=== PATIENT | male | born 1950 | race African-American/Black ===

== ENCOUNTER 2018-05-14 09:38 | Day surgery (SDC) | payer OTHER ==
--- OUTSIDE RECORDS SUMMARY | 2018-05-14 09:42 | XMS REPORT | Clinical Summary ---
:1950 Author Organization [facility] Address [address] [place] [address] Care Team Providers Name Role Phone Mahin Patino DO Primary Care Provider Allergies No Known Allergies Medications Medication Sig Dispensed Refills Start Date End Date Status aspirin (ECOTRIN) 81 MG Take 81 mg by 0 Active enteric coated tablet mouth daily. lisinopril-hydrochlorot Take 1 tablet by 0 Active hiazide mouth daily. (PRINZIDE,ZESTORETIC) 20-25 mg per tablet tamsulosin (FLOMAX) 0.4 Take 0.4 mg by 0 Active mg capsule,extended mouth daily. release 24hr atorvastatin (LIPITOR) Take 10 mg by 0 Active 10 MG tablet mouth daily. metFORMIN (GLUCOPHAGE) Take 500 mg by 0 Active 500 MG tablet mouth 2 (two) times a day with meals. amLODIPine (NORVASC) 10 Take 10 mg by 0 Active MG tablet mouth daily as needed. Active Problems Problem Noted Date Mediastinal adenopathy 02/29/2016 Urinary retention due to benign prostatic hyperplasia 02/10/2016 Family History Medical History Relation Name Comments Cancer Father Cancer Mother Relation Name Status Comments Father Mother Social History Tobacco Use Types Packs/Day Years Used Date Never Smoker Alcohol Use Drinks/Week oz/Week Comments Yes socially Sex Assigned at Date Recorded Not on file Job Start Date Occupation Industry Not on file Not on file Not on file Travel History Travel Start Travel End No recent travel history available. Last Filed Vital Signs Not on file Plan of Treatment Health Maintenance Due Date Last Done Comments COLON CANCER SCREENING 2000 SHINGLES VACCINES (1 of 2) 2000 PNEUMOCOCCAL POLYSACCHARIDE VACCINE AGE 65 AND OVER 2015 PNEUMOCOCCAL-13 2015 INFLUENZA VACCINE 11/01/2017 Results Not on fileafter 05/13/2017 Insurance Payer Benefit Plan / Group Subscriber ID Type Phone Address UHC MEDICARE [employer] MEDICARE xxxxxxxxx HMO Advance Directives Patient has advance care planning documents, and code status on file. For more information, please contact:Jovani Melo[address] [place] [address] Code Status Date Activated Date Inactivated Comments Full Code 02/10/2016 12:03 AM 02/10/2016 7:56 PM Code Status decision reached by: Patient
--- OUTSIDE RECORDS SUMMARY | 2018-05-14 09:43 | XMS REPORT ---
:1950 Author Organization [facility] Address [address] [place] [address] [address] [place] [address] Care Team Providers Name Role Phone BARBARA VENEGAS Unavailable Unavailable Problems This patient has no known problems. Allergies, Adverse Reactions, Alerts This patient has no known allergies or adverse reactions. Medications This patient has no known medications. Results Test Description Test Time Test Comments Text Results Atomic Results Result Comments CBC W/PLT COUNT & AUTO DIFFERENTIAL 2016-10-07 07:56:00 Test Item Value Reference Range Comments WHITE BLOOD CELL COUNT (BEAKER) (test xksc=371) 6.4 K/ L 4.0-10.0 RED BLOOD CELL COUNT (BEAKER) (test wldi=021) 3.43 M/ L 4.20-5.80 HEMOGLOBIN (BEAKER) (test pgia=139) 8.3 GM/DL 13.0-16.8 HEMATOCRIT (BEAKER) (test pzef=865) 27.7 % 40.0-50.0 MEAN CORPUSCULAR VOLUME (BEAKER) (test sbhn=786) 81.0 fL 82.0-98.0 MEAN CORPUSCULAR HEMOGLOBIN (BEAKER) (test gmzx=962) 24.1 pg 27.0-33.0 MEAN CORPUSCULAR HEMOGLOBIN CONC (BEAKER) (test cdoo=556) 29.7 GM/DL 32.0- 36.0 RED CELL DISTRIBUTION WIDTH (BEAKER) (test moyx=609) 20.7 % 10.3-14.2 PLATELET COUNT (BEAKER) (test kcvt=610) 269 K/CU MM 150-430 MEAN PLATELET VOLUME (BEAKER) (test lgir=066) 9.4 fL 6.5-10.5 NUCLEATED RED BLOOD CELLS (BEAKER) (test cpyc=798) 0 /100 WBC 0-0 NEUTROPHILS RELATIVE PERCENT (BEAKER) (test erzr=760) 43 % LYMPHOCYTES RELATIVE PERCENT (BEAKER) (test kbvw=223) 36 % MONOCYTES RELATIVE PERCENT (BEAKER) (test ldnj=408) 8 % EOSINOPHILS RELATIVE PERCENT (BEAKER) (test enur=930) 13 % BASOPHILS RELATIVE PERCENT (BEAKER) (test hckm=643) 0 % NEUTROPHILS ABSOLUTE COUNT (BEAKER) (test evpl=590) 2.72 K/ L 1.80-8.00 LYMPHOCYTES ABSOLUTE COUNT (BEAKER) (test xuqo=181) 2.26 K/ L 1.48-4.50 MONOCYTES ABSOLUTE COUNT (BEAKER) (test wfwk=130) 0.51 K/ L 0.00-1.30 EOSINOPHILS ABSOLUTE COUNT (BEAKER) (test nilz=232) 0.85 K/ L 0.00-0.50 BASOPHILS ABSOLUTE COUNT (BEAKER) (test tcpi=242) 0.02 K/ L 0.00-0.20 0.00POCT-GLUCOSE [id number] 07:47:00 Test Item Value Reference Range Comments POC-GLUCOSE METER (BEAKER) 96 mg/dL 70-110 TESTED AT [address] (test tkuy=1175) [facility] [address] BASIC METABOLIC [id number] 06:30:00 Test Item Value Reference Range Comments SODIUM (BEAKER) (test 147 meq/L 136-145 ugij=977) POTASSIUM (BEAKER) (test 3.6 meq/L 3.5-5.1 xzqc=002) CHLORIDE (BEAKER) (test 111 meq/L 98-107 qufx=540) CO2 (BEAKER) (test 28 meq/L 22-29 huzm=317) BLOOD UREA NITROGEN 4 mg/dL 7-21 (BEAKER) (test opld=160) CREATININE (BEAKER) (test 0.85 mg/dL 0.57-1.25 zqsg=815) GLUCOSE RANDOM (BEAKER) 87 mg/dL 70-105 (test zuwl=492) CALCIUM (BEAKER) (test 8.8 mg/dL 8.4-10.2 uvqa=587) EGFR (BEAKER) (test 109 mL/min/1.73 sq m ESTIMATED GFR IS NOT dvef=9002) ACCURATE CREATININE CLEARANCE IN PREDICTING GLOMERULAR FILTRATION RATE. ESTIMATED GFR IS NOT APPLICABLE FOR DIALYSIS PATIENTS. [id number] 06:19:00 Test Item Value Reference Range Comments PROTIME (BEAKER) (test ehvc=863) 14.8 seconds 11.7-14.7 INR (BEAKER) (test xixd=610) 1.2 <=5.9 PARTIAL THROMBOPLASTIN TIME (BEAKER) (test 43.7 seconds 22.5-36.0 zweh=607) RECOMMENDED COUMADIN/WARFARIN INR THERAPY RANGESSTANDARD DOSE: 2.0 - 3.0 Includes: PROPHYLAXIS forvenous thrombosis, systemic embolization; TREATMENT for venous thrombosis and/or pulmonary embolus.HIGH RISK: Target INR is 2.5-3.5 for patients with mechanical heart valves.PROTHROMBIN [id number] 06:18: 00 Test Item Value Reference Range Comments PROTIME (BEAKER) (test oaiw=068) 14.8 seconds 11.7-14.7 INR (BEAKER) (test liyh=570) 1.2 <=5.9 RECOMMENDED COUMADIN/WARFARIN INR THERAPY RANGESSTANDARD DOSE: 2.0 - 3.0 Includes: PROPHYLAXIS forvenous thrombosis, systemic embolization; TREATMENT for venous thrombosis and/or pulmonary embolus.HIGH RISK: Target INR is 2.5-3.5 for patients with mechanical heart valves.POCT-GLUCOSE [id number] 21:11:00 Test Item Value Reference Range Comments POC-GLUCOSE METER (BEAKER) 123 mg/dL 70-110 TESTED AT [address] (test qjyd=2363) [place] [address] POCT-GLUCOSE [id number] 17:40:00 Test Item Value Reference Range Comments POC-GLUCOSE METER (BEAKER) 123 mg/dL 70-110 TESTED AT [address] (test vuzw=6712) [place] [address] OCCULT BLOOD, [id number] 14:01:00 Test Item Value Reference Range Comments FECAL OCCULT BLOOD (BEAKER) (test hzli=908) Negative Negative POCT-GLUCOSE [id number] 12:37:00 Test Item Value Reference Range Comments POC-GLUCOSE METER (BEAKER) 120 mg/dL 70-110 TESTED AT [address] (test qjza=3407) [place] [address] POCT-GLUCOSE [id number] 07:47:00 Test Item Value Reference Range Comments POC-GLUCOSE METER (BEAKER) 100 mg/dL 70-110 TESTED AT [facility] [address] (test zevp=4821) [facility] [address] [id number] 04:10:00 Test Item Value Reference Range Comments PHOSPHORUS (BEAKER) (test aotj=412) 4.2 mg/dL 2.3-4.7 [id number] 04:10:00 Test Item Value Reference Range Comments MAGNESIUM (BEAKER) (test epzl=932) 1.7 mg/dL 1.6-2.6 BASIC METABOLIC [id number] 04:10:00 Test Item Value Reference Range Comments SODIUM (BEAKER) (test 146 meq/L 136-145 gegg=280) POTASSIUM (BEAKER) (test 3.5 meq/L 3.5-5.1 qdbf=991) CHLORIDE (BEAKER) (test 110 meq/L 98-107 isrm=038) CO2 (BEAKER) (test 29 meq/L 22-29 sbwc=288) BLOOD UREA NITROGEN 3 mg/dL 7-21 (BEAKER) (test mlaa=489) CREATININE (BEAKER) (test 0.84 mg/dL 0.57-1.25 mela=932) GLUCOSE RANDOM (BEAKER) 99 mg/dL 70-105 (test ryiq=182) CALCIUM (BEAKER) (test 8.6 mg/dL 8.4-10.2 qpyh=546) EGFR (BEAKER) (test 111 mL/min/1.73 sq m ESTIMATED GFR IS NOT omih=5778) ACCURATE CREATININE CLEARANCE IN PREDICTING GLOMERULAR FILTRATION RATE. ESTIMATED GFR IS NOT APPLICABLE FOR DIALYSIS PATIENTS. HEPATIC FUNCTION [id number] 04:10:00 Test Item Value Reference Range Comments TOTAL PROTEIN (BEAKER) (test awod=316) 5.5 gm/dL 6.0-8.3 ALBUMIN (BEAKER) (test pijt=5004) 2.5 g/dL 3.5-5.0 BILIRUBIN TOTAL (BEAKER) (test wdjk=736) 0.1 mg/dL 0.2-1.2 BILIRUBIN DIRECT (BEAKER) (test pqbh=770) 0.1 mg/dL 0.1-0.5 ALKALINE PHOSPHATASE (BEAKER) (test ozse=105) 54 U/L 40-150 AST (SGOT) (BEAKER) (test dwrj=019) 25 U/L 5-34 ALT (SGPT) (BEAKER) (test fjoe=837) 15 U/L 6-55 [id number] 04:03:00 Test Item Value Reference Range Comments PROTIME (BEAKER) (test jtpi=146) 14.0 seconds 11.7-14.7 INR (BEAKER) (test oazi=061) 1.1 <=5.9 PARTIAL THROMBOPLASTIN TIME (BEAKER) (test 70.7 seconds 22.5-36.0 hgab=027) RECOMMENDED COUMADIN/WARFARIN INR THERAPY RANGESSTANDARD DOSE: 2.0 - 3.0 Includes: PROPHYLAXIS forvenous thrombosis, systemic embolization; TREATMENT for venous thrombosis and/or pulmonary embolus.HIGH RISK: Target INR is 2.5-3.5 for patients with mechanical heart valves.[id number] 04:03:00 Test Item Value Reference Range Comments PARTIAL THROMBOPLASTIN TIME (BEAKER) (test 70.7 seconds 22.5-36.0 jfke=088) PROTHROMBIN [id number] 04:02:00 Test Item Value Reference Range Comments PROTIME (BEAKER) (test lqpz=460) 14.0 seconds 11.7-14.7 INR (BEAKER) (test twir=637) 1.1 <=5.9 RECOMMENDED COUMADIN/WARFARIN INR THERAPY RANGESSTANDARD DOSE: 2.0 - 3.0 Includes: PROPHYLAXIS forvenous thrombosis, systemic embolization; TREATMENT for venous thrombosis and/or pulmonary embolus.HIGH RISK: Target INR is 2.5-3.5 for patients with mechanical heart valves.CBC W/PLT COUNT & AUTO [id number] 03:57:00 Test Item Value Reference Range Comments WHITE BLOOD CELL COUNT (BEAKER) (test gvsw=053) 6.8 K/ L 4.0-10.0 RED BLOOD CELL COUNT (BEAKER) (test cvif=953) 3.32 M/ L 4.20-5.80 HEMOGLOBIN (BEAKER) (test uydy=346) 8.2 GM/DL 13.0-16.8 HEMATOCRIT (BEAKER) (test kwvy=062) 27.0 % 40.0-50.0 MEAN CORPUSCULAR VOLUME (BEAKER) (test rxzs=532) 81.3 fL 82.0-98.0 MEAN CORPUSCULAR HEMOGLOBIN (BEAKER) (test 24.5 pg 27.0-33.0 ihqq=683) MEAN CORPUSCULAR HEMOGLOBIN CONC (BEAKER) (test 30.2 GM/DL 32.0-36.0 rfdq=764) RED CELL DISTRIBUTION WIDTH (BEAKER) (test 20.4 % 10.3-14.2 teou=237) PLATELET COUNT (BEAKER) (test ozjb=247) 272 K/CU MM 150-430 MEAN PLATELET VOLUME (BEAKER) (test yipx=463) 9.0 fL 6.5-10.5 NUCLEATED RED BLOOD CELLS (BEAKER) (test 0 /100 WBC 0-0 uxka=214) NEUTROPHILS RELATIVE PERCENT (BEAKER) (test 37 % rwqd=528) LYMPHOCYTES RELATIVE PERCENT (BEAKER) (test 41 % tduy=393) MONOCYTES RELATIVE PERCENT (BEAKER) (test 10 % pkhg=713) EOSINOPHILS RELATIVE PERCENT (BEAKER) (test 12 % lddq=785) BASOPHILS RELATIVE PERCENT (BEAKER) (test 1 % aziw=103) NEUTROPHILS ABSOLUTE COUNT (BEAKER) (test 2.50 K/ L 1.80-8.00 prdj=063) LYMPHOCYTES ABSOLUTE COUNT (BEAKER) (test 2.80 K/ L 1.48-4.50 uleh=931) MONOCYTES ABSOLUTE COUNT (BEAKER) (test 0.69 K/ L 0.00-1.30 rwjy=044) EOSINOPHILS ABSOLUTE COUNT (BEAKER) (test 0.79 K/ L 0.00-0.50 ytuc=361) BASOPHILS ABSOLUTE COUNT (BEAKER) (test 0.05 K/ L 0.00-0.20 myat=183) 0.00POCT-GLUCOSE [id number] 22:16:00 Test Item Value Reference Range Comments POC-GLUCOSE METER (BEAKER) 115 mg/dL 70-110 TESTED AT [facility] [address] (test uuqw=3676) [facility] [address] [id number] 21:09:00 Test Item Value Reference Range Comments PARTIAL THROMBOPLASTIN TIME (BEAKER) (test 65.3 seconds 22.5-36.0 bwnx=551) POCT-GLUCOSE [id number] 17:35:00 Test Item Value Reference Range Comments POC-GLUCOSE METER (BEAKER) 103 mg/dL 70-110 TESTED AT [facility] [address] (test yuat=0779) [facility] [address] PERIPHERAL BLOOD SMEAR - PATHOLOGIST [id number] 15:13:00 Test Item Value Reference Range Comments RBC MORPHOLOGY Marked (BEAKER) (test anisopoikilocytosis, xugn=9243) including elliptocytes and few target cells. Red cells are hypochromic with microcytic indices. WBC MORPHOLOGY Hypersegmented (BEAKER) (test neutrophils. uvdh=6886) PLT MORPHOLOGY Unremarkable (BEAKER) (test umwv=8707) PERIPHERAL SMR REVIEW Iron studies are (BEAKER) (test recommended for complete xvih=9371) evaluation of this patient's anemia. [id number] Sabrina (BEAKER) (test Andrea-Voorbeijtel, vxhp=7923) Amanda (electronic signature) OCCULT BLOOD, [id number] 12:57:00 Test Item Value Reference Range Comments FECAL OCCULT BLOOD (BEAKER) (test ftkc=716) Negative Negative POCT-GLUCOSE [id number] 11:54:00 Test Item Value Reference Range Comments POC-GLUCOSE METER (BEAKER) 82 mg/dL 70-110 TESTED AT [place] [id number] [facility] (test qzyv=8916) [place] [address] [id number] 11:50:00 Test Item Value Reference Range Comments PARTIAL THROMBOPLASTIN TIME (BEAKER) (test 41.0 seconds 22.5-36.0 bfdo=521) Prior to initiating heparinCBC (HEMOGRAM ONLY)2016-10-05 11:43:00 Test Item Value Reference Range Comments WHITE BLOOD CELL COUNT (BEAKER) (test vtoo=723) 6.1 K/ L 4.0-10.0 RED BLOOD CELL COUNT (BEAKER) (test nvil=560) 3.39 M/ L 4.20-5.80 HEMOGLOBIN (BEAKER) (test ddgi=674) 8.4 GM/DL 13.0-16.8 HEMATOCRIT (BEAKER) (test anql=237) 27.5 % 40.0-50.0 MEAN CORPUSCULAR VOLUME (BEAKER) (test jkdy=590) 81.0 fL 82.0-98.0 MEAN CORPUSCULAR HEMOGLOBIN (BEAKER) (test 24.8 pg 27.0-33.0 kzbd=000) MEAN CORPUSCULAR HEMOGLOBIN CONC (BEAKER) (test 30.7 GM/DL 32.0-36.0 niwz=892) RED CELL DISTRIBUTION WIDTH (BEAKER) (test 21.8 % 10.3-14.2 wnxt=991) PLATELET COUNT (BEAKER) (test isjr=658) 275 K/CU MM 150-430 MEAN PLATELET VOLUME (BEAKER) (test kkru=852) 8.9 fL 6.5-10.5 NUCLEATED RED BLOOD CELLS (BEAKER) (test 0 /100 WBC 0-0 wanv=252) 0.00POCT-GLUCOSE [id number] 08:03:00 Test Item Value Reference Range Comments POC-GLUCOSE METER (BEAKER) 96 mg/dL 70-110 TESTED AT [facility] [address] (test iann=2466) [facility] [address] HEMOGLOBIN [id number] 08:02:00 Test Item Value Reference Range Comments HEMOGLOBIN A1C (BEAKER) (test oczi=175) 6.5 % 4.3-6.1 [id number] 04:21:00 Test Item Value Reference Range Comments PROTIME (BEAKER) (test mzhf=180) 15.2 seconds 11.7-14.7 INR (BEAKER) (test bngf=729) 1.2 <=5.9 PARTIAL THROMBOPLASTIN TIME (BEAKER) (test 41.8 seconds 22.5-36.0 fqyb=461) RECOMMENDED COUMADIN/WARFARIN INR THERAPY RANGESSTANDARD DOSE: 2.0 - 3.0 Includes: PROPHYLAXIS forvenous thrombosis, systemic embolization; TREATMENT for venous thrombosis and/or pulmonary embolus.HIGH RISK: Target INR is 2.5-3.5 for patients with mechanical heart valves.[id number] 04:21:00 Test Item Value Reference Range Comments PHOSPHORUS (BEAKER) (test lhbd=269) 3.8 mg/dL 2.3-4.7 [id number] 04:21:00 Test Item Value Reference Range Comments MAGNESIUM (BEAKER) (test gdxi=362) 1.6 mg/dL 1.6-2.6 BASIC METABOLIC [id number] 04:21:00 Test Item Value Reference Range Comments SODIUM (BEAKER) (test 144 meq/L 136-145 pjrq=166) POTASSIUM (BEAKER) (test 3.7 meq/L 3.5-5.1 nwoi=326) CHLORIDE (BEAKER) (test 109 meq/L 98-107 lmoj=747) CO2 (BEAKER) (test 27 meq/L 22-29 ucps=841) BLOOD UREA NITROGEN 3 mg/dL 7-21 (BEAKER) (test zymk=568) CREATININE (BEAKER) (test 0.88 mg/dL 0.57-1.25 cfjx=382) GLUCOSE RANDOM (BEAKER) 109 mg/dL 70-105 (test rnmo=727) CALCIUM (BEAKER) (test 9.1 mg/dL 8.4-10.2 lcxb=987) EGFR (BEAKER) (test 105 mL/min/1.73 sq m ESTIMATED GFR IS NOT xqqn=6568) ACCURATE CREATININE CLEARANCE IN PREDICTING GLOMERULAR FILTRATION RATE. ESTIMATED GFR IS NOT APPLICABLE FOR DIALYSIS PATIENTS. HEPATIC FUNCTION [id number] 04:21:00 Test Item Value Reference Range Comments TOTAL PROTEIN (BEAKER) (test ttqt=441) 6.2 gm/dL 6.0-8.3 ALBUMIN (BEAKER) (test nvwe=7288) 2.8 g/dL 3.5-5.0 BILIRUBIN TOTAL (BEAKER) (test uien=151) 0.2 mg/dL 0.2-1.2 BILIRUBIN DIRECT (BEAKER) (test ctbp=536) 0.1 mg/dL 0.1-0.5 ALKALINE PHOSPHATASE (BEAKER) (test crji=671) 65 U/L 40-150 AST (SGOT) (BEAKER) (test gboq=613) 18 U/L 5-34 ALT (SGPT) (BEAKER) (test sfrz=036) 13 U/L 6-55 PROTHROMBIN [id number] 04:20:00 Test Item Value Reference Range Comments PROTIME (BEAKER) (test wfcu=487) 15.2 seconds 11.7-14.7 INR (BEAKER) (test pade=874) 1.2 <=5.9 RECOMMENDED COUMADIN/WARFARIN INR THERAPY RANGESSTANDARD DOSE: 2.0 - 3.0 Includes: PROPHYLAXIS forvenous thrombosis, systemic embolization; TREATMENT for venous thrombosis and/or pulmonary embolus.HIGH RISK: Target INR is 2.5-3.5 for patients with mechanical heart valves.CBC W/PLT COUNT & AUTO [id number] 04:09:00 Test Item Value Reference Range Comments WHITE BLOOD CELL COUNT (BEAKER) (test oumu=757) 6.9 K/ L 4.0-10.0 RED BLOOD CELL COUNT (BEAKER) (test diik=357) 3.65 M/ L 4.20-5.80 HEMOGLOBIN (BEAKER) (test eufo=274) 8.9 GM/DL 13.0-16.8 HEMATOCRIT (BEAKER) (test zwzp=890) 29.5 % 40.0-50.0 MEAN CORPUSCULAR VOLUME (BEAKER) (test juuk=708) 80.9 fL 82.0-98.0 MEAN CORPUSCULAR HEMOGLOBIN (BEAKER) (test 24.4 pg 27.0-33.0 jlbb=372) MEAN CORPUSCULAR HEMOGLOBIN CONC (BEAKER) (test 30.1 GM/DL 32.0-36.0 nryu=560) RED CELL DISTRIBUTION WIDTH (BEAKER) (test 21.9 % 10.3-14.2 qotd=986) PLATELET COUNT (BEAKER) (test zxam=459) 295 K/CU MM 150-430 MEAN PLATELET VOLUME (BEAKER) (test qyhn=957) 8.8 fL 6.5-10.5 NUCLEATED RED BLOOD CELLS (BEAKER) (test 0 /100 WBC 0-0 omyx=962) NEUTROPHILS RELATIVE PERCENT (BEAKER) (test 44 % mbjk=687) LYMPHOCYTES RELATIVE PERCENT (BEAKER) (test 35 % kinz=888) MONOCYTES RELATIVE PERCENT (BEAKER) (test 10 % pggr=230) EOSINOPHILS RELATIVE PERCENT (BEAKER) (test 10 % dsnu=870) BASOPHILS RELATIVE PERCENT (BEAKER) (test 1 % otij=746) NEUTROPHILS ABSOLUTE COUNT (BEAKER) (test 3.00 K/ L 1.80-8.00 eltm=994) LYMPHOCYTES ABSOLUTE COUNT (BEAKER) (test 2.40 K/ L 1.48-4.50 pydd=209) MONOCYTES ABSOLUTE COUNT (BEAKER) (test 0.71 K/ L 0.00-1.30 wlzi=403) EOSINOPHILS ABSOLUTE COUNT (BEAKER) (test 0.72 K/ L 0.00-0.50 clqo=023) BASOPHILS ABSOLUTE COUNT (BEAKER) (test 0.05 K/ L 0.00-0.20 fnwt=405) [id number] 02:36:00 Test Item Value Reference Range Comments FERRITIN (BEAKER) (test eddq=593) 2576 ng/mL 5-275 Effective 02/18/2014: Reference Range ChangeNew: Male 5-275 Previous: Male 22-322 Female 5-275 Female [id number] 02:30 :00 Test Item Value Reference Range Comments HAPTOGLOBIN (BEAKER) (test hczn=264) 242 mg/dL 14-258 Effective 02/18/2014: Reference Range ChangeNew: 14-258 Previous: 36- 195VITAMIN [id number] 01:42:00 Test Item Value Reference Range Comments VITAMIN B12 (BEAKER) (test avsd=439) 1077 pg/mL 213-816 FOLATE, [id number] 01:42:00 Test Item Value Reference Range Comments FOLATE (BEAKER) (test pewk=311) 5.5 ng/mL >=7.0 Effective 02/18/2014: Folate Reference Range ChangeNew: >=7.0 Previous: & gt;=5.4IRON, TIBC, % SAT. (WITHOUT FERRITIN)2016-10-05 01:07:00 Test Item Value Reference Range Comments IRON (BEAKER) (test cfyg=741) 19 ug/dL 40-160 TOTAL IRON BINDING CAPACITY (BEAKER) (test 113 ug/dL 250-450 wkop=211) IRON % SATURATION (2) (BEAKER) (test lrlh=8779) 17 % 20-55 (MANUAL DIFFERENTIAL)2016-10-04 23:25:00 Test Item Value Reference Range Comments NEUTROPHILS - REL (DIFF) (BEAKER) (test 49 % pqmu=5645) LYMPHOCYTES - REL (DIFF) (BEAKER) (test 30 % erym=8296) MONOCYTES - REL (DIFF) (BEAKER) (test ngdz=5808) 8 % EOSINOPHILS - REL (DIFF) (BEAKER) (test 12 % pokp=8093) BASOPHILS - REL (DIFF) (BEAKER) (test fhqe=4032) 1 % NEUTROPHILS - ABS (DIFF) (BEAKER) (test 3.53 K/ L 1.80-8.00 ibwt=1181) LYMPHOCYTES - ABS (DIFF) (BEAKER) (test 2.16 K/ L 1.48-4.50 lqoa=2463) MONOCYTES - ABS (DIFF) (BEAKER) (test vkap=6764) 0.58 K/ L 0.00-1.30 EOSINOPHILS - ABS (DIFF) (BEAKER) (test 0.86 K/ L 0.00-0.50 ayaa=1215) BASOPHILS - ABS (DIFF) (BEAKER) (test eefn=1018) 0.07 K/ L 0.00-0.20 TOTAL COUNTED (BEAKER) (test lfdc=1810) 100 VACUOLATED NEUTROPHILS (BEAKER) (test zcpg=438) Present GIANT PLATELETS (BEAKER) (test fpmk=164) Present SCHISTOCYTES (BEAKER) (test tbld=843) 1+ few ANISOCYTOSIS (BEAKER) (test qziw=952) 1+ few ELLIPTOCYTES (BEAKER) (test agwi=498) 1+ few HYPOCHROMIA (BEAKER) (test thhe=481) 2+ moderate POIKILOCYTES (BEAKER) (test bmjs=745) 2+ moderate POLYCHROMATOPHILLIC RBCS(BEAKER) (test coqv=872) 1+ few SPHEROCYTES (BEAKER) (test lbit=783) 1+ few TARGET CELLS (BEAKER) (test tguo=612) 1+ few [id number] 23:12:00 Test Item Value Reference Range Comments PHOSPHORUS (BEAKER) (test bpcd=162) 3.5 mg/dL 2.3-4.7 [id number] 23:12:00 Test Item Value Reference Range Comments MAGNESIUM (BEAKER) (test bewj=853) 1.5 mg/dL 1.6-2.6 COMPREHENSIVE METABOLIC [id number] 23:12:00 Test Item Value Reference Range Comments TOTAL PROTEIN (BEAKER) 6.4 gm/dL 6.0-8.3 (test cqea=081) ALBUMIN (BEAKER) (test 2.9 g/dL 3.5-5.0 ugze=3654) ALKALINE PHOSPHATASE 67 U/L 40-150 (BEAKER) (test phtp=175) BILIRUBIN TOTAL (BEAKER) 0.2 mg/dL 0.2-1.2 (test drbe=079) SODIUM (BEAKER) (test 143 meq/L 136-145 xhuc=311) POTASSIUM (BEAKER) (test 3.8 meq/L 3.5-5.1 enxa=354) CHLORIDE (BEAKER) (test 108 meq/L 98-107 tvph=225) CO2 (BEAKER) (test 27 meq/L 22-29 uibi=684) BLOOD UREA NITROGEN 3 mg/dL 7-21 (BEAKER) (test ksdn=017) CREATININE (BEAKER) (test 1.00 mg/dL 0.57-1.25 ijfa=695) GLUCOSE RANDOM (BEAKER) 123 mg/dL 70-105 (test qdrp=711) CALCIUM (BEAKER) (test 8.8 mg/dL 8.4-10.2 jqxl=554) AST (SGOT) (BEAKER) (test 16 U/L 5-34 fyfu=034) ALT (SGPT) (BEAKER) (test 16 U/L 6-55 bnyr=268) EGFR (BEAKER) (test 91 mL/min/1.73 sq m ESTIMATED GFR IS NOT ixud=4099) ACCURATE CREATININE CLEARANCE IN PREDICTING GLOMERULAR FILTRATION RATE. ESTIMATED GFR IS NOT APPLICABLE FOR DIALYSIS PATIENTS. LACTATE DEHYDROGENASE (LDH)2016-10-04 23:12:00 Test Item Value Reference Range Comments LACTATE DEHYDROGENASE (BEAKER) (test pjxz=230) 205 U/L 125-220 RETICULOCYTE [id number] 23:09:00 Test Item Value Reference Range Comments RETICULOCYTE COUNT PCT (BEAKER) (test ypai=706) 2.5 % 0.4-2.9 CBC W/PLT COUNT & AUTO [id number] 23:09:00 Test Item Value Reference Range Comments WHITE BLOOD CELL COUNT (BEAKER) (test hbnq=031) 7.2 K/ L 4.0-10.0 RED BLOOD CELL COUNT (BEAKER) (test njdh=815) 3.79 M/ L 4.20-5.80 HEMOGLOBIN (BEAKER) (test jwup=876) 9.1 GM/DL 13.0-16.8 HEMATOCRIT (BEAKER) (test xbkq=552) 30.6 % 40.0-50.0 MEAN CORPUSCULAR VOLUME (BEAKER) (test faoz=235) 80.7 fL 82.0-98.0 MEAN CORPUSCULAR HEMOGLOBIN (BEAKER) (test 24.1 pg 27.0-33.0 qooe=055) MEAN CORPUSCULAR HEMOGLOBIN CONC (BEAKER) (test 29.9 GM/DL 32.0-36.0 gkgg=848) RED CELL DISTRIBUTION WIDTH (BEAKER) (test 21.6 % 10.3-14.2 dacy=246) PLATELET COUNT (BEAKER) (test cusk=696) 313 K/CU MM 150-430 MEAN PLATELET VOLUME (BEAKER) (test nbnx=627) 9.0 fL 6.5-10.5 NUCLEATED RED BLOOD CELLS (BEAKER) (test 0 /100 WBC 0-0 pabs=120) NEUTROPHILS RELATIVE PERCENT (BEAKER) (test 47 % wnjo=468) LYMPHOCYTES RELATIVE PERCENT (BEAKER) (test 33 % ovci=083) MONOCYTES RELATIVE PERCENT (BEAKER) (test 10 % zhwv=484) EOSINOPHILS RELATIVE PERCENT (BEAKER) (test 9 % zmux=752) BASOPHILS RELATIVE PERCENT (BEAKER) (test 1 % ahea=616) NEUTROPHILS ABSOLUTE COUNT (BEAKER) (test 3.38 K/ L 1.80-8.00 pvfr=536) LYMPHOCYTES ABSOLUTE COUNT (BEAKER) (test 2.38 K/ L 1.48-4.50 hjnc=978) MONOCYTES ABSOLUTE COUNT (BEAKER) (test 0.70 K/ L 0.00-1.30 oneh=178) EOSINOPHILS ABSOLUTE COUNT (BEAKER) (test 0.63 K/ L 0.00-0.50 zfcb=065) BASOPHILS ABSOLUTE COUNT (BEAKER) (test 0.06 K/ L 0.00-0.20 vugj=196) POCT-GLUCOSE [id number] 22:56:00 Test Item Value Reference Range Comments POC-GLUCOSE METER (BEAKER) 155 mg/dL 70-110 TESTED AT [address] (test gqqd=8868) [place] [id number] POCT-GLUCOSE [id number] 17:39:00 Test Item Value Reference Range Comments POC-GLUCOSE METER (BEAKER) 106 mg/dL 70-110 TESTED AT [address] (test pfzj=9142) [place] [id number]
--- OUTSIDE RECORDS SUMMARY | 2018-05-14 09:43 | XMS REPORT | Clinical Summary ---
:1950 Author Organization [facility] Address [address] [place] [address] Care Team Providers Name Role Phone Mahin Patino Primary Care Provider Allergies No Known Allergies Medications Medication Sig Dispensed Refills Start Date End Date Status amLODIPine (NORVASC) 5 Take 10 mg by 0 Active MG tablet mouth daily as needed. lisinopril-hydroCHLOROt Take 1 tablet by 0 Active hiazide mouth daily. (PRINZIDE,ZESTORETIC) 20-12.5 mg per tablet metFORMIN Take 1,000 mg by 0 Active (GLUCOPHAGE-XR) 500 MG mouth 2 (two) 24 hr tablet times daily. tamsulosin (FLOMAX) 0.4 Take 0.4 mg by 0 Active mg Cp24 24 hr capsule mouth 2 (two) times daily. traMADol (ULTRAM) 50 mg Take 50 mg by 0 Active tablet mouth every 6 (six) hours as needed for Pain. atorvastatin (LIPITOR) Take 10 mg by 0 Active 10 MG tablet mouth. Active Problems Problem Noted Date Hypernatremia 10/06/2016 Acute deep vein thrombosis (DVT) of proximal vein of right lower extremity 08/2016 Anemia, unspecified 10/05/2016 Benign hypertension 10/05/2016 Hyperlipidemia, unspecified 10/05/2016 Hodgkin lymphoma 10/05/2016 Type 2 diabetes mellitus with complication, without long-term current use 08/2016 of insulin BPH (benign prostatic hyperplasia) 10/05/2016 Obesity (BMI 30-39.9) 10/05/2016 Hypoalbuminemia 10/05/2016 Hypomagnesemia 10/05/2016 Folic acid deficiency 10/05/2016 Moderate protein-calorie malnutrition 10/05/2016 S/P cholecystectomy 10/05/2016 History of pulmonary embolism 10/04/2016 Family History Medical History Relation Name Comments Cancer Father Relation Name Status Comments Father Social History Tobacco Use Types Packs/Day Years Used Date Never Smoker Alcohol Use Drinks/Week oz/Week Comments No Sex Assigned at Date Recorded Not on file Job Start Date Occupation Industry Not on file Not on file Not on file Travel History Travel Start Travel End No recent travel history available. Last Filed Vital Signs Not on file Plan of Treatment Not on file Results Not on fileafter 05/13/2017 Insurance Payer Benefit Plan / Group Subscriber ID Type Phone Address CARE IMPROVEMENT MEDICARE MGD CARE IMPROVEMENT PLUS xxxxxxxxx CARE Advance Directives For more information, please contact:[address] [phone] Code Status Date Activated Date Inactivated Comments Full Code 10/04/2016 8:26 PM 10/07/2016 4:40 PM This code status was determined by: Patient
[2018-05-14] MEDS ORDERED: NA CHLORIDE 0.9% 500 ML ONE (10:06)
[2018-05-14] MEDS ORDERED: CYCLOPENTOLATE 1% OPTH 2 ML ONE (10:06)
[2018-05-14] MEDS ORDERED: PHENYLEPHRINE 10% OPTH 5ML ONE (10:06)
[2018-05-14] MEDS ORDERED: CYCLOPENTOLATE 1% OPTH 2 ML OPTH ONE ×2 (10:16→10:26)
[2018-05-14] MEDS ORDERED: PHENYLEPHRINE 10% OPTH 5ML OPTH ONE ×2 (10:16→10:26)
[2018-05-14] MEDS: TETRACAINE HCL 0.5% 2ML OPTH ONE ×2 (10:30→11:31)
[2018-05-14] MEDS: BUPIVACAINE 0.25% PF 10 ML VIAL ONE ×2 (10:30→11:31)
[2018-05-14] MEDS: LIDOCAINE 2% MPF 5 ML VIAL ONE ×2 (10:31→11:31)
[2018-05-14] MEDS ORDERED: NS 0.9% VIAL 10 ML ONE (10:50)
[2018-05-14] MEDS ORDERED: BALANCED SALT IRRIG PLAIN 500 ML BTL IRR ONE (10:50)
[2018-05-14] MEDS ORDERED: EPINEPHRINE/PF 1 MG/ML AMP ONE ×2 (10:50→10:51)
[2018-05-14] MEDS ORDERED: DUOVISC 1 KIT OPTH ONE (10:50)
[2018-05-14] MEDS ORDERED: PROPOFOL 200 MG/20 ML VIAL IV ONE (11:14)
[2018-05-14] MEDS: MOXIFLOXACIN HCL 10 DROPS/ML **OR USE OPTH ONE ×2 (11:50→12:08)
--- NOTE | 2018-05-14 12:25 | P.BOP ---
Preoperative diagnosis: Nuclear sclerotic, cortical, anterior and posterior subcapsular cataract OS Postoperative diagnosis: Same Primary procedure: Phacoemulsification with IOL OS Estimated blood loss: None Anesthesia: Local (Subtenon's infusion with anesthesia for cataract surgery) Complications: None Implants: SN60WF +19.5 Transferred to: Other (Day surgery) Condition: Good
[2018-05-14] MEDS ORDERED: HEPARIN 500 UNIT/5 ML SYR IV ONE (12:51)
[2018-05-14 12:53] VITALS: BP 114/75; TEMP 96.9; O2SAT 100
--- NOTE | 2018-05-14 22:44 | OP ---
Date of Procedure: 05/14/2018 Surgeon: Karlee Butler MD Anesthesiologist: 1. Adwoa Roland CRNA. 2. Juan Morris CRNA. 3. Ang Webb M.D. Preoperative Diagnosis: Nuclear sclerotic, cortical, anterior and posterior subcapsular cataract OS (left eye). Operation Performed: Phacoemulsification with intraocular lens implant, left eye. Anesthesia: Per cataract surgery. Complications: None. Description Of Procedure: In day surgery, the patient was prepped with Betadine and draped. A conjunctival incision was made in the inferior nasal quadrant with Sole scissors. A sub-Tenon block consisting of a 1:1 mixture of 2% Xylocaine and 0.25% bupivacaine was placed through the conjunctival incision with a blunt cannula. A Honan balloon was placed over the eye and the patient was transferred to the operating room. In the operating room the patient was prepped and draped in the usual sterile fashion for ophthalmic surgery. A lid speculum was placed in the left eye. Two paracentesis sites were made superiorly and inferiorly in the limbal cornea. Viscoat was placed in the anterior chamber and a crescent blade was used to make a corneal groove and tunnel, and a keratome was used to enter the anterior chamber. Provisc was placed in the anterior chamber and a 360 degree capsulotomy was performed with a cystitome. The lens was hydrodissected with BSS and rotated freely. The lens was removed with a stop and chop technique. A 7.77 phaco CDE was used to remove the lens. Residual cortex was removed with the irrigation and aspiration. Provisc was placed in the capsular bag. A SN60WF +19.5 lens was placed in the capsular bag without complications. Irrigation and aspiration was used to remove residual viscoelastic. The paracentesis sites were hydrated with BSS. The wound and paracentesis sites were inspected and found to be watertight. Vigamox 0.07 cc was placed intracamerally at the end of the procedure. The eye was irrigated with balanced salt solution. The eye was patched with a soft cotton patch and Chicas metal shield. The patient was returned to day surgery in good condition. Comments: The lens was slightly loose. Atrial fibrillation was noted at the beginning of surgery, and this was not known prior to today. However, the patient stated that Dr. Olguin is aware of this diagnosis. Discharge Instructions: Mr. Krause was discharged to home in good condition and is to follow up with Dr. Butler in the morning. CATALINA/LAURA Voice ID: [id number] Report ID: [id number] MTDD
== END 2018-05-14 12:59 | disposition home or self-care (01) ==
LOC: OR 09:38
PROVIDERS: ATTEND Ophthalmology Retina Specialist
PROC: 08RK3JZ Replacement of Left Lens with Synthetic Substitute, Percutaneous Approach (ICD-10-PCS; principal; 2018-05-14 10:30)
DX: H25.12 Age-related nuclear cataract, left eye (principal); H25.042 Posterior subcapsular polar age-related cataract, left eye; H25.032 Anterior subcapsular polar age-related cataract, left eye; E11.9 Type 2 diabetes mellitus without complications; E78.00 Pure hypercholesterolemia, unspecified; I10 Essential (primary) hypertension; I48.91 Unspecified atrial fibrillation; Z79.01 Long term (current) use of anticoagulants; Z79.84 Long term (current) use of oral hypoglycemic drugs; Z79.899 Other long term (current) drug therapy
CPT/HCPCS: 66984; 82962; J0171 ×2; J1642; J2704; V2630

== ENCOUNTER 2018-08-01 10:50 | Emergency (ER) | payer OTHER ==
--- OUTSIDE RECORDS SUMMARY | 2018-08-01 11:06 | XMS REPORT | Clinical Summary ---
:1950 Author Organization [facility] Address [address] [place] [address] Care Team Providers Name Role Phone Mahin [...] Comments COLON CANCER SCREENING 2000 SHINGLES VACCINES (#1) 2000 65+ PNEUMOCOCCAL VACCINE (1 of 2 - PCV13) 2015 PNEUMOCOCCAL POLYSACCHARIDE VACCINE AGE 65 AND OVER 2015 INFLUENZA VACCINE 11/01/2018 Results Not on fileafter 07/31/2017 Insurance Payer Benefit Plan / Group Subscriber ID Type Phone Address UHC MEDICARE [employer] MEDICARE xxxxxxxxx HMO Advance Directives Patient has advance care planning documents, and code status on file. For more information, please contact:Jovani Melo[address] [place] [phone] Code Status Date Activated Date Inactivated Comments Full Code 02/10/2016 12:03 AM 02/10/2016 7:56 PM Code Status decision reached by: Patient
--- OUTSIDE RECORDS SUMMARY | 2018-08-01 11:06 | XMS REPORT | Clinical Summary ---
:1950 Author Organization [facility] Address [address] [place] [address] Care Team Providers Name Role Phone Mahin [...] Not on file Results Not on fileafter 07/31/2017 Insurance Payer Benefit Plan / Group Subscriber ID Type Phone Address CARE IMPROVEMENT MEDICARE MGD CARE IMPROVEMENT PLUS xxxxxxxxx CARE Advance Directives For more information, please contact:[address] [phone] Code Status Date Activated Date Inactivated Comments Full Code 10/04/2016 8:26 PM 10/07/2016 4:40 PM This code status was determined by: Patient
--- OUTSIDE RECORDS SUMMARY | 2018-08-01 11:07 | XMS REPORT ---
:1950 [facility] Address [address] [place] [address] [place] [id number] Care Team Providers Name Role Phone BARBARA [...] Comments WHITE BLOOD CELL COUNT (BEAKER) (test sajh=884) 6.4 K/ L 4.0-10.0 RED BLOOD CELL COUNT (BEAKER) (test tlwh=129) 3.43 M/ L 4.20-5.80 HEMOGLOBIN (BEAKER) (test hxwm=982) 8.3 GM/DL 13.0-16.8 HEMATOCRIT (BEAKER) (test mvhf=725) 27.7 % 40.0-50.0 MEAN CORPUSCULAR VOLUME (BEAKER) (test dhgf=802) 81.0 fL 82.0-98.0 MEAN CORPUSCULAR HEMOGLOBIN (BEAKER) (test jszy=525) 24.1 pg 27.0-33.0 MEAN CORPUSCULAR HEMOGLOBIN CONC (BEAKER) (test bceq=402) 29.7 GM/DL 32.0- 36.0 RED CELL DISTRIBUTION WIDTH (BEAKER) (test qwcs=554) 20.7 % 10.3-14.2 PLATELET COUNT (BEAKER) (test jtqt=505) 269 K/CU MM 150-430 MEAN PLATELET VOLUME (BEAKER) (test cntk=555) 9.4 fL 6.5-10.5 NUCLEATED RED BLOOD CELLS (BEAKER) (test ohtm=826) 0 /100 WBC 0-0 NEUTROPHILS RELATIVE PERCENT (BEAKER) (test qaxy=906) 43 % LYMPHOCYTES RELATIVE PERCENT (BEAKER) (test xbcm=479) 36 % MONOCYTES RELATIVE PERCENT (BEAKER) (test fkga=429) 8 % EOSINOPHILS RELATIVE PERCENT (BEAKER) (test rldj=310) 13 % BASOPHILS RELATIVE PERCENT (BEAKER) (test rito=013) 0 % NEUTROPHILS ABSOLUTE COUNT (BEAKER) (test fbrr=917) 2.72 K/ L 1.80-8.00 LYMPHOCYTES ABSOLUTE COUNT (BEAKER) (test cqrv=714) 2.26 K/ L 1.48-4.50 MONOCYTES ABSOLUTE COUNT (BEAKER) (test yoxb=102) 0.51 K/ L 0.00-1.30 EOSINOPHILS ABSOLUTE COUNT (BEAKER) (test pirw=998) 0.85 K/ L 0.00-0.50 BASOPHILS ABSOLUTE COUNT (BEAKER) (test dcok=519) 0.02 K/ L 0.00-0.20 0.00POCT-GLUCOSE [id number] 07:47:00 Test Item Value Reference Range Comments POC-GLUCOSE METER (BEAKER) 96 mg/dL 70-[address] [facility] [address] [facility] (test tkwv=0847) [facility] [address] BASIC METABOLIC [id number] 06:30:00 Test Item Value Reference Range Comments SODIUM (BEAKER) (test 147 meq/L 136-145 coqb=558) POTASSIUM (BEAKER) (test 3.6 meq/L 3.5-5.1 zbxz=640) CHLORIDE (BEAKER) (test 111 meq/L 98-107 fldo=429) CO2 (BEAKER) (test 28 meq/L 22-29 ecfr=650) BLOOD UREA NITROGEN 4 mg/dL 7-21 (BEAKER) (test tzad=854) CREATININE (BEAKER) (test 0.85 mg/dL 0.57-1.25 ilnh=252) GLUCOSE RANDOM (BEAKER) 87 mg/dL 70-105 (test sjhs=812) CALCIUM (BEAKER) (test 8.8 mg/dL 8.4-10.2 nejw=387) EGFR (BEAKER) (test 109 mL/min/1.73 sq m ESTIMATED GFR IS NOT xnvh=2248) ACCURATE CREATININE CLEARANCE IN PREDICTING GLOMERULAR FILTRATION RATE. ESTIMATED GFR IS NOT APPLICABLE FOR DIALYSIS PATIENTS. PT/[id number] 06:19:00 Test Item Value Reference Range Comments PROTIME (BEAKER) (test ztah=470) 14.8 seconds 11.7-14.7 INR (BEAKER) (test cowj=526) 1.2 <=5.9 PARTIAL THROMBOPLASTIN TIME (BEAKER) (test 43.7 seconds 22.5-36.0 vgxc=268) RECOMMENDED COUMADIN/WARFARIN INR THERAPY RANGESSTANDARD DOSE: 2.0 - 3.0 Includes: PROPHYLAXIS forvenous thrombosis, systemic embolization; TREATMENT for venous thrombosis and/or pulmonary embolus.HIGH RISK: Target INR is 2.5-3.5 for patients with mechanical heart valves.PROTHROMBIN [id number] 06:18: 00 Test Item Value Reference Range Comments PROTIME (BEAKER) (test hwrq=877) 14.8 seconds 11.7-14.7 INR (BEAKER) (test fopl=837) 1.2 <=5.9 RECOMMENDED COUMADIN/WARFARIN INR THERAPY RANGESSTANDARD DOSE: 2.0 - 3.0 Includes: PROPHYLAXIS forvenous thrombosis, systemic embolization; TREATMENT for venous thrombosis and/or pulmonary embolus.HIGH RISK: Target INR is 2.5-3.5 for patients with mechanical heart valves.POCT-GLUCOSE [id number] 21:11:00 Test Item Value Reference Range Comments POC-GLUCOSE METER (BEAKER) 123 mg/dL 70-110 TESTED AT [address] (test zcke=3546) [place] [id number] POCT-GLUCOSE [id number] 17:40:00 Test Item Value Reference Range Comments POC-GLUCOSE METER (BEAKER) 123 mg/dL 70-110 TESTED AT [address] (test hrgo=9816) [facility] [address] OCCULT BLOOD, [id number] 14:01:00 Test Item Value Reference Range Comments FECAL OCCULT BLOOD (BEAKER) (test hswh=624) Negative Negative POCT-GLUCOSE [id number] 12:37:00 Test Item Value Reference Range Comments POC-GLUCOSE METER (BEAKER) 120 mg/dL 70-110 TESTED AT [address] (test xqws=0546) [facility] [address] POCT-GLUCOSE [id number] 07:47:00 Test Item Value Reference Range Comments POC-GLUCOSE METER (BEAKER) 100 mg/dL 70-[address] [facility] [address] (test xcvt=0395) [facility] [address] [id number] 04:10:00 Test Item Value Reference Range Comments PHOSPHORUS (BEAKER) (test fmno=521) 4.2 mg/dL 2.3-4.7 [id number] 04:10:00 Test Item Value Reference Range Comments MAGNESIUM (BEAKER) (test cmrm=646) 1.7 mg/dL 1.6-2.6 BASIC METABOLIC [id number] 04:10:00 Test Item Value Reference Range Comments SODIUM (BEAKER) (test 146 meq/L 136-145 vofb=043) POTASSIUM (BEAKER) (test 3.5 meq/L 3.5-5.1 kuli=436) CHLORIDE (BEAKER) (test 110 meq/L 98-107 dlpg=668) CO2 (BEAKER) (test 29 meq/L 22-29 xtve=267) BLOOD UREA NITROGEN 3 mg/dL 7-21 (BEAKER) (test svwb=779) CREATININE (BEAKER) (test 0.84 mg/dL 0.57-1.25 tryh=794) GLUCOSE RANDOM (BEAKER) 99 mg/dL 70-105 (test fycd=677) CALCIUM (BEAKER) (test 8.6 mg/dL 8.4-10.2 dvhx=094) EGFR (BEAKER) (test 111 mL/min/1.73 sq m ESTIMATED GFR IS NOT wnsn=1498) ACCURATE CREATININE CLEARANCE IN PREDICTING GLOMERULAR FILTRATION RATE. ESTIMATED GFR IS NOT APPLICABLE FOR DIALYSIS PATIENTS. HEPATIC FUNCTION [id number] 04:10:00 Test Item Value Reference Range Comments TOTAL PROTEIN (BEAKER) (test unwi=884) 5.5 gm/dL 6.0-8.3 ALBUMIN (BEAKER) (test jvcz=0813) 2.5 g/dL 3.5-5.0 BILIRUBIN TOTAL (BEAKER) (test jwtg=261) 0.1 mg/dL 0.2-1.2 BILIRUBIN DIRECT (BEAKER) (test arna=110) 0.1 mg/dL 0.1-0.5 ALKALINE PHOSPHATASE (BEAKER) (test krvx=767) 54 U/L 40-150 AST (SGOT) (BEAKER) (test npcj=552) 25 U/L 5-34 ALT (SGPT) (BEAKER) (test dhgv=063) 15 U/L 6-55 [id number] 04:03:00 Test Item Value Reference Range Comments PROTIME (BEAKER) (test zsef=108) 14.0 seconds 11.7-14.7 INR (BEAKER) (test xajw=381) 1.1 <=5.9 PARTIAL THROMBOPLASTIN TIME (BEAKER) (test 70.7 seconds 22.5-36.0 tywo=476) RECOMMENDED COUMADIN/WARFARIN INR THERAPY RANGESSTANDARD DOSE: 2.0 - 3.0 Includes: PROPHYLAXIS forvenous thrombosis, systemic embolization; TREATMENT for venous thrombosis and/or pulmonary embolus.HIGH RISK: Target INR is 2.5-3.5 for patients with mechanical heart valves.[id number] 04:03:00 Test Item Value Reference Range Comments PARTIAL THROMBOPLASTIN TIME (BEAKER) (test 70.7 seconds 22.5-36.0 cato=771) PROTHROMBIN [id number] 04:02:00 Test Item Value Reference Range Comments PROTIME (BEAKER) (test konb=032) 14.0 seconds 11.7-14.7 INR (BEAKER) (test kinu=428) 1.1 <=5.9 RECOMMENDED COUMADIN/WARFARIN INR THERAPY RANGESSTANDARD DOSE: 2.0 - 3.0 Includes: PROPHYLAXIS forvenous thrombosis, systemic embolization; TREATMENT for venous thrombosis and/or pulmonary embolus.HIGH RISK: Target INR is 2.5-3.5 for patients with mechanical heart valves.CBC W/PLT COUNT & AUTO [id number] 03:57:00 Test Item Value Reference Range Comments WHITE BLOOD CELL COUNT (BEAKER) (test sfhr=149) 6.8 K/ L 4.0-10.0 RED BLOOD CELL COUNT (BEAKER) (test rjxv=537) 3.32 M/ L 4.20-5.80 HEMOGLOBIN (BEAKER) (test jkui=729) 8.2 GM/DL 13.0-16.8 HEMATOCRIT (BEAKER) (test gkbt=467) 27.0 % 40.0-50.0 MEAN CORPUSCULAR VOLUME (BEAKER) (test hzoa=596) 81.3 fL 82.0-98.0 MEAN CORPUSCULAR HEMOGLOBIN (BEAKER) (test 24.5 pg 27.0-33.0 vqqw=943) MEAN CORPUSCULAR HEMOGLOBIN CONC (BEAKER) (test 30.2 GM/DL 32.0-36.0 otfu=226) RED CELL DISTRIBUTION WIDTH (BEAKER) (test 20.4 % 10.3-14.2 bkwk=922) PLATELET COUNT (BEAKER) (test cotb=823) 272 K/CU MM 150-430 MEAN PLATELET VOLUME (BEAKER) (test jpib=784) 9.0 fL 6.5-10.5 NUCLEATED RED BLOOD CELLS (BEAKER) (test 0 /100 WBC 0-0 tsni=322) NEUTROPHILS RELATIVE PERCENT (BEAKER) (test 37 % cbuh=889) LYMPHOCYTES RELATIVE PERCENT (BEAKER) (test 41 % qyot=098) MONOCYTES RELATIVE PERCENT (BEAKER) (test 10 % nqom=457) EOSINOPHILS RELATIVE PERCENT (BEAKER) (test 12 % smnk=649) BASOPHILS RELATIVE PERCENT (BEAKER) (test 1 % pwlz=689) NEUTROPHILS ABSOLUTE COUNT (BEAKER) (test 2.50 K/ L 1.80-8.00 nsqo=100) LYMPHOCYTES ABSOLUTE COUNT (BEAKER) (test 2.80 K/ L 1.48-4.50 xwzs=776) MONOCYTES ABSOLUTE COUNT (BEAKER) (test 0.69 K/ L 0.00-1.30 twgs=174) EOSINOPHILS ABSOLUTE COUNT (BEAKER) (test 0.79 K/ L 0.00-0.50 bjsp=411) BASOPHILS ABSOLUTE COUNT (BEAKER) (test 0.05 K/ L 0.00-0.20 plxi=218) 0.00POCT-GLUCOSE [id number] 22:16:00 Test Item Value Reference Range Comments POC-GLUCOSE METER (BEAKER) 115 mg/dL 70-[address] [facility] [address] [facility] (test mkzb=9371) [facility] [address] [id number] 21:09:00 Test Item Value Reference Range Comments PARTIAL THROMBOPLASTIN TIME (BEAKER) (test 65.3 seconds 22.5-36.0 rooj=246) POCT-GLUCOSE [id number] 17:35:00 Test Item Value Reference Range Comments POC-GLUCOSE METER (BEAKER) 103 mg/dL 70-110 TESTED AT [place] [id number] [facility] (test lebk=8908) [place] [id number] PERIPHERAL BLOOD SMEAR - PATHOLOGIST [id number] 15:13:00 Test Item Value Reference Range Comments RBC MORPHOLOGY Marked (BEAKER) (test anisopoikilocytosis, dzoz=1856) including elliptocytes and few target cells. Red cells are hypochromic with microcytic indices. WBC MORPHOLOGY Hypersegmented (BEAKER) (test neutrophils. joju=9833) PLT MORPHOLOGY Unremarkable (BEAKER) (test bvdq=2897) PERIPHERAL SMR REVIEW Iron studies are (BEAKER) (test recommended for complete pifz=4686) evaluation of this patient's anemia. [id number] Sabrina (BEAKER) (test Andrea-Voorbeijtel, ytww=8169) Amanda (electronic signature) OCCULT BLOOD, [id number] 12:57:00 Test Item Value Reference Range Comments FECAL OCCULT BLOOD (BEAKER) (test saux=783) Negative Negative POCT-GLUCOSE [id number] 11:54:00 Test Item Value Reference Range Comments POC-GLUCOSE METER (BEAKER) 82 mg/dL 70-110 TESTED AT [address] (test iqnq=8760) [place] [address] [id number] 11:50:00 Test Item Value Reference Range Comments PARTIAL THROMBOPLASTIN TIME (BEAKER) (test 41.0 seconds 22.5-36.0 kfsu=758) Prior to initiating heparinCBC (HEMOGRAM ONLY)2016-10-05 11:43:00 Test Item Value Reference Range Comments WHITE BLOOD CELL COUNT (BEAKER) (test xsoh=891) 6.1 K/ L 4.0-10.0 RED BLOOD CELL COUNT (BEAKER) (test utnf=415) 3.39 M/ L 4.20-5.80 HEMOGLOBIN (BEAKER) (test lqyz=563) 8.4 GM/DL 13.0-16.8 HEMATOCRIT (BEAKER) (test zsoy=466) 27.5 % 40.0-50.0 MEAN CORPUSCULAR VOLUME (BEAKER) (test sdfd=512) 81.0 fL 82.0-98.0 MEAN CORPUSCULAR HEMOGLOBIN (BEAKER) (test 24.8 pg 27.0-33.0 lipk=571) MEAN CORPUSCULAR HEMOGLOBIN CONC (BEAKER) (test 30.7 GM/DL 32.0-36.0 iile=633) RED CELL DISTRIBUTION WIDTH (BEAKER) (test 21.8 % 10.3-14.2 odva=967) PLATELET COUNT (BEAKER) (test zuni=896) 275 K/CU MM 150-430 MEAN PLATELET VOLUME (BEAKER) (test ufon=931) 8.9 fL 6.5-10.5 NUCLEATED RED BLOOD CELLS (BEAKER) (test 0 /100 WBC 0-0 hhye=941) 0.00POCT-GLUCOSE [id number] 08:03:00 Test Item Value Reference Range Comments POC-GLUCOSE METER (BEAKER) 96 mg/dL 70-[address] [facility] [address] [facility] (test rytw=7284) [facility] [address] HEMOGLOBIN [id number] 08:02:00 Test Item Value Reference Range Comments HEMOGLOBIN A1C (BEAKER) (test nlld=819) 6.5 % 4.3-6.1 [id number] 04:21:00 Test Item Value Reference Range Comments PROTIME (BEAKER) (test zstt=297) 15.2 seconds 11.7-14.7 INR (BEAKER) (test qols=436) 1.2 <=5.9 PARTIAL THROMBOPLASTIN TIME (BEAKER) (test 41.8 seconds 22.5-36.0 kbdn=531) RECOMMENDED COUMADIN/WARFARIN INR THERAPY RANGESSTANDARD DOSE: 2.0 - 3.0 Includes: PROPHYLAXIS forvenous thrombosis, systemic embolization; TREATMENT for venous thrombosis and/or pulmonary embolus.HIGH RISK: Target INR is 2.5-3.5 for patients with mechanical heart valves.[id number] 04:21:00 Test Item Value Reference Range Comments PHOSPHORUS (BEAKER) (test fkgv=944) 3.8 mg/dL 2.3-4.7 [id number] 04:21:00 Test Item Value Reference Range Comments MAGNESIUM (BEAKER) (test aomn=816) 1.6 mg/dL 1.6-2.6 BASIC METABOLIC [id number] 04:21:00 Test Item Value Reference Range Comments SODIUM (BEAKER) (test 144 meq/L 136-145 tujp=874) POTASSIUM (BEAKER) (test 3.7 meq/L 3.5-5.1 owak=863) CHLORIDE (BEAKER) (test 109 meq/L 98-107 uctq=770) CO2 (BEAKER) (test 27 meq/L 22-29 agzw=360) BLOOD UREA NITROGEN 3 mg/dL 7-21 (BEAKER) (test kzsi=337) CREATININE (BEAKER) (test 0.88 mg/dL 0.57-1.25 jvql=437) GLUCOSE RANDOM (BEAKER) 109 mg/dL 70-105 (test psql=393) CALCIUM (BEAKER) (test 9.1 mg/dL 8.4-10.2 zdjf=098) EGFR (BEAKER) (test 105 mL/min/1.73 sq m ESTIMATED GFR IS NOT fkhe=0113) ACCURATE CREATININE CLEARANCE IN PREDICTING GLOMERULAR FILTRATION RATE. ESTIMATED GFR IS NOT APPLICABLE FOR DIALYSIS PATIENTS. HEPATIC FUNCTION [id number] 04:21:00 Test Item Value Reference Range Comments TOTAL PROTEIN (BEAKER) (test ljhf=877) 6.2 gm/dL 6.0-8.3 ALBUMIN (BEAKER) (test okrt=2722) 2.8 g/dL 3.5-5.0 BILIRUBIN TOTAL (BEAKER) (test nsak=120) 0.2 mg/dL 0.2-1.2 BILIRUBIN DIRECT (BEAKER) (test dfdj=297) 0.1 mg/dL 0.1-0.5 ALKALINE PHOSPHATASE (BEAKER) (test temi=023) 65 U/L 40-150 AST (SGOT) (BEAKER) (test rnnk=779) 18 U/L 5-34 ALT (SGPT) (BEAKER) (test cdoq=462) 13 U/L 6-55 PROTHROMBIN [id number] 04:20:00 Test Item Value Reference Range Comments PROTIME (BEAKER) (test xwmd=119) 15.2 seconds 11.7-14.7 INR (BEAKER) (test yfec=308) 1.2 <=5.9 RECOMMENDED COUMADIN/WARFARIN INR THERAPY RANGESSTANDARD DOSE: 2.0 - 3.0 Includes: PROPHYLAXIS forvenous thrombosis, systemic embolization; TREATMENT for venous thrombosis and/or pulmonary embolus.HIGH RISK: Target INR is 2.5-3.5 for patients with mechanical heart valves.CBC W/PLT COUNT & AUTO [id number] 04:09:00 Test Item Value Reference Range Comments WHITE BLOOD CELL COUNT (BEAKER) (test tpie=185) 6.9 K/ L 4.0-10.0 RED BLOOD CELL COUNT (BEAKER) (test aivf=515) 3.65 M/ L 4.20-5.80 HEMOGLOBIN (BEAKER) (test vbvt=081) 8.9 GM/DL 13.0-16.8 HEMATOCRIT (BEAKER) (test udxy=133) 29.5 % 40.0-50.0 MEAN CORPUSCULAR VOLUME (BEAKER) (test mbxn=870) 80.9 fL 82.0-98.0 MEAN CORPUSCULAR HEMOGLOBIN (BEAKER) (test 24.4 pg 27.0-33.0 yrav=386) MEAN CORPUSCULAR HEMOGLOBIN CONC (BEAKER) (test 30.1 GM/DL 32.0-36.0 nqfj=116) RED CELL DISTRIBUTION WIDTH (BEAKER) (test 21.9 % 10.3-14.2 zfpn=478) PLATELET COUNT (BEAKER) (test tkap=898) 295 K/CU MM 150-430 MEAN PLATELET VOLUME (BEAKER) (test ahxf=463) 8.8 fL 6.5-10.5 NUCLEATED RED BLOOD CELLS (BEAKER) (test 0 /100 WBC 0-0 odop=320) NEUTROPHILS RELATIVE PERCENT (BEAKER) (test 44 % bomt=507) LYMPHOCYTES RELATIVE PERCENT (BEAKER) (test 35 % lkin=656) MONOCYTES RELATIVE PERCENT (BEAKER) (test 10 % ohig=553) EOSINOPHILS RELATIVE PERCENT (BEAKER) (test 10 % qrqy=605) BASOPHILS RELATIVE PERCENT (BEAKER) (test 1 % yuci=643) NEUTROPHILS ABSOLUTE COUNT (BEAKER) (test 3.00 K/ L 1.80-8.00 zpqx=916) LYMPHOCYTES ABSOLUTE COUNT (BEAKER) (test 2.40 K/ L 1.48-4.50 jmge=022) MONOCYTES ABSOLUTE COUNT (BEAKER) (test 0.71 K/ L 0.00-1.30 zqhl=220) EOSINOPHILS ABSOLUTE COUNT (BEAKER) (test 0.72 K/ L 0.00-0.50 hmtg=555) BASOPHILS ABSOLUTE COUNT (BEAKER) (test 0.05 K/ L 0.00-0.20 gsfo=612) [id number] 02:36:00 Test Item Value Reference Range Comments FERRITIN (BEAKER) (test glfx=639) 2576 ng/mL 5-275 Effective 02/18/2014: Reference Range ChangeNew: Male 5-275 Previous: Male 22-322 Female 5-275 Female [id number] 02:30 :00 Test Item Value Reference Range Comments HAPTOGLOBIN (BEAKER) (test chiz=807) 242 mg/dL 14-258 Effective 02/18/2014: Reference Range ChangeNew: 14-258 Previous: 36- 195VITAMIN [id number] 01:42:00 Test Item Value Reference Range Comments VITAMIN B12 (BEAKER) (test zyrw=143) 1077 pg/mL 213-816 FOLATE, [id number] 01:42:00 Test Item Value Reference Range Comments FOLATE (BEAKER) (test wuem=025) 5.5 ng/mL >=7.0 Effective 02/18/2014: Folate Reference Range ChangeNew: >=7.0 Previous: & gt;=5.4IRON, TIBC, % SAT. (WITHOUT FERRITIN)2016-10-05 01:07:00 Test Item Value Reference Range Comments IRON (BEAKER) (test ykal=317) 19 ug/dL 40-160 TOTAL IRON BINDING CAPACITY (BEAKER) (test 113 ug/dL 250-450 komg=538) IRON % SATURATION (2) (BEAKER) (test pvpu=2382) 17 % 20-55 (MANUAL DIFFERENTIAL)2016-10-04 23:25:00 Test Item Value Reference Range Comments NEUTROPHILS - REL (DIFF) (BEAKER) (test 49 % ovby=4960) LYMPHOCYTES - REL (DIFF) (BEAKER) (test 30 % slja=1604) MONOCYTES - REL (DIFF) (BEAKER) (test zqof=1110) 8 % EOSINOPHILS - REL (DIFF) (BEAKER) (test 12 % bxfx=6887) BASOPHILS - REL (DIFF) (BEAKER) (test fksr=9946) 1 % NEUTROPHILS - ABS (DIFF) (BEAKER) (test 3.53 K/ L 1.80-8.00 gtrt=9579) LYMPHOCYTES - ABS (DIFF) (BEAKER) (test 2.16 K/ L 1.48-4.50 rjmn=6486) MONOCYTES - ABS (DIFF) (BEAKER) (test mqvt=7324) 0.58 K/ L 0.00-1.30 EOSINOPHILS - ABS (DIFF) (BEAKER) (test 0.86 K/ L 0.00-0.50 nsgj=7103) BASOPHILS - ABS (DIFF) (BEAKER) (test elor=6258) 0.07 K/ L 0.00-0.20 TOTAL COUNTED (BEAKER) (test jufw=4204) 100 VACUOLATED NEUTROPHILS (BEAKER) (test btei=235) Present GIANT PLATELETS (BEAKER) (test dfpd=682) Present SCHISTOCYTES (BEAKER) (test ymrs=380) 1+ few ANISOCYTOSIS (BEAKER) (test akwj=409) 1+ few ELLIPTOCYTES (BEAKER) (test xoaq=175) 1+ few HYPOCHROMIA (BEAKER) (test tvjj=761) 2+ moderate POIKILOCYTES (BEAKER) (test sfrm=251) 2+ moderate POLYCHROMATOPHILLIC RBCS(BEAKER) (test txsj=575) 1+ few SPHEROCYTES (BEAKER) (test hewl=223) 1+ few TARGET CELLS (BEAKER) (test dgua=317) 1+ few [id number] 23:12:00 Test Item Value Reference Range Comments PHOSPHORUS (BEAKER) (test jbsl=162) 3.5 mg/dL 2.3-4.7 [id number] 23:12:00 Test Item Value Reference Range Comments MAGNESIUM (BEAKER) (test vgpc=421) 1.5 mg/dL 1.6-2.6 COMPREHENSIVE METABOLIC [id number] 23:12:00 Test Item Value Reference Range Comments TOTAL PROTEIN (BEAKER) 6.4 gm/dL 6.0-8.3 (test cdsr=417) ALBUMIN (BEAKER) (test 2.9 g/dL 3.5-5.0 ehbu=3417) ALKALINE PHOSPHATASE 67 U/L 40-150 (BEAKER) (test fdtz=782) BILIRUBIN TOTAL (BEAKER) 0.2 mg/dL 0.2-1.2 (test xlob=539) SODIUM (BEAKER) (test 143 meq/L 136-145 fgce=285) POTASSIUM (BEAKER) (test 3.8 meq/L 3.5-5.1 cnnp=037) CHLORIDE (BEAKER) (test 108 meq/L 98-107 etre=670) CO2 (BEAKER) (test 27 meq/L 22-29 lhbc=562) BLOOD UREA NITROGEN 3 mg/dL 7-21 (BEAKER) (test dshv=821) CREATININE (BEAKER) (test 1.00 mg/dL 0.57-1.25 ohtc=199) GLUCOSE RANDOM (BEAKER) 123 mg/dL 70-105 (test pjkm=675) CALCIUM (BEAKER) (test 8.8 mg/dL 8.4-10.2 crdo=929) AST (SGOT) (BEAKER) (test 16 U/L 5-34 hgaw=208) ALT (SGPT) (BEAKER) (test 16 U/L 6-55 sfei=409) EGFR (BEAKER) (test 91 mL/min/1.73 sq m ESTIMATED GFR IS NOT sggc=2191) ACCURATE CREATININE CLEARANCE IN PREDICTING GLOMERULAR FILTRATION RATE. ESTIMATED GFR IS NOT APPLICABLE FOR DIALYSIS PATIENTS. LACTATE DEHYDROGENASE (LDH)2016-10-04 23:12:00 Test Item Value Reference Range Comments LACTATE DEHYDROGENASE (BEAKER) (test npxp=846) 205 U/L 125-220 RETICULOCYTE [id number] 23:09:00 Test Item Value Reference Range Comments RETICULOCYTE COUNT PCT (BEAKER) (test tbur=441) 2.5 % 0.4-2.9 CBC W/PLT COUNT & AUTO [id number] 23:09:00 Test Item Value Reference Range Comments WHITE BLOOD CELL COUNT (BEAKER) (test himv=689) 7.2 K/ L 4.0-10.0 RED BLOOD CELL COUNT (BEAKER) (test iubk=497) 3.79 M/ L 4.20-5.80 HEMOGLOBIN (BEAKER) (test veto=622) 9.1 GM/DL 13.0-16.8 HEMATOCRIT (BEAKER) (test ggqy=134) 30.6 % 40.0-50.0 MEAN CORPUSCULAR VOLUME (BEAKER) (test zryy=051) 80.7 fL 82.0-98.0 MEAN CORPUSCULAR HEMOGLOBIN (BEAKER) (test 24.1 pg 27.0-33.0 yvgn=115) MEAN CORPUSCULAR HEMOGLOBIN CONC (BEAKER) (test 29.9 GM/DL 32.0-36.0 fgza=622) RED CELL DISTRIBUTION WIDTH (BEAKER) (test 21.6 % 10.3-14.2 kghq=777) PLATELET COUNT (BEAKER) (test tome=449) 313 K/CU MM 150-430 MEAN PLATELET VOLUME (BEAKER) (test utzk=660) 9.0 fL 6.5-10.5 NUCLEATED RED BLOOD CELLS (BEAKER) (test 0 /100 WBC 0-0 agje=942) NEUTROPHILS RELATIVE PERCENT (BEAKER) (test 47 % osav=582) LYMPHOCYTES RELATIVE PERCENT (BEAKER) (test 33 % ikxt=513) MONOCYTES RELATIVE PERCENT (BEAKER) (test 10 % vvzu=037) EOSINOPHILS RELATIVE PERCENT (BEAKER) (test 9 % gtvm=573) BASOPHILS RELATIVE PERCENT (BEAKER) (test 1 % lncf=779) NEUTROPHILS ABSOLUTE COUNT (BEAKER) (test 3.38 K/ L 1.80-8.00 lwbe=159) LYMPHOCYTES ABSOLUTE COUNT (BEAKER) (test 2.38 K/ L 1.48-4.50 evej=240) MONOCYTES ABSOLUTE COUNT (BEAKER) (test 0.70 K/ L 0.00-1.30 axkp=911) EOSINOPHILS ABSOLUTE COUNT (BEAKER) (test 0.63 K/ L 0.00-0.50 wgmf=116) BASOPHILS ABSOLUTE COUNT (BEAKER) (test 0.06 K/ L 0.00-0.20 iccg=735) POCT-GLUCOSE [id number] 22:56:00 Test Item Value Reference Range Comments POC-GLUCOSE METER (BEAKER) 155 mg/dL 70-110 TESTED AT [address] (test giqc=1949) [place] [id number] POCT-GLUCOSE [id number] 17:39:00 Test Item Value Reference Range Comments POC-GLUCOSE METER (BEAKER) 106 mg/dL 70-110 TESTED AT [address] (test uubl=4323) [place] [address]
--- NOTE | 2018-08-01 11:28 | ER ---
Nurse's Notes [facility] Name: Salbador Krause Age: 68 yrs Sex: Male : 1950 Arrival Date: 08/01/2018 Time: 10:55 Bed 4 Private MD: Mahin Patino Diagnosis: Pain in ankle and joints of foot Presentation: 08/01 11:04 Presenting complaint: Patient states: left ankle pain and swelling X 3 weeks, denies iw injury, had xray done last week per Dr. Patino. Transition of care: patient was not received from another setting of care. Onset of symptoms was July 07, 2018. Risk Assessment: Do you want to hurt yourself or someone else? Patient reports no desire to harm self or others. Initial Sepsis Screen: Does the patient meet any 2 criteria? No. Patient's initial sepsis screen is negative. Does the patient have a suspected source of infection? No. Patient's initial sepsis screen is negative. Care prior to arrival: None. 11:04 Method Of Arrival: Wheelchair iw 11:04 Acuity: RAFAEL 4 iw Triage Assessment: 11:13 General: Appears in no apparent distress. uncomfortable, Behavior is calm, cooperative, hj appropriate for age. Pain: Complains of pain in L ankle. Historical: - Allergies: 11:06 No Known Allergies; iw - Home Meds: 11:06 Lisinopril Oral once daily [Active]; iw - PMHx: 11:06 Diabetes - NIDDM; Hypertension; LYMPHOMA; iw - Immunization history:: Adult Immunizations up to date. - Social history:: Smoking status: Patient/guardian denies using tobacco, Patient/guardian denies using alcohol, street drugs, The patient lives with family. - Ebola Screening: : Patient negative for fever greater than or equal to 101.5 degrees Fahrenheit, and additional compatible Ebola Virus Disease symptoms Patient denies exposure to infectious person Patient denies travel to an Ebola-affected area in the 21 days before illness onset No symptoms or risks identified at this time. - Family history:: not pertinent. Screenin:12 Abuse screen: Denies threats or abuse. Denies injuries from another. Nutritional hj screening: No deficits noted. Tuberculosis screening: No symptoms or risk factors identified. Fall Risk None identified. Assessment: 11:13 General: Appears in no apparent distress. uncomfortable, Behavior is calm, cooperative, hj appropriate for age. Pain: Complains of pain in L ankle Pain currently is 9 out of 10 on a pain scale. Neuro: Level of Consciousness is awake, alert, obeys commands, Oriented to person, place, time, situation, Appropriate for age. Cardiovascular: Capillary refill < 3 seconds Patient's skin is warm and dry. Respiratory: Airway is patent Respiratory effort is even, unlabored, Respiratory pattern is regular, symmetrical. GI: No signs and/or symptoms were reported involving the gastrointestinal system. : No signs and/or symptoms were reported regarding the genitourinary system. EENT: No signs and/or symptoms were reported regarding the EENT system. Derm: No signs and/or symptoms reported regarding the dermatologic system. Musculoskeletal: Reports pain in L ankle. Vital Signs: 11:06 BP 134 / 86; Pulse 99; Resp 16 S; Pulse Ox 97% on R/A; Weight 113.4 kg; Height 5 ft. 9 iw in. (175.26 cm); Pain 9/10; 11:46 BP 120 / 88; Pulse 90; Resp 18; Pulse Ox 100% on R/A; hj 11:06 Body Mass Index 36.92 (113.40 kg, 175.26 cm) iw ED Course: 10:55 Patient arrived in ED. mr 10:55 Mahin Patino DO is Private Physician. mr 11:05 Triage completed. iw 11:06 Carmenza Stevens F[facility]-C [facility]. snw 11:06 Gareth Macario MD is Attending Physician. snw 11:06 Arm band placed on. iw 11:12 Rell Son, JIM is Primary Nurse. hj 11:13 Patient has correct armband on for positive identification. Bed in low position. Call hj light in reach. Side rails up X 1. 11:26 Tiago Montanez MD is Referral Physician. ma2 11:45 No provider procedures requiring assistance completed. Patient did not have IV access hj during this emergency room visit. Administered Medications: 11:13 Drug: TORadol 60 mg Route: IM; Site: left deltoid; hj 11:22 Follow up: Response: No adverse reaction; Pain is decreased hj 11:13 Drug: MethylPREDNISolone Sodium Succinate 125 mg Route: IM; Site: right deltoid; 11:22 Follow up: Response: No adverse reaction Outcome: 11:27 Discharge ordered by . marianela 11:45 Discharged to home via wheelchair, with crutches. 11:45 Condition: stable 11:45 Discharge instructions given to patient, Instructed on discharge instructions, follow up and referral plans. medication usage, Demonstrated understanding of instructions, follow-up care, medications, Prescriptions given X 2. 11:46 Patient left the ED. Signatures: Carmenza Stevens, TONYAC KILN FEEDER-Malgorzata Monae mr Bee Mendez, RN RN Rell Son RN RN hj Alzahri, Mohammad, MD MD ma2
--- NOTE | 2018-08-01 11:28 | EDPHYS ---
Physician Documentation [facility] Name: Salbador Krause Age: 68 yrs Sex: Male : 1950 Arrival Date: 08/01/2018 Time: 10:55 Bed 4 Private MD: Mahin Patino ED Physician Gareth Macario HPI: 08/01 11:20 This 68 yrs old Black Male presents to ER via Wheelchair with complaints of Ankle ma2 Swelling. 11:20 The patient presents with pain. The complaints affect the left ankle. Onset: The ma2 symptoms/episode began/occurred gradually, 3 day(s) ago, 3 week(s) ago. Severity of symptoms: At their worst the symptoms were mild. The patient has experienced similar episodes in the past. has left knee arthritis here with left ankle and left great toe arthritis . Historical: - Allergies: 11:06 No Known Allergies; iw - Home Meds: 11:06 Lisinopril Oral once daily [Active]; iw - PMHx: 11:06 Diabetes - NIDDM; Hypertension; LYMPHOMA; iw - Immunization history:: Adult Immunizations up to date. - Social history:: Smoking status: Patient/guardian denies using tobacco, Patient/guardian denies using alcohol, street drugs, The patient lives with family. - Ebola Screening: : Patient negative for fever greater than or equal to 101.5 degrees Fahrenheit, and additional compatible Ebola Virus Disease symptoms Patient denies exposure to infectious person Patient denies travel to an Ebola-affected area in the 21 days before illness onset No symptoms or risks identified at this time. - Family history:: not pertinent. ROS: 11:20 Constitutional: Negative for fever, chills, and weight loss. ma2 11:20 MS/extremity: Positive for decreased range of motion, pain, Negative for paresthesias, puncture, rash, warmth. 11:20 All other systems are negative. Exam: 11:20 Constitutional: This is a well developed, well nourished patient who is awake, alert, ma2 and in no acute distress. Head/Face: Normocephalic, atraumatic. Chest/axilla: Normal chest wall appearance and motion. Nontender with no deformity. No lesions are appreciated. Cardiovascular: Regular rate and rhythm with a normal S1 and S2. No gallops, murmurs, or rubs. Normal PMI, no JVD. No pulse deficits. Respiratory: Lungs have equal breath sounds bilaterally, clear to auscultation and percussion. No rales, rhonchi or wheezes noted. No increased work of breathing, no retractions or nasal flaring. Abdomen/GI: Soft, non-tender, with normal bowel sounds. No distension or tympany. No guarding or rebound. No evidence of tenderness throughout. Back: No spinal tenderness. No costovertebral tenderness. Full range of motion. Skin: Warm, dry with normal turgor. Normal color with no rashes, no lesions, and no evidence of cellulitis. Neuro: Awake and alert, GCS 15, oriented to person, place, time, and situation. Cranial nerves II-XII grossly intact. Motor strength 5/5 in all extremities. Sensory grossly intact. Cerebellar exam normal. Normal gait. 11:20 Musculoskeletal/extremity: Extremities: grossly normal except: noted in the left foot: ROM: Circulation is intact in all extremities. Sensation intact. Compartment Syndrome exam of affected extremity: is normal. Joints: both left ankle and left great metatarsophalangeal and great toe swollen, no erythema or skin changes no warmth, DVT Exam: No signs of deep vein thrombosis. Vital Signs: 11:06 BP 134 / 86; Pulse 99; Resp 16 S; Pulse Ox 97% on R/A; Weight 113.4 kg; Height 5 ft. 9 iw in. (175.26 cm); Pain 9/10; 11:46 BP 120 / 88; Pulse 90; Resp 18; Pulse Ox 100% on R/A; hj 11:06 Body Mass Index 36.92 (113.40 kg, 175.26 cm) iw MDM: 11:12 Patient medically screened. snw 11:20 Differential diagnosis: arthritis, gout, xray done last week unremarkable for fracute, ma2 shows degenerative changes, septic arthritis unlikely given exam as above with no redness warmth, given it is polyarthritis no indication for emergent joint aspiration, will need outpatient workup for further management. 11:20 Data reviewed: vital signs, nurses notes, lab test result(s), radiologic studies. ma2 Counseling: I had a detailed discussion with the patient and/or guardian regarding: the historical points, exam findings, and any diagnostic results supporting the discharge/admit diagnosis, the presence of at least one elevated blood pressure reading (>120/80) during this emergency department visit, the need for outpatient follow up. Response to treatment: the patient's symptoms have markedly improved after treatment. 11:27 Patient medically screened. ma2 Administered Medications: 11:13 Drug: TORadol 60 mg Route: IM; Site: left deltoid; 11:22 Follow up: Response: No adverse reaction; Pain is decreased 11:13 Drug: MethylPREDNISolone Sodium Succinate 125 mg Route: IM; Site: right deltoid; 11:22 Follow up: Response: No adverse reaction Disposition: 08/01/18 11:27 Discharged to Home. Impression: Pain in ankle and joints of foot. - Condition is Stable. - Prescriptions for Tylenol- Codeine #3 300-30 mg Oral Tablet - take 2 tablet by ORAL route every 6 hours As needed; 30 tablet. Medrol (Siva) 4 mg Oral Tablets, Dose Pack - take 1 tablet by ORAL route as directed - follow package instructions; 1 packet. - Medication Reconciliation Form, Thank You Letter, Antibiotic Education, Prescription Opioid Use form. - Follow up: Dr. Tiago Montanez; When: Tomorrow; Reason: Continuance of care. Signatures: Carmenza Stevens, TENANT RELATIONS COORDINATOR-C TENANT RELATIONS COORDINATOR-Csnw Bee Mendez RN RN Rell Son RN RN hj Alzahri, Mohammad, MD MD ma2 Corrections: (The following items were deleted from the chart) 11:46 11:27 08/01/2018 11:27 Discharged to Home. Impression: Pain in ankle and joints of hj foot. Condition is Stable. Prescriptions for Tylenol-Codeine #3 300-30 mg Oral Tablet - take 2 tablet by ORAL route every 6 hours As needed; 30 tablet, Medrol (Siva) 4 mg Oral Tablets, Dose Pack - take 1 tablet by ORAL route as directed - follow package instructions; 1 packet. and Forms are Medication Reconciliation Form, Thank You Letter, Antibiotic Education, Prescription Opioid Use. Follow up: Dr. Tiago Montanez; When: Tomorrow; Reason: Continuance of care. ma2
[2018-08-01] MEDS ORDERED: KETOROLAC 30 MG/ML INJ ONE (11:30)
[2018-08-01] MEDS ORDERED: METHYLPREDNISOLONE 125 MG INJ ONE (11:30)
[2018-08-01 11:51] VITALS: BP 120/88; O2SAT 100
== END 2018-08-01 11:46 | disposition home or self-care (01) ==
LOC: ER 10:50
DX: M25.572 Pain in left ankle and joints of left foot (principal); I10 Essential (primary) hypertension; E11.9 Type 2 diabetes mellitus without complications
CPT/HCPCS: 96372; 99283; J2930

== ENCOUNTER 2018-09-03 21:35 | Inpatient (IN) | payer OTHER ==
--- OUTSIDE RECORDS SUMMARY | 2018-09-03 21:37 | XMS REPORT | Clinical Summary ---
:1950 Author Organization [facility] Address [address] [place] [address] Care Team Providers Name Role Phone Mahin [...] INFLUENZA VACCINE 11/01/2018 Results Not on fileafter 09/02/2017 Advance Directives Patient has advance care planning documents, and code status on file. For more information, please contact:Jovani Melo[address] [place] [address] Code Status Date Activated Date Inactivated Comments Full Code 02/10/2016 12:03 AM 02/10/2016 7:56 PM Code Status decision reached by: Patient
--- OUTSIDE RECORDS SUMMARY | 2018-09-03 21:37 | XMS REPORT | Clinical Summary ---
:1950 Author Organization [facility] Address [address] [place] [address] Care Team Providers Name Role Phone Mahin [...] Not on file Results Not on fileafter 09/02/2017 Insurance Payer Benefit Plan / Group Subscriber ID Type Phone Address CARE IMPROVEMENT MEDICARE MGD CARE IMPROVEMENT PLUS xxxxxxxxx CARE Advance Directives For more information, please contact:[address] [phone] Code Status Date Activated Date Inactivated Comments Full Code 10/04/2016 8:26 PM 10/07/2016 4:40 PM This code status was determined by: Patient
--- OUTSIDE RECORDS SUMMARY | 2018-09-03 21:38 | XMS REPORT ---
:1950 [facility] Organization [facility] Address [address] [place] [address] [place] [id number] Care Team Providers Name Role Phone BARBARA [...] Comments WHITE BLOOD CELL COUNT (BEAKER) (test cajs=813) 6.4 K/ L 4.0-10.0 RED BLOOD CELL COUNT (BEAKER) (test ehyt=874) 3.43 M/ L 4.20-5.80 HEMOGLOBIN (BEAKER) (test ffhz=708) 8.3 GM/DL 13.0-16.8 HEMATOCRIT (BEAKER) (test iivg=351) 27.7 % 40.0-50.0 MEAN CORPUSCULAR VOLUME (BEAKER) (test ndqf=787) 81.0 fL 82.0-98.0 MEAN CORPUSCULAR HEMOGLOBIN (BEAKER) (test sxjl=578) 24.1 pg 27.0-33.0 MEAN CORPUSCULAR HEMOGLOBIN CONC (BEAKER) (test mmgz=039) 29.7 GM/DL 32.0- 36.0 RED CELL DISTRIBUTION WIDTH (BEAKER) (test afqc=265) 20.7 % 10.3-14.2 PLATELET COUNT (BEAKER) (test nnue=674) 269 K/CU MM 150-430 MEAN PLATELET VOLUME (BEAKER) (test kwwo=644) 9.4 fL 6.5-10.5 NUCLEATED RED BLOOD CELLS (BEAKER) (test wgib=885) 0 /100 WBC 0-0 NEUTROPHILS RELATIVE PERCENT (BEAKER) (test nara=845) 43 % LYMPHOCYTES RELATIVE PERCENT (BEAKER) (test zdaa=620) 36 % MONOCYTES RELATIVE PERCENT (BEAKER) (test jogo=901) 8 % EOSINOPHILS RELATIVE PERCENT (BEAKER) (test ypzr=834) 13 % BASOPHILS RELATIVE PERCENT (BEAKER) (test tjgo=984) 0 % NEUTROPHILS ABSOLUTE COUNT (BEAKER) (test upza=667) 2.72 K/ L 1.80-8.00 LYMPHOCYTES ABSOLUTE COUNT (BEAKER) (test tvak=686) 2.26 K/ L 1.48-4.50 MONOCYTES ABSOLUTE COUNT (BEAKER) (test oibf=276) 0.51 K/ L 0.00-1.30 EOSINOPHILS ABSOLUTE COUNT (BEAKER) (test dhmq=263) 0.85 K/ L 0.00-0.50 BASOPHILS ABSOLUTE COUNT (BEAKER) (test gzvx=259) 0.02 K/ L 0.00-0.20 0.00POCT-GLUCOSE [id number] 07:47:00 Test Item Value Reference Range Comments POC-GLUCOSE METER (BEAKER) 96 mg/dL 70-110 TESTED AT [facility] [address] [facility] (test zuvu=0205) [facility] [address] BASIC METABOLIC [id number] 06:30:00 Test Item Value Reference Range Comments SODIUM (BEAKER) (test 147 meq/L 136-145 olih=541) POTASSIUM (BEAKER) (test 3.6 meq/L 3.5-5.1 qlmv=290) CHLORIDE (BEAKER) (test 111 meq/L 98-107 dnfn=139) CO2 (BEAKER) (test 28 meq/L 22-29 lnyk=324) BLOOD UREA NITROGEN 4 mg/dL 7-21 (BEAKER) (test hjav=202) CREATININE (BEAKER) (test 0.85 mg/dL 0.57-1.25 aaft=750) GLUCOSE RANDOM (BEAKER) 87 mg/dL 70-105 (test scxx=719) CALCIUM (BEAKER) (test 8.8 mg/dL 8.4-10.2 waqe=986) EGFR (BEAKER) (test 109 mL/min/1.73 sq m ESTIMATED GFR IS NOT vjhs=6508) ACCURATE CREATININE CLEARANCE IN PREDICTING GLOMERULAR FILTRATION RATE. ESTIMATED GFR IS NOT APPLICABLE FOR DIALYSIS PATIENTS. [id number] 06:19:00 Test Item Value Reference Range Comments PROTIME (BEAKER) (test qogd=184) 14.8 seconds 11.7-14.7 INR (BEAKER) (test eptv=811) 1.2 <=5.9 PARTIAL THROMBOPLASTIN TIME (BEAKER) (test 43.7 seconds 22.5-36.0 sbpr=495) RECOMMENDED COUMADIN/WARFARIN INR THERAPY RANGESSTANDARD DOSE: 2.0 - 3.0 Includes: PROPHYLAXIS forvenous thrombosis, systemic embolization; TREATMENT for venous thrombosis and/or pulmonary embolus.HIGH RISK: Target INR is 2.5-3.5 for patients with mechanical heart valves.PROTHROMBIN [id number] 06:18: 00 Test Item Value Reference Range Comments PROTIME (BEAKER) (test ahma=538) 14.8 seconds 11.7-14.7 INR (BEAKER) (test gngg=024) 1.2 <=5.9 RECOMMENDED COUMADIN/WARFARIN INR THERAPY RANGESSTANDARD DOSE: 2.0 - 3.0 Includes: PROPHYLAXIS forvenous thrombosis, systemic embolization; TREATMENT for venous thrombosis and/or pulmonary embolus.HIGH RISK: Target INR is 2.5-3.5 for patients with mechanical heart valves.POCT-GLUCOSE [id number] 21:11:00 Test Item Value Reference Range Comments POC-GLUCOSE METER (BEAKER) 123 mg/dL 70-110 TESTED AT [address] (test tfcb=4863) [place] [id number] POCT-GLUCOSE [id number] 17:40:00 Test Item Value Reference Range Comments POC-GLUCOSE METER (BEAKER) 123 mg/dL 70-110 TESTED AT [address] (test utbi=8081) [facility] [address] OCCULT BLOOD, [id number] 14:01:00 Test Item Value Reference Range Comments FECAL OCCULT BLOOD (BEAKER) (test kwpa=364) Negative Negative POCT-GLUCOSE [id number] 12:37:00 Test Item Value Reference Range Comments POC-GLUCOSE METER (BEAKER) 120 mg/dL 70-110 TESTED AT [address] (test gtey=5183) [facility] [address] POCT-GLUCOSE [id number] 07:47:00 Test Item Value Reference Range Comments POC-GLUCOSE METER (BEAKER) 100 mg/dL 70-110 TESTED AT [facility] [address] (test bgyp=3960) [facility] [address] [id number] 04:10:00 Test Item Value Reference Range Comments PHOSPHORUS (BEAKER) (test sulf=938) 4.2 mg/dL 2.3-4.7 [id number] 04:10:00 Test Item Value Reference Range Comments MAGNESIUM (BEAKER) (test gale=530) 1.7 mg/dL 1.6-2.6 BASIC METABOLIC [id number] 04:10:00 Test Item Value Reference Range Comments SODIUM (BEAKER) (test 146 meq/L 136-145 vskg=066) POTASSIUM (BEAKER) (test 3.5 meq/L 3.5-5.1 gqjj=798) CHLORIDE (BEAKER) (test 110 meq/L 98-107 tdhp=751) CO2 (BEAKER) (test 29 meq/L 22-29 ksfm=215) BLOOD UREA NITROGEN 3 mg/dL 7-21 (BEAKER) (test heyi=093) CREATININE (BEAKER) (test 0.84 mg/dL 0.57-1.25 ekpu=648) GLUCOSE RANDOM (BEAKER) 99 mg/dL 70-105 (test uufv=675) CALCIUM (BEAKER) (test 8.6 mg/dL 8.4-10.2 loqm=152) EGFR (BEAKER) (test 111 mL/min/1.73 sq m ESTIMATED GFR IS NOT ykch=8917) ACCURATE CREATININE CLEARANCE IN PREDICTING GLOMERULAR FILTRATION RATE. ESTIMATED GFR IS NOT APPLICABLE FOR DIALYSIS PATIENTS. HEPATIC FUNCTION [id number] 04:10:00 Test Item Value Reference Range Comments TOTAL PROTEIN (BEAKER) (test ppwy=608) 5.5 gm/dL 6.0-8.3 ALBUMIN (BEAKER) (test uqhu=4585) 2.5 g/dL 3.5-5.0 BILIRUBIN TOTAL (BEAKER) (test yftp=064) 0.1 mg/dL 0.2-1.2 BILIRUBIN DIRECT (BEAKER) (test mbsw=182) 0.1 mg/dL 0.1-0.5 ALKALINE PHOSPHATASE (BEAKER) (test vpaw=432) 54 U/L 40-150 AST (SGOT) (BEAKER) (test rfny=535) 25 U/L 5-34 ALT (SGPT) (BEAKER) (test jyea=676) 15 U/L 6-55 [id number] 04:03:00 Test Item Value Reference Range Comments PROTIME (BEAKER) (test izfl=983) 14.0 seconds 11.7-14.7 INR (BEAKER) (test puxo=738) 1.1 <=5.9 PARTIAL THROMBOPLASTIN TIME (BEAKER) (test 70.7 seconds 22.5-36.0 uvwd=356) RECOMMENDED COUMADIN/WARFARIN INR THERAPY RANGESSTANDARD DOSE: 2.0 - 3.0 Includes: PROPHYLAXIS forvenous thrombosis, systemic embolization; TREATMENT for venous thrombosis and/or pulmonary embolus.HIGH RISK: Target INR is 2.5-3.5 for patients with mechanical heart valves.[id number] 04:03:00 Test Item Value Reference Range Comments PARTIAL THROMBOPLASTIN TIME (BEAKER) (test 70.7 seconds 22.5-36.0 acvn=240) PROTHROMBIN [id number] 04:02:00 Test Item Value Reference Range Comments PROTIME (BEAKER) (test omil=573) 14.0 seconds 11.7-14.7 INR (BEAKER) (test rcen=324) 1.1 <=5.9 RECOMMENDED COUMADIN/WARFARIN INR THERAPY RANGESSTANDARD DOSE: 2.0 - 3.0 Includes: PROPHYLAXIS forvenous thrombosis, systemic embolization; TREATMENT for venous thrombosis and/or pulmonary embolus.HIGH RISK: Target INR is 2.5-3.5 for patients with mechanical heart valves.CBC W/PLT COUNT & AUTO [id number] 03:57:00 Test Item Value Reference Range Comments WHITE BLOOD CELL COUNT (BEAKER) (test iqmj=986) 6.8 K/ L 4.0-10.0 RED BLOOD CELL COUNT (BEAKER) (test yexf=566) 3.32 M/ L 4.20-5.80 HEMOGLOBIN (BEAKER) (test yimz=069) 8.2 GM/DL 13.0-16.8 HEMATOCRIT (BEAKER) (test fdim=852) 27.0 % 40.0-50.0 MEAN CORPUSCULAR VOLUME (BEAKER) (test htci=569) 81.3 fL 82.0-98.0 MEAN CORPUSCULAR HEMOGLOBIN (BEAKER) (test 24.5 pg 27.0-33.0 cnvz=301) MEAN CORPUSCULAR HEMOGLOBIN CONC (BEAKER) (test 30.2 GM/DL 32.0-36.0 uzst=332) RED CELL DISTRIBUTION WIDTH (BEAKER) (test 20.4 % 10.3-14.2 qcih=818) PLATELET COUNT (BEAKER) (test iogf=377) 272 K/CU MM 150-430 MEAN PLATELET VOLUME (BEAKER) (test epqx=739) 9.0 fL 6.5-10.5 NUCLEATED RED BLOOD CELLS (BEAKER) (test 0 /100 WBC 0-0 jfya=624) NEUTROPHILS RELATIVE PERCENT (BEAKER) (test 37 % clbt=669) LYMPHOCYTES RELATIVE PERCENT (BEAKER) (test 41 % qysi=791) MONOCYTES RELATIVE PERCENT (BEAKER) (test 10 % gtbd=683) EOSINOPHILS RELATIVE PERCENT (BEAKER) (test 12 % eyep=279) BASOPHILS RELATIVE PERCENT (BEAKER) (test 1 % hjhd=138) NEUTROPHILS ABSOLUTE COUNT (BEAKER) (test 2.50 K/ L 1.80-8.00 kqvj=950) LYMPHOCYTES ABSOLUTE COUNT (BEAKER) (test 2.80 K/ L 1.48-4.50 znpd=495) MONOCYTES ABSOLUTE COUNT (BEAKER) (test 0.69 K/ L 0.00-1.30 bhpx=853) EOSINOPHILS ABSOLUTE COUNT (BEAKER) (test 0.79 K/ L 0.00-0.50 ybur=787) BASOPHILS ABSOLUTE COUNT (BEAKER) (test 0.05 K/ L 0.00-0.20 truv=044) 0.00POCT-GLUCOSE [id number] 22:16:00 Test Item Value Reference Range Comments POC-GLUCOSE METER (BEAKER) 115 mg/dL 70-110 TESTED AT [facility] [address] [facility] (test meia=7454) [facility] [address] [id number] 21:09:00 Test Item Value Reference Range Comments PARTIAL THROMBOPLASTIN TIME (BEAKER) (test 65.3 seconds 22.5-36.0 kwkc=041) POCT-GLUCOSE [id number] 17:35:00 Test Item Value Reference Range Comments POC-GLUCOSE METER (BEAKER) 103 mg/dL 70-110 TESTED AT [place] [id number] [facility] (test olgr=5008) [place] [id number] PERIPHERAL BLOOD SMEAR - PATHOLOGIST [id number] 15:13:00 Test Item Value Reference Range Comments RBC MORPHOLOGY Marked (BEAKER) (test anisopoikilocytosis, bagz=3186) including elliptocytes and few target cells. Red cells are hypochromic with microcytic indices. WBC MORPHOLOGY Hypersegmented (BEAKER) (test neutrophils. jyhh=3594) PLT MORPHOLOGY Unremarkable (BEAKER) (test pyak=5892) PERIPHERAL SMR REVIEW Iron studies are (BEAKER) (test recommended for complete uvch=3827) evaluation of this patient's anemia. [id number] Sabrina (BEAKER) (test Andrea-Voorbeijtel, lzob=4803) Amanda (electronic signature) OCCULT BLOOD, [id number] 12:57:00 Test Item Value Reference Range Comments FECAL OCCULT BLOOD (BEAKER) (test pbdp=839) Negative Negative POCT-GLUCOSE [id number] 11:54:00 Test Item Value Reference Range Comments POC-GLUCOSE METER (BEAKER) 82 mg/dL 70-110 TESTED AT [address] (test aotf=8151) [place] [address] [id number] 11:50:00 Test Item Value Reference Range Comments PARTIAL THROMBOPLASTIN TIME (BEAKER) (test 41.0 seconds 22.5-36.0 ituf=529) Prior to initiating heparinCBC (HEMOGRAM ONLY)2016-10-05 11:43:00 Test Item Value Reference Range Comments WHITE BLOOD CELL COUNT (BEAKER) (test txbp=380) 6.1 K/ L 4.0-10.0 RED BLOOD CELL COUNT (BEAKER) (test ynbd=423) 3.39 M/ L 4.20-5.80 HEMOGLOBIN (BEAKER) (test pwzj=491) 8.4 GM/DL 13.0-16.8 HEMATOCRIT (BEAKER) (test ejsl=780) 27.5 % 40.0-50.0 MEAN CORPUSCULAR VOLUME (BEAKER) (test ocyf=063) 81.0 fL 82.0-98.0 MEAN CORPUSCULAR HEMOGLOBIN (BEAKER) (test 24.8 pg 27.0-33.0 acow=993) MEAN CORPUSCULAR HEMOGLOBIN CONC (BEAKER) (test 30.7 GM/DL 32.0-36.0 mnuf=776) RED CELL DISTRIBUTION WIDTH (BEAKER) (test 21.8 % 10.3-14.2 ychc=528) PLATELET COUNT (BEAKER) (test zhyw=394) 275 K/CU MM 150-430 MEAN PLATELET VOLUME (BEAKER) (test ejng=329) 8.9 fL 6.5-10.5 NUCLEATED RED BLOOD CELLS (BEAKER) (test 0 /100 WBC 0-0 zaxu=195) 0.00POCT-GLUCOSE [id number] 08:03:00 Test Item Value Reference Range Comments POC-GLUCOSE METER (BEAKER) 96 mg/dL 70-110 TESTED AT [facility] [address] [facility] (test pfii=6225) [facility] [address] HEMOGLOBIN [id number] 08:02:00 Test Item Value Reference Range Comments HEMOGLOBIN A1C (BEAKER) (test rtgs=127) 6.5 % 4.3-6.1 [id number] 04:21:00 Test Item Value Reference Range Comments PROTIME (BEAKER) (test qedi=068) 15.2 seconds 11.7-14.7 INR (BEAKER) (test gare=532) 1.2 <=5.9 PARTIAL THROMBOPLASTIN TIME (BEAKER) (test 41.8 seconds 22.5-36.0 umry=732) RECOMMENDED COUMADIN/WARFARIN INR THERAPY RANGESSTANDARD DOSE: 2.0 - 3.0 Includes: PROPHYLAXIS forvenous thrombosis, systemic embolization; TREATMENT for venous thrombosis and/or pulmonary embolus.HIGH RISK: Target INR is 2.5-3.5 for patients with mechanical heart valves.[id number] 04:21:00 Test Item Value Reference Range Comments PHOSPHORUS (BEAKER) (test wpbe=494) 3.8 mg/dL 2.3-4.7 [id number] 04:21:00 Test Item Value Reference Range Comments MAGNESIUM (BEAKER) (test xfhs=796) 1.6 mg/dL 1.6-2.6 BASIC METABOLIC [id number] 04:21:00 Test Item Value Reference Range Comments SODIUM (BEAKER) (test 144 meq/L 136-145 hzac=507) POTASSIUM (BEAKER) (test 3.7 meq/L 3.5-5.1 bnrh=392) CHLORIDE (BEAKER) (test 109 meq/L 98-107 tphh=570) CO2 (BEAKER) (test 27 meq/L 22-29 sywr=194) BLOOD UREA NITROGEN 3 mg/dL 7-21 (BEAKER) (test kroh=941) CREATININE (BEAKER) (test 0.88 mg/dL 0.57-1.25 rlqp=438) GLUCOSE RANDOM (BEAKER) 109 mg/dL 70-105 (test ewqk=399) CALCIUM (BEAKER) (test 9.1 mg/dL 8.4-10.2 unmx=015) EGFR (BEAKER) (test 105 mL/min/1.73 sq m ESTIMATED GFR IS NOT ytct=9425) ACCURATE CREATININE CLEARANCE IN PREDICTING GLOMERULAR FILTRATION RATE. ESTIMATED GFR IS NOT APPLICABLE FOR DIALYSIS PATIENTS. HEPATIC FUNCTION [id number] 04:21:00 Test Item Value Reference Range Comments TOTAL PROTEIN (BEAKER) (test vlpg=656) 6.2 gm/dL 6.0-8.3 ALBUMIN (BEAKER) (test cymj=9043) 2.8 g/dL 3.5-5.0 BILIRUBIN TOTAL (BEAKER) (test ddkc=110) 0.2 mg/dL 0.2-1.2 BILIRUBIN DIRECT (BEAKER) (test vibc=893) 0.1 mg/dL 0.1-0.5 ALKALINE PHOSPHATASE (BEAKER) (test vxjj=757) 65 U/L 40-150 AST (SGOT) (BEAKER) (test cknq=242) 18 U/L 5-34 ALT (SGPT) (BEAKER) (test pqwt=149) 13 U/L 6-55 PROTHROMBIN [id number] 04:20:00 Test Item Value Reference Range Comments PROTIME (BEAKER) (test pyxq=932) 15.2 seconds 11.7-14.7 INR (BEAKER) (test gqfe=399) 1.2 <=5.9 RECOMMENDED COUMADIN/WARFARIN INR THERAPY RANGESSTANDARD DOSE: 2.0 - 3.0 Includes: PROPHYLAXIS forvenous thrombosis, systemic embolization; TREATMENT for venous thrombosis and/or pulmonary embolus.HIGH RISK: Target INR is 2.5-3.5 for patients with mechanical heart valves.CBC W/PLT COUNT & AUTO [id number] 04:09:00 Test Item Value Reference Range Comments WHITE BLOOD CELL COUNT (BEAKER) (test oyzx=931) 6.9 K/ L 4.0-10.0 RED BLOOD CELL COUNT (BEAKER) (test gvzm=882) 3.65 M/ L 4.20-5.80 HEMOGLOBIN (BEAKER) (test miww=994) 8.9 GM/DL 13.0-16.8 HEMATOCRIT (BEAKER) (test msae=490) 29.5 % 40.0-50.0 MEAN CORPUSCULAR VOLUME (BEAKER) (test utvj=022) 80.9 fL 82.0-98.0 MEAN CORPUSCULAR HEMOGLOBIN (BEAKER) (test 24.4 pg 27.0-33.0 epzl=779) MEAN CORPUSCULAR HEMOGLOBIN CONC (BEAKER) (test 30.1 GM/DL 32.0-36.0 dnvn=467) RED CELL DISTRIBUTION WIDTH (BEAKER) (test 21.9 % 10.3-14.2 pazy=935) PLATELET COUNT (BEAKER) (test ebbo=094) 295 K/CU MM 150-430 MEAN PLATELET VOLUME (BEAKER) (test spwd=079) 8.8 fL 6.5-10.5 NUCLEATED RED BLOOD CELLS (BEAKER) (test 0 /100 WBC 0-0 ywaj=218) NEUTROPHILS RELATIVE PERCENT (BEAKER) (test 44 % vwvq=952) LYMPHOCYTES RELATIVE PERCENT (BEAKER) (test 35 % fyqy=385) MONOCYTES RELATIVE PERCENT (BEAKER) (test 10 % leds=393) EOSINOPHILS RELATIVE PERCENT (BEAKER) (test 10 % evcl=311) BASOPHILS RELATIVE PERCENT (BEAKER) (test 1 % zuzg=696) NEUTROPHILS ABSOLUTE COUNT (BEAKER) (test 3.00 K/ L 1.80-8.00 dxfw=945) LYMPHOCYTES ABSOLUTE COUNT (BEAKER) (test 2.40 K/ L 1.48-4.50 bfdj=480) MONOCYTES ABSOLUTE COUNT (BEAKER) (test 0.71 K/ L 0.00-1.30 xfvc=587) EOSINOPHILS ABSOLUTE COUNT (BEAKER) (test 0.72 K/ L 0.00-0.50 vmns=611) BASOPHILS ABSOLUTE COUNT (BEAKER) (test 0.05 K/ L 0.00-0.20 ujbw=120) [id number] 02:36:00 Test Item Value Reference Range Comments FERRITIN (BEAKER) (test veey=078) 2576 ng/mL 5-275 Effective 02/18/2014: Reference Range ChangeNew: Male 5-275 Previous: Male 22-322 Female 5-275 Female [id number] 02:30 :00 Test Item Value Reference Range Comments HAPTOGLOBIN (BEAKER) (test cmvd=147) 242 mg/dL 14-258 Effective 02/18/2014: Reference Range ChangeNew: 14-258 Previous: 36- 195VITAMIN [id number] 01:42:00 Test Item Value Reference Range Comments VITAMIN B12 (BEAKER) (test ttif=065) 1077 pg/mL 213-816 FOLATE, [id number] 01:42:00 Test Item Value Reference Range Comments FOLATE (BEAKER) (test dfin=211) 5.5 ng/mL >=7.0 Effective 02/18/2014: Folate Reference Range ChangeNew: >=7.0 Previous: & gt;=5.4IRON, TIBC, % SAT. (WITHOUT FERRITIN)2016-10-05 01:07:00 Test Item Value Reference Range Comments IRON (BEAKER) (test ymey=791) 19 ug/dL 40-160 TOTAL IRON BINDING CAPACITY (BEAKER) (test 113 ug/dL 250-450 oqne=790) IRON % SATURATION (2) (BEAKER) (test flmo=7230) 17 % 20-55 (MANUAL DIFFERENTIAL)2016-10-04 23:25:00 Test Item Value Reference Range Comments NEUTROPHILS - REL (DIFF) (BEAKER) (test 49 % ohqa=5724) LYMPHOCYTES - REL (DIFF) (BEAKER) (test 30 % bvxj=8932) MONOCYTES - REL (DIFF) (BEAKER) (test sdzj=7671) 8 % EOSINOPHILS - REL (DIFF) (BEAKER) (test 12 % cepf=1800) BASOPHILS - REL (DIFF) (BEAKER) (test gnzq=0340) 1 % NEUTROPHILS - ABS (DIFF) (BEAKER) (test 3.53 K/ L 1.80-8.00 cqnl=7285) LYMPHOCYTES - ABS (DIFF) (BEAKER) (test 2.16 K/ L 1.48-4.50 sfwl=3668) MONOCYTES - ABS (DIFF) (BEAKER) (test fror=2651) 0.58 K/ L 0.00-1.30 EOSINOPHILS - ABS (DIFF) (BEAKER) (test 0.86 K/ L 0.00-0.50 pxet=4136) BASOPHILS - ABS (DIFF) (BEAKER) (test qvau=5951) 0.07 K/ L 0.00-0.20 TOTAL COUNTED (BEAKER) (test orzs=6041) 100 VACUOLATED NEUTROPHILS (BEAKER) (test omoa=613) Present GIANT PLATELETS (BEAKER) (test pwda=389) Present SCHISTOCYTES (BEAKER) (test kwdh=887) 1+ few ANISOCYTOSIS (BEAKER) (test tkhl=074) 1+ few ELLIPTOCYTES (BEAKER) (test disx=852) 1+ few HYPOCHROMIA (BEAKER) (test rjzt=189) 2+ moderate POIKILOCYTES (BEAKER) (test bgjv=139) 2+ moderate POLYCHROMATOPHILLIC RBCS(BEAKER) (test yfdu=291) 1+ few SPHEROCYTES (BEAKER) (test ewto=431) 1+ few TARGET CELLS (BEAKER) (test nhlb=582) 1+ few [id number] 23:12:00 Test Item Value Reference Range Comments PHOSPHORUS (BEAKER) (test idoy=941) 3.5 mg/dL 2.3-4.7 [id number] 23:12:00 Test Item Value Reference Range Comments MAGNESIUM (BEAKER) (test vvos=418) 1.5 mg/dL 1.6-2.6 COMPREHENSIVE METABOLIC [id number] 23:12:00 Test Item Value Reference Range Comments TOTAL PROTEIN (BEAKER) 6.4 gm/dL 6.0-8.3 (test ldka=659) ALBUMIN (BEAKER) (test 2.9 g/dL 3.5-5.0 dwdq=9484) ALKALINE PHOSPHATASE 67 U/L 40-150 (BEAKER) (test isna=188) BILIRUBIN TOTAL (BEAKER) 0.2 mg/dL 0.2-1.2 (test cojf=178) SODIUM (BEAKER) (test 143 meq/L 136-145 jvbp=665) POTASSIUM (BEAKER) (test 3.8 meq/L 3.5-5.1 fbtv=311) CHLORIDE (BEAKER) (test 108 meq/L 98-107 rxoe=749) CO2 (BEAKER) (test 27 meq/L 22-29 nxjl=537) BLOOD UREA NITROGEN 3 mg/dL 7-21 (BEAKER) (test tgcl=470) CREATININE (BEAKER) (test 1.00 mg/dL 0.57-1.25 pnjn=567) GLUCOSE RANDOM (BEAKER) 123 mg/dL 70-105 (test cvqv=306) CALCIUM (BEAKER) (test 8.8 mg/dL 8.4-10.2 jegl=122) AST (SGOT) (BEAKER) (test 16 U/L 5-34 lrru=813) ALT (SGPT) (BEAKER) (test 16 U/L 6-55 wsek=619) EGFR (BEAKER) (test 91 mL/min/1.73 sq m ESTIMATED GFR IS NOT ivfg=2422) ACCURATE CREATININE CLEARANCE IN PREDICTING GLOMERULAR FILTRATION RATE. ESTIMATED GFR IS NOT APPLICABLE FOR DIALYSIS PATIENTS. LACTATE DEHYDROGENASE (LDH)2016-10-04 23:12:00 Test Item Value Reference Range Comments LACTATE DEHYDROGENASE (BEAKER) (test xsqf=312) 205 U/L 125-220 RETICULOCYTE [id number] 23:09:00 Test Item Value Reference Range Comments RETICULOCYTE COUNT PCT (BEAKER) (test kjfc=182) 2.5 % 0.4-2.9 CBC W/PLT COUNT & AUTO [id number] 23:09:00 Test Item Value Reference Range Comments WHITE BLOOD CELL COUNT (BEAKER) (test axqr=232) 7.2 K/ L 4.0-10.0 RED BLOOD CELL COUNT (BEAKER) (test qsuu=031) 3.79 M/ L 4.20-5.80 HEMOGLOBIN (BEAKER) (test waku=397) 9.1 GM/DL 13.0-16.8 HEMATOCRIT (BEAKER) (test jyyx=987) 30.6 % 40.0-50.0 MEAN CORPUSCULAR VOLUME (BEAKER) (test sglx=702) 80.7 fL 82.0-98.0 MEAN CORPUSCULAR HEMOGLOBIN (BEAKER) (test 24.1 pg 27.0-33.0 xrgb=466) MEAN CORPUSCULAR HEMOGLOBIN CONC (BEAKER) (test 29.9 GM/DL 32.0-36.0 vday=270) RED CELL DISTRIBUTION WIDTH (BEAKER) (test 21.6 % 10.3-14.2 tfwf=605) PLATELET COUNT (BEAKER) (test eudn=072) 313 K/CU MM 150-430 MEAN PLATELET VOLUME (BEAKER) (test hijd=086) 9.0 fL 6.5-10.5 NUCLEATED RED BLOOD CELLS (BEAKER) (test 0 /100 WBC 0-0 obur=273) NEUTROPHILS RELATIVE PERCENT (BEAKER) (test 47 % bzfx=724) LYMPHOCYTES RELATIVE PERCENT (BEAKER) (test 33 % fblw=097) MONOCYTES RELATIVE PERCENT (BEAKER) (test 10 % vinu=346) EOSINOPHILS RELATIVE PERCENT (BEAKER) (test 9 % qxzs=158) BASOPHILS RELATIVE PERCENT (BEAKER) (test 1 % yzab=880) NEUTROPHILS ABSOLUTE COUNT (BEAKER) (test 3.38 K/ L 1.80-8.00 nyom=091) LYMPHOCYTES ABSOLUTE COUNT (BEAKER) (test 2.38 K/ L 1.48-4.50 srkz=013) MONOCYTES ABSOLUTE COUNT (BEAKER) (test 0.70 K/ L 0.00-1.30 lpwb=805) EOSINOPHILS ABSOLUTE COUNT (BEAKER) (test 0.63 K/ L 0.00-0.50 ipdd=626) BASOPHILS ABSOLUTE COUNT (BEAKER) (test 0.06 K/ L 0.00-0.20 nlzo=547) POCT-GLUCOSE [id number] 22:56:00 Test Item Value Reference Range Comments POC-GLUCOSE METER (BEAKER) 155 mg/dL 70-110 TESTED AT [address] (test ypwj=2608) [place] [id number] POCT-GLUCOSE [id number] 17:39:00 Test Item Value Reference Range Comments POC-GLUCOSE METER (BEAKER) 106 mg/dL 70-110 TESTED AT [address] (test aori=4552) [place] [address]
[2018-09-03 23:25] LABS: Absolute Lymphocytes (CBC) 1.8 K/uL (0.7-4.9); Absolute Monocytes 0.7 K/uL (0.1-1.3); Absolute Neutrophil 5.3 K/uL (1.8-8.0); Basophils % 0.7 % (0-1.3); Hematocrit 45.5 % (39.6-49.0); Lymphocytes % 22.7 % (15.3-44.8); Monocytes % 8.9 % (3.3-12.3); RBC Red Blood Cell Count 5.59 M/uL (4.33-5.43)
[2018-09-03] MEDS ORDERED: ACETAMINOPHEN 500 MG TAB ONE (23:26)
[2018-09-03 23:32] LABS: Protime INR 1.17
[2018-09-03 23:46] LABS: ALT/SGPT 22 U/L (12-78); AST/SGOT 13 U/L (15-37); Albumin 3.6 g/dL (3.4-5.0); Alkaline Phosphatase 40 U/L (45-117); BUN Blood Urea Nitrogen 27 mg/dL (7-18); Bicarbonate 29 mmol/L (21-32); Bilirubin Direct 0.2 mg/dL (0-0.2); Bilirubin Total 0.9 mg/dL (0.2-1.0); Glucose Level 108 mg/dL (74-106); Magnesium 1.9 mg/dL (1.8-2.4); NT PRO-BNP 1731 pg/mL (<125); Potassium 4.4 mmol/L (3.5-5.1); Protein, Total 7.8 g/dL (6.4-8.2); Sodium Level 141 mmol/L (136-145); Troponin I < 0.02 ng/mL (0.0-0.045)
[2018-09-03] MEDS ORDERED: METOPROLOL TARTRATE 5 MG/5 ML INJ IV ONE (23:56)
[2018-09-04] MEDS ORDERED: CEFTRIAXONE/SWI 1gm 1 GM/10 ML SYR ONE (00:23)
[2018-09-04] MEDS ORDERED: IPRATROPIUM BROM 0.5MG/2.5ML ONE (00:23)
[2018-09-04] MEDS ORDERED: LEVALBUTEROL 1.25 MG/3 ML NEB ONE (00:23)
[2018-09-04] MEDS ORDERED: NA CHLORIDE 0.9% 250 ML ONE (00:24)
[2018-09-04] MEDS ORDERED: AZITHROMYCIN 500 MG INJ IVPB ONE (00:24)
--- NOTE | 2018-09-04 00:42 | EDPHYS ---
Physician Documentation [facility] Name: Salbador Krause Age: 68 yrs Sex: Male : 1950 Arrival Date: 09/03/2018 Time: 21:36 Bed 13 Private MD: Mahin Patino ED Physician Lucius Barrett HPI: 09/04 00:49 This 68 yrs old Black Male presents to ER via Ambulatory with complaints of Cough, kb Chest Pain. 00:49 The patient has shortness of breath with light activity. kb 00:50 Onset: The symptoms/episode began/occurred 3 day(s) ago. Duration: The symptoms are kb intermittent. The patient's shortness of breath is aggravated by light activity. Associated signs and symptoms: Pertinent positives: chest pain, non-productive cough, fever. Severity of symptoms: At their worst the symptoms were moderate in the emergency department the symptoms have improved. The patient has not experienced similar symptoms in the past. The patient has not recently seen a physician. Pt reports he has been getting short of breath with light activity for 3 days and having chest pain. Reports it has been taking 3 times longer to mow because he has to take frequent breaks to catch his breath. States the chest pain is worse on inspiration and with cough. . Historical: - Allergies: 09/03 21:52 No Known Allergies; cc3 - Home Meds: 21:52 lisinopril Oral once daily [Active]; Metformin Oral [Active]; cc3 - PMHx: 21:52 Diabetes - NIDDM; Hypertension; LYMPHOMA; cc3 - PSHx: 21:52 gallstone removal; cc3 - Immunization history:: Adult Immunizations up to date. - Social history:: Smoking status: Patient/guardian denies using tobacco, never smoked. - Ebola Screening: : No symptoms or risks identified at this time. ROS: 09/04 00:47 Constitutional: Negative for fever, chills, and weight loss, ENT: Negative for injury, kb pain, and discharge, Neck: Negative for injury, pain, and swelling, Abdomen/GI: Negative for abdominal pain, nausea, vomiting, diarrhea, and constipation, Back: Negative for injury and pain, : Negative for injury, bleeding, discharge, and swelling, MS/Extremity: Negative for injury and deformity, Skin: Negative for injury, rash, and discoloration, Neuro: Negative for headache, weakness, numbness, tingling, and seizure. Cardiovascular: Positive for chest pain, Negative for edema, orthopnea, palpitations, paroxysmal nocturnal dyspnea. Respiratory: Positive for cough, dyspnea on exertion, shortness of breath. Exam: 00:47 Constitutional: This is a well developed, well nourished patient who is awake, alert, kb and in no acute distress. Head/Face: Normocephalic, atraumatic. ENT: Nares patent. No nasal discharge, no septal abnormalities noted. Tympanic membranes are normal and external auditory canals are clear. Oropharynx with no redness, swelling, or masses, exudates, or evidence of obstruction, uvula midline. Mucous membranes moist. Neck: Trachea midline, no thyromegaly or masses palpated, and no cervical lymphadenopathy. Supple, full range of motion without nuchal rigidity, or vertebral point tenderness. No Meningismus. Chest/axilla: Normal chest wall appearance and motion. Nontender with no deformity. No lesions are appreciated. Cardiovascular: Regular rate and rhythm with a normal S1 and S2. No gallops, murmurs, or rubs. Normal PMI, no JVD. No pulse deficits. Abdomen/GI: Soft, non-tender, with normal bowel sounds. No distension or tympany. No guarding or rebound. No evidence of tenderness throughout. Back: No spinal tenderness. No costovertebral tenderness. Full range of motion. Skin: Warm, dry with normal turgor. Normal color with no rashes, no lesions, and no evidence of cellulitis. MS/ Extremity: Pulses equal, no cyanosis. Neurovascular intact. Full, normal range of motion. Neuro: Awake and alert, GCS 15, oriented to person, place, time, and situation. Cranial nerves II-XII grossly intact. Motor strength 5/5 in all extremities. Sensory grossly intact. Cerebellar exam normal. Normal gait. 00:47 Respiratory: the patient does not display signs of respiratory distress, Respirations: normal, Breath sounds: decreased breath sounds, that are moderate, are located in both bases. Vital Signs: 09/03 21:45 BP 144 / 84; Pulse 116; Resp 23 S; Temp 100.7(O); Pulse Ox 96% on R/A; Weight 68.04 kg cc3 (R); Height 5 ft. 9 in. (175.26 cm) (R); Pain 10/10; 22:15 BP 163 / 92; Pulse 119; Resp 24 S; Pulse Ox 99% on R/A; cc3 22:30 BP 147 / 91; Pulse 111; Resp 25 S; Pulse Ox 98% on R/A; cc3 22:45 BP 155 / 95; Pulse 112; Resp 22 S; Pulse Ox 97% on R/A; cc3 23:15 BP 149 / 89; Pulse 105; Resp 31 S; Pulse Ox 100% on R/A; cc3 23:30 BP 146 / 96; Pulse 115; Resp 31 S; Pulse Ox 97% on R/A; cc3 23:45 BP 106 / 63; Pulse 90; Resp 29 S; Temp 100.8(O); Pulse Ox 97% on R/A; Pain 7/10; cc3 09/04 00:00 BP 115 / 81; Pulse 99; Resp 29 S; Pulse Ox 96% on R/A; cc3 00:30 BP 117 / 77; Pulse 98; Resp 23 S; Temp 100.7(O); Pulse Ox 99% on R/A; cc3 01:50 BP 104 / 69; Pulse 99; Resp 25 S; Temp 99.1(O); Pulse Ox 97% on R/A; cc3 09/03 21:45 Body Mass Index 22.15 (68.04 kg, 175.26 cm) cc3 MDM: 09/03 21:57 Patient medically screened. kb 09/04 00:29 Data reviewed: vital signs, nurses notes. Data interpreted: Pulse oximetry: on room air kb is 97 %. Interpretation: normal. Test interpretation: by ED physician or midlevel provider: plain radiologic studies, RLL pneumonia. Counseling: I had a detailed discussion with the patient and/or guardian regarding: the historical points, exam findings, and any diagnostic results supporting the discharge/admit diagnosis, lab results, radiology results, the need for further work-up and treatment in the hospital. Physician consultation: Gareth Campos MD was contacted at 00:29, regarding consult, patient's condition, and will see patient in ED, shortly, . 09/03 22:03 Order name: Basic Metabolic Panel kb 09/03 22: Order name: CBC with Diff kb 06/03 22:03 Order name: LFT's kb 09/03 22:03 Order name: Magnesium kb 09/03 22:03 Order name: NT PRO-BNP kb 09/03 22:03 Order name: PT-INR kb 09/03 22:03 Order name: Troponin (emerg Dept Use Only) kb 09/03 22:03 Order name: Lactate kb 09/03 22:03 Order name: Procalcitonin kb 09/03 22:03 Order name: Blood Culture Adult (2) kb 09/03 23:32 Order name: CBC with Automated Diff; Complete Time: 23:32 EDMS 09/03 23:39 Order name: Protime (+INR); Complete Time: 23:38 EDMS 09/03 23:43 Order name: Lactate; Complete Time: 23:43 EDMS 09/03 23:48 Order name: Basic Metabolic Panel; Complete Time: 23:47 EDMS 09/03 22:03 Order name: XRAY Chest (1 view) kb 09/03 22:03 Order name: EKG; Complete Time: 05:06 kb 09/03 22:03 Order name: Cardiac monitoring; Complete Time: 22:29 kb 09/03 22:03 Order name: EKG - Nurse/Tech; Complete Time: 22:29 kb 09/03 22:03 Order name: IV Saline Lock; Complete Time: 23:08 kb 09/03 23:48 Order name: Liver (Hepatic) Function; Complete Time: 23:47 EDMS 09/03 23:48 Order name: Troponin I; Complete Time: 23:47 EDMS 09/03 23:48 Order name: NT PRO-BNP; Complete Time: 23:47 EDMS 09/03 23:48 Order name: Magnesium; Complete Time: 23:47 EDMS 04 00:12 Order name: Procalcitonin; Complete Time: 00:17 EDMS 09/03 22:03 Order name: Labs collected and sent; Complete Time: 23:08 kb 09/03 22:03 Order name: O2 Per Protocol; Complete Time: 22:29 kb 09/03 22:03 Order name: O2 Sat Monitoring; Complete Time: 22:29 kb Administered Medications: 09/03 23:10 Drug: Tylenol 1000 mg Route: PO; cc3 23:45 Follow up: Response: No adverse reaction; Pain is decreased; NRS 7/10 cc3 23:40 Drug: Lopressor 5 mg Route: IVP; Site: right antecubital; cc3 23:45 Follow up: Response: No adverse reaction; Blood pressure is lowered cc3 09/04 00:15 Drug: AtroVENT Aerosol 0.5 mg Route: Inhalation; cc3 00:46 Follow up: Response: No adverse reaction; Marked relief of symptoms cc3 00:15 Drug: Xopenex 1.25 mg Route: Inhalation; cc3 00:46 Follow up: Response: No adverse reaction; Marked relief of symptoms cc3 00:15 Drug: Rocephin 1 grams Route: IV; Rate: calculated rate; Site: right antecubital; ea 00:25 Follow up: Response: No adverse reaction; IV Status: Completed infusion; IV Intake: 20shup7 00:21 Drug: Zithromax 500 mg Route: IVPB; Infused Over: 1 hrs; Site: right antecubital; ea 01:25 Follow up: Response: No adverse reaction; IV Status: Completed infusion; IV Intake: cc3 250ml Disposition: 02:22 Co-signature as Attending Physician, Lucius Barrett MD. [email or web address] Disposition: 09/04/18 00:41 Hospitalization ordered by Gareth Campos for Inpatient Admission. Preliminary diagnosis are Atrial fibrillation and flutter, Pneumonia, unspecified organism, Heart failure, unspecified - CHF. - Bed requested for Telemetry/MedSurg (Inpatient). - Status is Inpatient Admission. cc3 - Condition is Stable. - Problem is new. - Symptoms are unchanged. UTI on Admission? No Signatures: Dispatcher [employer] [facility] Maggie Carver, NOVELTY CANDY MAKER-C NOVELTY CANDY MAKER-Ckb Lucius Barrett MD MD pkl Razia Howard, RN RN Alyssa Kim RN RN ea Cordel, Charlene cc3 Corrections: (The following items were deleted from the chart) 01:37 00:41 Hospitalization Ordered by Gareth Campos MD for Inpatient Admission. Preliminary cg diagnosis is Atrial fibrillation and flutter; Pneumonia, unspecified organism; Heart failure, unspecified - CHF. Bed requested for Telemetry/MedSurg (Inpatient). Status is Inpatient Admission. Condition is Stable. Problem is new. Symptoms are unchanged. UTI on Admission? No. kb 02:15 01:37 09/04/2018 00:41 Hospitalization Ordered by Gareth Campos MD for Inpatient cc3 Admission. Preliminary diagnosis is Atrial fibrillation and flutter; Pneumonia, unspecified organism; Heart failure, unspecified - CHF. Bed requested for Telemetry/MedSurg (Inpatient). Status is Inpatient Admission. Condition is Stable. Problem is new. Symptoms are unchanged. UTI on Admission? No. cg
--- NOTE | 2018-09-04 00:42 | ER ---
Nurse's Notes [facility] Name: Salbador Krause Age: 68 yrs Sex: Male : 1950 Arrival Date: 09/03/2018 Time: 21:36 Bed 13 Private MD: Mahin Patino Diagnosis: Atrial fibrillation and flutter;Pneumonia, unspecified organism;Heart failure, unspecified-CHF Presentation: 09/03 21:45 Presenting complaint: Patient states: Diaphragmatic pain since 3 days especially when cc3 coughing and pain on inspiration which radiates to bilateral shoulders. Transition of care: patient was not received from another setting of care. Onset of symptoms was August 31, 2018. Risk Assessment: Do you want to hurt yourself or someone else? Patient reports no desire to harm self or others. Initial Sepsis Screen: Does the patient meet any 2 criteria? HR > 90 bpm. Does the patient have a suspected source of infection? No. Patient's initial sepsis screen is negative. Care prior to arrival: None. 21:45 Method Of Arrival: Ambulatory cc3 21:45 Acuity: RAFAEL 3 cc3 Triage Assessment: 21:45 General: Appears in no apparent distress. uncomfortable, Behavior is calm, cooperative, cc3 appropriate for age. Pain: Complains of pain in diaphragm, chest Pain currently is 10 out of 10 on a pain scale. Quality of pain is described as aching, Pain began 2-3 days ago. EENT: No signs and/or symptoms were reported regarding the EENT system. Neuro: Level of Consciousness is awake, alert, obeys commands, Oriented to person, place, time, situation, Appropriate for age. Cardiovascular: Reports chest pain, since 3 days. Respiratory: Airway is patent Respiratory effort is even, unlabored, Respiratory pattern is regular, symmetrical. GI: No signs and/or symptoms were reported involving the gastrointestinal system. Abdomen is round obese. : No signs and/or symptoms were reported regarding the genitourinary system. Derm: No signs and/or symptoms reported regarding the dermatologic system. Musculoskeletal: Circulation, motion, and sensation intact. Range of motion: intact in all extremities. Historical: - Allergies: 21:52 No Known Allergies; cc3 - Home Meds: 21:52 lisinopril Oral once daily [Active]; Metformin Oral [Active]; cc3 - PMHx: 21:52 Diabetes - NIDDM; Hypertension; LYMPHOMA; cc3 - PSHx: 21:52 gallstone removal; cc3 - Immunization history:: Adult Immunizations up to date. - Social history:: Smoking status: Patient/guardian denies using tobacco, never smoked. - Ebola Screening: : No symptoms or risks identified at this time. Screenin:45 Abuse screen: Denies threats or abuse. Denies injuries from another. Nutritional cc3 screening: No deficits noted. Tuberculosis screening: No symptoms or risk factors identified. Fall Risk Ambulatory Aid- None/Bed Rest/Nurse Assist (0 pts). Gait- Normal/Bed Rest/Wheelchair (0 pts) Mental Status- Oriented to own ability (0 pts). Assessment: 21:45 General: see triage assessment. cc3 21:45 Pain: Pain radiates to bilateral shoulders. cc3 22:18 Reassessment: Patient appears in no apparent distress at this time. Patient and/or cc3 family updated on plan of care and expected duration. Pain level reassessed. Patient is alert, oriented x 3, equal unlabored respirations, skin warm/dry/pink. 23:10 Reassessment: Patient appears in no apparent distress at this time. Patient and/or cc3 family updated on plan of care and expected duration. Pain level reassessed. Patient is alert, oriented x 3, equal unlabored respirations, skin warm/dry/pink. 09/04 00:43 Reassessment: Patient appears in no apparent distress at this time. Patient and/or cc3 family updated on plan of care and expected duration. Pain level reassessed. Patient is alert, oriented x 3, equal unlabored respirations, skin warm/dry/pink. Patient for admission, Dr. Campos at bedside assessing the patient. 01:50 Reassessment: Patient appears in no apparent distress at this time. Patient and/or cc3 family updated on plan of care and expected duration. Pain level reassessed. Patient is alert, oriented x 3, equal unlabored respirations, skin warm/dry/pink. Room available in 429, called for report but was told that the nurse who will receive will just call me back. 02:00 Reassessment: Patient appears in no apparent distress at this time. Patient and/or cc3 family updated on plan of care and expected duration. Pain level reassessed. Patient is alert, oriented x 3, equal unlabored respirations, skin warm/dry/pink. JIM Mello called and report handed over to her for continuity of care and management. 02:10 Reassessment: Patient appears in no apparent distress at this time. Patient and/or cc3 family updated on plan of care and expected duration. Pain level reassessed. Patient is alert, oriented x 3, equal unlabored respirations, skin warm/dry/pink. Patient left ER for admission vitally stable by stretcher escorted by air conditioning technician Daniela and the patient's . Patient denies pain at this time. Patient states feeling better. Patient states symptoms have improved. Vital Signs: 09/03 21:45 BP 144 / 84; Pulse 116; Resp 23 S; Temp 100.7(O); Pulse Ox 96% on R/A; Weight 68.04 kg cc3 (R); Height 5 ft. 9 in. (175.26 cm) (R); Pain 10/10; 22:15 BP 163 / 92; Pulse 119; Resp 24 S; Pulse Ox 99% on R/A; cc3 22:30 BP 147 / 91; Pulse 111; Resp 25 S; Pulse Ox 98% on R/A; cc3 22:45 BP 155 / 95; Pulse 112; Resp 22 S; Pulse Ox 97% on R/A; cc3 23:15 BP 149 / 89; Pulse 105; Resp 31 S; Pulse Ox 100% on R/A; cc3 23:30 BP 146 / 96; Pulse 115; Resp 31 S; Pulse Ox 97% on R/A; cc3 23:45 BP 106 / 63; Pulse 90; Resp 29 S; Temp 100.8(O); Pulse Ox 97% on R/A; Pain 7/10; cc3 09/04 00:00 BP 115 / 81; Pulse 99; Resp 29 S; Pulse Ox 96% on R/A; cc3 00:30 BP 117 / 77; Pulse 98; Resp 23 S; Temp 100.7(O); Pulse Ox 99% on R/A; cc3 01:50 BP 104 / 69; Pulse 99; Resp 25 S; Temp 99.1(O); Pulse Ox 97% on R/A; cc3 09/03 21:45 Body Mass Index 22.15 (68.04 kg, 175.26 cm) cc3 ED Course: 09/03 21:36 Patient arrived in ED. am2 21:36 Mahin Patino DO is Private Physician. am2 21:45 Patient maintains SpO2 saturation greater than 95% on room air. cc3 21:45 Patient has correct armband on for positive identification. site monitor on. Pulse cc3 ox on. NIBP on. 21:45 Arm band placed on right wrist. Patient placed in the treatment room, Patient notified cc3 of wait time. EKG completed in triage. Results shown to MD. 21:51 Triage completed. cc3 21:54 Sheridan Ledesma is Primary Nurse. cc3 21:57 Maggie Carver FNP-C is PHCP. kb 21:57 Lucius Barrett MD is Attending Physician. kb 22:30 Missed attempt(s): 20 gauge in right antecubital area. cc3 22:45 Initial lab(s) drawn, by il, sent to lab. First set of blood cultures drawn. Inserted bb saline lock: 20 gauge in right antecubital area, using aseptic technique. Blood collected. 23:00 Second set of blood cultures drawn. bb 04 00:40 Gareth Campos MD is Hospitalizing Provider. kb 02:10 No provider procedures requiring assistance completed. Patient admitted, IV remains in cc3 place. Administered Medications: 09/03 23:10 Drug: Tylenol 1000 mg Route: PO; cc3 23:45 Follow up: Response: No adverse reaction; Pain is decreased; NRS 7/10 cc3 23:40 Drug: Lopressor 5 mg Route: IVP; Site: right antecubital; cc3 23:45 Follow up: Response: No adverse reaction; Blood pressure is lowered cc3 04 00:15 Drug: AtroVENT Aerosol 0.5 mg Route: Inhalation; cc3 00:46 Follow up: Response: No adverse reaction; Marked relief of symptoms cc3 00:15 Drug: Xopenex 1.25 mg Route: Inhalation; cc3 00:46 Follow up: Response: No adverse reaction; Marked relief of symptoms cc3 00:15 Drug: Rocephin 1 grams Route: IV; Rate: calculated rate; Site: right antecubital; ea 00:25 Follow up: Response: No adverse reaction; IV Status: Completed infusion; IV Intake: [id number] 00:21 Drug: Zithromax 500 mg Route: IVPB; Infused Over: 1 hrs; Site: right antecubital; olya 01:25 Follow up: Response: No adverse reaction; IV Status: Completed infusion; IV Intake: cc3 250ml Intake: 00:25 IV: 10ml; Total: 10ml. cc3 01:25 IV: 250ml; Total: 260ml. cc3 Outcome: 00:41 Decision to Hospitalize by Provider. kb 02:00 Admitted to Tele accompanied by tech, family with patient, via stretcher, with chart, cc3 Report called to JIM Mello 02:00 Condition: stable cc3 02:00 Instructed on the need for admit, Demonstrated understanding of instructions. 02:15 Patient left the ED. cc3 Signatures: Maggie Carver, SHOE PARTS CASER-C SHOE [employer] CASER-CkElaina Merida RN RN bb Moreno, Amanda am2 Antunez, Elena, RN RN ea Cordel, Charlene cc3 Corrections: (The following items were deleted from the chart) 09/03 23:47 21:45 BP 144 / 84; Pulse 116bpm; Resp 20bpm; Spontaneous; Pulse Ox 96% RA; Temp 100.7F cc3 Oral; 68.04 kg Reported; Height 5 ft. 9 in. Reported; BMI: 22.1; Pain 10/10; cc3 09/04 00:50 00:30 BP 117 / 77; Pulse 98bpm; Resp 23bpm; Spontaneous; Pulse Ox 99% RA; cc3 cc3 00:54 09/03 23:45 BP 106 / 63; Pulse 90bpm; Resp 29bpm; Spontaneous; Pulse Ox 97% RA; cc3 cc3 09/04 02:34 01:45 BP 104 / 69; Pulse 99bpm; Resp 25bpm; Spontaneous; Pulse Ox 97% RA; Temp 99.1F cc3 Oral; cc3
[2018-09-04] MEDS ORDERED: ONDANSETRON 4 MG/2 ML VIAL IV PRN (01:05)
[2018-09-04] MEDS ORDERED: IPRATROPIUM BROM 0.5MG/2.5ML NEB PRN ×2 (01:05)
[2018-09-04] MEDS ORDERED: ALBUTEROL 2.5 MG/3 ML NEB SOL NEB PRN ×3 (01:05→17:00)
[2018-09-04] MEDS ORDERED: NACHLORIDE 0.45% 1,000 ML IV SCH (02:00)
[2018-09-04] MEDS: NA CHLORIDE 0.9% 1,000 ML IV SCH ×2 (03:01→22:00)
[2018-09-04] MEDS: Levofloxacin500mg IV 500 MG/100 ML BAG IV SCH (03:02)
[2018-09-04] MEDS: Enoxaparin 120 MG/0.8 ML SYR SQ SCH ×3 (03:12→21:05)
[2018-09-04] MEDS ORDERED: METOPROLOL TAR 50 MG TAB PO SCH (06:00)
[2018-09-04 06:21] LABS: Absolute Lymphocytes (CBC) 1.6 K/uL (0.7-4.9); Absolute Monocytes 0.7 K/uL (0.1-1.3); Absolute Neutrophil 5.2 K/uL (1.8-8.0); Basophils % 0.5 % (0-1.3); Hematocrit 41.8 % (39.6-49.0); Lymphocytes % 21.3 % (15.3-44.8); MPV 8.8 fL (7.6-11.3); Monocytes % 8.6 % (3.3-12.3); RBC Red Blood Cell Count 5.14 M/uL (4.33-5.43)
[2018-09-04 06:42] LABS: ALT/SGPT 19 U/L (12-78); AST/SGOT 15 U/L (15-37); Albumin 3.1 g/dL (3.4-5.0); Alkaline Phosphatase 36 U/L (45-117); BUN Blood Urea Nitrogen 28 mg/dL (7-18); Bicarbonate 28 mmol/L (21-32); Bilirubin Total 0.8 mg/dL (0.2-1.0); Glucose Level 148 mg/dL (74-106); Magnesium 1.9 mg/dL (1.8-2.4); NT PRO-BNP 1542 pg/mL (<125); Phosphorus 3.7 mg/dL (2.5-4.9); Sodium Level 140 mmol/L (136-145); Troponin I < 0.02 ng/mL (0.0-0.045)
--- NOTE | 2018-09-04 07:58 | RAD REPORT ---
EXAM DESCRIPTION: Marcia Single View09/03/2018 10:48 pm CLINICAL HISTORY: Chest pain COMPARISON: 2017 FINDINGS: Right basilar opacity Left lung appears clear of acute infiltrate. The heart is mildly to moderately enlarged IMPRESSION: Right basilar opacity probably representing pneumonia. This should be followed until it is clear to help exclude a post obstructive process/underlying mass
[2018-09-04] MEDS ORDERED: PNEUMOCOCCAL VACCINE 0.5 ML IMVAC ONE (08:00)
--- NOTE | 2018-09-04 08:04 | P.HP ---
Certification for Inpatient Patient admitted to: Inpatient With expected LOS: >2 Midnights Patient will require the following post-hospital care: None Practitioner: I am a practitioner with admitting privileges, knowledge of patient current condition, hospital course, and medical plan of care. Services: Services provided to patient in accordance with Admission requirements found in Title 42 Section 412.3 of the Code of Federal Regulations Patient History Date of Service: 09/04/18 Reason for admission: atrial flutter/ CHF/pneumonia History of Present Illness: Patient is a 68-year-old gentleman who came into the hospital feeling short of breath and weak. His biggest complaint was that he has been getting short of breath quite frequently. What normally would not taking more than 20 30 min to cut his yd is taking him an hour. He has to take frequent breaks because he is so short winded. He started having fevers and came into the emergency room for further evaluation. In the emergency room initially he was in a flutter with rapid ventricular response. His heart rate was in the 140s to 150s and he had a blood pressure of 90s over 50s. He was so weak in the emergency room he had a hard time lifting himself up from the bed. His chest x-ray revealed cardiomegaly with right lower lobe opacity. This appeared to be an infiltrate more so than in infusion. He does also appear to have congestive heart failure as he has quite distended jugular veins. Patient was told he had an irregular heart beat many years ago. He was seeing Dr. Olguin a local staying machine operator but has not seen a staying machine operator since he moved to [place]. He was started on cardiac medication which have been continued by his primary care provider. Patient also has chronic kidney disease. Patient also had a fever of 101 in the emergency room. Will continue him on antibiotics for now and will wait for cardiac workup to be completed. Patient needs inpatient admission for new onset AFib flutter and new onset congestive heart failure as well as a right lower lobe pneumonia. Patient also has a history of lymphoma and required chemotherapy-not sure exactly what chemotherapeutic agent was used. He has been in remission for 2-3 years. However, will monitor him closely and he will need outpatient follow-up with hematology. Allergies No Known Allergies Allergy (Verified 05/09/18 11:12) Home Medications: Atorvastatin Calcium [Lipitor*] 10 mg PO BEDTIME 05/20/16 Tamsulosin [Flomax*] 0.4 mg PO BID 05/20/16 Amlodipine [Norvasc*] 10 mg PO DAILYPRN PRN 09/12/16 Lisinopril/Hydrochlorothiazide [Zestoretic 20-25 mg Tablet] 1 tab PO DAILY 09/12 Metformin ER [Glucophage ER*] 500 mg PO BIDWM 09/12/16 Cholecalciferol (Vitamin D3) [Vitamin D3] 2,000 unit PO DAILY 05/09/18 Travoprost (Benzalkonium) [Travatan 0.004% Eye Drop] 1 gtt EACH EYE DAILY - Past Medical/Surgical History Has patient received pneumonia vaccine in the past: No Diabetic: Yes -: HTN -: HYPERLIPIDEMIA -: diabetes -: lymphoma -: PE - Family History Sister Medical History: Cancer Notes: breast cancer Father Medical History: Cancer - Social History Smoking Status: Never smoker Alcohol use: No CD- Drugs: No Caffeine use: Yes Place of Residence: Home Review of Systems 10-point ROS is otherwise unremarkable Physical Examination - Vital Signs Temperature: 98.2 F Blood Pressure: 100/58 Pulse: 98 Respirations: 18 Pulse Ox (%): 97 - Physical Exam General: Alert, In no apparent distress, Oriented x3 HEENT: Atraumatic, PERRLA, Mucous membr. moist/pink, EOMI, Sclerae nonicteric Neck: Supple, 2+ carotid pulse no bruit, No LAD, JVD distended Respiratory: Clear to auscultation bilaterally, Normal air movement Cardiovascular: Irregular heart rate/rhythm, Systolic murmur Gastrointestinal: Normal bowel sounds, Soft and benign, Non-distended, No tenderness Musculoskeletal: No tenderness, Swelling Integumentary: No rashes Neurological: Normal gait, Normal speech, Normal tone, Sensation intact, Cranial nerves 3-12 intact, Normal affect, Abnormal strength Lymphatics: No axilla or inguinal lymphadenopathy - Studies Laboratory Data (last 24 hrs) 09/03/18 22:45: PT 13.7 H, INR 1.17 09/03/18 22:45: WBC 8.0, Hgb 14.5, Hct 45.5, Plt Count 153 09/03/18 22:45: Sodium 141, Potassium 4.4, BUN 27 H, Creatinine 1.73 H, Glucose 108 H, Magnesium 1.9, Total Bilirubin 0.9, AST 13 L, ALT 22, Alkaline Phosphatase 40 L, Troponin I < 0.02 09/03/18 22:03: PT Cancelled, INR Cancelled 09/03/18 22:03: WBC Cancelled, Hgb Cancelled, Hct Cancelled, Plt Count Cancelled 09/03/18 22:03: Sodium Cancelled, Potassium Cancelled, BUN Cancelled, Creatinine Cancelled, Glucose Cancelled, Magnesium Cancelled, Total Bilirubin Cancelled, AST Cancelled, ALT Cancelled, Alkaline Phosphatase Cancelled Assessment & Plan - Problems (Diagnosis) (1) Atrial flutter with rapid ventricular response Current Visit: Yes Status: Acute (2) Systolic CHF, acute Current Visit: Yes Status: Acute (3) Cardiomegaly Current Visit: Yes Status: Acute (4) RLL pneumonia Onset Date: 09/12/16 Current Visit: No Status: Acute Qualifiers: Pneumonia type: due to unspecified organism Qualified Code(s): J18.1 - Lobar pneumonia, unspecified organism (5) DM2 (diabetes mellitus, type 2) Onset Date: 09/29/16 Current Visit: No Status: Chronic Qualifiers: Diabetes mellitus retirement insulin use: without retirement use Diabetes mellitus complication status: with hyperglycemia Qualified Code(s): E11.65 - Type 2 diabetes mellitus with hyperglycemia (6) HTN (hypertension) Onset Date: 09/29/16 Current Visit: No Status: Chronic Qualifiers: Hypertension type: essential hypertension Qualified Code(s): I10 - Essential (primary) hypertension (7) Hx pulmonary embolism Current Visit: No Status: Chronic (8) Hyperlipidemia Onset Date: 09/29/16 Current Visit: No Status: Chronic Qualifiers: Hyperlipidemia type: unspecified Qualified Code(s): E78.5 - Hyperlipidemia , unspecified (9) Lymphoma Onset Date: 09/29/16 Current Visit: No Status: Chronic Qualifiers: Lymphoma type: unspecified type Lymphoma site: unspecified region Qualified Code(s): C85.90 - Non-Hodgkin lymphoma, unspecified, unspecified site - Plan 1. Echocardiogram 2. We will start patient on a Beta jovi and anticoag 3. Will order CT scan of the chest 4. Cardiology consultation 5. Gentle diuresis 6. Strict I's and O's 7. Continue with IV antibiotics; Awaiting sputum and blood culture; procalcitonin level;O2 per protocol 8. Daily weights 9. Education regarding diet and treatment of congestive heart failure Discharge Plan: Home Plan to discharge in: Greater than 2 days - Advance Directives Does patient have a Living Will: No Does patient have a Durable POA for Healthcare: No - Code Status/Comfort Care Code Status Assessed: Yes Code Status: Full Code Critical Care: No Time Spent Managing PTS Care (In Minutes): 50
[2018-09-04] MEDS: FUROSEMIDE 40 MG/4 ML VIAL IV SCH ×3 (08:19→16:24)
[2018-09-04] MEDS: METOPROLOL TAR 50 MG TAB PO SCH ×2 (08:19→21:04)
[2018-09-04] MEDS ORDERED: ENOXAPARIN 40 MG/0.4 ML SQ SCH (09:00)
[2018-09-04] MEDS ORDERED: ASPIRIN EC 81 MG TAB PO SCH (09:00)
[2018-09-04] MEDS ORDERED: CLOPIDOGREL 75 MG TABLET PO SCH (09:00)
--- NOTE | 2018-09-04 09:53 | RAD REPORT ---
EXAM DESCRIPTION: US - Renal Ultrasound-Complete - 09/04/2018 9:41 am CLINICAL HISTORY: . Acute renal insufficiency COMPARISON: None. FINDINGS: The right kidney measures 9 cm with a normal echotexture. The left kidney measures 10 cm with a normal echotexture. 1.6 centimeters cyst Hydronephrosis is not seen. Bladder wall thickening perhaps secondary to a chronic outlet obstruction Enlarged prostate gland IMPRESSION: 1.6 centimeter left renal cyst
--- NOTE | 2018-09-04 10:27 | RAD REPORT ---
EXAM DESCRIPTION: CT - Thorax Wo Con - 09/04/2018 9:09 am CLINICAL HISTORY: sob COMPARISON: September 03, 2018 chest x-ray TECHNIQUE: Computed axial tomography of the chest was obtained. Contrast was not requested. All CT scans are performed using dose optimization technique as appropriate and may include automated exposure control or mA/KV adjustment according to patient size. FINDINGS: The evaluation of mediastinum, manasa and vessels is limited secondary to lack of IV contras t administration. Mild right middle lobe and right lower lobe opacities. The left lung is clear. No mediastinal or hilar lymphadenopathy is seen. A small right pleural effusion. Cardiomegaly. Coronary arterial calcifications IMPRESSION: Mild right middle and right lower lobe opacities consistent with pneumonia Small right pleural effusion
--- NOTE | 2018-09-04 11:36 | EKG ---
Test Date: 2018-09-04 Test Time: 07:34:25 Wrapping Machine Tender: FLORIAN MEASUREMENT RESULTS: Intervals: Rate: 97 [place]: QRSD: 92 QT: 358 QTc: 454 [place]: P: [place]: QRS: 45 T: 51 INTERPRETIVE STATEMENTS: Atrial fibrillation Abnormal ECG Compared to ECG 09/28/2016 14:41:18 Sinus rhythm no longer present Electronically Signed On 09-04-18 11:35:39 CDT by Joel Crawley
--- NOTE | 2018-09-04 11:37 | EKG ---
Test Date: 2018-09-03 Test Time: 21:52:56 Shop Mechanic Helper: JUNE MEASUREMENT RESULTS: Intervals: Rate: 116 [place]: QRSD: 92 QT: 338 QTc: 469 [place]: P: [place]: QRS: -11 T: 58 INTERPRETIVE STATEMENTS: Atrial fibrillation with rapid ventricular response Abnormal ECG Compared to ECG 09/28/2016 14:41:18 Sinus rhythm no longer present Electronically Signed On 09-04-18 11:35:58 CDT by Joel Crawley
--- NOTE | 2018-09-04 12:36 | ECHO ---
HEIGHT: 5 ft 9 in WEIGHT: 243 lb 6.4 oz DATE OF STUDY: 09/04/[address]: Gareth Campos MD 2-DIMENSIONAL: YES M.MODE: YES DOPPLER: YES COLOR FLOW: YES TDS: NO PORTABLE: NO DEFINITY: NO BUBBLE STUDY: NO DIAGNOSIS: CONGESTIVE HEART FAILURE CARDIAC HISTORY: CATHERIZATION: NO SURGERY: NO PROSTHETIC VALVE: NO PACEMAKER: NO MEASUREMENTS (cm) DIASTOLIC (NORMALS) SYSTOLIC (NORMALS) IVSd 1.3 (0.6-1.2) LA Diam 3.8 (1.9-4.0) LVEF 25-30% LVIDd 4.4 (3.5-5.7) LVIDs 3.5 (2.0-3.5) %FS % LVPWd 1.0 (0.6-1.2) Ao Diam 3.5 (2.0-3.7) 2 DIMENSIONAL ASSESSMENT: RIGHT ATRIUM: NORMAL LEFT ATRIUM: NORMAL RIGHT VENTRICLE: NORMAL LEFT VENTRICLE: NORMAL SIZE TRICUSPID VALVE: NORMAL MITRAL VALVE: NORMAL PULMONIC VALVE: NORMAL AORTIC VALVE: NORMAL PERICARDIAL EFFUSION: NONE AORTIC ROOT: NORMAL LEFT VENTRICULAR WALL MOTION: SEVERE GLOBAL HYPOKINESIS. DOPPLER/COLOR FLOW: TRACE MITRAL AND TRICUSPID REGURGITATION. COMMENTS: SEVERE GLOBAL HYPOKINESIS. TRACE MITRAL AND TRICUSPID REGURGITATION. LEFT VENTRICULAR EJECTION FRACTION 35-30%. NO EFFUSION. TECHNOLOGIST: Silver RIVAS
[2018-09-04] MEDS: ACETAMINOPHEN 500 MG TAB PO PRN ×2 (16:25→21:06)
--- NOTE | 2018-09-04 22:19 | P.CNS ---
Date of Consult: 09/04/18 Reason for Consult: DAILY/ CKD III Requesting Physician: Trena Jameson Chief Complaint: atrial flutter/ CHF/pneumonia History of Present Illness: Patient is a 68-year-old gentleman who came into the hospital feeling short of breath and weak. His biggest complaint was that he has been getting short of breath quite frequently. What normally would not taking more than 20 30 min to cut his yd is taking him an hour. He has to take frequent breaks because he is so short winded. He started having fevers and came into the emergency room for further evaluation. In the emergency room initially he was in a flutter with rapid ventricular response. His heart rate was in the 140s to 150s and he had a blood pressure of 90s over 50s. He was so weak in the emergency room he had a hard time lifting himself up from the bed. His chest x-ray revealed cardiomegaly with right lower lobe opacity. This appeared to be an infiltrate more so than in infusion. He does also appear to have congestive heart failure as he has quite distended jugular veins. Patient was told he had an irregular heart beat many years ago. He was seeing Dr. Olguin a local branch lead but has not seen a branch lead since he moved to [place]. He was started on cardiac medication which have been continued by his primary care provider. Patient also has chronic kidney disease. Patient also had a fever of 101 in the emergency room. Will continue him on antibiotics for now and will wait for cardiac workup to be completed. Patient needs inpatient admission for new onset AFib flutter and new onset congestive heart failure as well as a right lower lobe pneumonia. 00:49 This 68 yrs old Black Male presents to ER via Ambulatory with complaints of Cough, kb Chest Pain. 00:49 The patient has shortness of breath with light activity. kb 00:50 Onset: The symptoms/episode began/occurred 3 day(s) ago. Duration: The symptoms are kb intermittent. The patient's shortness of breath is aggravated by light activity. Associated signs and symptoms: Pertinent positives: chest pain, non- productive cough, fever. Severity of symptoms: At their worst the symptoms were moderate in the emergency department the symptoms have improved. The patient has not experienced similar symptoms in the past. The patient has not recently seen a physician. Pt reports he has been getting short of breath with light activity for 3 days and having chest pain. Reports it has been taking 3 times longer to mow because he has to take frequent breaks to catch his breath. States the chest pain is worse on inspiration and with cough. Allergies No Known Allergies Allergy (Verified 05/09/18 11:12) Home medications list reviewed: Yes Home Medications: Atorvastatin Calcium [Lipitor*] 10 mg PO BEDTIME 05/20/16 Tamsulosin [Flomax*] 0.4 mg PO BID 05/20/16 Amlodipine [Norvasc*] 10 mg PO DAILYPRN PRN 09/12/16 Lisinopril/Hydrochlorothiazide [Zestoretic 20-25 mg Tablet] 1 tab PO DAILY 09/12 Metformin ER [Glucophage ER*] 500 mg PO BIDWM 09/12/16 Cholecalciferol (Vitamin D3) [Vitamin D3] 2,000 unit PO DAILY 05/09/18 Travoprost (Benzalkonium) [Travatan 0.004% Eye Drop] 1 gtt EACH EYE DAILY - Past Medical/Surgical History Diabetic: Yes -: HTN -: HYPERLIPIDEMIA -: diabetes -: lymphoma -: PE - Family History Sister Medical History: Cancer Notes: breast cancer Father Medical History: Cancer - Social History Smoking Status: Never smoker Alcohol use: No CD- Drugs: No Caffeine use: Yes Place of Residence: Home Review of Systems 10-point ROS is otherwise unremarkable General: Weakness Respiratory: SOB with Excertion Cardiovascular: Chest Pain, Edema Neurological: Weakness Physical Examination Temp Pulse Resp BP Pulse Ox 98.7 F 91 H 18 109/76 96 09/04/18 16:00 09/04/18 21:04 09/04/18 16:00 09/04/18 21:04 09/04/18 16:00 General: Oriented x3, Cooperative HEENT: Atraumatic, Mucous membr. moist/pink Neck: Supple Respiratory: Clear to auscultation bilaterally Cardiovascular: No edema, Regular rate/rhythm, No rubs Gastrointestinal: Soft and benign, Non-distended Musculoskeletal: No clubbing, No contractures Integumentary: No rashes, No cyanosis Neurological: Normal speech Laboratory Data (last 24 hrs) 09/03/18 22:45: PT 13.7 H, INR 1.17 09/03/18 22:45: WBC 8.0, Hgb 14.5, Hct 45.5, Plt Count 153 09/03/18 22:45: Sodium 141, Potassium 4.4, BUN 27 H, Creatinine 1.73 H, Glucose 108 H, Magnesium 1.9, Total Bilirubin 0.9, AST 13 L, ALT 22, Alkaline Phosphatase 40 L, Troponin I < 0.02 09/03/18 22:03: PT Cancelled, INR Cancelled 09/03/18 22:03: WBC Cancelled, Hgb Cancelled, Hct Cancelled, Plt Count Cancelled 09/03/18 22:03: Sodium Cancelled, Potassium Cancelled, BUN Cancelled, Creatinine Cancelled, Glucose Cancelled, Magnesium Cancelled, Total Bilirubin Cancelled, AST Cancelled, ALT Cancelled, Alkaline Phosphatase Cancelled Imagings Data: EXAM DESCRIPTION: US - Renal Ultrasound-Complete - 09/04/2018 9:41 am CLINICAL HISTORY: . Acute renal insufficiency COMPARISON: None. FINDINGS: The right kidney measures 9 cm with a normal echotexture. The left kidney measures 10 cm with a normal echotexture. 1.6 centimeters cyst Hydronephrosis is not seen. Bladder wall thickening perhaps secondary to a chronic outlet obstruction Enlarged prostate gland IMPRESSION: 1.6 centimeter left renal cyst EXAM DESCRIPTION: CT - Thorax Wo Con - 09/04/2018 9:09 am CLINICAL HISTORY: sob COMPARISON: September 03, 2018 chest x-ray TECHNIQUE: Computed axial tomography of the chest was obtained. Contrast was not requested. All CT scans are performed using dose optimization technique as appropriate and may include automated exposure control or mA/KV adjustment according to patient size. FINDINGS: The evaluation of mediastinum, manasa and vessels is limited secondary to lack of IV contrast administration. Mild right middle lobe and right lower lobe opacities. The left lung is clear. No mediastinal or hilar lymphadenopathy is seen. A small right pleural effusion. Cardiomegaly. Coronary arterial calcifications IMPRESSION: Mild right middle and right lower lobe opacities consistent with pneumonia Small right pleural effusion Conclusions/Impression: A/ DAILY likely CRS, improving. Systolic CHF, A/C. CKD III with proteinuria. DM II with CKD. HTN with CKD/ CHF. BPH with LUTS. Right Lobar PNA P/ Continue current POC and Medications. Agree with abx. Continue diuresis. DC IVF. Follow up with cardiology. No NSAIDs. AM labs. Daily weight. Thank you kindly for the consultation.
[2018-09-05] MEDS: FUROSEMIDE 40 MG/4 ML VIAL IV SCH ×3 (00:26→16:31)
[2018-09-05] MEDS: Levofloxacin500mg IV 500 MG/100 ML BAG IV SCH (00:29)
[2018-09-05 06:19] VITALS: BMI 35.6
[2018-09-05 07:58] LABS: Urine Appearance CLEAR; Urine Bilirubin NEGATIVE (NEG); Urine Blood NEGATIVE (NEG); Urine Color YELLOW; Urine Glucose NEGATIVE (NEG); Urine Protein NEGATIVE (NEG); Urine Urobilinogen 0.2 mg/dL (0.2-1.0)
[2018-09-05 08:45] LABS: Urine Amorphous Sediment 2+ /HPF (NONE SEEN); Urine Bacteria 20-50 /HPF (NONE SEEN); Urine Culture Reflex Order REFLEXED; Urine RBC NONE SEEN /HPF (NONE SEEN)
[2018-09-05] MEDS: METOPROLOL TAR 50 MG TAB PO SCH ×2 (08:50→21:00)
[2018-09-05] MEDS: Enoxaparin 120 MG/0.8 ML SYR SQ SCH ×2 (08:51→22:29)
--- NOTE | 2018-09-05 11:59 | CON ---
Date of Consultation: 09/04/2018 Reason For Consultation: Congestive heart failure and atrial flutter. History Of Present Illness: Mr. Krause is a 68-year-old black male and had a history of hypertensi on, diabetes, dyslipidemia, lymphoma that has been cured in 2017, has a history of benign prostatic h ypertrophy and status post cholecystectomy. He came in with pneumonia in right basilar. CT scan how ever showed also congestive heart failure. He has a creatinine of 1.6. Otherwise unremarkable diagn ostic data. He was also noted to be in atrial flutter with controlled rate. The patient's main symp toms were basically shortness of breath. No chest pain was reported. Allergies: NONE. Review of Systems: Negative. Social History: Negative. Family History: Negative. Medications: At home include Flomax, Lipitor, Norvasc, metformin, and lisinopril with hydrochlorothi azide. Physical Examination: General: He appeared to be in mild respiratory distress. Vital Signs: Stable. He was in atrial flutter, rate of 80. HEENT: Negative. Neck: Supple without any bruit, lymphadenopathy, JVD, or thyromegaly. Chest: Reveals bibasilar rales. Cardiac: Revealed atrial flutter. No murmurs, gallops, or rubs. Abdomen: Benign. Extremities: Revealed trace edema. Diagnostic Data: As stated earlier. Impression And Plan: 1.Acute onset congestive heart failure, probably systolic. Echocardiogram is pending. 2.Atrial flutter, new onset. We will need to continue Lovenox and consider anticoagulation as an ou tpatient. 3.Pneumonia. 4.Hypertension, well controlled. 5.Diabetes. 6.Dyslipidemia. 7.History of lymphoma, cured in 2017. 8.Benign prostatic hypertrophy. 9.Status post cholecystectomy. 10.Renal insufficiency stage 2. We will continue IV antibiotics. Continue diuresis. Continue Love nox. Mr. Krause will need a heart catheterization eventually. We can certainly do that as an outpatient . We will see what the echocardiogram shows prior to making further decisions. KIRK/LAURA Voice ID: [id number] Report ID: [id number]
--- NOTE | 2018-09-05 13:15 | P.PN ---
Subjective Date of Service: 09/05/18 Chief Complaint: atrial flutter/ CHF/pneumonia Patient seen and examined at bedside with RN. Chart reviewed. Case discussed with cardiology at this time. Patient continues to grow. Denies any shortness of breath chest pain nausea vomiting or any other associated symptoms Review of Systems 10-point ROS is otherwise unremarkable Physical Examination - Vital Signs Temperature: 97.5 F Blood Pressure: 99/62 Pulse: 86 Respirations: 18 Pulse Ox (%): 94 - Physical Exam General: Alert, In no apparent distress HEENT: Atraumatic, PERRLA, EOMI Neck: Supple, JVD not distended Respiratory: Normal air movement, Crackles/rales Cardiovascular: Regular rate/rhythm, Normal S1 S2 Gastrointestinal: Normal bowel sounds, No tenderness Musculoskeletal: No tenderness Integumentary: No rashes Neurological: Normal speech, Normal tone, Normal affect Lymphatics: No axilla or inguinal lymphadenopathy - Studies Medications List Reviewed: Yes Assessment And Plan - Current Problems (Diagnosis) (1) Atrial flutter with rapid ventricular response Current Visit: Yes Status: Acute Plan: Atrial fibrillation with RVR. Controlled at this time -initial heart rate elevated 140 to 150s. Now rates to 90s -cardiology consulted. Appreciated recommendations at this time -patient started on beta-jovi and will need eliquis on discharge (2) Systolic CHF, acute Current Visit: Yes Status: Acute Plan: Acute systolic heart failure -echocardiogram consistent with ejection fraction of 25% which was normal -on IV Lasix q.8 hr. -while here in the hospital. Will add spironolactone if needed -cardiology consulted here in the hospital restated recommendations -fluid and sodium restriction (3) RLL pneumonia Onset Date: 09/12/16 Current Visit: No Status: Acute Plan: Right lower lobe pneumonia on chest CT -IV Levaquin at this time -patient lactic acid, pro calcitonin, white count within normal limit -sputum culture and blood culture pending at this time Qualifiers: Pneumonia type: due to unspecified organism Qualified Code(s): J18.1 - Lobar pneumonia, unspecified organism (4) DM2 (diabetes mellitus, type 2) Onset Date: 09/29/16 Current Visit: No Status: Chronic Plan: Insulin sliding scale and Accu-Cheks Qualifiers: Diabetes mellitus mcc insulin use: without middle or intermediate school principal use Diabetes mellitus complication status: with hyperglycemia Qualified Code(s): E11.65 - Type 2 diabetes mellitus with hyperglycemia (5) HTN (hypertension) Onset Date: 09/29/16 Current Visit: No Status: Chronic Qualifiers: Hypertension type: essential hypertension Qualified Code(s): I10 - Essential (primary) hypertension (6) Hyperlipidemia Onset Date: 09/29/16 Current Visit: No Status: Chronic Qualifiers: Hyperlipidemia type: unspecified Qualified Code(s): E78.5 - Hyperlipidemia , unspecified (7) Lymphoma Onset Date: 09/29/16 Current Visit: No Status: Chronic Qualifiers: Lymphoma type: unspecified type Lymphoma site: unspecified region Qualified Code(s): C85.90 - Non-Hodgkin lymphoma, unspecified, unspecified site - Plan Pending clinical improvement at this time. Discharge Plan: Home Plan to discharge in: Greater than 2 days - Code Status/Comfort Care Code Status Assessed: Yes Critical Care: No
--- NOTE | 2018-09-05 15:35 | CON ---
Additional Attending Physician: Gareth Campos M.D. Reason For Consult: Atrial fib and congestive heart failure. History Of Present Illness: Mr. Krause is a gentleman, who apparently had normal coronary arteries , a physician did a cardiac cath on him sometime before 2009. He has atrial fib now. He has had sym ptoms of dyspnea on exertion for about a month, perhaps a little longer. Roughly 5-8 years ago, he d eveloped a lymphoma and was treated with chemotherapy, was done at [facility]. Dr. Pérez was his doctor then. I do not have any records from that in particular. We know he has had serial echocardiograms, the last one was in 2016 and it demonstrated normal ejection fraction. Echoc ardiogram from yesterday demonstrates ejection fraction of 20%-25%. He is in atrial fibrillation. B oth of these are new problems, never had vascular surgery. Social History: Does not use tobacco. Alcohol use, moderate. No illegal drugs. Physical Examination: Vital Signs: 5 feet 9 inches, 249 pounds. Most recent blood pressure 111/80, heart rate 89. He is in atrial fibrillation. General: Obese, alert, oriented, pleasant, not in distress. Lungs: Clear. Heart: Irregular. No significant murmur or rub. Abdomen: Soft. Extremities: Trace edema. Impression: The patient should be given anticoagulation for at least 3 weeks, we could see if we wan t to attempt cardioversion. Regarding his heart failure, he should be on diuretics, beta jovi, an d angiotensin-receptor jovi. I will initiate therapy for those. Today he is already on the beta jovi. When he is feeling well enough, he could be discharged with chronic anticoagulation, beta jovi, angiotensin-receptor jovi, inhibitor, diuretic, and be managed as an outpatien t. VIVIEN/LAURA Voice ID: [id number] Report ID: [id number]
[2018-09-05] MEDS: ACETAMINOPHEN 500 MG TAB PO PRN (16:44)
[2018-09-05 20:51] VITALS: O2SAT 95
[2018-09-05] MEDS ORDERED: ATORVASTATIN 10 MG TAB PO SCH (21:00)
[2018-09-05] MEDS: SACUBITRIL/VALSARTAN 24/26 MG TAB PO SCH (22:29)
--- NOTE | 2018-09-05 22:36 | P.PN ---
Date of Service: 09/05/18 Vital Signs Temp Pulse Resp BP Pulse Ox 97.6 F 82 18 107/70 98 09/05/18 20:00 09/05/18 20:00 09/05/18 20:00 09/05/18 20:00 09/05/18 20:00 Medications Acetaminophen (Tylenol -Extra Strength) 500 mg PO Q4HP PRN PRN Reason: pain/fever Stop: 10/04/18 01:06 Last Admin: 09/05/18 16:44 Dose: 500 mg Albuterol Sulfate (Proventil 0.083% Neb Soln) 2.5 mg NEB [id number] PRN PRN Reason: SHORTNESS OF BREATH Stop: 10/04/18 01:06 Atorvastatin Calcium (Lipitor) 10 mg PO BEDTIME MILDRED Stop: 10/05/18 21:01 Last Admin: 09/05/18 22:29 Dose: 10 mg Cholecalciferol (Vitamin D 1000 Iu Tab) 2,000 unit PO DAILY MILDRED Stop: 10/06/18 09:01 Enoxaparin Sodium (Lovenox 120 Mg Inj) 110 mg SQ Q12HR MILDRED Stop: 10/04/18 03:01 Last Admin: 09/05/18 22:29 Dose: 110 mg Furosemide (Lasix) 20 mg IV Q8HR MILDRED Stop: 10/04/18 08:01 Last Admin: 09/05/18 16:31 Dose: 20 mg Levofloxacin/Dextrose (Levaquin 500 Mg/100 Ml Ivpb) 500 mg in 100 mls @ 100 mls /hr IV Q24H MILDRED; Protocol Stop: 10/04/18 02:01 Last Admin: 09/05/18 00:29 Dose: 100 mls Ipratropium [place] (Atrovent Neb) 0.5 mg NEB [id number] PRN PRN Reason: SHORTNESS OF BREATH Stop: 10/04/18 02:01 Ipratropium [place] (Atrovent Neb) 0.5 mg NEB [id number] PRN PRN Reason: SHORTNESS OF BREATH Stop: 10/04/18 02:01 Metoprolol Tartrate (Lopressor) 25 mg PO BID MILDRED Stop: 10/04/18 09:01 Last Admin: 09/05/18 08:50 Dose: 25 mg Ondansetron HCl (Zofran) 4 mg IV Q6HP PRN PRN Reason: NAUSEA / VOMITING Stop: 10/04/18 01:06 Sodium Chloride (Normal Saline Flush) 10 ml IV BID MILDRED Stop: 10/04/18 09:01 Last Admin: 09/05/18 21:00 Dose: 10 ml Microbiology Results 09/03/18 23:00 Blood - Blood Aerobic Blood Culture - Preliminary No growth in 24 hours. 09/03/18 23:00 Blood - Blood Anaerobic Blood Culture - Preliminary No growth in 24 hours. 09/03/18 22:45 Blood - Blood Aerobic Blood Culture - Preliminary No growth in 24 hours. 09/03/18 22:45 Blood - Blood Anaerobic Blood Culture - Preliminary No growth in 24 hours. Assessment/ Plan: Nephrology. Feeling better today. CPS improved without CP or SOB. No acute events overnight. Vitals, medications, blood work and imaging reviewed in the chart. General: Oriented x3, Cooperative HEENT: Atraumatic, Mucous membr. moist/pink Neck: Supple Respiratory: Clear to auscultation bilaterally Cardiovascular: No edema, Regular rate/rhythm, No rubs Gastrointestinal: Soft and benign, Non-distended Musculoskeletal: No clubbing, No contractures Integumentary: No rashes, No cyanosis Neurological: Normal speech Laboratory Data (last 24 hrs) 09/03/18 22:45: PT 13.7 H, INR 1.17 09/03/18 22:45: WBC 8.0, Hgb 14.5, Hct 45.5, Plt Count 153 09/03/18 22:45: Sodium 141, Potassium 4.4, BUN 27 H, Creatinine 1.73 H, Glucose 108 H, Magnesium 1.9, Total Bilirubin 0.9, AST 13 L, ALT 22, Alkaline Phosphatase 40 L, Troponin I < 0.02 09/03/18 22:03: PT Cancelled, INR Cancelled 09/03/18 22:03: WBC Cancelled, Hgb Cancelled, Hct Cancelled, Plt Count Cancelled 09/03/18 22:03: Sodium Cancelled, Potassium Cancelled, BUN Cancelled, Creatinine Cancelled, Glucose Cancelled, Magnesium Cancelled, Total Bilirubin Cancelled, AST Cancelled, ALT Cancelled, Alkaline Phosphatase Cancelled Imagings Data: EXAM DESCRIPTION: US - Renal Ultrasound-Complete - 09/04/2018 9:41 am CLINICAL HISTORY: . Acute renal insufficiency COMPARISON: None. FINDINGS: The right kidney measures 9 cm with a normal echotexture. The left kidney measures 10 cm with a normal echotexture. 1.6 centimeters cyst Hydronephrosis is not seen. Bladder wall thickening perhaps secondary to a chronic outlet obstruction Enlarged prostate gland IMPRESSION: 1.6 centimeter left renal cyst EXAM DESCRIPTION: CT - Thorax Wo Jung - 09/04/2018 9:09 am CLINICAL HISTORY: sob COMPARISON: September 03, 2018 chest x-ray TECHNIQUE: Computed axial tomography of the chest was obtained. Contrast was not requested. All CT scans are performed using dose optimization technique as appropriate and may include automated exposure control or mA/KV adjustment according to patient size. FINDINGS: The evaluation of mediastinum, manasa and vessels is limited secondary to lack of IV contrast administration. Mild right middle lobe and right lower lobe opacities. The left lung is clear. No mediastinal or hilar lymphadenopathy is seen. A small right pleural effusion. Cardiomegaly. Coronary arterial calcifications IMPRESSION: Mild right middle and right lower lobe opacities consistent with pneumonia Small right pleural effusion Conclusions/Impression: A/ DAILY likely CRS, improving. Systolic CHF, A/C. CKD III with proteinuria. DM II with CKD. HTN with CKD/ CHF. BPH with LUTS. Right Lobar PNA P/ Continue current POC and Medications. Agree with abx. Continue diuresis. DC IVF. Follow up with cardiology. No NSAIDs. AM labs. Daily weight. Encourage nutrition. PT as tolerated.
[2018-09-06] MEDS: FUROSEMIDE 40 MG/4 ML VIAL IV SCH ×2 (02:24→08:56)
[2018-09-06] MEDS: Levofloxacin500mg IV 500 MG/100 ML BAG IV SCH (02:25)
[2018-09-06] MEDS: Enoxaparin 120 MG/0.8 ML SYR SQ SCH (08:54)
[2018-09-06] MEDS: METOPROLOL TAR 50 MG TAB PO SCH (08:54)
[2018-09-06] MEDS: SACUBITRIL/VALSARTAN 24/26 MG TAB PO SCH (08:57)
[2018-09-06] MEDS ORDERED: VITAMIN D 1000 UNIT TAB PO SCH (09:00)
[2018-09-06 12:46] VITALS: BP 114/67; TEMP 98.4
--- NOTE | 2018-09-06 13:24 | P.DS ---
Admission Date: 09/04/18 Discharge Date: 09/06/18 Disposition: ROUTINE DISCHARGE Discharge Condition: GOOD Reason for Admission: atrial flutter/ CHF/pneumonia Consultations: Cardiology - Problems (1) Atrial flutter with rapid ventricular response Status: Acute (2) Systolic CHF, acute Status: Acute (3) RLL pneumonia Onset Date: 09/12/16 Status: Acute Qualifiers: Pneumonia type: due to unspecified organism Qualified Code(s): J18.1 - Lobar pneumonia, unspecified organism (4) DM2 (diabetes mellitus, type 2) Onset Date: 09/29/16 Status: Chronic Qualifiers: Diabetes mellitus rodent exterminator insulin use: without detention use Diabetes mellitus complication status: with hyperglycemia Qualified Code(s): E11.65 - Type 2 diabetes mellitus with hyperglycemia (5) HTN (hypertension) Onset Date: 09/29/16 Status: Chronic Qualifiers: Hypertension type: essential hypertension Qualified Code(s): I10 - Essential (primary) hypertension (6) Hyperlipidemia Onset Date: 09/29/16 Status: Chronic Qualifiers: Hyperlipidemia type: unspecified Qualified Code(s): E78.5 - Hyperlipidemia , unspecified (7) Lymphoma Onset Date: 09/29/16 Status: Chronic Qualifiers: Lymphoma type: unspecified type Lymphoma site: unspecified region Qualified Code(s): C85.90 - Non-Hodgkin lymphoma, unspecified, unspecified site Brief History of Present Illness: Patient is a 68-year-old gentleman who came into the hospital feeling short of breath and weak. His biggest complaint was that he has been getting short of breath quite frequently. What normally would not taking more than 20 30 min to cut his yd is taking him an hour. He has to take frequent breaks because he is so short winded. He started having fevers and came into the emergency room for further evaluation. In the emergency room initially he was in a flutter with rapid ventricular response. His heart rate was in the 140s to 150s and he had a blood pressure of 90s over 50s. He was so weak in the emergency room he had a hard time lifting himself up from the bed. His chest x-ray revealed cardiomegaly with right lower lobe opacity. This appeared to be an infiltrate more so than in infusion. He does also appear to have congestive heart failure as he has quite distended jugular veins. Patient was told he had an irregular heart beat many years ago. He was seeing Dr. Olguin a local drum sander offbearer but has not seen a drum sander offbearer since he moved to [place]. He was started on cardiac medication which have been continued by his primary care provider. Patient also has chronic kidney disease. Patient also had a fever of 101 in the emergency room. Will continue him on antibiotics for now and will wait for cardiac workup to be completed. Patient needs inpatient admission for new onset AFib flutter and new onset congestive heart failure as well as a right lower lobe pneumonia. Patient also has a history of lymphoma and required chemotherapy-not sure exactly what chemotherapeutic agent was used. He has been in remission for 2-3 years. However, will monitor him closely and he will need outpatient follow-up with hematology. Hospital Course: Overall during the hospital stay patient remained stable Patient was initially admitted to the hospital for shortness of breath most likely secondary to atrial fibrillation with RVR along with CHF exacerbation and pneumonia. For patient's atrial fibrillation with RVR cardiology was consulted who started patient on beta-jovi and on anti coagulation. Patient's heart rate was controlled and patient was thus transitioned to metoprolol 12.5 mg daily along with Eliquis 5 mg b.i.d. For patient's CHF exacerbation patient was initially started on IV Lasix. Cardiology was consulted. Patient had an echocardiogram done which was consistent with decreased ejection fraction of 25-30% is rested change from his last echocardiogram. At that time patient was started on Entresto, Lasix and was continued on beta-jovi. Patient had marked improvement in his symptoms and was ready for discharge For patient's pneumonia patient was initially started on IV antibiotics was switched over to IV Levaquin. After reviewing lab work and x-ray thoroughly patient's symptoms were most likely secondary to volume overload versus bacterial infection. Patient was thus not prescribed any IV antibiotics on discharge however was asked to follow up with primary care provider for any worsening in case he does have fever chills at that time primary care doctor can prescribe him oral antibiotics for his presumed pneumonia. Patient also had acute kidney injury while here in the hospital. Which did improve once patient was started on IV Lasix. Patient did markedly well. And was asked to follow up with nephrology outpatient. All other chronic conditions remained stable while patient was here in the hospital Vital Signs/Physical Exam: Temp Pulse Resp BP Pulse Ox 98.4 F 92 H 18 114/67 97 09/06/18 12:00 09/06/18 12:00 09/06/18 12:00 09/06/18 12:00 09/06/18 12:00 General: Alert, In no apparent distress HEENT: Atraumatic, PERRLA, EOMI Neck: Supple, JVD not distended Respiratory: Clear to auscultation bilaterally, Normal air movement Cardiovascular: Regular rate/rhythm, Normal S1 S2 Gastrointestinal: Normal bowel sounds, No tenderness Musculoskeletal: No tenderness Integumentary: No rashes Neurological: Normal speech, Normal tone, Normal affect Lymphatics: No axilla or inguinal lymphadenopathy Laboratory Data at Discharge: WBC 7.6 K/uL (4.3-10.9) 09/04/18 05:58 Hgb 13.8 g/dL (13.6-17.9) 09/04/18 05:58 Hct 41.8 % (39.6-49.0) 09/04/18 05:58 Plt Count 141 K/uL (152-406) L 09/04/18 05:58 PT 13.7 SECONDS (9.5-12.5) H 09/03/18 22:45 INR 1.17 09/03/18 22:45 Sodium 140 mmol/L (136-145) 09/04/18 05:58 Potassium 4.0 mmol/L (3.5-5.1) 09/04/18 05:58 BUN 28 mg/dL (7-18) H 09/04/18 05:58 Creatinine 1.60 mg/dL (0.55-1.3) H 09/04/18 05:58 Glucose 148 mg/dL (74-106) H 09/04/18 05:58 Phosphorus 3.7 mg/dL (2.5-4.9) 09/04/18 05:58 Magnesium 1.9 mg/dL (1.8-2.4) 09/04/18 05:58 Total Bilirubin 0.8 mg/dL (0.2-1.0) 09/04/18 05:58 AST 15 U/L (15-37) 09/04/18 05:58 ALT 19 U/L (12-78) 09/04/18 05:58 Alkaline Phosphatase 36 U/L (45-117) L 09/04/18 05:58 Troponin I < 0.02 ng/mL (0.0-0.045) 09/05/18 06:22 Triglycerides 118 mg/dL (<150) 09/05/18 06:22 Cholesterol 212 mg/dL (<200) H 09/05/18 06:22 HDL Cholesterol 49 mg/dL (40-60) 09/05/18 06:22 Cholesterol/HDL Ratio 4.33 09/05/18 06:22 Home Medications: Atorvastatin Calcium [Lipitor*] 10 mg PO BEDTIME 05/20/16 Tamsulosin [Flomax*] 0.4 mg PO BID 05/20/16 Metformin ER [Glucophage ER*] 500 mg PO BIDWM 09/12/16 Cholecalciferol (Vitamin D3) [Vitamin D3] 2,000 unit PO DAILY 05/09/18 Travoprost (Benzalkonium) [Travatan 0.004% Eye Drop] 1 gtt EACH EYE DAILY Apixaban [Eliquis] 5 mg PO BID #60 tablet 09/06/18 Furosemide [Lasix] 20 mg PO DAILY #30 tab 09/06/18 Metoprolol Tartrate [Lopressor*] 12.5 mg PO DAILY #30 tab 09/06/18 Sacubitril/Valsartan [Entresto 24 mg-26 mg Tablet] 1 tab PO BID #60 tab New Medications: Apixaban [Eliquis] 5 mg PO BID #60 tablet Furosemide [Lasix] 20 mg PO DAILY #30 tab Metoprolol Tartrate [Lopressor*] 12.5 mg PO DAILY #30 tab Sacubitril/Valsartan [Entresto 24 mg-26 mg Tablet] 1 tab PO BID #60 tab Diet: Regular Activity: Ad gaetano Followup: Mahin Patino DO [Primary Care Provider] - Luisito Can MD [ACTIVE - CAN ADMIT] - 1 Week (Community Support Specialist. Follow up in 1 week, call for appointment. )
== END 2018-09-06 12:45 | disposition home or self-care (01) | DRG 193 ==
LOC: ER 21:35 → ERHOLD 09-04 01:39 → 4TH 09-04 02:04
PROVIDERS: ADMIT Hospitalist; ATTEND Hospitalist
DX: J18.9 Pneumonia, unspecified organism (principal); I50.21 Acute systolic (congestive) heart failure; I13.0 Hypertensive heart and chronic kidney disease with heart failure and stage 1 through stage 4 chronic kidney disease, or unspecified chronic kidney disease; N17.9 Acute kidney failure, unspecified; Z85.72 Personal history of non-Hodgkin lymphomas; I48.2 Chronic atrial fibrillation; E78.5 Hyperlipidemia, unspecified; N40.0 Benign prostatic hyperplasia without lower urinary tract symptoms; E11.22 Type 2 diabetes mellitus with diabetic chronic kidney disease; N18.3 Chronic kidney disease, stage 3 (moderate)
CPT/HCPCS: 36415; 71045; 71250; 76770; 80048; 80053; 80061; 80076; 81001; 82962; 83605; 83735; 83880; 84100; 84145; 84484; 85025; 85610; 87040; 87086; 87088; 93005; 93306; 94760; 96365; 96375; 99285; J0456; J0696; J1650; J1940; J7030

== ENCOUNTER 2018-09-28 06:09 | Day surgery (SDC) | payer OTHER ==
--- OUTSIDE RECORDS SUMMARY | 2018-09-28 06:11 | XMS REPORT | Clinical Summary ---
:1950 Author Organization [facility] Address [address] [place] [address] Care Team Providers Name Role Phone Mahin [...] Not on file Results Not on fileafter 09/27/2017 Insurance Payer Benefit Plan / Group Subscriber ID Type Phone Address CARE IMPROVEMENT MEDICARE MGD CARE IMPROVEMENT PLUS xxxxxxxxx CARE Advance Directives For more information, please contact:[address] [phone] Code Status Date Activated Date Inactivated Comments Full Code 10/04/2016 8:26 PM 10/07/2016 4:40 PM This code status was determined by: Patient
--- OUTSIDE RECORDS SUMMARY | 2018-09-28 06:11 | XMS REPORT | Clinical Summary ---
:1950 Author Organization [facility] Address [address] [place] [address] Care Team Providers Name Role Phone Mahin [...] Health Maintenance Due Date Last Done Comments COLONOSCOPY SCREENING 2000 SHINGLES VACCINES (#1) 2000 65+ PNEUMOCOCCAL VACCINE (1 of 2 - PCV13) 2015 INFLUENZA VACCINE 11/01/2018 Results Not on fileafter 09/27/2017 Advance Directives Patient has advance care planning documents, and code status on file. For more information, please contact:Jovani Melo[address] [place] [phone] Code Status Date Activated Date Inactivated Comments Full Code 02/10/2016 12:03 AM 02/10/2016 7:56 PM Code Status decision reached by: Patient
--- OUTSIDE RECORDS SUMMARY | 2018-09-28 06:13 | XMS REPORT ---
:1950 [facility] Address [address] [place] [address] [address]. [address] [place] [address] Care Team Providers Name Role Phone BARBARA [...] Comments WHITE BLOOD CELL COUNT (BEAKER) (test wwpi=872) 6.4 K/ L 4.0-10.0 RED BLOOD CELL COUNT (BEAKER) (test bkxm=521) 3.43 M/ L 4.20-5.80 HEMOGLOBIN (BEAKER) (test hfqd=995) 8.3 GM/DL 13.0-16.8 HEMATOCRIT (BEAKER) (test oweo=514) 27.7 % 40.0-50.0 MEAN CORPUSCULAR VOLUME (BEAKER) (test prxr=674) 81.0 fL 82.0-98.0 MEAN CORPUSCULAR HEMOGLOBIN (BEAKER) (test ozml=750) 24.1 pg 27.0-33.0 MEAN CORPUSCULAR HEMOGLOBIN CONC (BEAKER) (test ntri=232) 29.7 GM/DL 32.0- 36.0 RED CELL DISTRIBUTION WIDTH (BEAKER) (test pxzy=333) 20.7 % 10.3-14.2 PLATELET COUNT (BEAKER) (test fmcr=320) 269 K/CU MM 150-430 MEAN PLATELET VOLUME (BEAKER) (test fvuo=237) 9.4 fL 6.5-10.5 NUCLEATED RED BLOOD CELLS (BEAKER) (test uiwy=615) 0 /100 WBC 0-0 NEUTROPHILS RELATIVE PERCENT (BEAKER) (test rmix=104) 43 % LYMPHOCYTES RELATIVE PERCENT (BEAKER) (test powh=286) 36 % MONOCYTES RELATIVE PERCENT (BEAKER) (test zyvj=548) 8 % EOSINOPHILS RELATIVE PERCENT (BEAKER) (test tctf=345) 13 % BASOPHILS RELATIVE PERCENT (BEAKER) (test czmo=412) 0 % NEUTROPHILS ABSOLUTE COUNT (BEAKER) (test rgbn=731) 2.72 K/ L 1.80-8.00 LYMPHOCYTES ABSOLUTE COUNT (BEAKER) (test bkap=455) 2.26 K/ L 1.48-4.50 MONOCYTES ABSOLUTE COUNT (BEAKER) (test skys=366) 0.51 K/ L 0.00-1.30 EOSINOPHILS ABSOLUTE COUNT (BEAKER) (test xrym=670) 0.85 K/ L 0.00-0.50 BASOPHILS ABSOLUTE COUNT (BEAKER) (test vnvg=736) 0.02 K/ L 0.00-0.20 0.00POCT-GLUCOSE [id number] 07:47:00 Test Item Value Reference Range Comments POC-GLUCOSE METER (BEAKER) 96 mg/dL 70-110 TESTED AT [address] (test dgkb=5803) [facility] [address] BASIC METABOLIC [id number] 06:30:00 Test Item Value Reference Range Comments SODIUM (BEAKER) (test 147 meq/L 136-145 gvmp=519) POTASSIUM (BEAKER) (test 3.6 meq/L 3.5-5.1 dvlq=579) CHLORIDE (BEAKER) (test 111 meq/L 98-107 wasw=717) CO2 (BEAKER) (test 28 meq/L 22-29 tden=733) BLOOD UREA NITROGEN 4 mg/dL 7-21 (BEAKER) (test nqek=998) CREATININE (BEAKER) (test 0.85 mg/dL 0.57-1.25 mutg=344) GLUCOSE RANDOM (BEAKER) 87 mg/dL 70-105 (test bygm=861) CALCIUM (BEAKER) (test 8.8 mg/dL 8.4-10.2 lpod=020) EGFR (BEAKER) (test 109 mL/min/1.73 sq m ESTIMATED GFR IS NOT jmze=7046) ACCURATE CREATININE CLEARANCE IN PREDICTING GLOMERULAR FILTRATION RATE. ESTIMATED GFR IS NOT APPLICABLE FOR DIALYSIS PATIENTS. [id number] 06:19:00 Test Item Value Reference Range Comments PROTIME (BEAKER) (test bhfw=859) 14.8 seconds 11.7-14.7 INR (BEAKER) (test adfm=231) 1.2 <=5.9 PARTIAL THROMBOPLASTIN TIME (BEAKER) (test 43.7 seconds 22.5-36.0 olys=479) RECOMMENDED COUMADIN/WARFARIN INR THERAPY RANGESSTANDARD DOSE: 2.0 - 3.0 Includes: PROPHYLAXIS forvenous thrombosis, systemic embolization; TREATMENT for venous thrombosis and/or pulmonary embolus.HIGH RISK: Target INR is 2.5-3.5 for patients with mechanical heart valves.PROTHROMBIN [id number] 06:18: 00 Test Item Value Reference Range Comments PROTIME (BEAKER) (test fllq=091) 14.8 seconds 11.7-14.7 INR (BEAKER) (test cgdd=176) 1.2 <=5.9 RECOMMENDED COUMADIN/WARFARIN INR THERAPY RANGESSTANDARD DOSE: 2.0 - 3.0 Includes: PROPHYLAXIS forvenous thrombosis, systemic embolization; TREATMENT for venous thrombosis and/or pulmonary embolus.HIGH RISK: Target INR is 2.5-3.5 for patients with mechanical heart valves.POCT-GLUCOSE [id number] 21:11:00 Test Item Value Reference Range Comments POC-GLUCOSE METER (BEAKER) 123 mg/dL 70-110 TESTED AT [address] (test glbx=1453) [place] [address] POCT-GLUCOSE [id number] 17:40:00 Test Item Value Reference Range Comments POC-GLUCOSE METER (BEAKER) 123 mg/dL 70-110 TESTED AT [address] (test utjx=6299) [place] [address] OCCULT BLOOD, [id number] 14:01:00 Test Item Value Reference Range Comments FECAL OCCULT BLOOD (BEAKER) (test bzai=549) Negative Negative POCT-GLUCOSE [id number] 12:37:00 Test Item Value Reference Range Comments POC-GLUCOSE METER (BEAKER) 120 mg/dL 70-110 TESTED AT [address] (test fpck=2593) [place] [address] POCT-GLUCOSE [id number] 07:47:00 Test Item Value Reference Range Comments POC-GLUCOSE METER (BEAKER) 100 mg/dL 70-110 TESTED AT [facility] [address] (test gfrz=3223) [facility] [address] [id number] 04:10:00 Test Item Value Reference Range Comments PHOSPHORUS (BEAKER) (test ajqh=200) 4.2 mg/dL 2.3-4.7 [id number] 04:10:00 Test Item Value Reference Range Comments MAGNESIUM (BEAKER) (test ouet=988) 1.7 mg/dL 1.6-2.6 BASIC METABOLIC [id number] 04:10:00 Test Item Value Reference Range Comments SODIUM (BEAKER) (test 146 meq/L 136-145 kina=804) POTASSIUM (BEAKER) (test 3.5 meq/L 3.5-5.1 fmnp=671) CHLORIDE (BEAKER) (test 110 meq/L 98-107 dkrm=849) CO2 (BEAKER) (test 29 meq/L 22-29 ofoo=240) BLOOD UREA NITROGEN 3 mg/dL 7-21 (BEAKER) (test atvf=775) CREATININE (BEAKER) (test 0.84 mg/dL 0.57-1.25 femf=290) GLUCOSE RANDOM (BEAKER) 99 mg/dL 70-105 (test fknf=495) CALCIUM (BEAKER) (test 8.6 mg/dL 8.4-10.2 gywj=259) EGFR (BEAKER) (test 111 mL/min/1.73 sq m ESTIMATED GFR IS NOT zzpx=6110) ACCURATE CREATININE CLEARANCE IN PREDICTING GLOMERULAR FILTRATION RATE. ESTIMATED GFR IS NOT APPLICABLE FOR DIALYSIS PATIENTS. HEPATIC FUNCTION [id number] 04:10:00 Test Item Value Reference Range Comments TOTAL PROTEIN (BEAKER) (test ymgj=364) 5.5 gm/dL 6.0-8.3 ALBUMIN (BEAKER) (test dwam=5062) 2.5 g/dL 3.5-5.0 BILIRUBIN TOTAL (BEAKER) (test sjft=764) 0.1 mg/dL 0.2-1.2 BILIRUBIN DIRECT (BEAKER) (test xcaf=567) 0.1 mg/dL 0.1-0.5 ALKALINE PHOSPHATASE (BEAKER) (test vmyj=546) 54 U/L 40-150 AST (SGOT) (BEAKER) (test qrux=379) 25 U/L 5-34 ALT (SGPT) (BEAKER) (test ongb=375) 15 U/L 6-55 [id number] 04:03:00 Test Item Value Reference Range Comments PROTIME (BEAKER) (test wtul=287) 14.0 seconds 11.7-14.7 INR (BEAKER) (test ybqv=187) 1.1 <=5.9 PARTIAL THROMBOPLASTIN TIME (BEAKER) (test 70.7 seconds 22.5-36.0 tdas=291) RECOMMENDED COUMADIN/WARFARIN INR THERAPY RANGESSTANDARD DOSE: 2.0 - 3.0 Includes: PROPHYLAXIS forvenous thrombosis, systemic embolization; TREATMENT for venous thrombosis and/or pulmonary embolus.HIGH RISK: Target INR is 2.5-3.5 for patients with mechanical heart valves.[id number] 04:03:00 Test Item Value Reference Range Comments PARTIAL THROMBOPLASTIN TIME (BEAKER) (test 70.7 seconds 22.5-36.0 pwky=691) PROTHROMBIN [id number] 04:02:00 Test Item Value Reference Range Comments PROTIME (BEAKER) (test pwgk=428) 14.0 seconds 11.7-14.7 INR (BEAKER) (test rpjp=044) 1.1 <=5.9 RECOMMENDED COUMADIN/WARFARIN INR THERAPY RANGESSTANDARD DOSE: 2.0 - 3.0 Includes: PROPHYLAXIS forvenous thrombosis, systemic embolization; TREATMENT for venous thrombosis and/or pulmonary embolus.HIGH RISK: Target INR is 2.5-3.5 for patients with mechanical heart valves.CBC W/PLT COUNT & AUTO [id number] 03:57:00 Test Item Value Reference Range Comments WHITE BLOOD CELL COUNT (BEAKER) (test lfup=595) 6.8 K/ L 4.0-10.0 RED BLOOD CELL COUNT (BEAKER) (test ievv=315) 3.32 M/ L 4.20-5.80 HEMOGLOBIN (BEAKER) (test puat=601) 8.2 GM/DL 13.0-16.8 HEMATOCRIT (BEAKER) (test zsmb=122) 27.0 % 40.0-50.0 MEAN CORPUSCULAR VOLUME (BEAKER) (test hjgq=768) 81.3 fL 82.0-98.0 MEAN CORPUSCULAR HEMOGLOBIN (BEAKER) (test 24.5 pg 27.0-33.0 vloa=463) MEAN CORPUSCULAR HEMOGLOBIN CONC (BEAKER) (test 30.2 GM/DL 32.0-36.0 pczo=749) RED CELL DISTRIBUTION WIDTH (BEAKER) (test 20.4 % 10.3-14.2 pjxl=405) PLATELET COUNT (BEAKER) (test csbw=819) 272 K/CU MM 150-430 MEAN PLATELET VOLUME (BEAKER) (test chof=390) 9.0 fL 6.5-10.5 NUCLEATED RED BLOOD CELLS (BEAKER) (test 0 /100 WBC 0-0 bxuf=312) NEUTROPHILS RELATIVE PERCENT (BEAKER) (test 37 % rrnl=495) LYMPHOCYTES RELATIVE PERCENT (BEAKER) (test 41 % wlqq=198) MONOCYTES RELATIVE PERCENT (BEAKER) (test 10 % yjhc=665) EOSINOPHILS RELATIVE PERCENT (BEAKER) (test 12 % jlgs=497) BASOPHILS RELATIVE PERCENT (BEAKER) (test 1 % rjtg=004) NEUTROPHILS ABSOLUTE COUNT (BEAKER) (test 2.50 K/ L 1.80-8.00 vslk=060) LYMPHOCYTES ABSOLUTE COUNT (BEAKER) (test 2.80 K/ L 1.48-4.50 yxmc=445) MONOCYTES ABSOLUTE COUNT (BEAKER) (test 0.69 K/ L 0.00-1.30 flgy=785) EOSINOPHILS ABSOLUTE COUNT (BEAKER) (test 0.79 K/ L 0.00-0.50 ecvu=912) BASOPHILS ABSOLUTE COUNT (BEAKER) (test 0.05 K/ L 0.00-0.20 ccrg=624) 0.00POCT-GLUCOSE [id number] 22:16:00 Test Item Value Reference Range Comments POC-GLUCOSE METER (BEAKER) 115 mg/dL 70-110 TESTED AT [facility] [address] [facility] (test aotw=3128) [facility] [address] [id number] 21:09:00 Test Item Value Reference Range Comments PARTIAL THROMBOPLASTIN TIME (BEAKER) (test 65.3 seconds 22.5-36.0 dwok=168) POCT-GLUCOSE [id number] 17:35:00 Test Item Value Reference Range Comments POC-GLUCOSE METER (BEAKER) 103 mg/dL 70-110 TESTED AT [facility] [address] [facility] (test acjl=2624) [facility] [address] PERIPHERAL BLOOD SMEAR - PATHOLOGIST [id number] 15:13:00 Test Item Value Reference Range Comments RBC MORPHOLOGY Marked (BEAKER) (test anisopoikilocytosis, qgtr=4354) including elliptocytes and few target cells. Red cells are hypochromic with microcytic indices. WBC MORPHOLOGY Hypersegmented (BEAKER) (test neutrophils. wclc=8344) PLT MORPHOLOGY Unremarkable (BEAKER) (test swcs=2516) PERIPHERAL SMR REVIEW Iron studies are (BEAKER) (test recommended for complete nwhy=9950) evaluation of this patient's anemia. [id number] Sabrina (BEAKER) (test Andrea-Voorbeijtel, visc=8129) Amanda (electronic signature) OCCULT BLOOD, [id number] 12:57:00 Test Item Value Reference Range Comments FECAL OCCULT BLOOD (BEAKER) (test tepd=915) Negative Negative POCT-GLUCOSE [id number] 11:54:00 Test Item Value Reference Range Comments POC-GLUCOSE METER (BEAKER) 82 mg/dL 70-110 TESTED AT [place] [id number] [facility] (test tcvy=1608) [place] [address] [id number] 11:50:00 Test Item Value Reference Range Comments PARTIAL THROMBOPLASTIN TIME (BEAKER) (test 41.0 seconds 22.5-36.0 wjvu=092) Prior to initiating heparinCBC (HEMOGRAM ONLY)2016-10-05 11:43:00 Test Item Value Reference Range Comments WHITE BLOOD CELL COUNT (BEAKER) (test nuly=888) 6.1 K/ L 4.0-10.0 RED BLOOD CELL COUNT (BEAKER) (test qafo=465) 3.39 M/ L 4.20-5.80 HEMOGLOBIN (BEAKER) (test vgda=981) 8.4 GM/DL 13.0-16.8 HEMATOCRIT (BEAKER) (test iwin=082) 27.5 % 40.0-50.0 MEAN CORPUSCULAR VOLUME (BEAKER) (test glct=824) 81.0 fL 82.0-98.0 MEAN CORPUSCULAR HEMOGLOBIN (BEAKER) (test 24.8 pg 27.0-33.0 txpg=151) MEAN CORPUSCULAR HEMOGLOBIN CONC (BEAKER) (test 30.7 GM/DL 32.0-36.0 rokd=771) RED CELL DISTRIBUTION WIDTH (BEAKER) (test 21.8 % 10.3-14.2 lvkv=767) PLATELET COUNT (BEAKER) (test zalp=751) 275 K/CU MM 150-430 MEAN PLATELET VOLUME (BEAKER) (test unve=328) 8.9 fL 6.5-10.5 NUCLEATED RED BLOOD CELLS (BEAKER) (test 0 /100 WBC 0-0 bmax=530) 0.00POCT-GLUCOSE [id number] 08:03:00 Test Item Value Reference Range Comments POC-GLUCOSE METER (BEAKER) 96 mg/dL 70-110 TESTED AT [facility] [address] [facility] (test xvqi=4102) [facility] [address] HEMOGLOBIN [id number] 08:02:00 Test Item Value Reference Range Comments HEMOGLOBIN A1C (BEAKER) (test jyai=448) 6.5 % 4.3-6.1 [id number] 04:21:00 Test Item Value Reference Range Comments PROTIME (BEAKER) (test aqie=857) 15.2 seconds 11.7-14.7 INR (BEAKER) (test fyni=920) 1.2 <=5.9 PARTIAL THROMBOPLASTIN TIME (BEAKER) (test 41.8 seconds 22.5-36.0 gslq=375) RECOMMENDED COUMADIN/WARFARIN INR THERAPY RANGESSTANDARD DOSE: 2.0 - 3.0 Includes: PROPHYLAXIS forvenous thrombosis, systemic embolization; TREATMENT for venous thrombosis and/or pulmonary embolus.HIGH RISK: Target INR is 2.5-3.5 for patients with mechanical heart valves.[id number] 04:21:00 Test Item Value Reference Range Comments PHOSPHORUS (BEAKER) (test bmyu=556) 3.8 mg/dL 2.3-4.7 [id number] 04:21:00 Test Item Value Reference Range Comments MAGNESIUM (BEAKER) (test ayhj=884) 1.6 mg/dL 1.6-2.6 BASIC METABOLIC [id number] 04:21:00 Test Item Value Reference Range Comments SODIUM (BEAKER) (test 144 meq/L 136-145 xriw=970) POTASSIUM (BEAKER) (test 3.7 meq/L 3.5-5.1 rudr=806) CHLORIDE (BEAKER) (test 109 meq/L 98-107 mehe=484) CO2 (BEAKER) (test 27 meq/L 22-29 mllf=309) BLOOD UREA NITROGEN 3 mg/dL 7-21 (BEAKER) (test huqy=596) CREATININE (BEAKER) (test 0.88 mg/dL 0.57-1.25 ydmx=659) GLUCOSE RANDOM (BEAKER) 109 mg/dL 70-105 (test kjjq=568) CALCIUM (BEAKER) (test 9.1 mg/dL 8.4-10.2 sref=756) EGFR (BEAKER) (test 105 mL/min/1.73 sq m ESTIMATED GFR IS NOT mbrx=7054) ACCURATE CREATININE CLEARANCE IN PREDICTING GLOMERULAR FILTRATION RATE. ESTIMATED GFR IS NOT APPLICABLE FOR DIALYSIS PATIENTS. HEPATIC FUNCTION [id number] 04:21:00 Test Item Value Reference Range Comments TOTAL PROTEIN (BEAKER) (test egbw=629) 6.2 gm/dL 6.0-8.3 ALBUMIN (BEAKER) (test lwic=9166) 2.8 g/dL 3.5-5.0 BILIRUBIN TOTAL (BEAKER) (test kviv=601) 0.2 mg/dL 0.2-1.2 BILIRUBIN DIRECT (BEAKER) (test bteq=029) 0.1 mg/dL 0.1-0.5 ALKALINE PHOSPHATASE (BEAKER) (test fdlv=273) 65 U/L 40-150 AST (SGOT) (BEAKER) (test mxpq=523) 18 U/L 5-34 ALT (SGPT) (BEAKER) (test xrsa=876) 13 U/L 6-55 PROTHROMBIN [id number] 04:20:00 Test Item Value Reference Range Comments PROTIME (BEAKER) (test wwbr=652) 15.2 seconds 11.7-14.7 INR (BEAKER) (test awpj=579) 1.2 <=5.9 RECOMMENDED COUMADIN/WARFARIN INR THERAPY RANGESSTANDARD DOSE: 2.0 - 3.0 Includes: PROPHYLAXIS forvenous thrombosis, systemic embolization; TREATMENT for venous thrombosis and/or pulmonary embolus.HIGH RISK: Target INR is 2.5-3.5 for patients with mechanical heart valves.CBC W/PLT COUNT & AUTO [id number] 04:09:00 Test Item Value Reference Range Comments WHITE BLOOD CELL COUNT (BEAKER) (test regg=719) 6.9 K/ L 4.0-10.0 RED BLOOD CELL COUNT (BEAKER) (test wsfn=286) 3.65 M/ L 4.20-5.80 HEMOGLOBIN (BEAKER) (test dgxk=180) 8.9 GM/DL 13.0-16.8 HEMATOCRIT (BEAKER) (test vcyl=189) 29.5 % 40.0-50.0 MEAN CORPUSCULAR VOLUME (BEAKER) (test txxr=168) 80.9 fL 82.0-98.0 MEAN CORPUSCULAR HEMOGLOBIN (BEAKER) (test 24.4 pg 27.0-33.0 svip=570) MEAN CORPUSCULAR HEMOGLOBIN CONC (BEAKER) (test 30.1 GM/DL 32.0-36.0 hece=239) RED CELL DISTRIBUTION WIDTH (BEAKER) (test 21.9 % 10.3-14.2 ajqa=367) PLATELET COUNT (BEAKER) (test cjtz=495) 295 K/CU MM 150-430 MEAN PLATELET VOLUME (BEAKER) (test jvpq=722) 8.8 fL 6.5-10.5 NUCLEATED RED BLOOD CELLS (BEAKER) (test 0 /100 WBC 0-0 xdtf=826) NEUTROPHILS RELATIVE PERCENT (BEAKER) (test 44 % ofqw=187) LYMPHOCYTES RELATIVE PERCENT (BEAKER) (test 35 % wwbu=655) MONOCYTES RELATIVE PERCENT (BEAKER) (test 10 % ahxo=830) EOSINOPHILS RELATIVE PERCENT (BEAKER) (test 10 % kyle=504) BASOPHILS RELATIVE PERCENT (BEAKER) (test 1 % imrb=386) NEUTROPHILS ABSOLUTE COUNT (BEAKER) (test 3.00 K/ L 1.80-8.00 jmjm=725) LYMPHOCYTES ABSOLUTE COUNT (BEAKER) (test 2.40 K/ L 1.48-4.50 splq=816) MONOCYTES ABSOLUTE COUNT (BEAKER) (test 0.71 K/ L 0.00-1.30 hywg=845) EOSINOPHILS ABSOLUTE COUNT (BEAKER) (test 0.72 K/ L 0.00-0.50 lwiw=090) BASOPHILS ABSOLUTE COUNT (BEAKER) (test 0.05 K/ L 0.00-0.20 txkm=392) [id number] 02:36:00 Test Item Value Reference Range Comments FERRITIN (BEAKER) (test qvgv=985) 2576 ng/mL 5-275 Effective 02/18/2014: Reference Range ChangeNew: Male 5-275 Previous: Male 22-322 Female 5-275 Female [id number] 02:30 :00 Test Item Value Reference Range Comments HAPTOGLOBIN (BEAKER) (test nnec=390) 242 mg/dL 14-258 Effective 02/18/2014: Reference Range ChangeNew: 14-258 Previous: 36- 195VITAMIN [id number] 01:42:00 Test Item Value Reference Range Comments VITAMIN B12 (BEAKER) (test tkix=782) 1077 pg/mL 213-816 FOLATE, [id number] 01:42:00 Test Item Value Reference Range Comments FOLATE (BEAKER) (test tywc=099) 5.5 ng/mL >=7.0 Effective 02/18/2014: Folate Reference Range ChangeNew: >=7.0 Previous: & gt;=5.4IRON, TIBC, % SAT. (WITHOUT FERRITIN)2016-10-05 01:07:00 Test Item Value Reference Range Comments IRON (BEAKER) (test ijjz=434) 19 ug/dL 40-160 TOTAL IRON BINDING CAPACITY (BEAKER) (test 113 ug/dL 250-450 tnvf=322) IRON % SATURATION (2) (BEAKER) (test owgs=2566) 17 % 20-55 (MANUAL DIFFERENTIAL)2016-10-04 23:25:00 Test Item Value Reference Range Comments NEUTROPHILS - REL (DIFF) (BEAKER) (test 49 % plct=1720) LYMPHOCYTES - REL (DIFF) (BEAKER) (test 30 % tjzs=8333) MONOCYTES - REL (DIFF) (BEAKER) (test vtdc=3242) 8 % EOSINOPHILS - REL (DIFF) (BEAKER) (test 12 % fxxy=5462) BASOPHILS - REL (DIFF) (BEAKER) (test yivj=4247) 1 % NEUTROPHILS - ABS (DIFF) (BEAKER) (test 3.53 K/ L 1.80-8.00 kukb=6495) LYMPHOCYTES - ABS (DIFF) (BEAKER) (test 2.16 K/ L 1.48-4.50 tusi=2971) MONOCYTES - ABS (DIFF) (BEAKER) (test qqjy=7397) 0.58 K/ L 0.00-1.30 EOSINOPHILS - ABS (DIFF) (BEAKER) (test 0.86 K/ L 0.00-0.50 twwo=4061) BASOPHILS - ABS (DIFF) (BEAKER) (test hwms=9998) 0.07 K/ L 0.00-0.20 TOTAL COUNTED (BEAKER) (test caqd=4194) 100 VACUOLATED NEUTROPHILS (BEAKER) (test nfay=817) Present GIANT PLATELETS (BEAKER) (test diqw=444) Present SCHISTOCYTES (BEAKER) (test bzue=314) 1+ few ANISOCYTOSIS (BEAKER) (test klew=448) 1+ few ELLIPTOCYTES (BEAKER) (test mriw=557) 1+ few HYPOCHROMIA (BEAKER) (test czfs=701) 2+ moderate POIKILOCYTES (BEAKER) (test yoeh=937) 2+ moderate POLYCHROMATOPHILLIC RBCS(BEAKER) (test jhsy=905) 1+ few SPHEROCYTES (BEAKER) (test afyr=961) 1+ few TARGET CELLS (BEAKER) (test zuul=790) 1+ few [id number] 23:12:00 Test Item Value Reference Range Comments PHOSPHORUS (BEAKER) (test mlgf=476) 3.5 mg/dL 2.3-4.7 [id number] 23:12:00 Test Item Value Reference Range Comments MAGNESIUM (BEAKER) (test bcax=440) 1.5 mg/dL 1.6-2.6 COMPREHENSIVE METABOLIC [id number] 23:12:00 Test Item Value Reference Range Comments TOTAL PROTEIN (BEAKER) 6.4 gm/dL 6.0-8.3 (test nkru=749) ALBUMIN (BEAKER) (test 2.9 g/dL 3.5-5.0 kzgi=0872) ALKALINE PHOSPHATASE 67 U/L 40-150 (BEAKER) (test wtgl=322) BILIRUBIN TOTAL (BEAKER) 0.2 mg/dL 0.2-1.2 (test uzlq=501) SODIUM (BEAKER) (test 143 meq/L 136-145 iytp=601) POTASSIUM (BEAKER) (test 3.8 meq/L 3.5-5.1 cdel=645) CHLORIDE (BEAKER) (test 108 meq/L 98-107 mtei=366) CO2 (BEAKER) (test 27 meq/L 22-29 fwri=503) BLOOD UREA NITROGEN 3 mg/dL 7-21 (BEAKER) (test nwuc=192) CREATININE (BEAKER) (test 1.00 mg/dL 0.57-1.25 sugr=681) GLUCOSE RANDOM (BEAKER) 123 mg/dL 70-105 (test fqwl=083) CALCIUM (BEAKER) (test 8.8 mg/dL 8.4-10.2 bpzc=993) AST (SGOT) (BEAKER) (test 16 U/L 5-34 wwhg=932) ALT (SGPT) (BEAKER) (test 16 U/L 6-55 wyxk=848) EGFR (BEAKER) (test 91 mL/min/1.73 sq m ESTIMATED GFR IS NOT cpdx=9314) ACCURATE CREATININE CLEARANCE IN PREDICTING GLOMERULAR FILTRATION RATE. ESTIMATED GFR IS NOT APPLICABLE FOR DIALYSIS PATIENTS. LACTATE DEHYDROGENASE (LDH)2016-10-04 23:12:00 Test Item Value Reference Range Comments LACTATE DEHYDROGENASE (BEAKER) (test hmgg=771) 205 U/L 125-220 RETICULOCYTE [id number] 23:09:00 Test Item Value Reference Range Comments RETICULOCYTE COUNT PCT (BEAKER) (test qrek=455) 2.5 % 0.4-2.9 CBC W/PLT COUNT & AUTO [id number] 23:09:00 Test Item Value Reference Range Comments WHITE BLOOD CELL COUNT (BEAKER) (test gnjt=460) 7.2 K/ L 4.0-10.0 RED BLOOD CELL COUNT (BEAKER) (test hbrz=903) 3.79 M/ L 4.20-5.80 HEMOGLOBIN (BEAKER) (test wkct=898) 9.1 GM/DL 13.0-16.8 HEMATOCRIT (BEAKER) (test iwhb=274) 30.6 % 40.0-50.0 MEAN CORPUSCULAR VOLUME (BEAKER) (test zegw=524) 80.7 fL 82.0-98.0 MEAN CORPUSCULAR HEMOGLOBIN (BEAKER) (test 24.1 pg 27.0-33.0 bvwi=007) MEAN CORPUSCULAR HEMOGLOBIN CONC (BEAKER) (test 29.9 GM/DL 32.0-36.0 rvzp=762) RED CELL DISTRIBUTION WIDTH (BEAKER) (test 21.6 % 10.3-14.2 fhzg=796) PLATELET COUNT (BEAKER) (test fean=388) 313 K/CU MM 150-430 MEAN PLATELET VOLUME (BEAKER) (test ssnq=983) 9.0 fL 6.5-10.5 NUCLEATED RED BLOOD CELLS (BEAKER) (test 0 /100 WBC 0-0 rbwh=795) NEUTROPHILS RELATIVE PERCENT (BEAKER) (test 47 % qobb=050) LYMPHOCYTES RELATIVE PERCENT (BEAKER) (test 33 % nacm=379) MONOCYTES RELATIVE PERCENT (BEAKER) (test 10 % mmxs=583) EOSINOPHILS RELATIVE PERCENT (BEAKER) (test 9 % hmmq=479) BASOPHILS RELATIVE PERCENT (BEAKER) (test 1 % mvjy=966) NEUTROPHILS ABSOLUTE COUNT (BEAKER) (test 3.38 K/ L 1.80-8.00 zlcx=259) LYMPHOCYTES ABSOLUTE COUNT (BEAKER) (test 2.38 K/ L 1.48-4.50 hmlw=907) MONOCYTES ABSOLUTE COUNT (BEAKER) (test 0.70 K/ L 0.00-1.30 nhci=983) EOSINOPHILS ABSOLUTE COUNT (BEAKER) (test 0.63 K/ L 0.00-0.50 xtrl=382) BASOPHILS ABSOLUTE COUNT (BEAKER) (test 0.06 K/ L 0.00-0.20 skuo=116) POCT-GLUCOSE [id number] 22:56:00 Test Item Value Reference Range Comments POC-GLUCOSE METER (BEAKER) 155 mg/dL 70-110 TESTED AT [address] (test cibw=4837) [place] [id number] POCT-GLUCOSE [id number] 17:39:00 Test Item Value Reference Range Comments POC-GLUCOSE METER (BEAKER) 106 mg/dL 70-110 TESTED AT [address] (test elby=2439) [place] [id number]
[2018-09-28] MEDS ORDERED: NA CHLORIDE 0.9% 500 ML ONE (07:08)
[2018-09-28] MEDS ORDERED: ATROPINE SULF 1 MG/10 ML SYR IV ONE (07:44)
[2018-09-28] MEDS ORDERED: MIDAZOLAM HCL 5 MG/5 ML INJ ONE (07:44)
[2018-09-28] MEDS ORDERED: FLUMAZENIL 0.1 MG/ML (5 mL VIAL) IV ONE (07:44)
[2018-09-28 08:37] VITALS: TEMP 97; O2SAT 99
[2018-09-28 09:17] VITALS: BP 130/74
--- NOTE | 2018-09-28 13:19 | OP ---
Surgeon: Joel Crawley MD Finger Cobbler: Raeann Curtis. The patient will go home today after he wakes up and he will see me in the office in 2 weeks. The patient admitted on 09/28/2018 as an outpatient for cardioversion. Indication: Atrial fibrillation. History Of Present Illness: Mr. Krause is 68, he had came into the hospital with new onset atrial fibrillation, new onset congestive heart failure, remained in atrial fibrillation despite carvedilol and Eliquis and was still having symptoms of dyspnea on exertion. The plan was to do a cardioversion today. Description Of Procedure: He received 9 mg of Versed for IV sedation. He received 1 shock of 100 josephine ules and he converted to sinus rhythm. There were no complications or blood loss. Postoperative Diagnosis: Successful cardioversion of atrial fibrillation to sinus rhythm. We will c ontinue Eliquis and beta jovi. Anesthesia: Total conscious sedation 30 minutes. KIRK/LAURA Voice ID: [id number] Report ID: [id number]
--- NOTE | 2018-09-28 13:23 | EKG ---
Test Date: 2018-09-28 Test Time: 07:52:57 Head Insulation Board Saw Operator: MOIRA MEASUREMENT RESULTS: Intervals: Rate: 58 OK: 170 QRSD: 82 QT: 454 QTc: 445 Kimberly: P: 60 OK: 170 QRS: 0 T: 32 INTERPRETIVE STATEMENTS: Sinus bradycardia with occasional premature ventricular complexes Possible Left atrial enlargement Junctional ST depression, probably normal Borderline ECG Compared to ECG 09/04/2018 07:34:25 Ventricular premature complex(es) now present ST (T wave) deviation now present Atrial fibrillation no longer present Electronically Signed On 09-28-18 13:22:27 CDT by Joel Crawley
== END 2018-09-28 09:16 | disposition home or self-care (01) ==
LOC: CCL 06:09
DX: I48.91 Unspecified atrial fibrillation (principal); I49.3 Ventricular premature depolarization; E78.6 Lipoprotein deficiency; E78.5 Hyperlipidemia, unspecified; E11.22 Type 2 diabetes mellitus with diabetic chronic kidney disease; I13.0 Hypertensive heart and chronic kidney disease with heart failure and stage 1 through stage 4 chronic kidney disease, or unspecified chronic kidney disease; I50.9 Heart failure, unspecified; N18.9 Chronic kidney disease, unspecified; N40.0 Benign prostatic hyperplasia without lower urinary tract symptoms; C85.90 Non-Hodgkin lymphoma, unspecified, unspecified site; Z79.84 Long term (current) use of oral hypoglycemic drugs; Z79.899 Other long term (current) drug therapy
CPT/HCPCS: 93005; 82962; 92960; J2250

== ENCOUNTER 2019-01-22 07:13 | Day surgery (SDC) | payer OTHER ==
[2019-01-21 13:41] VITALS: BMI 37.3
--- NOTE | 2019-01-21 14:11 | RAD REPORT ---
EXAM DESCRIPTION: Marcia Strickland And Maximus (2 Views)01/21/2019 2:03 pm CLINICAL HISTORY: Preop for cardiac catheterization COMPARISON: September 2018 FINDINGS: The lungs appear clear of acute infiltrate. The heart is moderately enlarged Focal bulge along the right hemidiaphragm likely an eventration. Left-sided catheter has its tip overlying the aortic arch IMPRESSION: No acute abnormalities displayed
[2019-01-21 14:50] LABS: Absolute Lymphocytes (CBC) 2.3 K/uL (0.7-4.9); Basophils % 1.1 % (0-1.3); Hematocrit 42.5 % (39.6-49.0); Lymphocytes % 41.8 % (15.3-44.8); RBC Red Blood Cell Count 5.18 M/uL (4.33-5.43)
[2019-01-21 14:56] LABS: Protime INR 0.96
[2019-01-21 15:05] LABS: Potassium 4.2 mmol/L (3.5-5.1)
--- NOTE | 2019-01-21 15:13 | EKG ---
Test Date: 2019-01-21 Test Time: 13:56:42 Diabetologist: MOIRA MEASUREMENT RESULTS: Intervals: Rate: 52 WY: 174 QRSD: 94 QT: 454 QTc: 422 Pilger: P: 58 WY: 174 QRS: 18 T: 29 INTERPRETIVE STATEMENTS: Sinus bradycardia Otherwise normal ECG Compared to ECG 09/28/2018 07:52:57 Ventricular premature complex(es) no longer present ST (T wave) deviation no longer present Electronically Signed On 01-21-19 15:12:40 CDT by Luisito Can
[2019-01-22] MEDS ORDERED: NA CHLORIDE 0.9% 500 ML ONE (07:47)
[2019-01-22] MEDS ORDERED: FENTANYL CITR 100 MCG/2 ML ONE (08:02)
[2019-01-22] MEDS ORDERED: NA CHLORIDE 0.9% 0 ML ONE ×2 (08:02→09:21)
[2019-01-22] MEDS ORDERED: HEPA 1000U/500MLS 0 UNIT/0 ML BAG IV ONE (08:02)
[2019-01-22] MEDS ORDERED: ATROPINE SULF 1 MG/10 ML SYR IV ONE ×2 (08:02→09:21)
[2019-01-22] MEDS ORDERED: MIDAZOLAM HCL 2 MG/2 ML INJ ONE ×2 (08:02→08:35)
[2019-01-22] MEDS ORDERED: NA CHLORIDE 0.9% 0 ML IV ONE (08:36)
[2019-01-22] MEDS ORDERED: HEPA 1000U/500MLS 1,000 UNIT/500 ML BAG IV ONE (09:20)
[2019-01-22 12:19] VITALS: O2SAT 100
[2019-01-22 12:36] VITALS: TEMP 97.6
[2019-01-22 13:02] VITALS: BP 112/79
--- NOTE | 2019-01-22 19:36 | OP ---
Date of Procedure: 01/22/2019 Surgeon: Joel Crawley MD Welding Process Engineer: Krysta Campa. Procedures: Left heart catheterization, selective coronary arteriogram. Indication: Positive stress test and chest pain. Description Of Procedure: The patient was brought in as an outpatient today 01/22/2019 to the cath l ab. He was prepped and draped in the routine sterile fashion. A 6-Stateless sheath was introduced in t he right common femoral artery. Angiogram there was normal. Star[employer] was used to close the case. He was given Versed and fentanyl for sedation. He does have sleep apnea. O2 saturations were in the 100% on nasal cannula. He was bradycardic at 44, which was chronic for him. A 6-Stateless catheter we re used to do the catheterization. His left system showed a long 80% proximal codominant circumflex. He had an 80% mid LAD, he had a 99% distal LAD, and 100% very distal LAD. There were some collater als from the RCA, PDA to the distal LAD. The RCA was codominant with the left system. He had a 70% proximal, 70% distal stenosis with 50% in the posterolateral area. A 6-Stateless sheath catheters were used. Complications: None. Estimated Blood Loss: 5 cc. Postoperative Diagnosis: Three vessel coronary artery disease, severe. Plan: For CABG. Patient will probably be transferred to [place] today for his procedure. Total conscious sedation was 30 minutes. KIRK/LAURA Voice ID: [id number] Report ID: [id number]
== END 2019-01-22 13:06 | disposition short-term general hospital (02) ==
LOC: CCL 07:13
DX: I25.10 Atherosclerotic heart disease of native coronary artery without angina pectoris (principal); I25.82 Chronic total occlusion of coronary artery; I50.21 Acute systolic (congestive) heart failure; I13.0 Hypertensive heart and chronic kidney disease with heart failure and stage 1 through stage 4 chronic kidney disease, or unspecified chronic kidney disease; E11.22 Type 2 diabetes mellitus with diabetic chronic kidney disease; N18.9 Chronic kidney disease, unspecified; I48.91 Unspecified atrial fibrillation; E78.5 Hyperlipidemia, unspecified; N40.0 Benign prostatic hyperplasia without lower urinary tract symptoms; C85.90 Non-Hodgkin lymphoma, unspecified, unspecified site; Z79.01 Long term (current) use of anticoagulants; Z79.84 Long term (current) use of oral hypoglycemic drugs
CPT/HCPCS: 93005; 85025; 80048; 36415; 85610; 82947 ×2; 85730; 71046; 93454; C1893; J2250; J3010; J7040; J0583

== ENCOUNTER 2019-08-21 10:35 | Emergency (ER) | payer OTHER ==
--- OUTSIDE RECORDS SUMMARY | 2019-08-21 11:38 | XMS REPORT | Clinical Summary ---
:1950 Author Organization [facility] Address [address] [place] [address] Care Team Providers Name Role Phone Sun Patino DO Primary Care Provider Allergies No [...] Health Maintenance Due Date Last Done Comments DIABETIC RETINAL EYE EXAM 1950 DIABETIC FOOT EXAM 1960 COLONOSCOPY SCREENING 2000 SHINGLES VACCINES (#1) 2000 65+ PNEUMOCOCCAL VACCINE (1 of 2 - PCV13) 2015 INFLUENZA VACCINE 11/02/2019 Results Not on fileafter 08/20/2018 Advance Directives For more information, please contact: [phone] Type Date Recorded Patient Advertising Account Executive Explanati on Advance Directives, Living Will and Medical Power of Aerospace Engineer Officer Armament Code Status Date Activated Date Inactivated Comments Full Code 02/10/2016 12:03 AM 02/10/2016 7:56 PM Code Status decision reached by: Patient
--- OUTSIDE RECORDS SUMMARY | 2019-08-21 11:39 | XMS REPORT | Clinical Summary ---
:1950 Author Organization [facility] Address [address] [place] [address] Care Team Providers Name Role Phone Sun Patino Primary Care Provider Unavailable Venkata Lopez Unavailable Allergies No Known Allergies Medications Medication Sig Dispensed Refills Start Date End Date Status metFORMIN Take 1,000 mg 0 Active (GLUCOPHAGE-XR) 500 by mouth 2 MG 24 hr tablet (two) times daily. tamsulosin (FLOMAX) Take 0.4 mg 0 Active 0.4 mg Cp24 24 hr by mouth capsule nightly . apixaban (ELIQUIS) Take 5 mg by 0 Active 5 mg Tab tablet mouth 2 (two) times daily. metoprolol Take 12.5 mg 0 Active (LOPRESSOR) 25 MG by mouth tablet daily. furosemide (LASIX) Take 20 mg by 0 Active 20 MG tablet mouth daily. atorvastatin Take 10 mg by 0 Act carin (LIPITOR) 10 MG mouth tablet nightly. sacubitril-valsarta Take 1 tablet 0 Active n (ENTRESTO) 24-26 by mouth 2 mg Tab (two) times daily. travoprost Place 1 drop 0 Active (TRAVATAN Z) 0.004 into both % Drop ophthalmic eyes nightly. drops ticagrelor Take 1 tablet 180 tablet 3 01/26/2019 Act carin (BRILINTA) 90 mg (90 mg total) Tab tablet by mouth 2 (two) times daily. aspirin 81 MG Take 1 tablet 90 tablet 3 01/26/2019 01/26/2020 Active chewable tablet (81 mg total) by mouth daily. amLODIPine Take 10 mg by 0 01/22/2019 Disc ontinued (NORVASC) 5 MG mouth daily tablet as needed. lisinopril-hydroCHL Take 1 tablet 0 2018 Discontinued OROthiazide by mouth (PRINZIDE,ZESTORETI daily. C) 20-12.5 mg per tablet traMADol (ULTRAM) Take 50 mg by 0 01/23/20 19 Discontinued 50 mg tablet mouth every 6 (six) hours as needed for Pain. atorvastatin Take 10 mg by 0 01/22/2019 Di scontinued (LIPITOR) 10 MG mouth. tablet Active Problems Problem Noted Date CAD (coronary artery disease) 01/22/2019 Hypernatremia 10/06/2016 Acute deep vein thrombosis (DVT) of proximal vein of r ight lower extremity 10/05/2016 Anemia, unspecified 10/05/2016 Benign hypertension 10/05/2016 Hyperlipidemia, unspecified 10/05/2016 Hodgkin lymphoma 10/05/2016 Type 2 diabetes mellitus with complication, without lo ng-term current use 10/05/2016 of insulin BPH (benign prostatic hyperplasia) 10/05/2016 Obesity (BMI 30-39.9) 10/05/2016 Hypoalbuminemia 10/05/2016 Hypomagnesemia 10/05/2016 Folic acid deficiency 10/05/2016 Moderate protein-calorie malnutrition 10/05/2016 S/P cholecystectomy 10/05/2016 History of pulmonary embolism 10/04/2016 Encounters Date Type Specialty Care Team Description 01/25/2019 Surgery Yee Waters R & L CATH / MD Cori CORONARY RUBEN OS / PCI 01/22/2019 Anesthesia Event Jose Daniel Stock, AA 01/22/2019 - Hospital Encounter Cardiology Sunil Earl Coronary artery 01/26/2019 MD Tk disease involving Sunil Mcelroy huslia coron josué Abdi MD artery of nativ e heart, angina presence unspecified (Primary Dx) 01/22/2019 Travel 01/22/2019 Orders Only Internal Medicine Sunil Mcelroy MD after 08/20/2018 Family History Medical History Relation Name Comments Cancer Father Relation Name Status Comments Father Social History Tobacco Use Types Packs/Day Years Used Date Never Smoker Smokeless Tobacco: Never Used Alcohol Use Drinks/Week oz/Week Comments No Sex Assigned at Date Recorded Not on file Job Start Date Occupation Industry Not on file Not on file Not on file Travel History Travel Start Travel End No recent travel history available. Last Filed Vital Signs Vital Sign Reading Time Taken Blood Pressure 148/79 01/26/2019 7:45 AM CDT Pulse 64 01/26/2019 8:24 AM CDT Temperature 36.9 C (98.4 F) 01/26/2019 7:45 AM CDT Respiratory Rate 18 01/26/2019 7:45 AM CDT Oxygen Saturation 98% 01/26/2019 7:45 AM CDT Inhaled Oxygen Concentration - - Weight 115.7 kg (255 lb 1.2 oz) 01/25/2019 8:2 1 AM CDT Height 175.3 cm (5' 9") 01/22/2019 2:00 PM CDT Body Mass Index 37.67 01/25/2019 8:21 AM CDT Plan of Treatment Health Maintenance Due Date Last Done Comments DIABETIC EYE EXAM 1960 DIABETIC FOOT EXAM 1960 PNEUMOCOCCAL 65+ HIGH/HIGHEST RISK (1 of 2 2015 - PCV13) COLON CANCER SCREENING ANNUAL FOBT 10/06/2017 10/06/2016, 0 10/05/2016 Medicare IPPE (WELCOME TO MEDICARE) 09/01/2018 HEMOGLOBIN A1C 07/25/2019 01/23/2019, 10/05/2016 INFLUENZA VACCINE (Season Ended) 2019 Implants Implanted Type Area Bean Snapper Device Identifier Shelf Model / Expiration Serial / Date Lot Stent Synergy Mr [id number] - [id number] IMPLANTS Coronary [place] [id number] 08/19/2020 [id number] / Implanted: Qty: 1 on 01/25/2019 by Yee Waters MD SCI:INTERV / CARDIOLOGY [id number] Stent Synergy Mr [id number] - [id number] IMPLANTS Coronary [place] [id number] 08/19/2020 [id number] / Implanted: Qty: 1 on 01/25/2019 by Yee Waters MD SCI:INTERV / CARDIOLOGY [id number] Synergy Otw [id number] [place] 10/15/19 [id number] / Implanted: Qty: 1 on 01/25/2019 by Yee Waters MD SCIENTIFIC [id number] / [id number] Procedures Procedure Name Priority Date/Time Associated Diagnosis Comme nts VASCULAR DIAGRAM -SCAN 02/05/2019 2:02 PM GIFT OFFICER RHYTHM STRIP - SCAN 02/05/2019 12:42 PM GIFT OFFICER TRANSFUSION SERVICE 01/29/2019 6:01 REPORT - SCAN PM CDT RHYTHM STRIP - SCAN 01/29/2019 10:41 AM CDT CARDIAC CATH REPORT - 01/29/2019 10:41 SCAN AM CDT TRANSFUSION SERVICE 01/26/2019 6:01 REPORT - SCAN PM CDT PREPARE RBC Routine 01/26/2019 2:10 Results for this PM CDT procedure are i n the results section. BASIC METABOLIC PANEL Routine 01/26/2019 2:25 Re sults for this (7) AM CDT procedure are i n the results section. CBC (HEMOGRAM ONLY) Routine 01/26/2019 2:25 Resu lts for this AM CDT procedure are i n the results section. POCT-ACT Routine 01/26/2019 1:24 Results for this AM CDT procedure are i n the results section. POCT-ACT Routine 01/26/2019 12:16 Results for this AM CDT procedure are i n the results section. POCT-ACT Routine 01/25/2019 10:20 Results for this PM CDT procedure are i n the results section. POCT-ACT Routine 01/25/2019 7:12 Results for this PM CDT procedure are i n the results section. POCT-ACT Routine 01/25/2019 6:57 Results for this PM CDT procedure are i n the results section. POCT-ACT Routine 01/25/2019 6:18 Results for this PM CDT procedure are i n the results section. POCT-ACT Routine 01/25/2019 5:39 Results for this PM CDT procedure are i n the results section. POCT-ACT Routine 01/25/2019 5:18 Results for this PM CDT procedure are i n the results section. POCT-ACT Routine 01/25/2019 5:06 Results for this PM CDT procedure are i n the results section. ANTIBODY Routine 01/25/2019 3:39 Results for this IDENTIFICATION PM CDT procedure are in the results section. R & L CATH / CORONARY 01/25/2019 3:05 Atherosclerosis of ANGIOS / PCI PM CDT huslia coronary artery of huslia heart without angina pectoris Case Notes 1023 BASIC METABOLIC PANEL (7) Routine 01/25/2019 5:37 AM CDT Results for this procedure are i n the results section . ABORH, MANUAL STAT 01/25/2019 5:09 AM CDT Res ults for this procedure are i n the results section . TYPE AND SCREEN, AUTOMATED Routine 01/25/2019 4:56 AM CDT Results for this procedure are i n the results section . CBC (HEMOGRAM ONLY) Routine 01/25/2019 4:56 AM CDT Results for this procedure are i n the results section . ECHOCARDIOGRAM REPORT - SCAN 01/24/2019 9:21 PM CDT PERIPHERAL VASCULAR REPORT - 01/24/2019 9:20 PM CDT SCAN ARTERIAL DOPPLER LEGS DEBBI 01/24/2019 11:03 AM CDT Results for this BILATERAL procedure are i n the results section . CBC (HEMOGRAM ONLY) Routine 01/24/2019 4:48 AM CDT Results for this procedure are i n the results section . BASIC METABOLIC PANEL (7) Routine 01/24/2019 4:48 AM CDT Results for this procedure are i n the results section . 2D ECHO W/ DOPPLER DEBBI 01/23/2019 2:35 PM CDT Results for this (CW/PW/COLOR) procedure are in the results section . POCT-GLUCOSE METER Routine 01/23/2019 8:26 AM CDT Results for this procedure are i n the results section . LIPID PANEL Routine 01/23/2019 4:17 AM CDT Resu lts for this procedure are i n the results section . HEMOGLOBIN A1C Routine 01/23/2019 4:17 AM CDT Re sults for this procedure are i n the results section . CBC (HEMOGRAM ONLY) Routine 01/23/2019 4:17 AM CDT Results for this procedure are i n the results section . BASIC METABOLIC PANEL (7) Routine 01/23/2019 4:17 AM CDT Results for this procedure are i n the results section . POCT-GLUCOSE METER Routine 01/22/2019 8:51 PM CDT Results for this procedure are i n the results section . POCT-GLUCOSE METER Routine 01/22/2019 6:20 PM CDT Results for this procedure are i n the results section . CBC (HEMOGRAM ONLY) Routine 01/22/2019 4:05 PM CDT Results for this procedure are i n the results section . BASIC METABOLIC PANEL (7) Routine 01/22/2019 4:05 PM CDT Results for this procedure are i n the results section . after 08/20/2018 Results VASCULAR DIAGRAM -SCAN (02/05/2019 2:02 PM GIFT OFFICER) Narrative Performed At This result has an attachment that is no t available. RHYTHM STRIP - SCAN (02/05/2019 12:42 PM GIFT OFFICER)Only the most recent of2 results within the time period is included. Narrative Performed At This result has an attachment that is no t available. TRANSFUSION SERVICE REPORT - SCAN (01/29/2019 6:01 PM CDT)Only the most recent of2 resultswithin the time period is included. Narrative Performed At This result has an attachment that is no t available. CARDIAC CATH REPORT - SCAN (01/29/2019 10:41 AM CDT) Narrative Performed At This result has an attachment that is no t available. Prepare RBC (01/26/2019 2:10 PM CDT) Unit ABO A Pos [place]AF[place] UNIT NUMBER [id number] [place]AF[place]ACE [place] Status WORK IN PROGRESS SAFETRACE TX Blood Bank Product RED BLOOD CELLS [place]AF[place]ACE [place] PRODUCT CODE [id number] SAFETRACE TX Unit ABO A Pos SAFETRACE TX UNIT NUMBER [id number] SAFETRACE TX Status WORK IN PROGRESS SAFETRACE TX Blood Bank Product RED BLOOD CELLS [place]AF[place]RACE [place] PRODUCT CODE [id number] SAFETRACE [place] CROSSMATCH COMPATIBLE SAFETRACE TX CROSSMATCH COMPATIBLE SAFETRACE [place] Specimen Performing Organization Address City/State[facility] Phone Number [place] CBC (Hemogram only) (01/26/2019 2:25 AM CDT)Only the most recent of5 results within the time period is included. WBC 6.6 3.5 - 10.5 K/L [facility] RBC 4.43 (L) 4.63 - 6.08 M/L [facility] Hemoglobin 11.5 (L) 13.7 - 17.5 GM/DL [facility] Hematocrit 38.0 (L) 40.1 - 51.0 % [facility] MCV 85.8 79.0 - 92.2 fL [facility] MCH 26.0 25.7 - 32.2 pg [facility] MCHC 30.3 (L) 32.3 - 36.5 GM/DL [facility] RDW 15.9 (H) 11.6 - 14.4 % [facility] Platelets 168 150 - 450 K/CU MM [facility] MPV 10.3 9.4 - 12.4 fL [facility] nRBC 0 0 - 0 /100 WBC [facility] Specimen Blood Performing Organization Address City/[facility]/Zipcode Phone Number [address] [address] CENTER Basic Metabolic Panel (01/26/2019 2:25 AM CDT)Only the most recent of5 results within the time period is included. Sodium 141 136 - 145 meq/L [facility] Potassium 4.0Comment: Specimen slightly 3.5 - 5.1 meq/L CH I [facility] hemolyzed [facility] Chloride 110 (H) 98 - 107 meq/L [facility] CO2 23 22 - 29 meq/L [facility] BUN 22 (H) 7 - 21 mg/dL [facility] Creatinine 1.28 (H)Comment: Specimen 0.57 - 1.25 mg/dL [facility] slightly hemolyzed [facility] R Glucose 110 (H) 70 - 105 mg/dL [facility] Calcium 8.3 (L) 8.4 - 10.2 mg/dL [facility] EGFR 68Comment: ESTIMATED GFR IS mL/min/1.73 sq m [facility] NOT ACCURATE CREATININE [facility] CLEARANCE IN PREDICTING GLOMERULAR FILTRATION RATE. ESTIMATED GFR IS NOT APPLICABLE FOR DIALYSIS PATIENTS. Specimen Blood Performing Organization Address City/State/Zipcode Phone Number [address] [place], [place] [phone] CENTER POC ACTIVATED CLOTTING TIME (01/26/2019 1:24 AM CDT)Only the most recent of9 resultswithin the time period is included. Activated Clotting Time 136Comment: Reference sec CH I [facility] Range: 74-137 seconds, MEDICAL CENTER Baseline/TESTED AT [address] [address] Specimen Blood Performing Organization Address [facility] Phone Number [address] [phone] CENTER Antibody identification (01/25/2019 3:39 PM CDT) ANTIBODY ID (CECILIA) Anti-E SAFETRACE T X Antibody Consult SIGNED OUTComment: Anti E causes RBC [place] injury, transfuse E negative RBCs.Electronic Signature: Eri Eduardo M.D. Specimen Performing Organization Address [facility] Phone Number [place] ABORH, manual (01/25/2019 5:09 AM CDT) ABO Grouping A [facility] Rh Factor POS [facility] Specimen Blood Performing Organization Address [facility] Phone Number [address] [address] Type and screen, automated (01/25/2019 4:56 AM CDT) ABO/RH AUTOMATED (BEAKER) A POSITIVE [facility] Ab Scrn POSITIVEComment: Echo 1 [facility] Specimen Blood Performing Organization Address [facility]/Zipcode Phone Number [address] [address] ECHOCARDIOGRAM REPORT - SCAN (01/24/2019 9:21 PM CDT) Narrative Performed At This result has an attachment that is no t available. PERIPHERAL VASCULAR REPORT - SCAN (01/24/2019 9:20 PM CDT) Narrative Performed At This result has an attachment that is no t available. Arterial doppler legs bilateral (01/24/2019 11:03 AM CDT) Ejection Fraction [facility] Specimen Impressions Performed At Right Impression [facility] 1. The common femoral and profunda femoral are patent with triphasic Doppler waveforms. 2. The distal superficial femoral, popliteal and posterior tibial arteries have no flow visualized. 3. The proximal peroneal artery has no flow with reconstitution in the mid portion with a decreased velocity of 13 cm/sec. 4. The mid and distal anterior tibial artery is occluded. 5. The PT and DP JARON's are not obtained due to no recordable flow. 6. The great toe pressure and TBI could not be obtained due to no recordable flow. 7. The digits have no obtainable flow by PPG waveforms. Left Impression 1. The common femoral, profunda femoral, superficial femoral and popliteal arteries are patent with triphasic Doppler waveforms. 2. The posterior tibial artery is patent with monophasic Doppler waveforms. 3. There is no flow visualized in the peroneal artery. 4. There is >50% stenosis in the proximal anterior tibial artery with a velocity of 359 cm/sec and no flow visualized in the mid to distal portions. 5. The PT pressure is 117 mmHg with an JARON of 0.90, within normal range; however, may be falsely elevated secondary to calcification. 6. The DP JARON is not obtained due to no recordable flow. 7. The great toe pressure is 40 mmHg with an abnormal TBI of 0.31. 8. The digits have decreased flow by PPG waveforms. Conclusions Summary Arterial pressures and Doppler waveforms were performed bilaterally. Adequate Doppler waveforms were obtained. On the right, the common femoral and profunda femoral were patent with triphasic Doppler waveforms. The distal superficial femoral, popliteal and posterior tibial arteries had no flow visualized. The proximal peroneal artery had no flow with reconstitution in the mid portion with a decreased velocity of 13 cm/sec. The mid and distal anterior tibial artery was occluded. The PT and DP JARON's were not obtained due to no recordable flow. The great toe pressure and TBI could not be obtained due to no recordable flow in any of the digits. On the left, the common femoral, profunda femoral, superficial femoral and popliteal arteries were patent with triphasic Doppler waveforms. The posterior tibial artery was patent with monophasic Doppler waveforms. There was no flow visualized in the peroneal artery. There was >50% stenosis in the proximal anterior tibial artery and no flow visualized in the mid to distal portions. The PT pressure was 117 mmHg with an JARON of 0.90, within normal range; however, may be falsely elevated secondary to calcification. The DP JARON was not obtained due to no recordable flow. The TBI was abnormal. The digits had decreased flow by PPG waveforms. Signature Velocities are measured in cm/s ; Diameters are measured in cm LE Duplex Measurements Right Left + + + + + + + + + + !Location ! !PSV !EDV !Waveform! !PSV!EDV !Waveform ! + + + + + + + + + + !Mid Common Femoral ! !115 !! ! !90 !! ! + + + + + + + + + + !Prox PFA ! !117 !! ! !55.4 !! ! + + + + + + + + + + !Prox SFA ! !76.2! ! ! !100! ! ! + + + + + + + + + + !Mid SFA ! !49.8! ! ! !90.4 !! ! + + + + + + + + + + !Dist SFA ! !24.3!11.2 ! ! !55.8 !! ! + + + + + + + + + + !Prox Popliteal ! !19.5! ! ! !33.8 !! ! + + + + + + + + + + !Dist Popliteal ! !13.8! ! ! !33.8 !! ! + + + + + + + + + + !Prox WINDOW TINTER ! !75 !! ! + + +-- + + + !Mid WINDOW TINTER ! !57.5 !! ! + + +-- + + + !Dist WINDOW TINTER ! !69.8 !! ! + + +-- + + + !Prox MARILIA ! !359 ! ! ! + + +-- + + + !Dist MARILIA ! + + !Mid Peroneal ! + + Narrative Performed At LAB - Lower Extremity Arterial Duplex [facility] Dem[facility] Patient NamePRITI KRAUSE Date of Study 01/24/2019 DISHA 68 Visit [id number] Male of 1950 Referring Graciela Doron Jameson Room Number 1023 Physician Billing Associate Saranya Ellsworth Physician Procedure Type of Study: Extremities Arteries: Lower Extremities Arterial Duplex, ARTERIAL DOPPLER LEGS, BILATERAL. Indications for Study:PAD. Patient Status:DEBBI. Study Location:Vascular Lab. Technical Quality:Adequate visualization . Risk Factors History of Disease + +----+ + !Diagnosis !Date!Comments ! + +----+ + !History/Risk Factors: !!PE (), HTN, HLD, DM, Lymphoma, CAD! + +----+ + Procedure Note Interface, External Ris In - 01/24/2019 2:44 PM CDT PV LAB - Lower Extremity Arterial Duplex Demographics Patient Name PRITI KRAUSE Byron e of Study 01/24/2019 DISHA Age 68 Visit Number [id number] Gen nu Male Accession Number [id number] Byron e of 1950 Referring Graciela Man Number [id number] Physician Billing Associate Saranya Padilla [facility] Int [facility] Consuelo Morgan MD Procedure Type of Study: Extremities Arteries: Lower Extremities Arterial Duplex, ARTERIAL DOPPLER LEGS, BILATERAL. Indications for Study:PAD. Patient Status:DEBBI. Study Location:Vascular Lab. Technical Quality:Adequate visualization . Risk Factors History of Disease + +----+ + !Diagnosis !Date!Comments ! + +----+ + !History/Risk Factors: ! !PE () , HTN, HLD, DM, Lymphoma, CAD ! + +----+ + Impressions Right Impression 1. The common femoral and profunda femor al are patent with triphasic Doppler waveforms. 2. The distal superficial femoral, popli teal and posterior tibial arteries have no flow visualized. 3. The proximal peroneal artery has no f low with reconstitution in the mid portion with a decreased velocity of 13 cm/sec. 4. The mid and distal anterior tibial ar crystal is occluded. 5. The PT and DP JARON's are not obtained due to no recordable flow. 6. The great toe pressure and TBI could not be obtained due to no recordable flow. 7. The digits have no obtainable flow by PPG waveforms. Left Impression 1. The common femoral, profunda femoral, superficial femoral and popliteal arteries are patent with triphasic Doppl er waveforms. 2. The posterior tibial artery is patent with monophasic Doppler waveforms. 3. There is no flow visualized in the pe roneal artery. 4. There is >50% stenosis in the proxima l anterior tibial artery with a velocity of 359 cm/sec and no flow visua lized in the mid to distal portions. 5. The PT pressure is 117 mmHg with an A BI of 0.90, within normal range; however, may be falsely elevated seconda ry to calcification. 6. The DP JARON is not obtained due to no recordable flow. 7. The great toe pressure is 40 mmHg wit h an abnormal TBI of 0.31. 8. The digits have decreased flow by PPG waveforms. Conclusions Summary Arterial pressures and Doppler waveform s were performed bilaterally. Adequate Doppler waveforms were obtaine d. On the right, the common femoral and profunda femoral were patent with t riphasic Doppler waveforms. The distal superficial femoral, popliteal a nd posterior tibial arteries had no flow visualized. The proximal peroneal artery had no flow with reconstitution in the mid portion with a decreased velocity of 13 cm/sec. The mid and distal anterior tibial priti ry was occluded. The PT and DP JARON's were not obtained due to no recor dable flow. The great toe pressure and TBI could not be obtained due to no recordable flow in any of the digits. On the left, the common femoral , profunda femoral, superficial femoral and popliteal arteries were pat ent with triphasic Doppler waveforms. The posterior tibial artery was patent with monophasic Doppler waveforms. There was no flow visualized in the peroneal artery. There was >50% stenosis in the proximal anterior tibial artery and no flow visualized in the mid to distal portion s. The PT pressure was 117 mmHg with an JARON of 0.90, within normal rang e; however, may be falsely elevated secondary to calcification. The DP JARON was not obtained due to no recordable flow. The TBI was abnormal. The digits had decreased flow by PPG waveforms. Signature Velocities are measured in cm/s ; Diamet ers are measured in cm LE Duplex Measurements Right Left + + + + + + + + + + !Location ! !PSV !EDV !Waveform ! !PSV !EDV !Waveform ! + + + + + + + + + + !Mid Common Femoral ! !115 ! ! ! !90 ! ! ! + + + + + + + + + + !Prox PFA ! !117 ! ! ! !55.4 ! ! ! + + + + + + + + + + !Prox SFA ! !76.2 ! ! ! !100 ! ! ! + + + + + + + + + + !Mid SFA ! !49.8 ! ! ! !90.4 ! ! ! + + + + + + + + + + !Dist SFA ! !24.3 !11.2 ! ! !55.8 ! ! ! + + + + + + + + + + !Prox Popliteal ! !19.5 ! ! ! !33.8 ! ! ! + + + + + + + + + + !Dist Popliteal ! !13.8 ! ! ! !33.8 ! ! ! + + + + + + + + + + !Prox WINDOW TINTER ! !75 ! ! ! + + + + + + !Mid WINDOW TINTER ! !57.5 ! ! ! + + + + + + !Dist WINDOW TINTER ! !69.8 ! ! ! + + + + + + !Prox MARILIA ! !359 ! ! ! + + + + + + !Dist MARILIA ! + + !Mid Peroneal ! + + Performing Organization Address City/State/Zipcode Phone Number [facility] 2D Echo W/Doppler(CW/PW/Color) (01/23/2019 2:35 PM CDT) Ejection Fraction [facility] Specimen Narrative Performed At Transthoracic Echocardiography Report (T TE) [facility] Demographics Patient Name PRITI KRAUSE Date of Study 01/23/2019 DISHA [id number] Gender Male Visit Number [id number] Unknown [id number] Room Number 1023 Number Date of Birth1Referring Physician Age68 year(s)Billing Associate Physician SANTIAGO Sargent ph Procedure Type of Study TTE procedure:2DECHO W DOPPLER(CW/PW/COLOR) (DEBBI) Indications:Known or suspected heart kevin lure. Clinical History HGB 13.4 HCT 43.5 % CANCER CAD DM HLD HTN Height: 69 inches Weight: 112.04 kg (247 lbs) BSA: 2.26 m^2 BMI: 36.48 kg/m^2 HR: 59 bpm BP: 101/55 mmHg Summary The left ventricle is chamber size (by PSLAX dimension) is normal (male - LVIDd 4.2-5.8cm) . Mild concentric LV hypertrophy. The following segment(s) appear hypokinetic: basal inferior, basal inferolateral . The other segments contract normally. LVEF by Darnell's method of disk assessment is lower limits of normal (5 0-55%) . Grade 1 diastolic dysfunction (impaired relaxation and low-normal LA pressure). Estimated peak systolic PA pressure is 20-25 mmHg . Aortic root size (SInus of Valsalva diameter) is ivqq-ad-psrmthzkri dilated . 4.0cm Signature Findings Left Ventricle The left ventricle is chamber size (by PSLAX di mension) is normal (male - LVIDd 4.2-5.8 cm) . Mi ld concentric LV hypertrophy. Th e following segment(s) appear hypokineti c: basal in ferior, basal inferolateral . Th e other segments contract normally. LV EF by Darnell's method of disk assessmen t is lo wer limits of normal (50-55%) . Gr dionne 1 diastolic dysfunction (impaired re laxation an d low-normal LA pressure). Left AtriumLA size is moderately enlarged (42-48 ml/m2) . Right VentricleThe right ventricular chamber size and systolic fu nction are within normal limits. Right Atrium RA size is normal, probably normal based on av ailable views. Aortic Valve Normal AoV structure. Mitral Valve Mild mitral annular calcification. Tr yloa mitral regurgitation. Tricuspid ValveTV structure is normal. Es timated peak systolic PA pressure is 20- 25 mmHg . Pulmonic Valve Normal PV structure and function by limited views an d Doppler. AortaAortic root size (SInus of Valsalva diameter) i s mi tk-rq-hsbqnoxptq dilated . 4.0cm PericardiumNo significant pericardial effusion is visualized. IVC/SVC/PA/PV/PleuralThe estimated RA pressure by IVC dynamics 0-5mmHg . Chambers/Structures Left Atrium LA Volume: 101.56 mlLA Area: 29.27 cm^2 LA Vol. Index: 45 ml/m^2 Left Ventricle LVIDd: 5.41 cm LVEDV:141.68 ml LV Septum Diastolic: 1.36 cm LV PW Diastolic: 1.43 cm LVEDV Darnell's:90.85 ml LV Length: 8.35 cm LVESV Darnell's:42.36 ml LVEF Darnell's: 53.4 % LVEDVI: 40 ml/m^2 LVES : 19 ml/m^2 LVOT Diameter: 2.17 cm Right Ventricle RVOT VTI: 11.95 cm Aorta Ao Root S of Casie.: 4.01 cm Doppler/Quantitative Measurements Mitral Valve MV Peak E-Wave: 0.53 m/sMV Peak A-Wave: 0.95 m/s E/A Ratio: 0.56 Peak Gradient: 1. 12 mmHg Deceleration Time : 284 msec MV Emanuel. Peak: Aortic Valve Peak Velocity: 1.01 m/sMean Velocity: 0.72 m/s Peak Gradient: 4.09 mmHg Mean Gradient: 2.31 mmHg AV Area (continuity): 3 cm^2 AV VTI: 21.99 cm AV DVI: 0.81 LVOT Peak Velocity: 0.94 m/s Peak Gradient: 3.53 mmHg Mean Velocity: 0.51 m/s Mean Gradient: 1.26 mmHg LVOT Diameter: 2.17 cmLVOT VTI: 17.83 cm LVOT Area: 3.7 cm^2 LVOT SV:65.91 ml LVOT CO: 3.89 l/min LVOT CI: 1.72 l/min/m^2 Tricuspid Valve TR Velocity: 1.86 m/s TR Gradient: 13.83 mmHg Procedure Note Interface, External Ris In - 01/24/2019 8:54 AM CDT Transthoracic Echocardiography Report (TTE) Demographics Patient Name PRITI KRAUSE Date o f Study 01/23/2019 HUGUENOT Gender Male Visit Number [id number] Race Unknown [place] [address] Number Date of 1950 Referr ing Physician Age 68 year(s) Sonogr apher Abed [place] Interp reting Dorothea Franklin MD Procedure Type of Study TTE procedure:2DECHO W DOPPLE R(CW/PW/COLOR) (DEBBI) Indications:Known or suspected heart kevin lure. Clinical History HGB 13.4 HCT 43.5 % CANCER CAD DM HLD HTN Height: 69 inches Weight: 112.04 kg (247 lbs) BSA: 2.26 m^2 BMI: 36.48 kg/m^2 HR: 59 bpm BP: 101/55 mmHg Summary The left ventricle is chamber size (by PSLAX dimension) is normal (male - LVIDd 4.2-5.8cm) . Mild concentric LV h ypertrophy. The following segment(s) appear hypokinetic: basal in ferior, basal inferolateral . The other segments contract normally. LVEF by Darnell's method of disk assessment is lower limits of normal (5 0-55%) . Grade 1 diastolic dysfunction (impaired relaxation and low-normal LA pressure). Estimated peak systolic PA pressure is 20-25 mmHg . Aortic root size (SInus of Valsalva hayden meter) is ofdk-sw-yvkfpzkjzm dilated . 4.0cm Signature Findings Left Ventricle The left ventric le is chamber size (by PSLAX dimension) is no rmal (male - LVIDd 4.2-5.8cm) . Mild concentric LV hypertrophy. The following se gment(s) appear hypokinetic: basal inferior, basal inferolateral . The other segmen ts contract normally. LVEF by Darnell' s method of disk assessment is lower limits of normal (50-55%) . Grade 1 diastoli c dysfunction (impaired relaxation and low-normal L A pressure). Left Atrium LA size is moder ately enlarged (42-48 ml/m2) . Right Ventricle The right ventri cular chamber size and systolic function are wit hin normal limits. Right Atrium RA size is veronika l, probably normal based on available views. Aortic Valve Normal AoV struc ture. Mitral Valve Mild mitral monica lar calcification. Trace mitral reg urgitation. Tricuspid Valve TV structure is normal. Estimated peak s ystolic PA pressure is 20-25 mmHg . Pulmonic Valve Normal PV struct ure and function by limited views and Doppler. Aorta Aortic root size (SInus of Valsalva diameter) is igpx-kg-izmbojdd ly dilated . 4.0cm Pericardium No significant p ericardial effusion is visualized. IVC/SVC/PA/PV/Pleural The estimated RA pressure by IVC dynamics 0-5mmHg . Chambers/Structures Left Atrium LA Volume: 101.56 ml LA Area: 29.27 cm^2 LA Vol. Index: 45 ml/m^2 Left Ventricle LVIDd: 5.41 cm LVEDV:141.68 ml LV Septum Diastolic: 1.36 cm LV PW Diastolic: 1.43 cm LVEDV Darnell's:90.85 ml LV Length: 8.35 cm LVESV Darnell's:42.36 ml LVEF Darnell's: 53.4 % LVEDVI: 40 ml/m^2 LVESVI: 19 ml/m^2 LVOT Diameter: 2.17 cm Right Ventricle RVOT VTI: 11.95 cm Aorta Ao Root S of Casie.: 4.01 cm Doppler/Quantitative Measurements Mitral Valve MV Peak E-Wave: 0.53 m/s MV Peak A-Wave: 0.95 m/s E/A Ratio: 0.56 Pea k Gradient: 1.12 mmHg Dec eleration Time: 284 msec MV Emanuel. Peak: Aortic Valve Peak Velocity: 1.01 m/s Mean Velocity: 0.72 m/s Peak Gradient: 4.09 mmHg Mean Gradient: 2.31 mmHg AV Area (continuity): 3 cm^2 AV VTI: 21.99 cm AV DVI: 0.81 LVOT Peak Velocity: 0.94 m/s Pea k Gradient: 3.53 mmHg Mean Velocity: 0.51 m/s Marina n Gradient: 1.26 mmHg LVOT Diameter: 2.17 cm LVO T VTI: 17.83 cm LVOT Area: 3.7 cm^2 LVO T SV:65.91 ml LVOT CO: 3.89 l/min LVO T CI: 1.72 l/min/m^2 Tricuspid Valve TR Velocity: 1.86 m/s TR Gradient: 13.83 mmHg Performing Organization Address City/State/Zipcode Phone Number [facility] POC-Glucose meter (01/23/2019 8:26 AM CDT)Only the most recent of3 results within the time period is included. POC-Glucose Meter 120 (H)Comment: : TESTED 70 - 110 mg/dL [facility] [address] [facility], [address]: Head Field Hockey Coach/Enterprise Analyst ID = [id number] for VINAY DONG Specimen Blood Performing Organization Address [facility] Phone Number [address] [phone] [place] Hemoglobin A1c (01/23/2019 4:17 AM CDT) Hemoglobin A1C 6.7 (H) 4.3 - 6.1 % [facility] Specimen Blood Performing Organization Address [facility]/Zipcode Phone Number [facility] [address] [place] [id number] [place] Lipid panel (01/23/2019 4:17 AM CDT) Triglycerides 147 mg/dL [facility] Cholesterol 221 mg/dL [facility] HDL 43 mg/dL [facility] LDL Calculated 149 mg/dL [facility] Specimen Blood Narrative Performed At Triglyceride Reference Range: [facility] Low Risk <150 [id number] High Risk 200-499 Very High Risk>=500 Cholesterol Reference Range: Low Risk <200 [id number] High Risk>240 HDL Cholesterol Reference Range: Low Risk >=60 High Risk <40 LDL Cholesterol Reference Range: Optimal<100 Near [id number] Moltyczjrf996-273 Ktuv401-532 Very High >=[address] [facility] Hospitalcode Phone Number [address] [address] [place] after 08/20/2018 Insurance Payer Benefit Plan / Group Subscriber ID Type Phone A ddress [facility] - MEDICARE UNITED MEDICARE HMO xxxxxxxxx MGD CARE CARE IMPROVEMENT MEDICARE MGD CARE IMPROVEMENT PLUS xxxxxxxxx CARE Advance Directives For more information, please contact:[address] [place] [phone] Code Status Date Activated Date Inactivated Comments Full Code 01/22/2019 2:15 PM 01/26/2019 4:10 PM This code status was determined by: Patient Full Code 10/04/2016 8:26 PM 10/07/2016 4:40 PM This code status was determined by: Patient
--- OUTSIDE RECORDS SUMMARY | 2019-08-21 11:40 | XMS REPORT ---
:[address] [facility] t Address 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 Family History Family Member Diagnosis Comments Start Date Stop Date Source Natural father Cancer [facility] Natural mother Cancer [facility] Social History Social Habit Start Date Stop Date Quantity Comments Source Sex Assigned At [facility] Alcohol intake 2016-02-29 2016-02-29 Current drinker [place] [facility] 00:00:00 00:00:00 of alcohol (finding) Alcohol Comment 2016-02-09 2016-02-09 socially [facility] ethodist 00:00:00 00:00:00 Smoking Status Start Date Stop Date Source Never smoker [place] [facility] Medications Ordered Filled Start Stop Current Ordering Indication Dosage Frequency Signature Comments Components Source Medication Medication Date Date Medication? Clinician (SIG) Name Name aspirin 2015-04 Yes 81mg QD Take 81 mg [place] (ECOTRIN) 1-28 by mouth Method i 81 MG 09:31: daily. st enteric 30 coated tablet lisinopril- 2015-04 Yes 1{tbl} QD Take 1 [place] hydrochloro 1-28 tablet by Met consueloi thiazide 09:31: mouth st (PRINZIDE,Z 30 daily. ESTORETIC) 20-25 mg per tablet tamsulosin 2015-04 Yes .4mg QD Take 0.4 [facility] st[place] (FLOMAX) 1-28 mg by Methodi 0.4 mg 09:31: mouth st capsule,ext 30 daily. ended release 24hr atorvastati 2015-04 Yes 10mg QD Take 10 mg [place] (LIPITOR) 1-28 by mouth Meth mekhi 10 MG 09:31: daily. st tablet 30 metFORMIN 2015-04 Yes 500mg Q.5D Take 500 Teresa ston (GLUCOPHAGE 1-28 mg by Methodi ) 500 MG 09:31: mouth 2 st tablet 30 (two) times a day with meals. amLODIPine 2015-04 Yes 10mg Q24H Take 10 mg [place] (NORVASC) 1-28 by mouth Method i 10 MG 09:31: daily as st tablet 30 needed. Procedures This patient has no known procedures. Plan of Care Planned Activity Planned Date Details Comments Source Future Scheduled 2019-11-02 INFLUENZA VACCINE [place] [facility] 00:00:00 [code = INFLUENZA VACCINE] Future Scheduled 2015 65+ PNEUMOCOCCAL [place] [facility] 00:00:00 VACCINE (1 of 2 - PCV13) [code = 65+ PNEUMOCOCCAL VACCINE (1 of 2 - PCV13)] Future Scheduled 2000 COLONOSCOPY SCREENING [place] [facility] 00:00:00 [code = COLONOSCOPY SCREENING] Future Scheduled 2000 SHINGLES VACCINES (#1) [place] [facility] 00:00:00 [code = SHINGLES VACCINES (#1)] Future Scheduled 1960 DIABETIC FOOT EXAM [place] [facility] 00:00:00 [code = DIABETIC FOOT EXAM] Future Scheduled 1950 DIABETIC RETINAL EYE [facility] 00:00:00 EXAM [code = DIABETIC RETINAL EYE EXAM] Results Test Description Test Time Test Comments Results Result Comments Source BASIC METABOLIC PANEL 2019-01-26 03:17:00 Test Item Value Reference Range Interpretation Comme nts SODIUM (BEAKER) (test code 141 meq/L 136-145 = 381) POTASSIUM (BEAKER) (test 4.0 meq/L 3.5-5.1 Spe cimen slightly code = 379) hemolyzed CHLORIDE (BEAKER) (test 110 meq/L 98-107 H code = 382) CO2 (BEAKER) (test code = 23 meq/L 22-29 355) BLOOD UREA NITROGEN 22 mg/dL 7-21 H (BEAKER) (test code = 354) CREATININE (BEAKER) (test 1.28 mg/dL 0.57-1.25 H Sp ecimen slightly code = 358) hemolyzed GLUCOSE RANDOM (BEAKER) 110 mg/dL 70-105 H (test code = 652) CALCIUM (BEAKER) (test code 8.3 mg/dL 8.4-10.2 L = 697) EGFR (BEAKER) (test code = 68 mL/min/1.73 sq m ESTIMATED GFR IS NOT 1092) ACCURATE CRE ATININE CLEARANCE IN [place] EDICTING GLOMERULAR FILT RATION RATE. ESTIMATED GFR IS NOT APPLICABLE FOR DIALYSIS PATIENTS. CBC (HEMOGRAM ONLY)2019-01-26 03:03:00 Test Item Value Reference Range Interpretation Comments WHITE BLOOD CELL COUNT (BEAKER) 6.6 K/ L 3.5-10.5 (test code = 775) RED BLOOD CELL COUNT (BEAKER) 4.43 M/ L 4.63-6.08 L (test code = 761) HEMOGLOBIN (BEAKER) (test code = 11.5 GM/DL 13.7-17.5 L 410) HEMATOCRIT (BEAKER) (test code = 38.0 % 40.1-51.0 L 411) MEAN CORPUSCULAR VOLUME (BEAKER) 85.8 fL 79.0-92.2 (test code = 753) MEAN CORPUSCULAR HEMOGLOBIN 26.0 pg 25.7-32.2 (BEAKER) (test code = 751) MEAN CORPUSCULAR HEMOGLOBIN CONC 30.3 GM/DL 32.3-36.5 L (BEAKER) (test code = 752) RED CELL DISTRIBUTION WIDTH 15.9 % 11.6-14.4 H (BEAKER) (test code = 412) PLATELET COUNT (BEAKER) (test 168 K/CU MM 150-450 code = 756) MEAN PLATELET VOLUME (BEAKER) 10.3 fL 9.4-12.4 (test code = 754) NUCLEATED RED BLOOD CELLS 0 /100 WBC 0-0 (BEAKER) (test code = 413) [id number] 01:30:00 Test Item Value Reference Range Interpretation Comments ACTIVATED CLOTTING TIME 136 sec Refe rence Range: (BEAKER) (test code = 74-137 seconds, 441) Baseline/TESTED AT [place] [address] 0 [id number] 00:22:00 Test Item Value Reference Range Interpretation Comments ACTIVATED CLOTTING TIME 158 sec Refe rence Range: (BEAKER) (test code = 74-137 seconds, 441) Baseline/TESTED AT [place] [address] 0 [id number] 22:31:00 Test Item Value Reference Range Interpretation Comments ACTIVATED CLOTTING TIME 191 sec Refe rence Range: (BEAKER) (test code = 74-137 seconds, 441) Baseline/TESTED AT [address] [address] [id number] 21:06:00 Test Item Value Reference Range Interpretation Comments ACTIVATED CLOTTING TIME 323 sec Refe rence Range: (BEAKER) (test code = 74-137 seconds, 441) Baseline/TESTED AT [address] [address] [id number] 19:12:00 Test Item Value Reference Range Interpretation Comments ACTIVATED CLOTTING TIME 461 sec Refe rence Range: (BEAKER) (test code = 74-137 seconds, 441) Baseline/TESTED AT [address] [address] [id number] 18:26:00 Test Item Value Reference Range Interpretation Comments ACTIVATED CLOTTING TIME 312 sec Refe rence Range: (BEAKER) (test code = 74-137 seconds, 441) Baseline/TESTED AT [address] [address] 0 [id number] 18:07:00 Test Item Value Reference Range Interpretation Comments ACTIVATED CLOTTING TIME 312 sec Refe rence Range: (BEAKER) (test code = 74-137 seconds, 441) Baseline/TESTED AT [facility] [address] [facility] [address] [id number] 17:30:00 Test Item Value Reference Range Interpretation Comments ACTIVATED CLOTTING TIME 285 sec Refe rence Range: (BEAKER) (test code = 74-137 seconds, 441) Baseline/TESTED AT [facility] [address] [facility] [address] 0 [id number] 17:29:00 Test Item Value Reference Range Interpretation Comments ACTIVATED CLOTTING TIME 235 sec Refe rence Range: (BEAKER) (test code = 74-137 seconds, 441) Baseline/TESTED AT [place] [id number] [facility] [address] 0 BASIC METABOLIC [id number] 06:14:00 Test Item Value Reference Range Interpretation Comments SODIUM (BEAKER) 144 meq/L 136-145 (test code = 381) POTASSIUM (BEAKER) 3.7 meq/L 3.5-5.1 (test code = 379) CHLORIDE (BEAKER) 109 meq/L 98-107 H (test code = 382) CO2 (BEAKER) (test 28 meq/L 22-29 code = 355) BLOOD UREA NITROGEN 21 mg/dL 7-21 (BEAKER) (test code = 354) CREATININE (BEAKER) 1.40 mg/dL 0.57-1.25 H (test code = 358) GLUCOSE RANDOM 101 mg/dL 70-105 (BEAKER) (test code = 652) CALCIUM (BEAKER) 8.7 mg/dL 8.4-10.2 (test code = 697) EGFR (BEAKER) (test 61 mL/min/1.73 ESTIMA MYLA GFR IS code = 1092) sq m NOT ACCURATE CREATININE CLEARANCE IN PREDICTING GLOMERULAR FILTRATION RATE . ESTIMATED GFR I S NOT APPLICABLE FOR DIALYSIS PATIEN TS. CBC (HEMOGRAM ONLY)2019-01-25 05:20:00 Test Item Value Reference Range Interpretation Comments WHITE BLOOD CELL COUNT (BEAKER) 5.9 K/ L 3.5-10.5 (test code = 775) RED BLOOD CELL COUNT (BEAKER) 4.96 M/ L 4.63-6.08 (test code = 761) HEMOGLOBIN (BEAKER) (test code = 12.7 GM/DL 13.7-17.5 L 410) HEMATOCRIT (BEAKER) (test code = 41.7 % 40.1-51.0 411) MEAN CORPUSCULAR VOLUME (BEAKER) 84.1 fL 79.0-92.2 (test code = 753) MEAN CORPUSCULAR HEMOGLOBIN 25.6 pg 25.7-32.2 L (BEAKER) (test code = 751) MEAN CORPUSCULAR HEMOGLOBIN CONC 30.5 GM/DL 32.3-36.5 L (BEAKER) (test code = 752) RED CELL DISTRIBUTION WIDTH 15.9 % 11.6-14.4 H (BEAKER) (test code = 412) PLATELET COUNT (BEAKER) (test 180 K/CU MM 150-450 code = 756) MEAN PLATELET VOLUME (BEAKER) 10.1 fL 9.4-12.4 (test code = 754) NUCLEATED RED BLOOD CELLS 0 /100 WBC 0-0 (BEAKER) (test code = 413) BASIC METABOLIC [id number] 05:48:00 Test Item Value Reference Range Interpretation Comments SODIUM (BEAKER) 145 meq/L 136-145 (test code = 381) POTASSIUM (BEAKER) 3.9 meq/L 3.5-5.1 (test code = 379) CHLORIDE (BEAKER) 107 meq/L 98-107 (test code = 382) CO2 (BEAKER) (test 30 meq/L 22-29 H code = 355) BLOOD UREA NITROGEN 27 mg/dL 7-21 H (BEAKER) (test code = 354) CREATININE (BEAKER) 1.52 mg/dL 0.57-1.25 H (test code = 358) GLUCOSE RANDOM 118 mg/dL 70-105 H (BEAKER) (test code = 652) CALCIUM (BEAKER) 9.3 mg/dL 8.4-10.2 (test code = 697) EGFR (BEAKER) (test 56 mL/min/1.73 ESTIMA MYLA GFR IS code = 1092) sq m NOT ACCURATE CREATININE CLEARANCE IN PREDICTING GLOMERULAR FILTRATION RATE . ESTIMATED GFR I S NOT APPLICABLE FOR DIALYSIS PATIEN TS. CBC (HEMOGRAM ONLY)2019-01-24 05:05:00 Test Item Value Reference Range Interpretation Comments WHITE BLOOD CELL COUNT (BEAKER) 5.7 K/ L 3.5-10.5 (test code = 775) RED BLOOD CELL COUNT (BEAKER) 5.18 M/ L 4.63-6.08 (test code = 761) HEMOGLOBIN (BEAKER) (test code = 13.4 GM/DL 13.7-17.5 L 410) HEMATOCRIT (BEAKER) (test code = 44.7 % 40.1-51.0 411) MEAN CORPUSCULAR VOLUME (BEAKER) 86.3 fL 79.0-92.2 (test code = 753) MEAN CORPUSCULAR HEMOGLOBIN 25.9 pg 25.7-32.2 (BEAKER) (test code = 751) MEAN CORPUSCULAR HEMOGLOBIN CONC 30.0 GM/DL 32.3-36.5 L (BEAKER) (test code = 752) RED CELL DISTRIBUTION WIDTH 15.9 % 11.6-14.4 H (BEAKER) (test code = 412) PLATELET COUNT (BEAKER) (test 190 K/CU MM 150-450 code = 756) MEAN PLATELET VOLUME (BEAKER) 10.2 fL 9.4-12.4 (test code = 754) NUCLEATED RED BLOOD CELLS 0 /100 WBC 0-0 (BEAKER) (test code = 413) POCT-GLUCOSE [id number] 12:53:00 Test Item Value Reference Range Interpretation Comments POC-GLUCOSE METER 120 mg/dL 70-110 H : TESTED A T [facility] [address] (BEAKER) (test code = [place], [address]) [address]: Acetylene Cutter/Techni pippa ID = [id number] for VINAY FLOWER HEMOGLOBIN [id number] 08:40:00 Test Item Value Reference Range Interpretation Comments HEMOGLOBIN A1C (BEAKER) (test code = 6.7 % 4.3-6.1 H 368) LIPID [id number] 05:08:00 Test Item Value Reference Range Interpretation Comments TRIGLYCERIDES (BEAKER) (test code = 147 mg/dL 540) CHOLESTEROL (BEAKER) (test code = 221 mg/dL 631) HDL CHOLESTEROL (BEAKER) (test code 43 mg/dL = 976) LDL CHOLESTEROL CALCULATED (BEAKER) 149 mg/dL (test code = 633) Triglyceride Reference Range: Low Risk <150 Borderline 150-199 High Risk 200-499 Very High Risk >=500Cholesterol Reference Range: Low Risk <200 Borderline 200-239 High Risk >240HDL Cholesterol Reference Range: Low Risk >=60 High Risk <40LDL Cholesterol Reference Range: Optimal <100 Near Optimal 100-129 Borderline 130-159 High 160-189 Very High >=190BASIC METABOLIC [id number] 05:08:00 Test Item Value Reference Range Interpretation Comments SODIUM (BEAKER) 143 meq/L 136-145 (test code = 381) POTASSIUM (BEAKER) 3.8 meq/L 3.5-5.1 (test code = 379) CHLORIDE (BEAKER) 107 meq/L 98-107 (test code = 382) CO2 (BEAKER) (test 29 meq/L 22-29 code = 355) BLOOD UREA NITROGEN 29 mg/dL 7-21 H (BEAKER) (test code = 354) CREATININE (BEAKER) 1.41 mg/dL 0.57-1.25 H (test code = 358) GLUCOSE RANDOM 104 mg/dL 70-105 (BEAKER) (test code = 652) CALCIUM (BEAKER) 9.2 mg/dL 8.4-10.2 (test code = 697) EGFR (BEAKER) (test 61 mL/min/1.73 ESTIMA MYLA GFR IS code = 1092) sq m NOT ACCURATE CREATININE CLEARANCE IN PREDICTING GLOMERULAR FILTRATION RATE . ESTIMATED GFR I S NOT APPLICABLE FOR DIALYSIS PATIEN TS. CBC (HEMOGRAM ONLY)2019-01-23 04:29:00 Test Item Value Reference Range Interpretation Comments WHITE BLOOD CELL COUNT (BEAKER) 5.2 K/ L 3.5-10.5 (test code = 775) RED BLOOD CELL COUNT (BEAKER) 5.14 M/ L 4.63-6.08 (test code = 761) HEMOGLOBIN (BEAKER) (test code = 13.4 GM/DL 13.7-17.5 L 410) HEMATOCRIT (BEAKER) (test code = 43.5 % 40.1-51.0 411) MEAN CORPUSCULAR VOLUME (BEAKER) 84.6 fL 79.0-92.2 (test code = 753) MEAN CORPUSCULAR HEMOGLOBIN 26.1 pg 25.7-32.2 (BEAKER) (test code = 751) MEAN CORPUSCULAR HEMOGLOBIN CONC 30.8 GM/DL 32.3-36.5 L (BEAKER) (test code = 752) RED CELL DISTRIBUTION WIDTH 15.9 % 11.6-14.4 H (BEAKER) (test code = 412) PLATELET COUNT (BEAKER) (test 193 K/CU MM 150-450 code = 756) MEAN PLATELET VOLUME (BEAKER) 9.8 fL 9.4-12.4 (test code = 754) NUCLEATED RED BLOOD CELLS 0 /100 WBC 0-0 (BEAKER) (test code = 413) POCT-GLUCOSE [id number] 21:05:00 Test Item Value Reference Range Interpretation Comments POC-GLUCOSE METER 103 mg/dL 70-110 : TESTED A T [facility] 67[address] (BEAKER) (test code = [facility] [place], [address]) [address]: Acetylene Cutter/Techni pippa ID = [id number] for FRANK AVILEZ POCT-GLUCOSE [id number] 18:31:00 Test Item Value Reference Range Interpretation Comments POC-GLUCOSE METER 133 mg/dL 70-110 H : TESTED A T [facility] [address] (BEAKER) (test code = [place], [address]) [address]: Acetylene Cutter/Techni pippa ID = [id number] for MELINA EVAN VANIA BASIC METABOLIC [id number] 16:44:00 Test Item Value Reference Range Interpretation Comments SODIUM (BEAKER) 141 meq/L 136-145 (test code = 381) POTASSIUM (BEAKER) 4.3 meq/L 3.5-5.1 (test code = 379) CHLORIDE (BEAKER) 105 meq/L 98-107 (test code = 382) CO2 (BEAKER) (test 32 meq/L 22-29 H code = 355) BLOOD UREA NITROGEN 31 mg/dL 7-21 H (BEAKER) (test code = 354) CREATININE (BEAKER) 1.65 mg/dL 0.57-1.25 H (test code = 358) GLUCOSE RANDOM 116 mg/dL 70-105 H (BEAKER) (test code = 652) CALCIUM (BEAKER) 9.5 mg/dL 8.4-10.2 (test code = 697) EGFR (BEAKER) (test 51 mL/min/1.73 ESTIMA MYLA GFR IS code = 1092) sq m NOT ACCURATE CREATININE CLEARANCE IN PREDICTING GLOMERULAR FILTRATION RATE . ESTIMATED GFR I S NOT APPLICABLE FOR DIALYSIS PATIEN TS. CBC (HEMOGRAM ONLY)2019-01-22 16:19:00 Test Item Value Reference Range Interpretation Comments WHITE BLOOD CELL COUNT (BEAKER) 5.9 K/ L 3.5-10.5 (test code = 775) RED BLOOD CELL COUNT (BEAKER) 5.15 M/ L 4.63-6.08 (test code = 761) HEMOGLOBIN (BEAKER) (test code = 13.4 GM/DL 13.7-17.5 L 410) HEMATOCRIT (BEAKER) (test code = 43.7 % 40.1-51.0 411) MEAN CORPUSCULAR VOLUME (BEAKER) 84.9 fL 79.0-92.2 (test code = 753) MEAN CORPUSCULAR HEMOGLOBIN 26.0 pg 25.7-32.2 (BEAKER) (test code = 751) MEAN CORPUSCULAR HEMOGLOBIN CONC 30.7 GM/DL 32.3-36.5 L (BEAKER) (test code = 752) RED CELL DISTRIBUTION WIDTH 15.8 % 11.6-14.4 H (BEAKER) (test code = 412) PLATELET COUNT (BEAKER) (test 191 K/CU MM 150-450 code = 756) MEAN PLATELET VOLUME (BEAKER) 10.4 fL 9.4-12.4 (test code = 754) NUCLEATED RED BLOOD CELLS 0 /100 WBC 0-0 (BEAKER) (test code = 413) CBC W/PLT COUNT & AUTO [id number] 07:56:00 Test Item Value Reference Range Interpretation Comments WHITE BLOOD CELL COUNT (BEAKER) 6.4 K/ L 4.0-10.0 (test code = 775) RED BLOOD CELL COUNT (BEAKER) 3.43 M/ L 4.20-5.80 L (test code = 761) HEMOGLOBIN (BEAKER) (test code = 8.3 GM/DL 13.0-16.8 L 410) HEMATOCRIT (BEAKER) (test code = 27.7 % 40.0-50.0 L 411) MEAN CORPUSCULAR VOLUME (BEAKER) 81.0 fL 82.0-98.0 L (test code = 753) MEAN CORPUSCULAR HEMOGLOBIN 24.1 pg 27.0-33.0 L (BEAKER) (test code = 751) MEAN CORPUSCULAR HEMOGLOBIN CONC 29.7 GM/DL 32.0-36.0 L (BEAKER) (test code = 752) RED CELL DISTRIBUTION WIDTH 20.7 % 10.3-14.2 H (BEAKER) (test code = 412) PLATELET COUNT (BEAKER) (test 269 K/CU MM 150-430 code = 756) MEAN PLATELET VOLUME (BEAKER) 9.4 fL 6.5-10.5 (test code = 754) NUCLEATED RED BLOOD CELLS 0 /100 WBC 0-0 (BEAKER) (test code = 413) NEUTROPHILS RELATIVE PERCENT 43 % (BEAKER) (test code = 429) LYMPHOCYTES RELATIVE PERCENT 36 % (BEAKER) (test code = 430) MONOCYTES RELATIVE PERCENT 8 % (BEAKER) (test code = 431) EOSINOPHILS RELATIVE PERCENT 13 % (BEAKER) (test code = 432) BASOPHILS RELATIVE PERCENT 0 % (BEAKER) (test code = 437) NEUTROPHILS ABSOLUTE COUNT 2.72 K/ L 1.80-8.00 (BEAKER) (test code = 670) LYMPHOCYTES ABSOLUTE COUNT 2.26 K/ L 1.48-4.50 (BEAKER) (test code = 414) MONOCYTES ABSOLUTE COUNT (BEAKER) 0.51 K/ L 0.00-1.30 (test code = 415) EOSINOPHILS ABSOLUTE COUNT 0.85 K/ L 0.00-0.50 H (BEAKER) (test code = 416) BASOPHILS ABSOLUTE COUNT (BEAKER) 0.02 K/ L 0.00-0.20 (test code = 417) 0.00POCT-GLUCOSE [id number] 07:47:00 Test Item Value Reference Range Interpretation Comments POC-GLUCOSE METER 96 mg/dL 70-110 TESTED AT [facility] [address] (BEAKER) (test code = [place] [address]) BASIC METABOLIC [id number] 06:30:00 Test Item Value Reference Range Interpretation Comments SODIUM (BEAKER) 147 meq/L 136-145 H (test code = 381) POTASSIUM (BEAKER) 3.6 meq/L 3.5-5.1 (test code = 379) CHLORIDE (BEAKER) 111 meq/L 98-107 H (test code = 382) CO2 (BEAKER) (test 28 meq/L 22-29 code = 355) BLOOD UREA NITROGEN 4 mg/dL 7-21 L (BEAKER) (test code = 354) CREATININE (BEAKER) 0.85 mg/dL 0.57-1.25 (test code = 358) GLUCOSE RANDOM 87 mg/dL 70-105 (BEAKER) (test code = 652) CALCIUM (BEAKER) 8.8 mg/dL 8.4-10.2 (test code = 697) EGFR (BEAKER) (test 109 mL/min/1.73 ESTIM ATED GFR IS code = 1092) sq m NOT ACCURATE CREATININE CLEARANCE IN PREDICTING GLOMERULAR FILTRATION RATE . ESTIMATED GFR I S NOT APPLICABLE FOR DIALYSIS PATIEN TS. [id number] 06:19:00 Test Item Value Reference Range Interpretation Comments PROTIME (BEAKER) (test code = 14.8 seconds 11.7-14.7 H 759) INR (BEAKER) (test code = 370) 1.2 <=5.9 PARTIAL THROMBOPLASTIN TIME 43.7 seconds 22.5-36.0 H (BEAKER) (test code = 760) RECOMMENDED COUMADIN/WARFARIN INR THERAPY RANGESSTANDARD DOSE: 2.0 - 3.0 Includes: PROPHYLAXIS forvenous thrombosis, systemic embolization; TREATMENT for venous thrombosis and/or pulmonary embolus.HIGH RISK: Target INR is 2.5-3.5 for patients with mechanical heart valves.PROTHROMBIN [id number] 06:18:00 Test Item Value Reference Range Interpretation Comments PROTIME (BEAKER) (test code = 14.8 seconds 11.7-14.7 H 759) INR (BEAKER) (test code = 370) 1.2 <=5.9 RECOMMENDED COUMADIN/WARFARIN INR THERAPY RANGESSTANDARD DOSE: 2.0 - 3.0 Includes: PROPHYLAXIS forvenous thrombosis, systemic embolization; TREATMENT for venous thrombosis and/or pulmonary embolus.HIGH RISK: Target INR is 2.5-3.5 for patients with mechanical heart valves.POCT-GLUCOSE [id number] 21:11:00 Test Item Value Reference Range Interpretation Comments POC-GLUCOSE METER 123 mg/dL 70-110 H TESTED AT [facility] [address] ([facility]) (test code = [place] [address]) [address] POCT-GLUCOSE [id number] 17:40:00 Test Item Value Reference Range Interpretation Comments POC-GLUCOSE METER 123 mg/dL 70-110 H TESTED AT [facility] [address] [facility] (test code = [place] 15[address]) [address] OCCULT BLOOD, [id number] 14:01:00 Test Item Value Reference Range Interpretation Comments FECAL OCCULT BLOOD (BEAKER) (test Negative Negative code = 618) POCT-GLUCOSE [id number] 12:37:00 Test Item Value Reference Range Interpretation Comments POC-GLUCOSE METER 120 mg/dL 70-110 H TESTED AT [place] [address] ([facility]) (test code = [place] 15[address]) [address] POCT-GLUCOSE [id number] 07:47:00 Test Item Value Reference Range Interpretation Comments POC-GLUCOSE METER 100 mg/dL 70-110 TESTED AT [place] [address] ([facility]) (test code = [place] 15[address]) [address] [id number] 04:10:00 Test Item Value Reference Range Interpretation Comments PHOSPHORUS (BEAKER) (test code = 4.2 mg/dL 2.3-4.7 604) [id number] 04:10:00 Test Item Value Reference Range Interpretation Comments MAGNESIUM (BEAKER) (test code = 1.7 mg/dL 1.6-2.6 627) BASIC METABOLIC [id number] 04:10:00 Test Item Value Reference Range Interpretation Comments SODIUM (BEAKER) 146 meq/L 136-145 H (test code = 381) POTASSIUM (BEAKER) 3.5 meq/L 3.5-5.1 (test code = 379) CHLORIDE (BEAKER) 110 meq/L 98-107 H (test code = 382) CO2 (BEAKER) (test 29 meq/L 22-29 code = 355) BLOOD UREA NITROGEN 3 mg/dL 7-21 L (BEAKER) (test code = 354) CREATININE (BEAKER) 0.84 mg/dL 0.57-1.25 (test code = 358) GLUCOSE RANDOM 99 mg/dL 70-105 (BEAKER) (test code = 652) CALCIUM (BEAKER) 8.6 mg/dL 8.4-10.2 (test code = 697) EGFR (BEAKER) (test 111 mL/min/1.73 ESTIM ATED GFR IS code = 1092) sq m NOT ACCURATE CREATININE CLEARANCE IN PREDICTING GLOMERULAR FILTRATION RATE . ESTIMATED GFR I S NOT APPLICABLE FOR DIALYSIS PATIEN TS. HEPATIC FUNCTION [id number] 04:10:00 Test Item Value Reference Range Interpretation Comments TOTAL PROTEIN (BEAKER) (test code = 5.5 gm/dL 6.0-8.3 L 770) ALBUMIN (BEAKER) (test code = 1145) 2.5 g/dL 3.5-5.0 L BILIRUBIN TOTAL (BEAKER) (test code 0.1 mg/dL 0.2-1.2 L = 377) BILIRUBIN DIRECT (BEAKER) (test 0.1 mg/dL 0.1-0.5 code = 706) ALKALINE PHOSPHATASE (BEAKER) (test 54 U/L 40-150 code = 346) AST (SGOT) (BEAKER) (test code = 25 U/L 5-34 353) ALT (SGPT) (BEAKER) (test code = 15 U/L 6-55 347) [id number] 04:03:00 Test Item Value Reference Range Interpretation Comments PROTIME (BEAKER) (test code = 14.0 seconds 11.7-14.7 759) INR (BEAKER) (test code = 370) 1.1 <=5.9 PARTIAL THROMBOPLASTIN TIME 70.7 seconds 22.5-36.0 H (BEAKER) (test code = 760) RECOMMENDED COUMADIN/WARFARIN INR THERAPY RANGESSTANDARD DOSE: 2.0 - 3.0 Includes: PROPHYLAXIS forvenous thrombosis, systemic embolization; TREATMENT for venous thrombosis and/or pulmonary embolus.HIGH RISK: Target INR is 2.5-3.5 for patients with mechanical heart valves.[id number] 04:03:00 Test Item Value Reference Range Interpretation Comments PARTIAL THROMBOPLASTIN TIME 70.7 seconds 22.5-36.0 H (BEAKER) (test code = 760) PROTHROMBIN [id number] 04:02:00 Test Item Value Reference Range Interpretation Comments PROTIME (BEAKER) (test code = 14.0 seconds 11.7-14.7 759) INR (BEAKER) (test code = 370) 1.1 <=5.9 RECOMMENDED COUMADIN/WARFARIN INR THERAPY RANGESSTANDARD DOSE: 2.0 - 3.0 Includes: PROPHYLAXIS forvenous thrombosis, systemic embolization; TREATMENT for venous thrombosis and/or pulmonary embolus.HIGH RISK: Target INR is 2.5-3.5 for patients with mechanical heart valves.CBC W/PLT COUNT & AUTO DIFFERENTIAL 2016-10-06 03:57:00 Test Item Value Reference Range Interpretation Comments WHITE BLOOD CELL COUNT (BEAKER) 6.8 K/ L 4.0-10.0 (test code = 775) RED BLOOD CELL COUNT (BEAKER) 3.32 M/ L 4.20-5.80 L (test code = 761) HEMOGLOBIN (BEAKER) (test code = 8.2 GM/DL 13.0-16.8 L 410) HEMATOCRIT (BEAKER) (test code = 27.0 % 40.0-50.0 L 411) MEAN CORPUSCULAR VOLUME (BEAKER) 81.3 fL 82.0-98.0 L (test code = 753) MEAN CORPUSCULAR HEMOGLOBIN 24.5 pg 27.0-33.0 L (BEAKER) (test code = 751) MEAN CORPUSCULAR HEMOGLOBIN CONC 30.2 GM/DL 32.0-36.0 L (BEAKER) (test code = 752) RED CELL DISTRIBUTION WIDTH 20.4 % 10.3-14.2 H (BEAKER) (test code = 412) PLATELET COUNT (BEAKER) (test 272 K/CU MM 150-430 code = 756) MEAN PLATELET VOLUME (BEAKER) 9.0 fL 6.5-10.5 (test code = 754) NUCLEATED RED BLOOD CELLS 0 /100 WBC 0-0 (BEAKER) (test code = 413) NEUTROPHILS RELATIVE PERCENT 37 % (BEAKER) (test code = 429) LYMPHOCYTES RELATIVE PERCENT 41 % (BEAKER) (test code = 430) MONOCYTES RELATIVE PERCENT 10 % (BEAKER) (test code = 431) EOSINOPHILS RELATIVE PERCENT 12 % (BEAKER) (test code = 432) BASOPHILS RELATIVE PERCENT 1 % (BEAKER) (test code = 437) NEUTROPHILS ABSOLUTE COUNT 2.50 K/ L 1.80-8.00 (BEAKER) (test code = 670) LYMPHOCYTES ABSOLUTE COUNT 2.80 K/ L 1.48-4.50 (BEAKER) (test code = 414) MONOCYTES ABSOLUTE COUNT (BEAKER) 0.69 K/ L 0.00-1.30 (test code = 415) EOSINOPHILS ABSOLUTE COUNT 0.79 K/ L 0.00-0.50 H (BEAKER) (test code = 416) BASOPHILS ABSOLUTE COUNT (BEAKER) 0.05 K/ L 0.00-0.20 (test code = 417) 0.00POCT-GLUCOSE [id number] 22:16:00 Test Item Value Reference Range Interpretation Comments POC-GLUCOSE METER 115 mg/dL 70-110 H TESTED AT [place] [address] ([facility]) (test code = [facility] 1538) [id number] 21:09:00 Test Item Value Reference Range Interpretation Comments PARTIAL THROMBOPLASTIN TIME 65.3 seconds 22.5-36.0 H (AKER) (test code = 760) POCT-GLUCOSE [id number] 17:35:00 Test Item Value Reference Range Interpretation Comments POC-GLUCOSE METER 103 mg/dL 70-110 TESTED AT [place] [address] ([facility]) (test code = [facility] 1538) [address] PERIPHERAL BLOOD SMEAR - PATHOLOGIST [id number] 15:13:00 Test Item Value Reference Range Interpretation Comments RBC MORPHOLOGY Marked (BEAKER) (test anisopoikiloc ytosis, code = 2846) including elliptocytes an d few target cells. R ed cells are hypochromic wit h microcytic spring alicia. WBC MORPHOLOGY Hypersegmente d (BEAKER) (test neutrophils. code = 2847) PLT MORPHOLOGY Unremarkable (BEAKER) (test code = 2848) PERIPHERAL SMR Iron studies are REVIEW (BEAKER) recommended for (test code = complete evalua tion 4814) of this patient 's anemia. [facility]-PATHOLOGIST- Sabrina 6112 (BEAKER) Eleonora (test code = Amanda woodruff 0139) (electronic signature) OCCULT BLOOD, [id number] 12:57:00 Test Item Value Reference Range Interpretation Comments FECAL OCCULT BLOOD (BEAKER) (test Negative Negative code = 618) POCT-GLUCOSE [id number] 11:54:00 Test Item Value Reference Range Interpretation Comments POC-GLUCOSE METER 82 mg/dL 70-110 TESTED AT [facility] 67 ([facility]) (test code = [facility] [address] 1538) [id number] 11:50:00 Test Item Value Reference Range Interpretation Comments PARTIAL THROMBOPLASTIN TIME 41.0 seconds 22.5-36.0 H (BEAKER) (test code = 760) Prior to initiating heparinCBC (HEMOGRAM ONLY)2016-10-05 11:43:00 Test Item Value Reference Range Interpretation Comments WHITE BLOOD CELL COUNT (BEAKER) 6.1 K/ L 4.0-10.0 (test code = 775) RED BLOOD CELL COUNT (BEAKER) 3.39 M/ L 4.20-5.80 L (test code = 761) HEMOGLOBIN (BEAKER) (test code = 8.4 GM/DL 13.0-16.8 L 410) HEMATOCRIT (BEAKER) (test code = 27.5 % 40.0-50.0 L 411) MEAN CORPUSCULAR VOLUME (BEAKER) 81.0 fL 82.0-98.0 L (test code = 753) MEAN CORPUSCULAR HEMOGLOBIN 24.8 pg 27.0-33.0 L (BEAKER) (test code = 751) MEAN CORPUSCULAR HEMOGLOBIN CONC 30.7 GM/DL 32.0-36.0 L (BEAKER) (test code = 752) RED CELL DISTRIBUTION WIDTH 21.8 % 10.3-14.2 H (BEAKER) (test code = 412) PLATELET COUNT (BEAKER) (test 275 K/CU MM 150-430 code = 756) MEAN PLATELET VOLUME (BEAKER) 8.9 fL 6.5-10.5 (test code = 754) NUCLEATED RED BLOOD CELLS 0 /100 WBC 0-0 (BEAKER) (test code = 413) 0.00POCT-GLUCOSE [id number] 08:03:00 Test Item Value Reference Range Interpretation Comments POC-GLUCOSE METER 96 mg/dL 70-110 TESTED AT [facility] 6720 (BEAKER) (test code = [facility] [address] 1538) HEMOGLOBIN [id number] 08:02:00 Test Item Value Reference Range Interpretation Comments HEMOGLOBIN A1C (BEAKER) (test code = 6.5 % 4.3-6.1 H 368) [id number] 04:21:00 Test Item Value Reference Range Interpretation Comments PROTIME (BEAKER) (test code = 15.2 seconds 11.7-14.7 H 759) INR (BEAKER) (test code = 370) 1.2 <=5.9 PARTIAL THROMBOPLASTIN TIME 41.8 seconds 22.5-36.0 H (BEAKER) (test code = 760) RECOMMENDED COUMADIN/WARFARIN INR THERAPY RANGESSTANDARD DOSE: 2.0 - 3.0 Includes: PROPHYLAXIS forvenous thrombosis, systemic embolization; TREATMENT for venous thrombosis and/or pulmonary embolus.HIGH RISK: Target INR is 2.5-3.5 for patients with mechanical heart valves.[id number] 04:21:00 Test Item Value Reference Range Interpretation Comments PHOSPHORUS (BEAKER) (test code = 3.8 mg/dL 2.3-4.7 604) [id number] 04:21:00 Test Item Value Reference Range Interpretation Comments MAGNESIUM (BEAKER) (test code = 1.6 mg/dL 1.6-2.6 627) BASIC METABOLIC [id number] 04:21:00 Test Item Value Reference Range Interpretation Comments SODIUM (BEAKER) 144 meq/L 136-145 (test code = 381) POTASSIUM (BEAKER) 3.7 meq/L 3.5-5.1 (test code = 379) CHLORIDE (BEAKER) 109 meq/L 98-107 H (test code = 382) CO2 (BEAKER) (test 27 meq/L 22-29 code = 355) BLOOD UREA NITROGEN 3 mg/dL 7-21 L (BEAKER) (test code = 354) CREATININE (BEAKER) 0.88 mg/dL 0.57-1.25 (test code = 358) GLUCOSE RANDOM 109 mg/dL 70-105 H (BEAKER) (test code = 652) CALCIUM (BEAKER) 9.1 mg/dL 8.4-10.2 (test code = 697) EGFR (BEAKER) (test 105 mL/min/1.73 ESTIM ATED GFR IS code = 1092) sq m NOT ACCURATE CREATININE CLEARANCE IN PREDICTING GLOMERULAR FILTRATION RATE . ESTIMATED GFR I S NOT APPLICABLE FOR DIALYSIS PATIEN TS. HEPATIC FUNCTION [id number] 04:21:00 Test Item Value Reference Range Interpretation Comments TOTAL PROTEIN (BEAKER) (test code = 6.2 gm/dL 6.0-8.3 770) ALBUMIN (BEAKER) (test code = 1145) 2.8 g/dL 3.5-5.0 L BILIRUBIN TOTAL (BEAKER) (test code 0.2 mg/dL 0.2-1.2 = 377) BILIRUBIN DIRECT (BEAKER) (test 0.1 mg/dL 0.1-0.5 code = 706) ALKALINE PHOSPHATASE (BEAKER) (test 65 U/L 40-150 code = 346) AST (SGOT) (BEAKER) (test code = 18 U/L 5-34 353) ALT (SGPT) (BEAKER) (test code = 13 U/L 6-55 347) PROTHROMBIN [id number] 04:20:00 Test Item Value Reference Range Interpretation Comments PROTIME (BEAKER) (test code = 15.2 seconds 11.7-14.7 H 759) INR (BEAKER) (test code = 370) 1.2 <=5.9 RECOMMENDED COUMADIN/WARFARIN INR THERAPY RANGESSTANDARD DOSE: 2.0 - 3.0 Includes: PROPHYLAXIS forvenous thrombosis, systemic embolization; TREATMENT for venous thrombosis and/or pulmonary embolus.HIGH RISK: Target INR is 2.5-3.5 for patients with mechanical heart valves.CBC W/PLT COUNT & AUTO DIFFERENTIAL 2016-10-05 04:09:00 Test Item Value Reference Range Interpretation Comments WHITE BLOOD CELL COUNT (BEAKER) 6.9 K/ L 4.0-10.0 (test code = 775) RED BLOOD CELL COUNT (BEAKER) 3.65 M/ L 4.20-5.80 L (test code = 761) HEMOGLOBIN (BEAKER) (test code = 8.9 GM/DL 13.0-16.8 L 410) HEMATOCRIT (BEAKER) (test code = 29.5 % 40.0-50.0 L 411) MEAN CORPUSCULAR VOLUME (BEAKER) 80.9 fL 82.0-98.0 L (test code = 753) MEAN CORPUSCULAR HEMOGLOBIN 24.4 pg 27.0-33.0 L (BEAKER) (test code = 751) MEAN CORPUSCULAR HEMOGLOBIN CONC 30.1 GM/DL 32.0-36.0 L (BEAKER) (test code = 752) RED CELL DISTRIBUTION WIDTH 21.9 % 10.3-14.2 H (BEAKER) (test code = 412) PLATELET COUNT (BEAKER) (test 295 K/CU MM 150-430 code = 756) MEAN PLATELET VOLUME (BEAKER) 8.8 fL 6.5-10.5 (test code = 754) NUCLEATED RED BLOOD CELLS 0 /100 WBC 0-0 (BEAKER) (test code = 413) NEUTROPHILS RELATIVE PERCENT 44 % (BEAKER) (test code = 429) LYMPHOCYTES RELATIVE PERCENT 35 % (BEAKER) (test code = 430) MONOCYTES RELATIVE PERCENT 10 % (BEAKER) (test code = 431) EOSINOPHILS RELATIVE PERCENT 10 % (BEAKER) (test code = 432) BASOPHILS RELATIVE PERCENT 1 % (BEAKER) (test code = 437) NEUTROPHILS ABSOLUTE COUNT 3.00 K/ L 1.80-8.00 (BEAKER) (test code = 670) LYMPHOCYTES ABSOLUTE COUNT 2.40 K/ L 1.48-4.50 (BEAKER) (test code = 414) MONOCYTES ABSOLUTE COUNT (BEAKER) 0.71 K/ L 0.00-1.30 (test code = 415) EOSINOPHILS ABSOLUTE COUNT 0.72 K/ L 0.00-0.50 H (BEAKER) (test code = 416) BASOPHILS ABSOLUTE COUNT (BEAKER) 0.05 K/ L 0.00-0.20 (test code = 417) [id number] 02:36:00 Test Item Value Reference Range Interpretation Comments FERRITIN (BEAKER) (test code = 2576 ng/mL 5-275 H 361) Effective 02/18/2014: Reference Range ChangeNew: Male 5-275 Previous: Male 22-322 Female 5-275 Female [id number] 02:30:00 Test Item Value Reference Range Interpretation Comments HAPTOGLOBIN (BEAKER) (test code = 242 mg/dL 14-258 366) Effective 02/18/2014: Reference Range ChangeNew: 14-258 Previous: 36-195 VITAMIN [id number] 01:42:00 Test Item Value Reference Range Interpretation Comments VITAMIN B12 (BEAKER) (test code = 1077 pg/mL 213-816 H 774) FOLATE, [id number] 01:42:00 Test Item Value Reference Range Interpretation Comments FOLATE (BEAKER) (test code = 362) 5.5 ng/mL >=7.0 L Effective 02/18/2014: Folate Reference Range ChangeNew: >=7.0 Previous: >=5.4IRON, TIBC, % SAT. (WITHOUT FERRITIN)2016-10-05 01:07:00 Test Item Value Reference Range Interpretation Comments IRON (BEAKER) (test code = 547) 19 ug/dL 40-160 L TOTAL IRON BINDING CAPACITY 113 ug/dL 250-450 L (BEAKER) (test code = 769) IRON % SATURATION (2) (BEAKER) 17 % 20-55 L (test code = 2590) (MANUAL DIFFERENTIAL)2016-10-04 23:25:00 Test Item Value Reference Range Interpretation Comments NEUTROPHILS - REL (DIFF) (BEAKER) 49 % (test code = 1359) LYMPHOCYTES - REL (DIFF) (BEAKER) 30 % (test code = 1360) MONOCYTES - REL (DIFF) (BEAKER) 8 % (test code = 1361) EOSINOPHILS - REL (DIFF) (BEAKER) 12 % (test code = 1362) BASOPHILS - REL (DIFF) (BEAKER) 1 % (test code = 1363) NEUTROPHILS - ABS (DIFF) (BEAKER) 3.53 K/ L 1.80-8.00 (test code = 1365) LYMPHOCYTES - ABS (DIFF) (BEAKER) 2.16 K/ L 1.48-4.50 (test code = 1366) MONOCYTES - ABS (DIFF) (BEAKER) 0.58 K/ L 0.00-1.30 (test code = 1367) EOSINOPHILS - ABS (DIFF) (BEAKER) 0.86 K/ L 0.00-0.50 H (test code = 1368) BASOPHILS - ABS (DIFF) (BEAKER) 0.07 K/ L 0.00-0.20 (test code = 1369) TOTAL COUNTED (BEAKER) (test code 100 = 1351) VACUOLATED NEUTROPHILS (BEAKER) Present (test code = 483) GIANT PLATELETS (BEAKER) (test Present code = 313) SCHISTOCYTES (BEAKER) (test code 1+ few = 765) ANISOCYTOSIS (BEAKER) (test code 1+ few = 961) ELLIPTOCYTES (BEAKER) (test code 1+ few = 962) HYPOCHROMIA (BEAKER) (test code = 2+ moderate 963) POIKILOCYTES (BEAKER) (test code 2+ moderate = 966) POLYCHROMATOPHILLIC RBCS(BEAKER) 1+ few (test code = 478) SPHEROCYTES (BEAKER) (test code = 1+ few 768) TARGET CELLS (BEAKER) (test code 1+ few = 480) [id number] 23:12:00 Test Item Value Reference Range Interpretation Comments PHOSPHORUS (BEAKER) (test code = 3.5 mg/dL 2.3-4.7 604) [id number] 23:12:00 Test Item Value Reference Range Interpretation Comments MAGNESIUM (BEAKER) (test code = 1.5 mg/dL 1.6-2.6 L 627) COMPREHENSIVE METABOLIC [id number] 23:12:00 Test Item Value Reference Range Interpretation Comments TOTAL PROTEIN 6.4 gm/dL 6.0-8.3 (BEAKER) (test code = 770) ALBUMIN (BEAKER) 2.9 g/dL 3.5-5.0 L (test code = 1145) ALKALINE PHOSPHATASE 67 U/L 40-150 (BEAKER) (test code = 346) BILIRUBIN TOTAL 0.2 mg/dL 0.2-1.2 (BEAKER) (test code = 377) SODIUM (BEAKER) (test 143 meq/L 136-145 code = 381) POTASSIUM (BEAKER) 3.8 meq/L 3.5-5.1 (test code = 379) CHLORIDE (BEAKER) 108 meq/L 98-107 H (test code = 382) CO2 (BEAKER) (test 27 meq/L 22-29 code = 355) BLOOD UREA NITROGEN 3 mg/dL 7-21 L (BEAKER) (test code = 354) CREATININE (BEAKER) 1.00 mg/dL 0.57-1.25 (test code = 358) GLUCOSE RANDOM 123 mg/dL 70-105 H (BEAKER) (test code = 652) CALCIUM (BEAKER) 8.8 mg/dL 8.4-10.2 (test code = 697) AST (SGOT) (BEAKER) 16 U/L 5-34 (test code = 353) ALT (SGPT) (BEAKER) 16 U/L 6-55 (test code = 347) EGFR (BEAKER) (test 91 mL/min/1.73 ESTIMA MYLA GFR IS code = 1092) sq m NOT ACCURATE CREATININE CLEARANCE IN PREDICTING GLOMERULAR FILTRATION RATE . ESTIMATED GFR I S NOT APPLICABLE FOR DIALYSIS PATIEN TS. LACTATE DEHYDROGENASE (LDH)2016-10-04 23:12:00 Test Item Value Reference Range Interpretation Comments LACTATE DEHYDROGENASE (BEAKER) (test 205 U/L 125-220 code = 635) RETICULOCYTE [id number] 23:09:00 Test Item Value Reference Range Interpretation Comments RETICULOCYTE COUNT PCT (BEAKER) (test 2.5 % 0.4-2.9 code = 575) CBC W/PLT COUNT & AUTO [id number] 23:09:00 Test Item Value Reference Range Interpretation Comments WHITE BLOOD CELL COUNT (BEAKER) 7.2 K/ L 4.0-10.0 (test code = 775) RED BLOOD CELL COUNT (BEAKER) 3.79 M/ L 4.20-5.80 L (test code = 761) HEMOGLOBIN (BEAKER) (test code = 9.1 GM/DL 13.0-16.8 L 410) HEMATOCRIT (BEAKER) (test code = 30.6 % 40.0-50.0 L 411) MEAN CORPUSCULAR VOLUME (BEAKER) 80.7 fL 82.0-98.0 L (test code = 753) MEAN CORPUSCULAR HEMOGLOBIN 24.1 pg 27.0-33.0 L (BEAKER) (test code = 751) MEAN CORPUSCULAR HEMOGLOBIN CONC 29.9 GM/DL 32.0-36.0 L (BEAKER) (test code = 752) RED CELL DISTRIBUTION WIDTH 21.6 % 10.3-14.2 H (BEAKER) (test code = 412) PLATELET COUNT (BEAKER) (test 313 K/CU MM 150-430 code = 756) MEAN PLATELET VOLUME (BEAKER) 9.0 fL 6.5-10.5 (test code = 754) NUCLEATED RED BLOOD CELLS 0 /100 WBC 0-0 (BEAKER) (test code = 413) NEUTROPHILS RELATIVE PERCENT 47 % (BEAKER) (test code = 429) LYMPHOCYTES RELATIVE PERCENT 33 % (BEAKER) (test code = 430) MONOCYTES RELATIVE PERCENT 10 % (BEAKER) (test code = 431) EOSINOPHILS RELATIVE PERCENT 9 % (BEAKER) (test code = 432) BASOPHILS RELATIVE PERCENT 1 % (BEAKER) (test code = 437) NEUTROPHILS ABSOLUTE COUNT 3.38 K/ L 1.80-8.00 (BEAKER) (test code = 670) LYMPHOCYTES ABSOLUTE COUNT 2.38 K/ L 1.48-4.50 (BEAKER) (test code = 414) MONOCYTES ABSOLUTE COUNT (BEAKER) 0.70 K/ L 0.00-1.30 (test code = 415) EOSINOPHILS ABSOLUTE COUNT 0.63 K/ L 0.00-0.50 H (BEAKER) (test code = 416) BASOPHILS ABSOLUTE COUNT (BEAKER) 0.06 K/ L 0.00-0.20 (test code = 417) POCT-GLUCOSE [id number] 22:56:00 Test Item Value Reference Range Interpretation Comments POC-GLUCOSE METER 155 mg/dL 70-110 H TESTED AT [place] [address] ([facility]) (test code = [facility] [place] 1538) [address] POCT-GLUCOSE [id number] 17:39:00 Test Item Value Reference Range Interpretation Comments POC-GLUCOSE METER 106 mg/dL 70-110 TESTED AT [place] [address] ([facility]) (test code = [place] 1538) [id number]
[2019-08-21 12:42] LABS: Absolute Lymphocytes (CBC) 1.5 K/uL (0.7-4.9); Basophils % 0.7 % (0-1.3); Hematocrit 40.4 % (39.6-49.0); Lymphocytes % 27.8 % (15.3-44.8); MPV 9.6 fL (7.6-11.3); RBC Red Blood Cell Count 5.17 M/uL (4.33-5.43)
[2019-08-21 12:45] LABS: C-Reactive Protein 33.3 mg/L (<3.00); Potassium 4.1 mmol/L (3.5-5.1)
--- NOTE | 2019-08-21 13:45 | RAD REPORT ---
EXAM DESCRIPTION: RAD - Ankle Left 3 View -08/21/2019 1:31 pm CLINICAL HISTORY: Left ankle pain FINDINGS: No fracture or dislocation is seen. Soft tissue swelling. Moderate osteoarthritis involves the ankle consisting joint space narrowing and osteophytes
--- NOTE | 2019-08-21 13:47 | RAD REPORT ---
EXAM DESCRIPTION: RAD - Foot Left 3 View - 08/21/2019 1:30 pm CLINICAL HISTORY: Left Foot pain FINDINGS: Large calcaneal spurs. Osteoporosis No fracture or dislocation. Mild narrowing of DIP and PIP joints
--- NOTE | 2019-08-21 14:47 | RAD REPORT ---
EX[facility] DESCRIPTION: [facility]/2019 2:28 pm CLINICAL HISTORY: left leg pain and swelling. COMPARISON: None. FINDINGS: Left common femoral, superficial femoral, popliteal and posterior tibial veins are compre ssible and demonstrate augmentation. Doppler demonstrates good flow. IMPRESSION: No evidence of deep venous thrombosis involving the left lower extremity.
--- NOTE | 2019-08-21 15:10 | ER ---
Nurse's Notes [facility] Name: Salbador Krause Age: 69 yrs Sex: Male : 1950 Arrival Date: 08/21/2019 Time: 10:37 Bed 5 Private MD: Diagnosis: Left ankle and foot pain and swelling Presentation: 08/20 10:54 Chief complaint: Patient states: left foot swelling and pain X 5 days, no injury. iw Coronavirus screen: Proceed with normal triage. Patient denies a cough. Patient denies shortness of breath or difficulty breathing. Patient denies measured and/or subjective temperature greater than 100.4F prior to today's visit. Patient denies travel on a cruise ship or to a country the [facility] currently lists as an affected area. Patient denies contact with known and/or suspected case of COVID-19. Ebola Screen: Patient negative for fever greater than or equal to 101.5 degrees Fahrenheit, and additional compatible Ebola Virus Disease symptoms Patient denies exposure to infectious person. Patient denies travel to an Ebola-affected area in the 21 days before illness onset. No symptoms or risks identified at this time. Initial Sepsis Screen: Does the patient meet any 2 criteria? No. Patient's initial sepsis screen is negative. Does the patient have a suspected source of infection? No. Patient's initial sepsis screen is negative. Risk Assessment: Do you want to hurt yourself or someone else? Patient reports no desire to harm self or others. Onset of symptoms was August 16, 2019. 10:54 Method Of Arrival: Wheelchair iw 10:54 Acuity: RAFAEL 3 iw Historical: - Allergies: 10:58 No Known Allergies; iw - Home Meds: 10:58 atorvastatin 80 mg oral tab 1 tab once daily [Active]; Eliquis 5 mg oral tab 1 tab 2 iw times per day [Active]; metoprolol tartrate 12.5 mg Oral tab once daily [Active]; - PMHx: 10:58 Diabetes - NIDDM; Hypertension; LYMPHOMA; Atrial Fib; iw - PSHx: 10:58 gallstone removal; Heart stents; iw - Immunization history:: Adult Immunizations not up to date. - Social history:: Smoking status: Patient denies any tobacco usage or history of. Screenin:15 Abuse screen: Denies threats or abuse. Denies injuries from another. Nutritional ph screening: No deficits noted. Tuberculosis screening: No symptoms or risk factors identified. Fall Risk None identified. Assessment: 12:12 General: Appears in no apparent distress. comfortable, well groomed, Behavior is calm, ph cooperative, appropriate for age, Denies fever, feeling ill. Pain: Complains of pain in left foot and ankle. Neuro: Level of Consciousness is awake, alert, obeys commands, Oriented to person, place, time, situation. Cardiovascular: Capillary refill < 3 seconds in bilateral fingers Patient's skin is warm and dry. Pulses are palpable in left dorsalis pedis artery. Derm: Skin is intact, is healthy with good turgor, Skin is pink, warm \T\ dry. Musculoskeletal: Swelling present in left foot and ankle. 12:54 Reassessment: Patient appears in no apparent distress at this time. Patient and/or ph family updated on plan of care and expected duration. Pain level reassessed. Patient is alert, oriented x 3, equal unlabored respirations, skin warm/dry/pink. PT resting quietly, awaiting lab and radiology results. 14:00 Reassessment: Patient appears in no apparent distress at this time. Patient and/or ph family updated on plan of care and expected duration. Pain level reassessed. Patient is alert, oriented x 3, equal unlabored respirations, skin warm/dry/pink. US at bedside. Vital Signs: 10:54 BP 173 / 82; Pulse 61; Resp 16; Temp 99.3; Pulse Ox 95% ; Weight 113.4 kg; Height 5 ft. iw 9 in. (175.26 cm); Pain 10/10; 12:14 BP 167 / 89; Pulse 68; Resp 18; Pulse Ox 95% on R/A; ph 13:15 BP 154 / 91; Pulse 67; Resp 18; Pulse Ox 96% on R/A; ph 10:54 Body Mass Index 36.92 (113.40 kg, 175.26 cm) iw ED Course: 10:37 Patient arrived in ED. ag5 10:46 Kemal Medellin MD is Attending Physician. kdr 10:56 Triage completed. iw 10:58 Arm band placed on. iw 11:01 Melinda Pulido RN is Primary Nurse. ph 11:40 Missed attempt(s): 22 gauge in right antecubital area. Bleeding controlled, band aid ph applied, catheter tip intact. Missed attempt(s): 24 gauge in right hand. Bleeding controlled, band aid applied, catheter tip intact. 11:54 Foot Left 3 View XRAY In Process Unspecified. EDMS 11:54 Ankle Left 3 View XRAY In Process Unspecified. EDMS 12:09 Patient has correct armband on for positive identification. Bed in low position. Call ph light in reach. Side rails up X 1. Pulse ox on. NIBP on. 12:12 Initial lab(s) drawn, by me, sent to lab. by venipuncture 25G to left hand. dh3 14:28 US Extremity Venous Unilateral Ltd In Process Unspecified. EDMS 15:35 No provider procedures requiring assistance completed. Patient did not have IV access jl7 during this emergency room visit. Administered Medications: 15:31 Drug: [place] 10 mg-325 mg 1 tabs Route: PO; jl7 15:31 Follow up: Response: Medication administered at discharge. jl7 15:31 Drug: Ibuprofen 800 mg Route: PO; jl7 15:31 Follow up: Response: Medication administered at discharge. jl7 Outcome: 15:09 Discharge ordered by . kdr 15:35 Discharged to home ambulatory. jl7 15:35 Condition: stable 15:35 Discharge instructions given to patient, Instructed on discharge instructions, follow up and referral plans. medication usage, Demonstrated understanding of instructions, follow-up care, medications, Prescriptions given X 3. 15:36 Patient left the ED. jl7 Signatures: Dispatcher [employer] EDPA Kemal Medellin MD MD kdr Williams, Irene, RN RN Melinda Pulido RN RN ph Leal, Jahala, RN RN jl Malina Harmon [facility] Patsy Hebert [facility]
--- NOTE | 2019-08-21 15:10 | EDPHYS ---
Physician Documentation [facility] Name: Salbador Krause Age: 69 yrs Sex: Male : 1950 Arrival Date: 08/21/2019 Time: 10:37 Bed 5 Private MD: ED Physician Kemal Medellin HPI: 08/20 11:19 This 69 yrs old Black Male presents to ER via Wheelchair with complaints of Foot/Leg kdr Swelling. 11:19 The patient presents with pain, that is acute, swelling, tenderness. The complaints kdr affect the left foot. Context: The problem was sustained at home, resulted from an unknown cause, Mechanism of Injury: Unknown the patient can partially bear weight, the patient is able to ambulate, with moderate difficulty. Onset: The symptoms/episode began/occurred gradually, 4 day(s) ago. Modifying factors: The symptoms are alleviated by nothing, the symptoms are aggravated by weight bearing, movement, wearing shoes, Even bed sheets. Associated signs and symptoms: The patient has no apparent associated signs or symptoms. Severity of symptoms: At their worst the symptoms were moderate, in the emergency department the symptoms are unchanged. The patient has not experienced similar symptoms in the past. The patient has not recently seen a physician. Historical: - Allergies: 10:58 No Known Allergies; iw - Home Meds: 10:58 atorvastatin 80 mg oral tab 1 tab once daily [Active]; Eliquis 5 mg oral tab 1 tab 2 iw times per day [Active]; metoprolol tartrate 12.5 mg Oral tab once daily [Active]; - PMHx: 10:58 Diabetes - NIDDM; Hypertension; LYMPHOMA; Atrial Fib; iw - PSHx: 10:58 gallstone removal; Heart stents; iw - Immunization history:: Adult Immunizations not up to date. - Social history:: Smoking status: Patient denies any tobacco usage or history of. ROS: 11:19 Constitutional: Negative for fever, chills, and weight loss, Eyes: Negative for injury, kdr pain, redness, and discharge, Neck: Negative for injury, pain, and swelling, Cardiovascular: Negative for chest pain, palpitations, and edema, Respiratory: Negative for shortness of breath, cough, wheezing, and pleuritic chest pain, Abdomen/GI: Negative for abdominal pain, nausea, vomiting, diarrhea, and constipation, Back: Negative for injury and pain, : Negative for injury, bleeding, discharge, and swelling, Skin: Negative for injury, rash, and discoloration, Neuro: Negative for headache, weakness, numbness, tingling, and seizure activity. Psych: Negative for depression, anxiety, suicide ideation, homicidal ideation, and hallucinations, Allergy/Immunology: Negative for hives, rash, and allergies, Endocrine: Negative for neck swelling, polydipsia, polyuria, polyphagia, and marked weight changes, Hematologic/Lymphatic: Negative for swollen nodes, abnormal bleeding, and unusual bruising. 11:19 MS/extremity: Positive for pain, swelling, tenderness, The foot and ankle are not particularly warm. Exam: 11:19 Constitutional: This is a well developed, well nourished patient who is awake, alert, kdr and in no acute distress. Head/Face: Normocephalic, atraumatic. 11:19 Musculoskeletal/extremity: Extremities: grossly normal except: noted in the lateral side of left foot, lateral side of left heel, left Achilles, left lateral malleolus, left medial malleolus, dorsum of left foot, left lateral ankle, lateral aspect of left foot, left heel, left medial ankle, medial aspect of left foot and anterior aspect of left ankle: Vital Signs: 10:54 BP 173 / 82; Pulse 61; Resp 16; Temp 99.3; Pulse Ox 95% ; Weight 113.4 kg; Height 5 ft. iw 9 in. (175.26 cm); Pain 10/10; 12:14 BP 167 / 89; Pulse 68; Resp 18; Pulse Ox 95% on R/A; ph 13:15 BP 154 / 91; Pulse 67; Resp 18; Pulse Ox 96% on R/A; ph 10:54 Body Mass Index 36.92 (113.40 kg, 175.26 cm) iw MDM: 15:09 Patient medically screened. kdr 08/21 08:24 Data reviewed: vital signs, nurses notes, lab test result(s), radiologic studies. kdr Counseling: I had a detailed discussion with the patient and/or guardian regarding: the historical points, exam findings, and any diagnostic results supporting the discharge/admit diagnosis, lab results, radiology results, the need for outpatient follow up. 08/20 11:19 Order name: CBC with Diff; Complete Time: 13:54 kdr 08/20 11:19 Order name: Chem 7; Complete Time: 13:54 [facility] 08/20 13:57 Interpretation: GFR 61. [facility] 08/20 11:19 Order name: Foot Left 3 View XRAY; Complete Time: 13:54 [facility] 08/20 11:19 Order name: Ankle Left 3 View XRAY; Complete Time: 13:54 [facility] 08/20 11:19 Order name: CRP; Complete Time: 13:54 [facility] 08/20 11:19 Order name: ESR; Complete Time: 13:54 [facility] 08/20 13:58 Order name: US Extremity Venous Unilateral Ltd; Complete Time: 14:52 kdr Administered Medications: 08/20 15:31 Drug: [place] 10 mg-325 mg 1 tabs Route: PO; jl7 15:31 Follow up: Response: Medication administered at discharge. jl7 15:31 Drug: Ibuprofen 800 mg Route: PO; jl7 15:31 Follow up: Response: Medication administered at discharge. jl7 Disposition: 08/21/19 15:09 Discharged to Home. Impression: Left ankle and foot pain and swelling. - Condition is Stable. - Discharge Instructions: Ankle Pain, Foot Pain. - Prescriptions for Tylenol- Codeine #3 300-30 mg Oral Tablet - take 2 tablets by ORAL route every 4-6 hours As needed; 30 tablet. Tramadol 50 mg Oral Tablet - take 1 tablet by ORAL route every 8 hours as needed; 12 tablet. Keflex 500 mg Oral Capsule - take 1 capsule by ORAL route every 8 hours for 10 days; 30 capsule. - Medication Reconciliation Form, Thank You Letter, Prescription Opioid Use form. - Follow up: Private Physician; When: 2 - 3 days; Reason: If symptoms return, Further diagnostic work-up, Recheck today's complaints, Continuance of care, Re-evaluation by your physician. - Problem is new. - Symptoms have improved. Signatures: Dispatcher [employer] EDMS Kemal Medellin MD MD kdr Bee Mendez RN RN iw Sherlyn Sanders RN RN jl7 Corrections: (The following items were deleted from the chart) 15:36 15:09 08/21/2019 15:09 Discharged to Home. Impression: Left ankle and foot pain and jl7 swelling. Condition is Stable. Forms are Medication Reconciliation Form, Thank You Letter, Antibiotic Education, Prescription Opioid Use. Follow up: Private Physician; When: 2 - 3 days; Reason: If symptoms return, Further diagnostic work-up, Recheck today's complaints, Continuance of care, Re-evaluation by your physician. Problem is new. Symptoms have improved. kdr
[2019-08-21] MEDS ORDERED: HYDROCODONE/APAP 10/325 TAB ONE (15:29)
[2019-08-21] MEDS ORDERED: IBUPROFEN 400 MG TAB ONE (15:29)
[2019-08-21 15:45] VITALS: TEMP 99.3
[2019-08-21 15:47] VITALS: BP 154/91; O2SAT 96
== END 2019-08-21 15:36 | disposition home or self-care (01) ==
LOC: ER 10:35
DX: M25.572 Pain in left ankle and joints of left foot (principal); R22.42 Localized swelling, mass and lump, left lower limb; Z95.818 Presence of other cardiac implants and grafts; I10 Essential (primary) hypertension; E11.9 Type 2 diabetes mellitus without complications; I48.91 Unspecified atrial fibrillation; Z79.01 Long term (current) use of anticoagulants; Z85.72 Personal history of non-Hodgkin lymphomas
CPT/HCPCS: 36415; 80048; 85025; 85652; 86140; 93971; 99284

== ENCOUNTER 2019-11-18 07:15 | Day surgery (SDC) | payer OTHER ==
--- NOTE | 2019-11-15 12:27 | RAD REPORT ---
EXAM DESCRIPTION: Marcia Strickland And Maximus (2 Views)11/15/2019 12:17 pm CLINICAL HISTORY: Preop COMPARISON: 2019 FINDINGS: The lungs appear clear of acute infiltrate. The heart is moderately enlarged. A central venous line has its tip in the brachiocephalic vein IMPRESSION: No acute abnormalities displayed
[2019-11-15 12:28] LABS: Absolute Lymphocytes (CBC) 1.8 K/uL (0.7-4.9); Basophils % 0.7 % (0-1.3); Hematocrit 40.2 % (39.6-49.0); Lymphocytes % 41.7 % (15.3-44.8); RBC Red Blood Cell Count 5.03 M/uL (4.33-5.43)
[2019-11-15 12:41] LABS: Potassium 3.6 mmol/L (3.5-5.1)
--- NOTE | 2019-11-16 08:11 | EKG ---
Test Date: 2019-11-15 Test Time: 12:04:03 Blocker And Polisher Gold Wheel: BAISM MEASUREMENT RESULTS: Intervals: Rate: 50 ND: 178 QRSD: 102 QT: 426 QTc: 388 [place]: P: 34 ND: 178 QRS: 19 T: 34 INTERPRETIVE STATEMENTS: Sinus bradycardia Otherwise normal ECG Compared to ECG 01/21/2019 13:56:42 No significant changes Electronically Signed On 11-16-19 08:09:35 CDT by Joel Crawley
--- OUTSIDE RECORDS SUMMARY | 2019-11-18 07:18 | XMS REPORT | Clinical Summary ---
:1950 Author Organization [facility] Address [address] [place] [address] Care Team Providers Name Role Phone Sun [...] of 2 - PCV13) 2015 INFLUENZA VACCINE 12/03/2019 Results Not on fileafter 11/17/2018 Advance Directives For more information, please contact: [phone] Type Date Recorded Patient District Manager Postal Service Explanati on Advance Directives, Living Will and Medical Power of Firebreak Cutter Code Status Date Activated Date Inactivated Comments Full Code 02/10/2016 12:03 AM 02/10/2016 7:56 PM Code Status decision reached by: Patient
--- OUTSIDE RECORDS SUMMARY | 2019-11-18 07:18 | XMS REPORT | Clinical Summary ---
:1950 Author Organization [facility] Address [address] [place] [address] Care Team Providers Name Role Phone Sun [...] 01/26/2019 MD Tk disease involving Sunil Mcelroy [place] coron josué Abdi MD artery of nativ e heart, angina presence unspecified (Primary Dx) 01/22/2019 Travel 01/22/2019 Orders Only Internal Medicine Sunil Mcelroy MD after 11/17/2018 Family History Medical History Relation Name Comments [...] SCREENING ANNUAL FOBT 10/06/2017 10/06/2016, 0 10/05/2016 HEMOGLOBIN A1C 07/25/2019 01/23/2019, 10/05/2016 MEDICARE ANNUAL WELLNESS (YEAR 2 or FIRST 09/03/2019 YEAR if no IPPE) URINE MICROALBUMIN 11/13/2019 11/12/2018 INFLUENZA VACCINE (#1) 2019 Implants Implanted Type Area Plastic Surgery Assistant Device Identifier Shelf Model / Expiration Serial / Date Lot Stent Synergy Mr 3.25o52th [id number] - [id number] IMPLANTS Coronary [place] [id number] 08/19/2020 [id number] / Implanted: Qty: 1 on 01/25/2019 by Yee Waters MD SCI:INTERV / CARDIOLOGY [id number] Stent Synergy Mr [id number] - [id number] IMPLANTS Coronary [place] [id number] 08/19/2020 [id number] / Implanted: Qty: 1 on 01/25/2019 by Yee Waters MD SCI:INTERV / CARDIOLOGY [id number] Synergy Otw [id number] [place] 10/15/19 [id number] / Implanted: Qty: 1 on 01/25/2019 by Yee Waters MD SCIENTIFIC [id number] / [id number] Procedures Procedure Name Priority Date/Time Associated Diagnosis Comme nts VASCULAR DIAGRAM -SCAN 02/05/2019 2:02 PM TIRE AND LUBE TECHNICIAN RHYTHM STRIP - SCAN 02/05/2019 12:42 PM TIRE AND LUBE TECHNICIAN TRANSFUSION SERVICE 01/29/2019 6:01 REPORT - SCAN [...] Atherosclerosis of ANGIOS / PCI PM CDT [place] coronary artery of [place] heart without angina pectoris Case Notes 1023 [...] i n the results section . after 11/17/2018 Results VASCULAR DIAGRAM -SCAN (02/05/2019 2:02 PM TIRE AND LUBE TECHNICIAN) Narrative Performed At This result has an attachment that is no t available. RHYTHM STRIP - SCAN (02/05/2019 12:42 PM TIRE AND LUBE TECHNICIAN)Only the most recent of2 results within the [...] ABO A Pos SAF[place] UNIT NUMBER [id number] [place] Status WORK IN PROGRESS SAF[place]ACE [place] Blood Bank Product RED BLOOD CELLS [place] PRODUCT CODE [id number] SAFETRACE [place] Unit ABO A Pos SAFETRACE [place] UNIT NUMBER [id number] SAFETRACE [place] Status WORK IN PROGRESS SAFETRACE [place] Blood Bank Product RED BLOOD CELLS [place] PRODUCT CODE [id number] [place] CROSSMATCH COMPATIBLE S[place] CROSSMATCH COMPATIBLE [place] Specimen Performing Organization Address City/State/[facility] Phone Number [place] CBC (Hemogram only) (01/26/2019 2:25 AM CDT)Only the most recent of5 results within the time period is included. WBC 6.6 3.5 - 10.5 K/L [facility] RBC 4.43 (L) 4.63 - 6.08 M/L [facility] Hemoglobin 11.5 (L) 13.7 - 17.5 GM/DL [facility] Hematocrit 38.0 (L) 40.1 - 51.0 % [facility] MCV 85.8 79.0 - 92.2 fL [facility] MCH 26.0 25.7 - 32.2 pg [facility] MCHC 30.3 (L) 32.3 - 36.5 GM/DL [facility] RDW 15.9 (H) 11.6 - 14.4 % [facility] Platelets 168 150 - 450 K/CU MM [facility] MPV 10.3 9.4 - 12.4 fL [facility] nRBC 0 0 - 0 /100 WBC [facility] Specimen Blood Performing Organization Address City/State/Zipcode Phone Number [facility] [address] [place] [address] CENTER Basic Metabolic Panel (01/26/2019 2:25 AM CDT)Only the most recent of5 results within the time period is included. Sodium 141 136 - 145 meq/L [facility] Potassium 4.0Comment: Specimen slightly 3.5 - 5.1 meq/L [facility] Chloride 110 (H) 98 - 107 meq/L [facility] CO2 23 22 - 29 meq/L [facility] BUN 22 (H) 7 - 21 mg/dL [facility] Creatinine 1.28 (H)Comment: Specimen 0.57 - 1.25 mg/dL [facility] slightly hemolyzed [facility] Glucose 110 (H) 70 - 105 mg/dL [facility] Calcium 8.3 (L) 8.4 - 10.2 mg/dL [facility] EGFR 68Comment: ESTIMATED GFR IS mL/min/1.73 sq m [facility] NOT ACCURATE CREATININE HI DICAL CENTER CLEARANCE IN PREDICTING GLOMERULAR FILTRATION RATE. ESTIMATED GFR IS NOT APPLICABLE FOR DIALYSIS PATIENTS. Specimen Blood Performing Organization Address City/State/Zipcode Phone Number [facility] MEDICAL [address] [place] [address] CENTER POC ACTIVATED CLOTTING TIME (01/26/2019 1:24 AM CDT)Only the most recent of9 resultswithin the time period is included. Activated Clotting Time 136Comment: Reference sec [facility] Range: 74-137 seconds, MEDICAL CENTER Baseline/TESTED AT [address] [address] Specimen Blood Performing Organization Address [facility]/Zipcode Phone Number [address] [address] CENTER Antibody identification (01/25/2019 3:39 PM CDT) ANTIBODY ID (CECILIA) Anti-E SAFETRACE T X Antibody Consult SIGNED OUTComment: Anti E causes RBC [place] injury, transfuse E negative RBCs.Electronic Signature: Eri Eduardo M.D. Specimen Performing Organization Address [facility]out Phone Number [place] ABORH, manual (01/25/2019 5:09 AM CDT) ABO Grouping A [facility] Rh Factor POS [facility] Specimen Blood Performing Organization Address [facility] Centercode Phone Number [address] [address] Type and screen, automated (01/25/2019 4:56 AM CDT) ABO/RH AUTOMATED ([facility]) A POSITIVE [facility] Ab Scrn POSITIVEComment: Echo 1 [facility] Specimen Blood Performing Organization Address [facility] Centercode Phone Number [address] [address] ECHOCARDIOGRAM REPORT - SCAN (01/24/2019 9:21 PM CDT) Narrative Performed At This result has an attachment that is no t available. PERIPHERAL VASCULAR REPORT - SCAN (01/24/2019 9:20 PM CDT) Narrative Performed At This result has an attachment that is no t available. Arterial doppler legs bilateral (01/24/2019 11:03 AM CDT) [facility] ECHO HEAR TLAB [facility] Specimen Impressions Performed At Right Impression [facility] ECHO HEARTLAB [facility] 1. The common femoral and [...] PT pressure was 117 mmHg with an JARNO of 0.90, within normal range; however, may [...] + + + + + + !Prox PROGRESSIVE CARE MANAGER ! !75 !! ! + + +-- + + + !Mid PROGRESSIVE CARE MANAGER ! !57.5 !! ! + + +-- + + + !Dist PROGRESSIVE CARE MANAGER ! !69.8 !! ! + + +-- + + + !Prox MARILIA ! !359 ! ! ! + + +-- + + + !Dist MARILIA ! + + !Mid Peroneal ! + + Narrative Performed At LAB - Lower Extremity Arterial Duplex [facility] Dem[facility] Patient NamePRITI KRAUSE Date of Study 01/24/2019 DISHA 68 Visit [id number] Male of 1950 Referring Graciela Jameson Room Number 1023 Physician Biomedical Equipment Tech Saranya [place] Physician Procedure Type of Study: [...] Study 01/24/2019 DISHA Age 68 Visit Number [id number] Gen nu Male Accession Number [id number] Byron e of 1950 Referring Graciela Man Number 1023 Physician Biomedical Equipment Tech Saranya Padilla [facility] Int [facility] Consuelo Morgan MD Procedure Type of Study: [...] + + + + + + !Prox PROGRESSIVE CARE MANAGER ! !75 ! ! ! + + + + + + !Mid PROGRESSIVE CARE MANAGER ! !57.5 ! ! ! + + + + + + !Dist PROGRESSIVE CARE MANAGER ! !69.8 ! ! ! + + + + + + !Prox MARILIA ! !359 ! ! ! + + + + + + !Dist MARILIA ! + + !Mid Peroneal ! + + Performing Organization Address City/State/Zipcode Phone Number [facility] ECHO HEARTLAB [facility] 2D Echo W/Doppler(CW/PW/Color) (01/23/2019 2:35 PM CDT) Ejection Fraction [facility] ECHO HEAR TLAB [facility] Specimen Narrative Performed At Transthoracic Echocardiography Report (T TE) [facility] ECHO HEARTLAB [facility] Demographics Patient Name PRITI KRAUSE Date of Study 01/23/2019 DISHA [id number] Gender Male Visit Number [id number] Unknown [id number] Room Number 1023 Number Date of Birth1950eferring Physician Age68 year(s)Biomedical Equipment Tech Abed Dale PatriciaJoPhysician SANTIAGO Stewart ph Procedure Type of Study TTE procedure:2DECHO [...] root size (SInus of Valsalva diameter) is eouf-gr-lkjlidohdj dilated . 4.0cm Signature Findings Left Ventricle [...] Mitral Valve Mild mitral annular calcification. Tr yola mitral regurgitation. Tricuspid ValveTV structure is normal. Es timated peak systolic PA pressure is 20- 25 mmHg . Pulmonic Valve Normal PV structure and function by limited views an d Doppler. AortaAortic root size (SInus of Valsalva diameter) i s mi te-by-mfyejdwbgc dilated . 4.0cm PericardiumNo significant pericardial effusion [...] PRITI KRAUSE Date o f Study 01/23/2019 DISHA Gender Male Visit Number [id number] Race Unknown [facility] [place] [address] Number Date of 1950 Referr ing Physician [...] size (SInus of Valsalva hayden meter) is gvtp-qb-eejnetqydz dilated . 4.0cm Signature Findings Left Ventricle [...] root size (SInus of Valsalva diameter) is oeyl-pu-oprylcph ly dilated . 4.0cm Pericardium No significant [...] Performing Organization Address City/State/Zipcode Phone Number [facility] POC-Glucose meter (01/23/2019 8:26 AM CDT)Only the most recent of3 results within the time period is included. POC-Glucose Meter 120 (H)Comment: : TESTED 70 - 110 mg/dL [facility] [address] [facility], [address]: Sterilizer Machine Operator/Packing Inspector ID = [id number] for VINAY DONG Specimen Blood Performing Organization Address [facility] Centercode Phone Number [facility] [address] [place], [place] [phone] [place] Hemoglobin A1c (01/23/2019 4:17 AM CDT) Hemoglobin A1C 6.7 (H) 4.3 - 6.1 % [facility] Specimen Blood Performing Organization Address [facility] Centercode Phone Number [facility] [address] [place], [place] [phone] [place] Lipid panel (01/23/2019 4:17 AM CDT) Triglycerides 147 mg/dL [facility] Cholesterol 221 mg/dL [facility] HDL 43 mg/dL [facility] LDL Calculated 149 mg/dL [facility] Specimen Blood Narrative Performed At Triglyceride Reference Range: [facility] Low Risk <150 [id number] High Risk 200-499 Very High Risk>=500 Cholesterol Reference Range: Low Risk <200 [id number] High Risk>240 HDL Cholesterol Reference Range: Low Risk >=60 High Risk <40 LDL Cholesterol Reference Range: Optimal<100 Near [id number] [id number] Tsua046-735 Very High >=190 Performing Organization Address [facility] Centercode Phone Number [facility] [address] [place], [place] [phone] CENTER after 11/17/2018 Insurance Payer Benefit Plan / Group Subscriber ID Type Phone A ddress [facility] - MEDICARE UNITED MEDICARE HMO xxxxxxxxx MGD CARE CARE IMPROVEMENT MEDICARE MGD CARE IMPROVEMENT PLUS xxxxxxxxx CARE Advance Directives For more information, please contact:[place] [phone] [place], [place] [phone] Code Status Date Activated Date Inactivated Comments Full Code 01/22/2019 2:15 PM 01/26/2019 4:10 PM This code status was determined by: Patient Full Code 10/04/2016 8:26 PM 10/07/2016 4:40 PM This code status was determined by: Patient
--- OUTSIDE RECORDS SUMMARY | 2019-11-18 07:21 | XMS REPORT | Continuity of Care Document ---
:1950 Author Organization [facility] t Address [address] [place] [address] Care Team Providers Name Role Phone Sun Patino DO Primary Care Physician Nicki Randle MD Attending Clinician Gala Lord MD Attending Clinician Cori Waters MD Attending Clinician Storm Meraz Attending Clinician NICKI RANDLE Attending Clinician Unavailable GAURAV VENEGAS Attending Clinician Unavailable GALA LORD Admitting Clinician Unavailable GAURAV VENEGAS Admitting Clinician Unavailable Payers Payer Name Policy Type Policy Number Effective Date Expiration Date [facility] - x[facility] - Medical CAREUNITED MEDICARE Cente r HMOxxxxxxxxx CARE IMPROVEMENT xxxxxxxxx [facility] MEDIC[facility] MGD - Medical CARECARE Center IMPROVEMENT PLUSxxxxxxxxx Problems Condition Condition Condition Status Onset Resolution Last Treating Co mments Source Name Details Category Date Date Treatment Clinician Date CAD CAD Disease Active 2018-[address] [facility] (coronary (coronary 0-22 [facility] - artery artery 00:00: Medical disease) disease) 00 Center Hypernatre Hypernatre Disease Active [facility] varun varun 7- [facility] - 00:[facility] Medical 00 Center Acute deep Acute deep Disease Active [facility] vein vein 10-05 [facility] - thrombosis thrombosis 00:00: Me dical (DVT) of (DVT) of 00 Center proximal proximal vein of vein of right right lower lower extremity extremity Anemia, Anemia, Disease Active [facility] unspecifie unspecifie 10-05 [facility] k[facility] - d d 00:00: Medical 00 Center Benign Benign Disease Active [facility] hypertensi hypertensi 10-05 [facility] kes - on on 00:00: Medical 00 Center Hyperlipid Hyperlipid Disease Active [facility] emia, emia, 10-05 [facility] - unspecifie unspecifie 00:00: Me dical d d 00 Center Hodgkin Hodgkin Disease Active [facility] lymphoma lymphoma 10-05 [facility] - 00:[facility]: Medical 00 Center Type 2 Type [address] [facility] diabetes diabetes 10-05 [facility] - mellitus mellitus 00:00: Medica l with with 00 Center complicati complicati on, on, without without long-term long-term current current use of use of insulin insulin BPH BPH Disease Active [facility] (benign (benign 10-05 [facility] - prostatic prostatic 00:00: Medi slime hyperplasi hyperplasi 00 Ce nter a) a) Obesity Obesity Disease Active [facility] (BMI (BMI 10-05 [facility] - 30-39.9) 30-39.9) 00:00: Medica l 00 Center Hypoalbumi Hypoalbumi Disease Active [facility] nemia nemia 10-05 [facility] - 00:00: Medical 00 Center Hypomagnes Hypomagnes Disease Active [facility] emia emia 10-05 [facility] - 00:00: Medical 00 Center Folic acid Folic acid Disease Active [facility] deficiency deficiency 10-05 [facility] kes - 00:00: Medical 00 Center 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 10-05 [facility] kes - mino mino 00:00: Medical malnutriti malnutriti 00 Ce nter on on S/P S/P Disease Active [facility] cholecyste cholecyste 10-05 [facility] kes - ctomy ctomy 00:00: Medical 00 Center History of History of Disease Active [facility] pulmonary pulmonary 7 [facility] - embolism embolism 00:00: Medica l 00 Center Mediastina Mediastina Disease Active 2015-04 [place] 04-30 [facility] adenopathy adenopathy 00:00: st 00 Urinary Urinary Disease Active 2015-04 [place] retention retention 04-11 Meth mekhi due to due to 00:00: st benign benign 00 prostatic prostatic hyperplasi hyperplasi a a Allergies, Adverse Reactions, Alerts This patient has no known allergies or adverse reactions. Family History Family Member Diagnosis Comments Start Date Stop Date Source [facility] Natural mother Cancer [facility] Social History Social Habit Start Date Stop Date Quantity Comments Source Sex Assigned At [facility] Alcohol intake 2016-02-29 2016-02-29 Current drinker [place] [facility] 00:00:00 00:00:00 of alcohol (finding) Alcohol Comment 2016-02-09 2016-02-09 socially [facility] ethodist 00:00:00 00:00:00 Smoking Status Start Date Stop Date Source Never smoker [facility] Medications Ordered Filled Start Stop Current Ordering Indication Dosage Frequency Signature Comments Components Source Medication Medication Date Date Medication? Clinician (SIG) Name Name lisinopril- 2018-04 2019- No 1{tbl} QD Take [address] hydroCHLORO 0-26 10-26 tablet by Morenita english - thiazide 10:58: 00:00 mouth Medical (PRINZIDE,Z 23 :00 daily. [place] ESTORETIC) 20-12.5 mg per tablet ticagrelor 2018-04 Yes 90mg Q.5D Take 1 [facility] (BRILINTA) 0-26 tablet (90 Willi es - 90 mg Tab 00:00: mg total) Med ical tablet 00 by mouth 2 Center (two) times daily. aspirin 81 2018-04 2020- No 81mg QD Take [address] MG chewable 0-26 10-25 tablet (81 L ukes - tablet 00:00: 23:59 mg total) Medic al 00 :00 by mouth Center daily. metoprolol 2018-04 Yes 12.5mg QD Take 12.[address] (LOPRESSOR) 0-22 mg by Kathy - 25 MG 15:09: mouth Medical tablet 37 daily. Center furosemide 2018-04 Yes 20mg QD Take [address] (LASIX) 20 0-22 by mouth [facility] - MG tablet 15:09: daily. Medica l 37 [place] atorvastati 2018-04 Yes 10mg QD Take [address] n (LIPITOR) 0-22 by mouth Luke s - 10 MG 15:09: nightly. Medical tablet 37 [place] sacubitril- 2018-04 Yes 1{tbl} Q.5D Take [address] valsartan 0-22 tablet by [facility] - (ENTRESTO) 15:09: mouth 2 Medi slime 24-26 mg 37 (two) Center Tab times daily. travoprost 2018-04 Yes 1[drp] QD Place [address] (TRAVATAN 0-22 drop into [facility] - Z) 0.004 % 15:09: both eyes Me dical Drop 37 nightly. [place] ophthalmic drops apixaban 2018-04 Yes 5mg Q.5D Take [address] (ELIQUIS) 5 0-22 by mouth 2 [facility] kes - mg Tab 15:09: (two) Medical tablet 36 times Center daily. tamsulosin 2018-04 Yes .4mg QD Take 0.[address] (FLOMAX) 0-22 mg by [facility]ukes - 0.4 mg Cp24 15:05: mouth Medic al 24 hr 03 nightly . [place] capsule traMADol 2018-04 2019- No 50mg Take [address] (ULTRAM) 50 0-22 10-22 by mouth Willi es - mg tablet 15:04: 00:00 every 6 Medi slime 04 :00 (six) Center hours as needed for Pain. atorvastati 2018-04- No 10mg Take [address] n (LIPITOR) 0-22 10-22 by mouth. [facility] kes - 10 MG 15:03: 00:00 Medical tablet 53 :00 Center amLODIPine 2018-04- No 10mg Take [address] (NORVASC) 5 0-22 10-22 by mouth Willi es - MG tablet 15:03: 00:00 daily as Med ical 47 :00 needed. [place] metFORMIN Yes 1000mg Q.5D Take 1,[address] (GLUCOPHAGE 7-04 mg by [facility]ukes - -XR) 500 MG 18:02: mouth 2 Med ical 24 hr 23 (two) [place] tablet times daily. aspirin 2015-04 Yes 81mg QD Take 81 mg [place] (ECOTRIN) 1-28 by mouth Method i 81 MG 09:31: daily. st enteric 30 coated tablet lisinopril- 2015-04 Yes 1{tbl} QD Take 1 [place] hydrochloro 1-28 tablet by Met basilia thiazide 09:31: mouth st (PRINZIDE,Z 30 daily. [...] 09:31: daily as st tablet 30 needed. Vital Signs Vital Name Observation Time Observation Value Comments Source Heart rate 2019-01-26 08:24:00 64 /min [facility] Systolic blood 2019-01-26 07:45:00 148 mm[Hg] [facility] Diastolic blood 2019-01-26 07:45:00 79 mm[Hg] [facility] Body temperature 2019-01-26 07:45:[address] [facility] Respiratory rate 2019-01-26 07:45:00 18 /min [facility] Oxygen saturation in 2019-01-26 07:45:00 98 /min [facility] Arterial blood by Medical Ce nter Pulse oximetry Body weight Measured 2019-01-25 08:21:[address] [facility] BMI 2019-01-25 08:21:00 37.67 kg/m2 [facility] Body height 2019-01-22 14:00:00 175.3 cm [facility] Procedures Procedure Date / Time Performing Clinician Source Performed VASCULAR DIAGRAM -SCAN 2019-02-05 14:02:25 Provider, [facility] RHYTHM STRIP - SCAN 2019-02-05 12:42:52 Provider, [facility] TRANSFUSION SERVICE REPORT 2019-01-29 18:01:53 Provider, [facility] RHYTHM STRIP - SCAN 2019-01-29 10:41:45 Provider, [facility] CARDIAC CATH REPORT - SCAN 2019-01-29 10:41:44 Provider, [facility] TRANSFUSION SERVICE REPORT 2019-01-26 18:01:21 Provider, [facility] PREPARE RBC 2019-01-26 14:10:00 Graciela Jameson [facility] CBC (HEMOGRAM ONLY) 2019-01-26 02:25:00 Sunil Lord [facility] BASIC METABOLIC PANEL (7) 2019-01-26 02:25:00 Sunil Lord [facility] POCT-ACT 2019-01-26 01:24:00 Sunil Lord [facility] POCT-ACT 2019-01-26 00:16:00 Sunil Lord [facility] POCT-ACT 2019-01-25 22:20:00 Sunil Lord [facility] POCT-ACT 2019-01-25 19:12:00 Sunil Lord [facility] POCT-ACT 2019-01-25 18:57:00 Sunil Lord [facility] POCT-ACT 2019-01-25 18:18:00 Sunil Lord [facility] POCT-ACT 2019-01-25 17:39:00 Sunil Lord [facility] POCT-ACT 2019-01-25 17:18:00 Sunil Lord [facility] POCT-ACT 2019-01-25 17:06:[address] [facility] ANTIBODY IDENTIFICATION 2019-01-25 15:39:00 Graciela Jameson [facility] R & L CATH / CORONARY 2019-01-25 15:05:[address] [facility] - ANGIOS / PCI [facility] BASIC METABOLIC PANEL (7) 2019-01-25 05:37:[address] [facility] ABORH, MANUAL 2019-01-25 05:09:[address] [facility] CBC (HEMOGRAM ONLY) 2019-01-25 04:56:00 Sunil Lord [facility] TYPE AND SCREEN, AUTOMATED 2019-01-25 04:56:[address] [facility] ECHOCARDIOGRAM REPORT - 2019-01-24 21:21:28 Provider, Default [facility] PERIPHERAL VASCULAR REPORT 2019-01-24 21:20:25 Provider, Default [facility] ARTERIAL DOPPLER LEGS 2019-01-24 11:03:00 Graceila Jameson [facility] BASIC METABOLIC PANEL (7) 2019-01-24 04:48:[address] [facility] CBC (HEMOGRAM ONLY) 2019-01-24 04:48:[address] [facility] 2D ECHO W/ DOPPLER 2019-01-23 14:35:37 Graciela Jameson [facility] (CW/PW/COLOR) [facility] POCT-GLUCOSE METER 2019-01-23 08:26:[address] [facility] BASIC METABOLIC PANEL (7) 2019-01-23 04:17:[address] [facility] CBC (HEMOGRAM ONLY) 2019-01-23 04:17:[address] [facility] HEMOGLOBIN A1C 2019-01-23 04:17:00 Sunil Lord [facility] LIPID PANEL 2019-01-23 04:17:00 Sunil Lord [facility] POCT-GLUCOSE METER 2019-01-22 20:51:00 Sunil Lord [facility] POCT-GLUCOSE METER 2019-01-22 18:20:00 Sunil Lord [facility] BASIC METABOLIC PANEL (7) 2019-01-22 16:05:[address] [facility] CBC (HEMOGRAM ONLY) 2019-01-22 16:05:00 Sunil Lord [facility] Plan of Care Planned Activity Planned Date Details Comments Source Future Scheduled 2019-12-03 INFLUENZA VACCINE [place] [facility] 00:00:00 [code = INFLUENZA VACCINE] Future Scheduled 2019-12-03 INFLUENZA VACCINE (#1) [facility] Test 00:00:00 [code = INFLUENZA Medical Ce nter VACCINE (#1)] Future Scheduled 2019-11-13 Urine screening for [facility] - Test 00:00:00 protein (procedure) [facility] [code = 052117065] Future Scheduled 2019-09-[address] [facility] - Test 00:00:00 WELLNESS (YEAR 2 or Medical Center FIRST YEAR if no IPPE) [code = MEDICARE ANNUAL WELLNESS (YEAR 2 or FIRST YEAR if no IPPE)] Future Scheduled 2019-07-[address] [facility] kes - Test 00:00:00 [facility] Medical Center (procedure) [code = 04781856] Future Scheduled 2017-10-[address] [facility] es - Test 00:00:00 malignant neoplasm of [facility] colon (procedure) [code = 494509595] Future Scheduled 2015 65+ PNEUMOCOCCAL [place] [facility] Test 00:00:00 VACCINE (1 of 2 - PCV13) [code = 65+ PNEUMOCOCCAL VACCINE (1 of 2 - PCV13)] Future Scheduled 2015 P[address]OCOCCAL [address] - Test 00:00:00 HIGH/HIGHEST RISK (1 Medical Center of 2 - PCV13) [code = PNEUMOCOCCAL 65+ HIGH/HIGHEST RISK (1 of 2 - PCV13)] Future Scheduled 2000 COLONOSCOPY SCREENING [place] [facility] Test 00:00:00 [code = COLONOSCOPY SCREENING] Future Scheduled 2000 SHINGLES VACCINES (#1) [place] [facility] Test 00:00:00 [code = SHINGLES VACCINES (#1)] Future Scheduled 1960 DIABETIC FOOT EXAM [place] [facility] Test 00:00:00 [code = DIABETIC FOOT EXAM] Future Scheduled 1960 DIABETIC EYE EXAM [facility] - Test 00:00:00 [code = DIABETIC EYE Medical Center EXAM] Future Scheduled [facility] Medical Center (regime/therapy) [code = 107069598] Future Scheduled 1950 DIABETIC RETINAL EYE [facility] Test 00:00:00 EXAM [code = DIABETIC RETINAL EYE EXAM] Results Test Description Test Time Test Comments Results Result Comments Source Prepare RBC 2019-01-26 14:10:00 Test Item Value Reference Range Interpretation Comme nts Unit ABO (test code = 8977023) A Pos UNIT NUMBER (test code = 934-0) [id number] Status (test code = 2858638) WORK IN PROGRESS Blood Bank Product (test code = 2263) RED BLOOD CELLS PRODUCT CODE (test code = 933-2) [id number] CROSSMATCH (test code = 2264) [facility] [id number] 03:17:00 Test Item Value Reference Range Interpretation Comments Sodium (test code = 141 meq/L 828-718 9859-2) Potassium (test code = 4.0 meq/L 3.5-5.1 Speci men slightly 2823-3) hemolyzed Chloride (test code = 110 meq/L 98-107 H 2075-0) CO2 (test code = 23 meq/L 22-29 2028-9) BUN (test code = 22 mg/dL 7-21 H 3094-0) Creatinine (test code = 1.28 mg/dL 0.57-1.25 H Spec imen slightly 2160-0) hemolyzed Glucose (test code = 110 mg/dL 70-105 H 2345-7) Calcium (test code = 8.3 mg/dL 8.4-10.2 L 62242-8) EGFR (test code = 68 mL/min/1.73 [place] [address]-3) NOT ACCURATE CREATININE CLEARANCE IN PREDICTING GLOMERULAR FILTRATION RATE . ESTIMATED GFR I S NOT APPLICABLE FOR DIALYSIS PATIEN TS. Lab Interpretation Abnormal (test code = 68200-9) [facility] METABOLIC [id number] 03:17:00 Test Item Value Reference Range Interpretation Comments SODIUM (BEAKER) 141 meq/L 136-145 (test code = 381) POTASSIUM (BEAKER) 4.0 meq/L 3.5-5.1 Specimen slightly (test code = 379) hemolyzed CHLORIDE (BEAKER) 110 meq/L 98-107 H (test code = 382) CO2 (BEAKER) (test 23 meq/L 22-29 code = 355) BLOOD UREA NITROGEN 22 mg/dL 7-21 H (BEAKER) (test code = 354) CREATININE (BEAKER) 1.28 mg/dL 0.57-1.25 H Specimen slightly (test code = 358) hemolyzed GLUCOSE RANDOM 110 mg/dL 70-105 H (BEAKER) (test code = 652) CALCIUM (BEAKER) 8.3 mg/dL 8.4-10.2 L (test code = 697) EGFR (BEAKER) (test 68 mL/min/1.73 ESTIMA MYLA GFR IS code = 1092) sq m NOT ACCURATE CREATININE CLEARANCE IN PREDICTING GLOMERULAR FILTRATION RATE . ESTIMATED GFR I S NOT APPLICABLE FOR DIALYSIS PATIEN TS. CBC (Hemogram only)2019-01-26 03:03:00 Test Item Value Reference Range Interpretation Comments WBC (test code = 6690-2) 6.6 3.5- 10.5 K/L RBC (test code = 789-8) 4.43 4.63- 6.08 M/L L MCHC (test code = 786-4) 30.3 32.3- 36.5 GM/DL L Hematocrit (test code = 4544-3) 38.0 % 40.1-51 L MCV (test code = 787-2) 85.8 fL 79-92.2 MCH (test code = 785-6) 26.0 pg 25.7-32.2 RDW (test code = 788-0) 15.9 % 11.6-14.4 H Platelets (test code = 777-3) 168 150- 450 K/CU MM MPV (test code = 64372-5) 10.3 fL 9.4-12.4 nRBC (test code = 413) 0 0- 0 /100 WBC Lab Interpretation (test code = Abnormal 39003-3) [facility]-26 03:03:00 Test Item Value Reference [...] WBC 0-0 (BEAKER) (test code = 413) POC ACTIVATED CLOTTING [id number] 01:30:00 Test Item Value Reference Range Interpretation Comments Activated Clotting Time 136 sec Refe rence Range: 74-137 (test code = 441) seconds, B aseline/TESTED AT [facility] [address] [place] [address] [id number] 01:30:00 Test Item Value Reference Range Interpretation Comments ACTIVATED CLOTTING TIME 136 sec Refe rence Range: (BEAKER) (test code = 74-137 seconds, 441) Baseline/TESTED AT [address] [address] [id number] 00:22:00 Test Item Value Reference Range Interpretation Comments ACTIVATED CLOTTING TIME 158 sec Refe rence Range: (BEAKER) (test code = 74-137 seconds, 441) Baseline/TESTED AT [address] [address] [id number] 22:31:00 Test Item Value Reference Range Interpretation Comments ACTIVATED CLOTTING TIME 191 sec Refe rence Range: (BEAKER) (test code = 74-137 seconds, 441) Baseline/TESTED AT [address] [address] [id number] 21:06:00 Test Item Value Reference Range Interpretation Comments ACTIVATED CLOTTING TIME 323 sec Refe rence Range: (BEAKER) (test code = 74-137 seconds, 441) Baseline/TESTED AT [address] [address] [id number] 19:12:00 Test Item Value Reference Range Interpretation Comments ACTIVATED CLOTTING TIME 461 sec Refe rence Range: (BEAKER) (test code = 74-137 seconds, 441) Baseline/TESTED AT [address] [address] [id number] 18:26:00 Test Item Value Reference Range Interpretation Comments ACTIVATED CLOTTING TIME 312 sec Refe rence Range: (BEAKER) (test code = 74-137 seconds, 441) Baseline/TESTED AT [address] [address] [id number] 18:07:00 Test Item Value Reference Range Interpretation Comments ACTIVATED CLOTTING TIME 312 sec Refe rence Range: (BEAKER) (test code = 74-137 seconds, 441) Baseline/TESTED AT [address] [address] [id number] 17:30:00 Test Item Value Reference Range Interpretation Comments ACTIVATED CLOTTING TIME 285 sec Refe rence Range: (BEAKER) (test code = 74-137 seconds, 441) Baseline/TESTED AT [address] [address] [id number] 17:29:00 Test Item Value Reference Range Interpretation Comments ACTIVATED CLOTTING TIME 235 sec Refe rence Range: (BEAKER) (test code = 74-137 seconds, 441) Baseline/TESTED AT [facility] [address] [facility] [place] [address] Antibody [id number] 15:39:00 Test Item Value Reference Range Interpretation Comments ANTIBODY ID (BEAKER) Anti-E (test code = 2253) Antibody Consult SIGNED OUT Anti E caus es RBC (test code = 2479) injury, t ransfuse E negative RBCs.Electronic Signature: Rosita Eduardo M.D. [facility], [id number] 07:23:00 Test Item Value Reference Range Interpretation Comments ABO/RH AUTOMATED (BEAKER) (test A POSITIVE code = 2260) Ab Scrn (test code = 890-4) POSITIVE Echo [address] [facility] METABOLIC [id number] 06:14:00 Test Item Value Reference Range Interpretation [...] S NOT APPLICABLE FOR DIALYSIS PATIEN TS. VASQUEZYue, [id number] 05:44:00 Test Item Value Reference Range Interpretation Comments ABO Grouping (test code = 2588) A Rh Factor (test code = 2589) POS [facility]2019-01-25 05:20:00 Test Item Value Reference [...] WBC 0-0 (BEAKER) (test code = 413) Arterial doppler legs [id number] 14:44:33Ejection FractionSLEH ECHO HEARTLAB MKCKESSON CPACSRight Impression1. The common femoral and profunda femoral are patent with triphasic Dopplerwaveforms.2. The distal superficial femoral, popliteal andposterior tibial arterieshave no flow visualized.3. The proximal peroneal artery has no flow with reconstitution in the midportion with a decreased velocity of 13 cm/sec.4. The mid and distal anterior tibial artery is occluded.5. The PT and DP JARON's are not obtained due to no recordable flow.6. The great toe pressure and TBI could not be obtained due to no recordableflow.7. The digits have no obtainable flow by PPG waveforms.Left Impression1. The common femoral, profunda femoral, superficial femoraland poplitealarteries are patent with triphasic Doppler waveforms.2. The posterior tibial artery is patent with monophasic Doppler waveforms.3. There is no flow visualized in the peroneal artery.4. There is >50% stenosis in the proximal anterior tibial artery with avelocity of 359 cm/sec and no flow visualized in the mid to distal portions.5. The PT pressure is 117 mmHg with an JARON of 0.90, withinnormal range;however, may be falsely elevated secondary to calcification.6. The DP JARON is not obtained due to no recordable flow.7. The great toe pressure is 40 mmHg with an abnormal TBI of 0.31.8. Thedigits have decreased flow by PPG waveforms. Conclusions Summary Arterial pressures and Doppler waveforms were performed bilaterally. Adequate Doppler waveforms were obtained. On the right, the common femoral and profunda femoral were patent with triphasic Doppler waveforms. The distal superficial f emoral, popliteal and posterior tibial arteries had no flow visualized. The proximal peroneal arteryhad no flow with reconstitution in the mid [...] in the mid to distal portions. The PTpressure was 117 mmHg with an JARON of 0.90, within normal range; however, may be falsely elevated secondary to calcification. The DP JARON was not obtained due to no recordable flow. The TBI was abnormal.The digits had decreased flow by PPG waveforms. Signature Velocities are measured in cm/s ; Diameters are measured in cm LE Duplex Measurements Right Left+ + + + + + + + [...] + + + + + + + -------+ + + !Prox SFA ! !76.2 ! ! ! !100! ! ! + + + + + + + + + + !Mid SFA! !49.8 ! ! ! !90.4 ! ! ! + + +---- + + + + + + + [...] + + + + + + !Prox AIRPLANE COVERER ! !75 ! ! ! + + + + + + !Mid AIRPLANE COVERER ! !57.5 ! ! ! + + +--------- + + + !Dist AIRPLANE COVERER ! !69.8 ! ! ! + + + +--- + + !Prox MARILIA ! !359 ! ! ! + + + + + + !Dist MARILIA ! +-------- + !Mid Peroneal ! + + Interface, External Ris In - 01/24/2019 2:44 PM [facility] LAB - Lower Extremity Arterial Duplex Demographics Patient Name PRITI PASCUAL Date of Study 01/24/2019 DISHA Age 68 Visit Number [id number] Gender Male Accession Number [id number] Date of 1950 Referring Graciela Jameson Room Number 1023 Physician Motion Picture Actor Saranya Padilla RVT Interpreting Lauren Ellsworth, Physician ProcedureType of Study: Extremities Arteries: Lower Extremities Arterial Duplex, ARTERIAL DOPPLER LEGS, BILATERAL. Indications forStudy:PAD.Patient Status:DEBBI.Study Location:Vascular Lab.Technical Quality:Adequate visualization.Risk FactorsHistory of Disease+ +----+ --+!Diagnosis !Date!Comments !+ -+----+ +!History/Risk Factors: ! !PE (), HTN,HLD, DM, Lymphoma, CAD !+ +----+ ---+ImpressionsRight Impression1. The common femoral and profunda femoral are patent with triphasic Dopplerwaveforms.2. The distal superficial femoral, popliteal and posterior tibial arterieshave no flow visualized.3. The proximal peroneal artery has no flow with reconstitution in the midportion with a decreased velocity of 13 cm/sec.4. The mid and distal anterior tibial artery is occluded.5. The PT and DP JARON's are not obtained due to no recordable flow.6. The great toe pressure and TBI could not be obtained due to no recordableflow.7. The digits have no obtainable flow by PPG waveforms.Left Impression1. The common femoral, profunda femoral, superficial femoral and poplitealarteries are patent with triphasic Doppler waveforms.2. The posterior tibial artery is patent with monophasic Doppler waveforms.3. There is no flow visualized in the peroneal artery.4. There is >50% stenosis in the proximal anterior tibial artery with avelocity of 359 cm/sec and no flow visualized in the mid to distal portions.5. The PT pressure is 117 mmHg with an JARON of 0.90, within normal range;however, may be falsely elevated secondary to calcification.6. The DP JARON is not obtained due to no recordable flow.7. The great toe pressure is 40 mmHg with an abnormal TBI of 0.31.8. The digits have decreased flow by PPG waveforms. Conclusions Summary Arterial pressures and Doppler waveforms were performed bilaterally. A dequate Doppler waveforms were obtained. On the right, [...] no recordable flow. The great toe pressure andTBI could not be obtained due to no [...] pressure was 117 mmHg with an JARON of0.90, within normal range; however, may be falsely elevated secondary to calcification. The DP JARON was not obtained due to no recordable flow. The TBI was abnormal. The digits had decreased flow by PPGwaveforms. Signature Velocities are measured in cm/s ; Diameters are measured in cmLE Duplex Measurements Right Left + + + + + + +--------- + + + !Location ! !PSV !EDV !Waveform ! !PSV !EDV !Waveform ! + + + + + + + + + + !Mid Common Femoral ! !115 ! ! ! !90 ! ! ! + + +- + + + + + + + [...] + !Prox Popliteal ! !19.5 ! ! !!33.8 ! ! ! + + + + + + +------ + + + !Dist Popliteal ! !13.8 ! ! ! !33.8 ! ! ! + + + + + + + + + + !Prox AIRPLANE COVERER ! !75 ! ! ! + + + + + + !Mid AIRPLANE COVERER ! !57.5 ! ! ! + + + + + + !Dist AIRPLANE COVERER ! !69.8 ! ! ! + + + + + + !Prox MARILIA ! !359 ! ! ! +---- + + + + + !Dist MARILIA ! + + !Mid Peroneal ! + +[facility]2D Echo W/Doppler(CW/PW/Color)2019-01-24 08:54:33Ejection FractionSLEH ECHO HEARTLAB MKCKESSON CPACSInterface, External Ris In - 01/24/2019 8:54 AM C DTTransthoracic Echocardiography Report (TTE) Demographics Patient Name PRITI PASCUAL Date ofStudy 01/23/2019 DISHA Gender Male Visit Number [id number] Race Unknown RoomNumber 1023 Number Date of 1950 Referring Physician Age 68 year(s) Motion Picture Actor Hudson Hunter Interpreting Alcon Porter Physician Procedure Type of Study TTE procedure:2DECHO W DOPPLER(CW/PW/COLOR) (DEBBI) Indications:Known or suspected heart failure.Cli nical HistoryHGB 13.4HCT 43.5 %CANCERCADDM HLDHTNHeight: 69 inches Weight: 112.04 kg (247 lbs) BSA: 2.26 m^2 BMI: 36.48kg/m^2HR: 59 bpm BP: 101/55 mmHg Summary The left ventricle is chamber size (by PSLAX dimension) is normal (male - LVIDd 4.2-5.8cm) . Mild concentric LV hypertrophy. The following segment(s) appear hypokinetic: basal inferior, basal inferolateral . The other segments contract normally. LVEF by Darnell's method of disk assessment is lower limits of normal (50-55%) . Grade 1 diastolicdysfunction (impaired relaxation and low- normal LA pressure). Estimated peak systolic PA pressure is20-25 mmHg . Aortic root size (SInus of Valsalva diameter) is afcp-pd-mttlyutdvq dilated . 4.0cm Signature Findings Left Ventricle The left ventricle is chamber size (by PSLAX dimension) is normal (male - LVIDd 4.2-5.8cm) . Mild concentric LV hypertrophy. The following segment(s) appear hypokinetic: basal inferior, basal inferolateral . The other segments contract normally. LVEF by Darnell's method of disk assessment is lower limits of normal (50-55%) . Grade 1 diastolic dysfunction(impaired relaxation and low-normal LA pressure). Left Atrium LA size is moderately enlarged (42-48 ml/m2) . Right Ventricle The right ventricular chamber size and systolic function are within normal limits. Right Atrium RA size is normal, probably normal based on available views. Aortic Valve Normal AoV structure. Mitral Valve Mild mitral annular calcification. Trace mitral regurgitation. Tricuspid Valve TV structure is normal. Estimated peak systolic PA pressure is 20-25 mmHg . Pulmonic Valve Normal PV structure and function by limited views and Doppler. Aorta Aortic root s ize (SInus of Valsalva diameter) is temy-wq-iyotgqgrzk dilated . 4.0cm Pericardium No significant pericardial effusion is visualized. IVC/SVC/PA/PV/Pleural The estimated RA pressure by IVC dynamics 0- 5mmHg . Chambers/Structures Left Atrium LA Volume: 101.56 [...] 0.95 m/s E/A Ratio: 0.56 Peak Gradient: 1.12 mmHg Deceleration Time: 284 msec MV Emanuel. Peak: Aortic Valve Peak Velocity: 1.01 m/s Mean Velocity: 0.72 m/s Peak Gradient: 4.09 mmHg Mean Gradient: 2.31 mmHg AV Area (continuity): 3 cm^2 AV VTI: 21.99 cm AV DVI: 0.81 LVOT Peak Velocity: 0.94 m/s Peak Gradient: 3.53 mmHg Mean Velocity: 0.51 m/s Mean Gradient: 1.26 mmHg LVOT Diameter: 2.17 cm LVOT VTI: 17.83 cm LVOT Area: 3.7 cm^2 LVOT SV:65.91 ml LVOT CO: 3.89 l/min LVOT CI: 1.72 l/min/m^2 Tricuspid Valve TR Velocity: 1.86 m/s TR Gradient: 13.[address] [facility] CenterBASI METABOLIC [id number] 05:48:00 Test Item Value Reference Range Interpretation [...] WBC 0-0 (BEAKER) (test code = 413) POC-Glucose [id number] 12:53:00 Test Item Value Reference Range Interpretation Comments POC-Glucose Meter (test 120 mg/dL 70-110 H : TE STED AT [facility] code = 1538) [address] [facility], 770 30: [employer] Operator/Techni pippa ID = [id number] for VINAY DONG Lab Interpretation (test Abnormal code = 95945-6) [facility] [id number] 12:53:00 Test Item Value Reference Range Interpretation Comments POC-GLUCOSE METER 120 mg/dL 70-110 H : TESTED A T [facility] 6720 (AKER) (test code = AMANMD R [facility], 1538) [address]: [employer] Well Treatment Operator/Techni pippa ID = [id number] for MARITZA ESTHER MICHAELVINEET Hemoglobin [id number] 08:40:00 Test Item Value Reference Range Interpretation Comments Hemoglobin A1C (test code = 4548-4) 6.7 % 4.3-6.1 H Lab Interpretation (test code = Abnormal 01077-3) [facility] [id number] 08:40:00 Test Item Value Reference Range Interpretation Comments HEMOGLOBIN A1C (BEAKER) (test code = 6.7 % 4.3-6.1 H 368) Lipid [id number] 05:08:00 Test Item Value Reference Range Interpretation Comments Triglycerides (test 147 mg/dL code = 2571-8) Cholesterol (test code 221 mg/dL = 2093-3) HDL (test code = 43 mg/dL 5-9) LDL Calculated (test 149 mg/dL code = 57277-7) CARMEN (test code = CARMEN) Triglyceride Reference Range: Low Risk <150 Borderline 150-199 High Risk 200-499 Very High Risk >=500 Cholesterol Reference Range: Low Risk <200 Borderline 200-239 High Risk >240 HDL Cholesterol Reference Range: Low Risk >=60 High Risk <40 LDL Cholesterol Reference Range: Optimal <100 Near Optimal 100-129 Borderline 130-159 High 160-189 Very High >=[address] [facility] [facility] CenterLIP[facility] [id number] 05:08:00 Test Item Value Reference Range Interpretation [...] 130-159 High 160-189 Very High >=190BASIC METABOLIC [id number] 05:08:00 Test Item Value Reference Range Interpretation [...] 0-0 (BEAKER) (test code = 413) POCT-GLUCOSE [id number] 21:05:00 Test Item Value Reference Range Interpretation Comments POC-GLUCOSE METER 103 mg/dL 70-110 : TESTED A T [facility] 6720 (BEAKER) (test code = [facility], 1538) [address]: [employer] Well Treatment Operator/Techni pippa ID = [id number] for FRANK AVILEZ POCT-GLUCOSE [id number] 18:31:00 Test Item Value Reference Range Interpretation Comments POC-GLUCOSE METER 133 mg/dL 70-110 H : TESTED A T [facility] 6720 (BEAKER) (test code = [facility], 1538) [address]: [employer] Well Treatment Operator/Techni pippa ID = [id number] for VANIA FLORES BASIC METABOLIC [id number] 16:44:00 Test Item Value Reference Range Interpretation [...] = 413) CBC W/PLT COUNT & AUTO [id number] 07:56:00 Test Item Value Reference Range Interpretation [...] L 0.00-0.20 (test code = 417) 0.00POCT-GLUCOSE [id number] 07:47:00 Test Item Value Reference Range Interpretation Comments POC-GLUCOSE METER 96 mg/dL 70-110 TESTED AT [facility] 6720 (BEAKER) (test code = [place] [address] 1538) BASIC METABOLIC [id number] 06:30:00 Test Item Value Reference Range Interpretation [...] S NOT APPLICABLE FOR DIALYSIS PATIEN TS. [id number] 06:19:00 Test Item Value Reference Range Interpretation [...] 2.5-3.5 for patients with mechanical heart valves.PROTHROMBIN [id number] 06:18:00 Test Item Value Reference Range Interpretation Comments PROTIME (BEAKER) (test code = 14.8 seconds 11.7-14.7 H 759) INR (BEAKER) (test code = 370) 1.2 <=5.9 RECOMMENDED COUMADIN/WARFARIN INR THERAPY RANGESSTANDARD DOSE: 2.0 - 3.0 Includes: PROPHYLAXIS forvenous thrombosis, systemic embolization; TREATMENT for venous thrombosis and/or pulmonary embolus.HIGH RISK: Target INR is 2.5-3.5 for patients with mechanical heart valves.POCT-GLUCOSE [id number] 21:11:00 Test Item Value Reference Range Interpretation Comments POC-GLUCOSE METER 123 mg/dL 70-110 H TESTED AT [place] [address] ([facility]) (test code = [place] [facility] 1538) [address] POCT-GLUCOSE [id number] 17:40:00 Test Item Value Reference Range Interpretation Comments POC-GLUCOSE METER 123 mg/dL 70-110 H TESTED AT [place] [address] ([facility]) (test code = AMANMD Stephan [facility] 1538) [address] OCCULT BLOOD, [id number] 14:01:00 Test Item Value Reference Range Interpretation Comments FECAL OCCULT BLOOD ([facility]) (test Negative Negative code = 618) POCT-GLUCOSE [id number] 12:37:00 Test Item Value Reference Range Interpretation Comments POC-GLUCOSE METER 120 mg/dL 70-110 H TESTED AT [place] [address] ([facility]) (test code = [facility] 1538) [address] POCT-GLUCOSE [id number] 07:47:00 Test Item Value Reference Range Interpretation Comments POC-GLUCOSE METER 100 mg/dL 70-110 TESTED AT [place] [address] ([facility]) (test code = [facility] 1538) [address] [id number] 04:10:00 Test Item Value Reference Range Interpretation Comments PHOSPHORUS (BEAKER) (test code = 4.2 mg/dL 2.3-4.7 604) [id number] 04:10:00 Test Item Value Reference Range Interpretation Comments MAGNESIUM (BEAKER) (test code = 1.7 mg/dL 1.6-2.6 627) BASIC METABOLIC [id number] 04:10:00 Test Item Value Reference Range Interpretation [...] APPLICABLE FOR DIALYSIS PATIEN TS. HEPATIC FUNCTION [id number] 04:10:00 Test Item Value Reference Range Interpretation [...] (test code = 15 U/L 6-55 347) [id number] 04:03:00 Test Item Value Reference Range Interpretation [...] is 2.5-3.5 for patients with mechanical heart valves.[id number] 04:03:00 Test Item Value Reference Range Interpretation Comments PARTIAL THROMBOPLASTIN TIME 70.7 seconds 22.5-36.0 H (BEAKER) (test code = 760) PROTHROMBIN [id number] 04:02:00 Test Item Value Reference Range Interpretation [...] L 0.00-0.20 (test code = 417) 0.00POCT-GLUCOSE [id number] 22:16:00 Test Item Value Reference Range Interpretation Comments POC-GLUCOSE METER 115 mg/dL 70-110 H TESTED AT [facility] 67 (BEAKER) (test code = [place] 1538) [address] [id number] 21:09:00 Test Item Value Reference Range Interpretation Comments PARTIAL THROMBOPLASTIN TIME 65.3 seconds 22.5-36.0 H (BEAKER) (test code = 760) POCT-GLUCOSE [id number] 17:35:00 Test Item Value Reference Range Interpretation Comments POC-GLUCOSE METER 103 mg/dL 70-110 TESTED AT [facility] 6720 (BEAKER) (test code = [place] 1538) [address] PERIPHERAL BLOOD SMEAR - PATHOLOGIST [id number] 15:13:00 Test Item Value Reference Range Interpretation Comments RBC MORPHOLOGY Marked (BEAKER) (test anisopoikiloc ytosis, code = 7162) including elliptocytes an d few target cells. R ed cells are hypochromic wit h microcytic spring alicia. WBC MORPHOLOGY Hypersegmente d (BEAKER) (test neutrophils. code = 7104) PLT MORPHOLOGY Unremarkable (BEAKER) (test code = 3368) PERIPHERAL SMR Iron studies are REVIEW (BEAKER) recommended for (test code = complete evalua tion 0070) of this patient 's anemia. [facility]-PATHOLOGIST- Sabrina 6112 (BEAKER) Eleonora (test code = Amanda woodruff 9878) (electronic signature) OCCULT BLOOD, [id number] 12:57:00 Test Item Value Reference Range Interpretation Comments FECAL OCCULT BLOOD (BEAKER) (test Negative Negative code = 618) POCT-GLUCOSE [id number] 11:54:00 Test Item Value Reference Range Interpretation Comments POC-GLUCOSE METER 82 mg/dL 70-110 TESTED AT [facility] 6720 (BEAKER) (test code = [place] [id number] 0082) [id number] 11:50:00 Test Item Value Reference Range Interpretation [...] 0-0 (BEAKER) (test code = 413) 0.00POCT-GLUCOSE [id number] 08:03:00 Test Item Value Reference Range Interpretation Comments POC-GLUCOSE METER 96 mg/dL 70-110 TESTED AT [facility] 6720 (BEAKER) (test code = [place] [address] 1538) HEMOGLOBIN [id number] 08:02:00 Test Item Value Reference Range Interpretation Comments HEMOGLOBIN A1C (BEAKER) (test code = 6.5 % 4.3-6.1 H 368) [id number] 04:21:00 Test Item Value Reference Range Interpretation [...] is 2.5-3.5 for patients with mechanical heart valves.[id number] 04:21:00 Test Item Value Reference Range Interpretation Comments PHOSPHORUS (BEAKER) (test code = 3.8 mg/dL 2.3-4.7 604) [id number] 04:21:00 Test Item Value Reference Range Interpretation Comments MAGNESIUM (BEAKER) (test code = 1.6 mg/dL 1.6-2.6 627) BASIC METABOLIC [id number] 04:21:00 Test Item Value Reference Range Interpretation [...] APPLICABLE FOR DIALYSIS PATIEN TS. HEPATIC FUNCTION [id number] 04:21:00 Test Item Value Reference Range Interpretation [...] code = 13 U/L 6-55 347) PROTHROMBIN [id number] 04:20:00 Test Item Value Reference Range Interpretation [...] K/ L 0.00-0.20 (test code = 417) [id number] 02:36:00 Test Item Value Reference Range Interpretation Comments FERRITIN (BEAKER) (test code = 2576 ng/mL 5-275 H 361) Effective 02/18/2014: Reference Range ChangeNew: Male 5-275 Previous: Male 22-322 Female 5-275 Female [id number] 02:30:00 Test Item Value Reference Range Interpretation Comments HAPTOGLOBIN (BEAKER) (test code = 242 mg/dL 14-258 366) Effective 02/18/2014: Reference Range ChangeNew: 14-258 Previous: 36-195 VITAMIN [id number] 01:42:00 Test Item Value Reference Range Interpretation Comments VITAMIN B12 (BEAKER) (test code = 1077 pg/mL 213-816 H 774) FOLATE, [id number] 01:42:00 Test Item Value Reference Range Interpretation [...] (BEAKER) (test code 1+ few = 480) [id number] 23:12:00 Test Item Value Reference Range Interpretation Comments PHOSPHORUS (BEAKER) (test code = 3.5 mg/dL 2.3-4.7 604) [id number] 23:12:00 Test Item Value Reference Range Interpretation Comments MAGNESIUM (BEAKER) (test code = 1.5 mg/dL 1.6-2.6 L 627) COMPREHENSIVE METABOLIC [id number] 23:12:00 Test Item Value Reference Range Interpretation [...] 205 U/L 125-220 code = 635) RETICULOCYTE [id number] 23:09:00 Test Item Value Reference Range Interpretation Comments RETICULOCYTE COUNT PCT (BEAKER) (test 2.5 % 0.4-2.9 code = 575) CBC W/PLT COUNT & AUTO [id number] 23:09:00 Test Item Value Reference Range Interpretation [...] L 0.00-0.20 (test code = 417) POCT-GLUCOSE [id number] 22:56:00 Test Item Value Reference Range Interpretation Comments POC-GLUCOSE METER 155 mg/dL 70-110 H TESTED AT [place] [address] ([facility]) (test code = [place] 1538) [address] POCT-GLUCOSE [id number] 17:39:00 Test Item Value Reference Range Interpretation Comments POC-GLUCOSE METER 106 mg/dL 70-110 TESTED AT [place] [id number] ([facility]) (test code = [place] 1538) [address]
[2019-11-18] MEDS ORDERED: CEFAZOLIN/SWI 1gm 0 GM/0 ML SYR ONE (07:55)
[2019-11-18] MEDS ORDERED: CEFAZOLIN/SWI 1gm 1 GM/10 ML SYR ONE (07:56)
[2019-11-18] MEDS: NA CHLORIDE 0.9% 1,000 ML ONE ×2 (08:00→08:37)
[2019-11-18] MEDS ORDERED: LIDOCAINE 1% MPF 5 ML VIAL ONE (08:23)
[2019-11-18] MEDS ORDERED: propofoL 200 MG/20 ML VIAL IV ONE (08:23)
[2019-11-18] MEDS ORDERED: FENTANYL CITR 100 MCG/2 ML ONE (08:23)
[2019-11-18] MEDS ORDERED: KETOROLAC 30 MG/ML INJ ONE (08:56)
[2019-11-18 08:57] VITALS: O2SAT 98
--- NOTE | 2019-11-18 09:02 | P.BOP ---
Preoperative diagnosis: lymphoma Postoperative diagnosis: same Primary procedure: Removal of portacath Estimated blood loss: <5cc Specimen: intact portacath Findings: as above Anesthesia: MAC Complications: None Transferred to: Recovery Room Condition: Good
[2019-11-18 09:37] VITALS: TEMP 97
[2019-11-18 09:49] VITALS: BP 128/74
--- NOTE | 2019-11-18 10:42 | OP ---
Date of Procedure: 11/18/2019 Surgeon: Rell Hargrove MD Preoperative Diagnosis: Lymphoma. Postoperative Diagnosis: Lymphoma. Procedure: Removal of Port-A-Cath. Anesthesia: MAC plus local. Complications: None. Estimated Blood Loss: Less than 5 cc. Indications: This is a case of a 69-year-old patient, who completed his round of chemotherapy for ly mphoma, now for Port-A-Cath removal. Benefits, alternatives, and risks were fully explained which in clude, but not limited to infection, bleeding, damage to adjacent structures, anesthesia complication , PE, FL, and even . He also understands this may not relieve his symptoms. He might need more than one surgical intervention. He understood, signed a consent. Description Of Procedure: The patient was brought to the operating room, placed in supine position. Anesthesia was done without complication. A time-out was called. Left chest was prepped and draped in sterile fashion. Local anesthesia was applied followed by sharp incision of the skin. Incision was carried down to subcutaneous tissue. We removed the sutures from the Port-A-Cath and carefully r emoved the Port-A-Cath from the pocket and pulled it gently. The Port-A-Cath came out intact. Press ure was applied for about 15 minutes and at the same time we put a local anesthetic over the area, ir rigated the area. Then placed subcutaneous 2-0 chromic and then the skin in a subcuticular fashion w ith 3-0 chromic and Steri-Strips on top. Sponge count and instrument counts were correct. The patie nt tolerated the procedure well. The patient was sent to Recovery in stable condition. Diagnosis: Lymphoma. Procedure: Removal of Port-A-Cath. Disposition: Home. Activity: As tolerated. No heavy lifting. Plan: Follow up in my office in 1 week. Call for appointment at [phone]. Keep area dry for 48 zoila rs, then may shower. Keep Steri-Strip intact. Medications: Include Tylenol No. 3 q.4 hours p.r.n. pain. HM/MODL Voice ID: [id number] Report ID: [id number]
== END 2019-11-18 09:50 | disposition home or self-care (01) ==
LOC: OR 07:15
PROVIDERS: ATTEND Surgery
PROC: 0JPT3XZ Removal of Tunneled Vascular Access Device from Trunk Subcutaneous Tissue and Fascia, Percutaneous Approach (ICD-10-PCS; principal; 2019-11-18 08:30)
DX: Z45.2 Encounter for adjustment and management of vascular access device (principal); Z85.72 Personal history of non-Hodgkin lymphomas; Z20.828 Contact with and (suspected) exposure to other viral communicable diseases; I11.9 Hypertensive heart disease without heart failure; E11.9 Type 2 diabetes mellitus without complications; Z79.84 Long term (current) use of oral hypoglycemic drugs; Z79.82 Long term (current) use of aspirin; Z79.01 Long term (current) use of anticoagulants; Z79.899 Other long term (current) drug therapy; Z95.5 Presence of coronary angioplasty implant and graft
CPT/HCPCS: 36590; 93005; 85025; 80048; 36415; 82947; 88300; 71046; U0002; J2704; J3010; J0690; J7030

== ENCOUNTER 2020-10-02 16:43 | Emergency (ER) | payer OTHER ==
--- OUTSIDE RECORDS SUMMARY | 2020-10-02 16:56 | XMS REPORT | Continuity of Care Document ---
:1950 Author Organization [facility] t Address [address] [place] [address] Care Team Providers Name Role Phone Sun Patino DO Primary Care Physician SYSTEM, NOT IN Attending Clinician Unavailable NICKI RANDLE Attending Clinician Unavailable GAURAV VENEGAS [...] Disease Active [facility]un varun 10-06 [facility] Anemia, Anemia, Disease Active [facility] unspecifie [...] Disease Active [facility] (benign [facility]benign 10-05 [facility] - prostatic prostatic 00:00: Medi slime hyperplasi hyperplasi 00 Ce nter a) a) Obesity Obesity Disease Active [facility] (BMI (BMI 10-05 [facility] - 30-39.9) 30-39.9) 00:00: Medica l 00 Center Hypoalbumi Hypoalbumi Disease Active [facility] nemia nemia 10-05 [facility] Center Hypomagnes Hypomagnes Disease Active [facility] emia emia 10-05 [facility] Center Folic acid Folic acid Disease Active [facility] deficiency deficiency 10-05 [facility] - 00:00: Medical 00 [place] 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 10-05 [facility] [place] 00:00: Medical malnutriti malnutriti 00 Ce nter on on S/P S/P Disease Active [facility] cholecyste cholecyste 10-05 [facility] - ctomy ctomy 00:00: Medical 00 [place] Acute deep Acute deep Disease Active [facility] vein vein 10-05 [facility] - thrombosis thrombosis 00:00: Or dical (DVT) of (DVT) of 00 Center proximal proximal vein of vein of right right lower lower extremity extremity History of History of Disease Active [facility] pulmonary pulmonary 10-04 [facility] - embolism embolism 00:00: Medica l 00 Center Mediastina Mediastina Disease Active 2015-04 [place] 04-30 [facility] adenopathy adenopathy 00:00: st 00 Urinary Urinary Disease Active 2015-04 [place] retention retention - Meth mekhi due to due to 00:00: st benign benign 00 prostatic prostatic hyperplasi hyperplasi a a Allergies, Adverse Reactions, Alerts This patient has no known allergies or adverse reactions. Family History Family Member Diagnosis Comments Start Date Stop Date Source Natural father Cancer [facility] Natural father Cancer [facility] thodist Natural mother Cancer [facility] thodist Social History Social Habit Start Date Stop Date Quantity Comments Source Tobacco use and 2019-01-28 2019-01-[address] [facility] [facility] - exposure 00:00:00 00:00:00 Medical Center Alcohol intake 2016-02-29 2016-02-29 Current drinker [facility] 00:00:00 00:00:00 of alcohol (finding) Alcohol Comment 2016-02-09 2016-02-09 socially Jovani Santo ethodist 00:00:00 00:00:00 Sex Ass[birth year] At [birth year] Jovani Santo ethodist 00:00:00 00:00:00 Smoking Status Start Date Stop Date Source Never smoker [place] [facility] Medications Ordered Filled Start Stop Current Ordering Indication Dosage Frequency Signature Comments Components Source Medication Medication Date Date Medication? Clinician (SIG) Name Name metFORMIN 2018-04 Yes 1000mg Q.5D Take 1,[address] [facility] (GLUCOPHAGE 0-26 mg by [facility] - -XR) 500 MG 14:10: mouth 2 Med ical 24 hr 16 (two) Center tablet times daily. tamsulosin 2018-04 Yes .4mg QD Take 0.[address] (FLOMAX) 0-26 mg by [facility] - 0.4 mg Cp24 14:10: mouth Medic al 24 hr 16 nightly . [place] capsule apixaban 2018-04 Yes 5mg Q.5D Take [address] [address] (ELIQUIS) 5 0-26 by mouth 2 [place] [facility] - mg Tab 14:10: (two) Medical tablet 16 times Center daily. metoprolol 2018-04 Yes 12.5mg QD Take 12.[address] (LOPRESSOR) 0-26 mg by [facility] - 25 MG 14:10: mouth Medical tablet 16 daily. [place] furosemide 2018-04 Yes 20mg QD Take [address] (LASIX) 20 0-26 by mouth [facility] - MG tablet 14:10: daily. Medica l 16 [place] atorvastati 2018-04 Yes 10mg QD Take [address] n (LIPITOR) 0-26 by mouth Luke s - 10 MG 14:10: nightly. Medical tablet 16 [place] sacubitril- 2018-04 Yes 1{tbl} Q.5D Take [address] valsartan 0-26 tablet by [facility] - (ENTRESTO) 14:10: mouth 2 Medi slime 24-26 mg 16 (two) Center Tab times daily. travoprost 2018-04 Yes 1[drp] QD Place [address] (TRAVATAN 0-26 drop into [facility] - Z) 0.004 % 14:10: both eyes Me dical Drop 16 nightly. Center ophthalmic drops ticagrelor 2018-04 Yes 90mg Q.5D Take 1 [facility] (BRILINTA) 0-26 tablet (90 Willi es - 90 mg Tab 00:00: mg total) Med ical tablet 00 by mouth 2 Center (two) times daily. aspirin 81 2018-04- No 81mg QD Take [address] MG chewable 0-26 10-25 tablet (81 L ukes - tablet 00:00: 23:59 mg total) Medic al 00 :00 by mouth Center daily. aspirin 2015-04 Yes 81mg QD Take 81 mg [place] (ECOTRIN) 1-28 by mouth Method i 81 MG 09:31: daily. st enteric 30 coated tablet lisinopril- 2015-04 Yes 1{tbl} QD Take 1 [place] hydrochloro 1-28 tablet by Met hodi thiazide 09:31: mouth st (PRINZIDE,Z 30 daily. ESTORETIC) 20-25 mg per tablet tamsulosin 2015-04 Yes .4mg QD Take 0.4 [facility] (FLOMAX) 1-28 mg by [facility]i 0.4 mg 09:31: mouth st capsule,ext 30 daily. ended release 24hr atorvastati 2015-04 Yes 10mg QD Take 10 mg [facility] n (LIPITOR) 1-28 by mouth Meth mehki 10 MG 09:31: daily. st tablet 30 [...] Planned Date Details Comments Source Future Scheduled 2021-01-26 Urine screening [facility] Test 00:00:00 protein (procedure) [facility] [code = 998316634] Future Scheduled 2020-12-[address] [facility] - Test 00:00:00 (Season Ended) [code = Medic al Center INFLUENZA VACCINE (Season Ended)] Future Scheduled 2020-11-01 INFLUENZA VACCINE [place] [facility] 00:00:00 [code = INFLUENZA VACCINE] Future Scheduled 2020-04-[address] [facility] - Test 00:00:00 (12+) [code = Medical Center DEPRESSION SCREENING (12+)] Future Scheduled 2019-09-[address] [facility] - Test 00:00:00 WELLNESS (YEAR 2 or Medical Center FIRST YEAR if no IPPE) [code = MEDICARE ANNUAL WELLNESS (YEAR 2 or FIRST YEAR if no IPPE)] Future Scheduled 2019-07-[address] [facility] - Test 00:00:00 [facility] (procedure) [code = 38620242] Future Scheduled 2017-10-[address] Willi es - Test 00:00:00 malignant neoplasm of [facility] colon (procedure) [code = 505521083] Future Scheduled 2015 PNEUMOCOCCAL 65+ YRS [facility] - Test 00:00:00 (1 of 1 - [facility] [id number] PCV13) [code = PNEUMOCOCCAL 65+ YRS (1 of 1 - [id number] PCV13)] Future Scheduled 2015 65+ PNEUMOCOCCAL [facility] Test 00:00:00 VACCINE (1 of 1 - PPSV23) [code = 65+ PNEUMOCOCCAL VACCINE (1 of 1 - PPSV23)] Future Scheduled 2000 SHINGLES VACCINES ([address] [facility] - Test 00:00:00 of 2) [code = SHINGLES [facility] VACCINES (1 of 2)] Future Scheduled 2000 COLONOSCOPY SCREENING [place] [facility] Test 00:00:00 [code = COLONOSCOPY SCREENING] Future Scheduled 2000 SHINGLES VACCINES (#1) [place] [facility] Test 00:00:00 [code = SHINGLES VACCINES (#1)] Future Scheduled 1969 DTAP/TDAP/TD VACCINES [facility] Test 00:00:00 (1 - Tdap) [code = Medical C enter DTAP/TDAP/TD VACCINES (1 - Tdap)] Future Scheduled 1968 HEPATITIS C SCRE[facility]ING [facility] Test 00:00:00 [code = HEPATITIS C Medical Center SCREENING] Future Scheduled 1962 COVID-19 VACCINE (1) [facility] - Test 00:00:00 [code = COVID-[address] VACCINE (1)] Future Scheduled 1962 COVID-19 VACCINE (1) [facility] Test 00:00:00 [code = COVID-19 VACCINE (1)] Future Scheduled 1960 DIABETIC EYE EXAM [facility] - Test 00:00:00 [code = DIABETIC EYE Medical Center EXAM] Future Scheduled [address] [facility] - Test 00:00:00 examination Medical Center (regime/therapy) [code = 883773053] Encounters Start End Encounter Admission Attending Care Care Encounter Source Date/Time Date/Time Type Type Clinicians Facility Department ID 2020-08-16 Outpatient SYSTEM, [facility] NOE [id number] 08:57:41 PROVIDER Tello o n Results Test Description Test Time Test Comments [...] WBC 0-0 (BEAKER) (test code = 413) [id number] 01:30:00 Test Item Value Reference Range Interpretation Comments ACTIVATED CLOTTING TIME 136 sec Refe rence Range: (BEAKER) (test code = 74-137 seconds, 441) Baseline/TESTED AT [place] [address] 0 [id number] 00:22:00 Test Item Value Reference Range Interpretation Comments ACTIVATED CLOTTING TIME 158 sec Refe rence Range: (BEAKER) (test code = 74-137 seconds, 441) Baseline/TESTED AT [place] [address] 0 [id number] 22:31:00 Test Item Value Reference Range Interpretation Comments ACTIVATED CLOTTING TIME 191 sec Refe rence Range: (BEAKER) (test code = 74-137 seconds, 441) Baseline/TESTED AT [place] [address] 0 [id number] 21:06:00 Test Item Value Reference Range Interpretation Comments ACTIVATED CLOTTING TIME 323 sec Refe rence Range: (BEAKER) (test code = 74-137 seconds, 441) Baseline/TESTED AT [place] [address] 0 [id number] 19:12:00 Test Item Value Reference Range Interpretation Comments ACTIVATED CLOTTING TIME 461 sec Refe rence Range: (BEAKER) (test code = 74-137 seconds, 441) Baseline/TESTED AT [place] [address] 0 [id number] 18:26:00 Test Item Value Reference Range Interpretation Comments ACTIVATED CLOTTING TIME 312 sec Refe rence Range: (BEAKER) (test code = 74-137 seconds, 441) Baseline/TESTED AT [place] [address] 0 [id number] 18:07:00 Test Item Value Reference Range Interpretation Comments ACTIVATED CLOTTING TIME 312 sec Refe rence Range: (BEAKER) (test code = 74-137 seconds, 441) Baseline/TESTED AT [place] [address] 0 [id number] 17:30:00 Test Item Value Reference Range Interpretation Comments ACTIVATED CLOTTING TIME 285 sec Refe rence Range: (BEAKER) (test code = 74-137 seconds, 441) Baseline/TESTED AT [place] [address] 0 [id number] 17:29:00 Test Item Value Reference Range Interpretation Comments ACTIVATED CLOTTING TIME 235 sec Refe rence Range: (BEAKER) (test code = 74-137 seconds, 441) Baseline/TESTED AT [place] [address] 0 BASIC METABOLIC [id number] 06:14:00 Test Item Value Reference Range Interpretation [...] (BEAKER) (test code = 413) BASIC METABOLIC [id number] 05:48:00 Test Item Value Reference Range Interpretation [...] 0-0 (BEAKER) (test code = 413) POCT-GLUCOSE [id number] 12:53:00 Test Item Value Reference Range Interpretation Comments POC-GLUCOSE METER 120 mg/dL 70-110 H : TESTED A T [facility] 6720 (BEAKER) (test code = [place], 15[address]) [address]: Firefighter Type One/Techni pippa ID = [id number] for VINAY FLOWER HEMOGLOBIN [id number] 08:40:00 Test Item Value Reference Range Interpretation Comments HEMOGLOBIN A1C (BEAKER) (test code = 6.7 % 4.3-6.1 H 368) LIPID [id number] 05:08:00 Test Item Value Reference Range Interpretation [...] 130-159 High 160-189 Very High >=190BASIC METABOLIC [id number] 05:08:00 Test Item Value Reference Range Interpretation [...] 0-0 (BEAKER) (test code = 413) POCT-GLUCOSE [id number] 21:05:00 Test Item Value Reference Range Interpretation Comments POC-GLUCOSE METER 103 mg/dL 70-110 : TESTED A T [facility] 6720 (BEAKER) (test [facility] = [facility] [place], [address]) [address]: Firefighter Type One/Techni pippa ID = [id number] for FRANK AVILEZ POCT-GLUCOSE [id number] 18:31:00 Test Item Value Reference Range Interpretation Comments POC-GLUCOSE METER 133 mg/dL 70-110 H : TESTED A T [facility] 6720 (BEAKER) (test code = [facility] [place], [address]) [address]: Firefighter Type One/Techni pippa ID = [id number] for MELINA EVAN, VANIA BASIC METABOLIC [id number] 16:44:00 Test Item Value Reference Range Interpretation [...] = 413) CBC W/PLT COUNT & AUTO [id number] 07:56:00 Test Item Value Reference Range Interpretation [...] L 0.00-0.20 (test code = 417) 0.00POCT-GLUCOSE [id number] 07:47:00 Test Item Value Reference Range Interpretation Comments POC-GLUCOSE METER 96 mg/dL 70-110 TESTED AT [facility] 6720 (BEAKER) (test code = [place] [facility] [address]38) BASIC METABOLIC [id number] 06:30:00 Test Item Value Reference Range Interpretation [...] S NOT APPLICABLE FOR DIALYSIS PATIEN TS. [id number] 06:19:00 Test Item Value Reference Range Interpretation [...] 2.5-3.5 for patients with mechanical heart valves.PROTHROMBIN [id number] 06:18:00 Test Item Value Reference Range Interpretation Comments [facility] (test code = 14.8 seconds 11.7-14.7 H 759) INR ([facility]) (test code = 370) 1.2 <=5.9 RECOMMENDED COUMADIN/WARFARIN INR THERAPY RANGESSTANDARD DOSE: 2.0 - 3.0 Includes: PROPHYLAXIS forvenous thrombosis, systemic embolization; TREATMENT for venous thrombosis and/or pulmonary embolus.HIGH RISK: Target INR is 2.5-3.5 for patients with mechanical heart valves.POCT-GLUCOSE [id number] 21:11:00 Test Item Value Reference Range Interpretation Comments POC-GLUCOSE METER 123 mg/dL 70-110 H TESTED AT [place] [address] ([facility]) (test code = AMANDAVION [place] [facility] 1538) [address] POCT-GLUCOSE [id number] 17:40:00 Test Item Value Reference Range Interpretation Comments POC-GLUCOSE METER 123 mg/dL 70-110 H TESTED AT [place] [address] ([facility]) (test code = AMANDC Stephan [facility] 1538) [address] OCCULT BLOOD, [id number] 14:01:00 Test Item Value Reference Range Interpretation Comments FECAL OCCULT BLOOD ([facility]) (test Negative Negative code = 618) POCT-GLUCOSE [id number] 12:37:00 Test Item Value Reference Range Interpretation Comments POC-GLUCOSE METER 120 mg/dL 70-110 H TESTED AT [place] [address] ([facility]) (test code = AMANDC Stephan [facility] 1538) [address] POCT-GLUCOSE [id number] 07:47:00 Test Item Value Reference Range Interpretation Comments POC-GLUCOSE METER 100 mg/dL 70-110 TESTED AT [place] [address] ([facility]) (test code = [facility] Stephan [facility] 1538) [address] [id number] 04:10:00 Test Item Value Reference Range Interpretation Comments PHOSPHORUS [facility] (test code = 4.2 mg/dL 2.3-4.7 604) [id number] 04:10:00 Test Item Value Reference Range Interpretation Comments MAGNESIUM (BEAKER) (test code = 1.7 mg/dL 1.6-2.6 627) BASIC METABOLIC [id number] 04:10:00 Test Item Value Reference Range Interpretation [...] APPLICABLE FOR DIALYSIS PATIEN TS. HEPATIC FUNCTION [id number] 04:10:00 Test Item Value Reference Range Interpretation [...] (test code = 15 U/L 6-55 347) [id number] 04:03:00 Test Item Value Reference Range Interpretation [...] is 2.5-3.5 for patients with mechanical heart valves.[id number] 04:03:00 Test Item Value Reference Range Interpretation Comments PARTIAL THROMBOPLASTIN TIME 70.7 seconds 22.5-36.0 H (BEAKER) (test code = 760) PROTHROMBIN [id number] 04:02:00 Test Item Value Reference Range Interpretation [...] L 0.00-0.20 (test code = 417) 0.00POCT-GLUCOSE [id number] 22:16:00 Test Item Value Reference Range Interpretation Comments POC-GLUCOSE METER 115 mg/dL 70-110 H TESTED AT [facility] 67 ([facility]) (test code = [place]) [address] [id number] 21:09:00 Test Item Value Reference Range Interpretation Comments PARTIAL THROMBOPLASTIN TIME 65.3 seconds 22.5-36.0 H (AKER) (test code = 760) POCT-GLUCOSE [id number] 17:35:00 Test Item Value Reference Range Interpretation Comments POC-GLUCOSE METER 103 mg/dL 70-110 TESTED AT [facility] 6720 ([facility]) (test code = [place] 1538) [address] PERIPHERAL BLOOD SMEAR - PATHOLOGIST [id number] 15:13:00 Test Item Value Reference Range Interpretation Comments RBC MORPHOLOGY Marked ([facility]) (test anisopoikiloc ytosis, code = 6216) including elliptocytes an d few target cells. R ed cells are hypochromic wit h microcytic spring alicia. WBC MORPHOLOGY Hypersegmente d (BEAKER) (test neutrophils. code = 2847) PLT MORPHOLOGY Unremarkable (BEAKER) (test code = 2848) PERIPHERAL SMR Iron studies are REVIEW (BEAKER) recommended for (test code = complete evalua tion 8458) of this patient 's anemia. [facility] 6112 (BEAKER) Eleonora (test code = Amanda woodruff 3179) (electronic signature) OCCULT BLOOD, [id number] 12:57:00 Test Item Value Reference Range Interpretation Comments FECAL OCCULT BLOOD (BEAKER) (test Negative Negative code = 618) POCT-GLUCOSE [id number] 11:54:00 Test Item Value Reference Range Interpretation Comments POC-GLUCOSE METER 82 mg/dL 70-110 TESTED AT [facility] 6720 (BEAKER) (test code = [place] [facility] [address]38) [id number] 11:50:00 Test Item Value Reference Range Interpretation [...] 0-0 (BEAKER) (test code = 413) 0.00POCT-GLUCOSE [id number] 08:03:00 Test Item Value Reference Range Interpretation Comments POC-GLUCOSE METER 96 mg/dL 70-110 TESTED AT [facility] 6720 (BEAKER) (test code = [place] [address] 6[address]) HEMOGLOBIN [id number] 08:02:00 Test Item Value Reference Range Interpretation Comments HEMOGLOBIN A1C (BEAKER) (test code = 6.5 % 4.3-6.1 H 368) [id number] 04:21:00 Test Item Value Reference Range Interpretation [...] is 2.5-3.5 for patients with mechanical heart valves.[id number] 04:21:00 Test Item Value Reference Range Interpretation Comments PHOSPHORUS (BEAKER) (test code = 3.8 mg/dL 2.3-4.7 604) [id number] 04:21:00 Test Item Value Reference Range Interpretation Comments MAGNESIUM (BEAKER) (test code = 1.6 mg/dL 1.6-2.6 627) BASIC METABOLIC [id number] 04:21:00 Test Item Value Reference Range Interpretation [...] APPLICABLE FOR DIALYSIS PATIEN TS. HEPATIC FUNCTION [id number] 04:21:00 Test Item Value Reference Range Interpretation [...] code = 13 U/L 6-55 347) PROTHROMBIN [id number] 04:20:00 Test Item Value Reference Range Interpretation [...] K/ L 0.00-0.20 (test code = 417) [id number] 02:36:00 Test Item Value Reference Range Interpretation Comments FERRITIN (BEAKER) (test code = 2576 ng/mL 5-275 H 361) Effective 02/18/2014: Reference Range ChangeNew: Male 5-275 Previous: Male 22-322 Female 5-275 Female [id number] 02:30:00 Test Item Value Reference Range Interpretation Comments HAPTOGLOBIN (BEAKER) (test code = 242 mg/dL 14-258 366) Effective 02/18/2014: Reference Range ChangeNew: 14-258 Previous: 36-195 VITAMIN [id number] 01:42:00 Test Item Value Reference Range Interpretation Comments VITAMIN B12 (BEAKER) (test code = 1077 pg/mL 213-816 H 774) FOLATE, [id number] 01:42:00 Test Item Value Reference Range Interpretation [...] (BEAKER) (test code 1+ few = 480) [id number] 23:12:00 Test Item Value Reference Range Interpretation Comments MAGNESIUM (BEAKER) (test code = 1.5 mg/dL 1.6-2.6 L 627) COMPREHENSIVE METABOLIC [id number] 23:12:00 Test Item Value Reference Range Interpretation [...] (test 205 U/L 125-220 code = 635) [id number] 23:12:00 Test Item Value Reference Range Interpretation Comments PHOSPHORUS (BEAKER) (test code = 3.5 mg/dL 2.3-4.7 604) RETICULOCYTE [id number] 23:09:00 Test Item Value Reference Range Interpretation Comments RETICULOCYTE COUNT PCT (BEAKER) (test 2.5 % 0.4-2.9 code = 575) CBC W/PLT COUNT & AUTO [id number] 23:09:00 Test Item Value Reference Range Interpretation [...] L 0.00-0.20 (test code = 417) POCT-GLUCOSE [id number] 22:56:00 Test Item Value Reference Range Interpretation Comments POC-GLUCOSE METER 155 mg/dL 70-110 H TESTED AT [facility] 6720 (BEAKER) (test code = [place] 1538) [address] POCT-GLUCOSE [id number] 17:39:00 Test Item Value Reference Range Interpretation Comments POC-GLUCOSE METER 106 mg/dL 70-110 TESTED AT [facility] 6720 (CECILIA) (test code = [place] [address]) [address]
[2020-10-02] MEDS ORDERED: MORPHINE 4 MG/ML SYR ONE (18:31)
[2020-10-02] MEDS ORDERED: DIAZEPAM 10 MG/2 ML INJ SYRINGE ONE ×2 (18:31→20:07)
[2020-10-02] MEDS ORDERED: ONDANSETRON 4 MG/2 ML VIAL ONE (18:32)
[2020-10-02] MEDS ORDERED: KETOROLAC 30 MG/ML INJ ONE (18:32)
--- NOTE | 2020-10-02 20:04 | EDPHYS ---
Physician Documentation [facility] Name: Salbador Krause Age: 70 yrs Sex: Male : 1950 Arrival Date: 10/02/2020 Time: 16:46 Bed 13 Private MD: ED Physician Kemal Medellin HPI: 10/02 17:42 This 70 yrs old Black Male presents to ER via Ambulatory with complaints of Leg Pain, jmm Back Pain. 17:42 The patient presents with a history of running out of pain medications. Onset: The jmm symptoms/episode began/occurred gradually, 4 day(s) ago. Modifying factors: The symptoms are alleviated by remaining still, the symptoms are aggravated by movement. Associated signs and symptoms: Pertinent negatives fever, nausea, tingling, vomiting, warmth, weakness. This is a 70 year old male with a history of astrial fibrillation, DM, HTN that presents to the ED with complaints of lower back pain which radiates down the left leg. Denies weakness, vomiting, bowel issues. Historical: - Allergies: 16:52 No Known Allergies; ll1 - PMHx: 16:52 Atrial Fib; Diabetes - NIDDM; Hypertension; LYMPHOMA; ll1 - Immunization history:: Client reports receiving the 2nd dose of the Covid vaccine, Flu vaccine is up to date. - Social history:: Smoking status: Patient denies any tobacco usage or history of. ROS: 17:42 Constitutional: Negative for fever, chills, and weight loss, Cardiovascular: Negative jmm for chest pain, palpitations, and edema, Respiratory: Negative for shortness of breath, cough, wheezing, and pleuritic chest pain. 17:42 MS/extremity: Positive for pain. 17:42 Neuro: Negative for weakness. 17:42 All other systems are negative. Exam: 17:42 Constitutional: This is a well developed, well nourished patient who is awake, alert, jmm and in no acute distress. Head/Face: atraumatic. Eyes: EOMI, no conjunctival erythema appreciated ENT: Moist Mucus Membranes Neck: Trachea midline, Supple Chest/axilla: Normal chest wall appearance and motion. Cardiovascular: Regular rate and rhythm. No edema appreciated Respiratory: Normal respirations, no respiratory distress appreciated Abdomen/GI: Non distended, soft 17:42 Back: pain, that is mild, of the lumbar area. 17:42 Neuro: extensor hallucis longus intact bilaterally. 17:42 Psych: Behavior/mood is pleasant, cooperative. Vital Signs: 16:51 BP 156 / 79; Pulse 73; Resp 18; Temp 98.7; Pulse Ox 97% ; Weight 127.01 kg; Height 5 ll1 ft. 9 in. (175.26 cm); Pain 10/10; 18:37 BP 133 / 63; Pulse 56; Resp 18 S; Pulse Ox 96% on R/A; ca1 19:35 BP 169 / 84; Pulse 50; Resp 17 S; Pulse Ox 96% on R/A; ca1 20:24 BP 133 / 68; Pulse 60; Resp 17 S; Pulse Ox 98% on R/A; ca1 16:51 Body Mass Index 41.35 (127.01 kg, 175.26 cm) ll1 MDM: 17:41 Patient medically screened. [facility] 20:00 Data reviewed: vital signs, nurses notes. Counseling: I had a detailed discussion with christina the patient and/or guardian regarding: the historical points, exam findings, and any diagnostic results supporting the discharge/admit diagnosis, the need for outpatient follow up, to return to the emergency department if symptoms worsen or persist or if there are any questions or concerns that arise at home. ED course: Pain relieved in the ED. Most likely sciatica. I do not suspect cauda equina or cord compression. Advised to follow up with pcp for reevaluation and otherwise given strict return precautions. patient understood and agrees with the plan of care. . 02 17:42 Order name: Saline Lock; Complete Time: 18:33 [facility] Administered Medications: 18:18 Drug: Zofran (Ondansetron) 4 mg Route: IVP; Site: right hand; ca1 19:50 Follow up: Response: No adverse reaction; Nausea is decreased ca1 18:20 Drug: Ketorolac 15 mg Route: IVP; Site: right hand; ca1 19:40 Follow up: Response: No adverse reaction; Pain is decreased ca1 18:23 Drug: morphine 4 mg {Note: rass 0.} Route: IVP; Site: right hand; ca1 19:40 Follow up: Response: No adverse reaction; Pain is unchanged, physician notified ca1 18:25 Drug: Valium (diazepam) 2 mg Route: IVP; Site: right hand; ca1 19:40 Follow up: Response: No adverse reaction; Pain is unchanged, physician notified ca1 19:47 Drug: Valium (diazepam) 2 mg Route: IVP; Site: right hand; ca1 20:23 Follow up: Response: No adverse reaction; Pain is decreased ca1 19:50 Drug: fentaNYL (PF) 50 mcg {Note: rass 0.} Route: IVP; Site: right hand; ca1 20:23 Follow up: Response: No adverse reaction; Pain is decreased; RASS: Alert and Calm (0) ca1 Disposition Summary: 10/02/20 20:03 Discharge Ordered Location: Home [facility] Condition: Stable [facility] Diagnosis - Sciatica, left side [facility] Followup: [facility] - With: Private Physician - When: 2 - 3 days - Reason: Recheck today's complaints, Continuance of care, Re-evaluation by your physician Discharge Instructions: - Discharge Summary Sheet [facility] - Sciatica [facility] Forms: - Medication Reconciliation Form [facility] - Thank You Letter [facility] - Antibiotic Education [facility] - Prescription Opioid Use [facility] Prescriptions: - Zanaflex 4 mg Oral Tablet - take 1 tablet by ORAL route every 8 hours As needed; 20 tablet; Refills: 0, [facility] Product Selection Permitted - Tramadol 50 mg Oral Tablet - take 1 tablet by ORAL route every 8 hours as needed; 12 tablet; Refills: 0, [facility] Product Selection Permitted Addendum: 10/05/2020 13:30 Co-signature as Attending Physician, Kemal Medellin MD I agree with the assessment and k dr plan of care. Signatures: Kemal Medellin MD MD kdr Mickail, Joel, PA PA [facility] Erin Caldwell RN RN ca1 Conrad Smith RN RN ll1
--- NOTE | 2020-10-02 20:04 | ER ---
Nurse's Notes [facility] Name: Salbador Krause Age: 70 yrs Sex: Male : 1950 Arrival Date: 10/02/2020 Time: 16:46 Bed 13 Private MD: Diagnosis: Sciatica, left side Presentation: 10/02 16:51 Chief complaint: Patient states: L back pain that radiates down L leg for 3 days. No ll1 trauma or falls. Coronavirus screen: Client denies travel out of the [place] in the last 14 days. At this time, the client does not indicate any symptoms associated with coronavirus-19. Ebola Screen: Patient denies travel to an Ebola-affected area in the 21 days before illness onset. Initial Sepsis Screen: Does the patient meet any 2 criteria? No. Patient's initial sepsis screen is negative. Does the patient have a suspected source of infection? Yes: Bone or joint infection. Risk Assessment: Do you want to hurt yourself or someone else? Patient reports no desire to harm self or others. Onset of symptoms was September 30, 2020. 16:51 Method Of Arrival: Ambulatory ll1 16:51 Acuity: RAFAEL 3 ll1 Historical: - Allergies: 16:52 No Known Allergies; ll1 - PMHx: 16:52 Atrial Fib; Diabetes - NIDDM; Hypertension; LYMPHOMA; ll1 - Immunization history:: Client reports receiving the 2nd dose of the Covid vaccine, Flu vaccine is up to date. - Social history:: Smoking status: Patient denies any tobacco usage or history of. Screenin:15 Abuse screen: Denies threats or abuse. Denies injuries from another. Nutritional ca1 screening: No deficits noted. Tuberculosis screening: No symptoms or risk factors identified. Fall Risk IV access (20 points). Assessment: 17:15 General: Appears in no apparent distress. uncomfortable, Behavior is calm, cooperative, ca1 appropriate for age. Pain: Complains of pain in lumbar area Pain radiates to left leg Pain currently is 10 out of 10 on a pain scale. Quality of pain is described as sharp, shooting, Is intermittent. Neuro: Level of Consciousness is awake, alert, obeys commands, Oriented to person, place, time, situation. Derm: Skin is intact, is healthy with good turgor, Skin is pink, warm \T\ dry. Musculoskeletal: Circulation, motion, and sensation intact. Capillary refill < 3 seconds. 18:37 Reassessment: Patient appears in no apparent distress at this time. Patient and/or ca1 family updated on plan of care and expected duration. Pain level reassessed. Patient is alert, oriented x 3, equal unlabored respirations, skin warm/dry/pink. 19:35 Reassessment: Patient appears in no apparent distress at this time. Patient and/or ca1 family updated on plan of care and expected duration. Pain level reassessed. Patient is alert, oriented x 3, equal unlabored respirations, skin warm/dry/pink. 20:24 Reassessment: Patient appears in no apparent distress at this time. Patient is alert, ca1 oriented x 3, equal unlabored respirations, skin warm/dry/pink. Vital Signs: 16:51 BP 156 / 79; Pulse 73; Resp 18; Temp 98.7; Pulse Ox 97% ; Weight 127.01 kg; Height 5 ll1 ft. 9 in. (175.26 cm); Pain 10/10; 18:37 BP 133 / 63; Pulse 56; Resp 18 S; Pulse Ox 96% on R/A; ca1 19:35 BP 169 / 84; Pulse 50; Resp 17 S; Pulse Ox 96% on R/A; ca1 20:24 BP 133 / 68; Pulse 60; Resp 17 S; Pulse Ox 98% on R/A; ca1 16:51 Body Mass Index 41.35 (127.01 kg, 175.26 cm) ll1 ED Course: 16:46 Patient arrived in ED. mr 16:52 Triage completed. ll1 16:53 Arm band placed on Patient placed in an exam room, on a stretcher. ll1 16:54 Erin Caldwell, JIM is Primary Nurse. ca1 17:15 Patient has correct armband on for positive identification. Bed in low position. Call ca1 light in reach. Side rails up X2. Pulse ox on. NIBP on. Warm blanket given. 17:24 Rudy Ledbetter PA is PHCP. [facility] 17:24 Kemal Medellin MD is Attending Physician. [facility] 18:15 Inserted saline lock: 22 gauge in right hand, using aseptic technique. ca1 18:15 No provider procedures requiring assistance completed. ca1 20:24 IV discontinued, intact, bleeding controlled, No redness/swelling at site. Pressure ca1 dressing applied. Administered Medications: 18:18 Drug: Zofran (Ondansetron) 4 mg Route: IVP; Site: right hand; ca1 19:50 Follow up: Response: No adverse reaction; Nausea is decreased ca1 18:20 Drug: Ketorolac 15 mg Route: IVP; Site: right hand; ca1 19:40 Follow up: Response: No adverse reaction; Pain is decreased ca1 18:23 Drug: morphine 4 mg {Note: rass 0.} Route: IVP; Site: right hand; ca1 19:40 Follow up: Response: No adverse reaction; Pain is unchanged, physician notified ca1 18:25 Drug: Valium (diazepam) 2 mg Route: IVP; Site: right hand; ca1 19:40 Follow up: Response: No adverse reaction; Pain is unchanged, physician notified ca1 19:47 Drug: Valium (diazepam) 2 mg Route: IVP; Site: right hand; ca1 20:23 Follow up: Response: No adverse reaction; Pain is decreased ca1 19:50 Drug: fentaNYL (PF) 50 mcg {Note: rass 0.} Route: IVP; Site: right hand; ca1 20:23 Follow up: Response: No adverse reaction; Pain is decreased; RASS: Alert and Calm (0) ca1 Outcome: 20:03 Discharge ordered by . christina 20:24 Discharged to home ambulatory, with significant other. ca1 20:24 Condition: improved 20:24 Discharge instructions given to patient, significant other, Instructed on discharge instructions, follow up and referral plans. no drinking with medication, no driving heavy equipment, medication usage, Demonstrated understanding of instructions, follow-up care, medications, Prescriptions given X 2. 20:24 Patient left the ED. ca1 Signatures: Rudy Ledbetter PA PA jmm Rivera, Mary mr Erin Caldwell RN RN ca1 Conrad Smith RN RN ll1 Corrections: (The following items were deleted from the chart) 18:34 18:33 Inserted saline lock: 22 gauge in right hand, using aseptic technique. ca1 ca1 20:26 20:24 BP 109 / 58; Pulse 60bpm; Resp 17bpm; Spontaneous; Pulse Ox 98% RA; ca1 ca1
[2020-10-02] MEDS ORDERED: FENTANYL CITR 100 MCG/2 ML ONE (20:06)
[2020-10-02 20:41] VITALS: TEMP 98.7
[2020-10-02 20:46] VITALS: BP 109/58; O2SAT 98
== END 2020-10-02 20:24 | disposition home or self-care (01) ==
LOC: ER 16:43
DX: M54.32 Sciatica, left side (principal); I10 Essential (primary) hypertension
CPT/HCPCS: 96375; 96374; 99284; J3360 ×2; J3010; J2405

== ENCOUNTER 2021-07-17 15:28 | Emergency (ER) | payer OTHER ==
--- OUTSIDE RECORDS SUMMARY | 2021-07-17 15:33 | XMS REPORT | Continuity of Care Document ---
:1950 Author Organization [facility] t Address [address] [place] [address] Care Team Providers Name Role Phone SYSTEM, NOT IN Attending Clinician Unavailable NICKI RANDLE Attending Clinician Unavailable GAURAV VENEGAS Attending Clinician Unavailable ROMANA LORD Admitting Clinician Unavailable GAURAV VENEGAS Admitting Clinician Unavailable Problems This patient has no known problems. Allergies, Adverse Reactions, Alerts This patient has no known allergies or adverse reactions. Medications This patient has no known medications. Procedures This patient has no known procedures. Encounters Start End Encounter Admission Attending Care Care Encounter Source Date/Time Date/Time Type Type Clinicians Facility Department ID 2020-08-16 Outpatient SYSTEM, [facility] [id number] 08:57:41 PROVIDER Tello o n Results Test [...] NOT 1092) ACCURATE CRE ATININE CLEARANCE IN [place] EDICTING GLOMERULAR FILT RATION RATE. ESTIMATED GFR [...] WBC 0-0 (BEAKER) (test code = 413) [id number] 01:30:00 Test Item Value Reference Range Interpretation Comments ACTIVATED CLOTTING TIME 136 sec Refe rence Range: (BEAKER) (test code = 74-137 seconds, 441) Baseline/TESTED AT [address] [address] [id number] 00:22:00 Test Item Value Reference Range Interpretation Comments ACTIVATED CLOTTING TIME 158 sec Refe rence Range: (BEAKER) (test code = 74-137 seconds, 441) Baseline/TESTED AT [address] [address] [id number] 22:31:00 Test Item Value Reference Range Interpretation Comments ACTIVATED CLOTTING TIME 191 sec Refe rence Range: (BEAKER) (test code = 74-137 seconds, 441) Baseline/TESTED AT [place] [address] [id number] 21:06:00 Test Item Value Reference Range Interpretation Comments ACTIVATED CLOTTING TIME 323 sec Refe rence Range: (BEAKER) (test code = 74-137 seconds, 441) Baseline/TESTED AT [place] [address] [id number] 19:12:00 Test Item Value Reference Range Interpretation Comments ACTIVATED CLOTTING TIME 461 sec Refe rence Range: (BEAKER) (test code = 74-137 seconds, 441) Baseline/TESTED AT [place] [address] [id number] 18:26:00 Test Item Value Reference Range Interpretation Comments ACTIVATED CLOTTING TIME 312 sec Refe rence Range: (BEAKER) (test code = 74-137 seconds, 441) Baseline/TESTED AT [place] [address] 0 [id number] 18:07:00 Test Item Value Reference Range Interpretation Comments ACTIVATED CLOTTING TIME 312 sec Refe rence Range: (BEAKER) (test code = 74-137 seconds, 441) Baseline/TESTED AT [place] [address] [id number] 17:30:00 Test Item Value Reference Range Interpretation Comments ACTIVATED CLOTTING TIME 285 sec Refe rence Range: (BEAKER) (test code = 74-137 seconds, 441) Baseline/TESTED AT [place] [address] 0 [id number] 17:29:00 Test Item Value Reference Range Interpretation Comments ACTIVATED CLOTTING TIME 235 sec Refe rence Range: (BEAKER) (test code = 74-137 seconds, 441) Baseline/TESTED AT [place] [address] BASIC METABOLIC [id number] 06:14:00 Test Item Value Reference Range Interpretation [...] (BEAKER) (test code = 413) BASIC METABOLIC [id number] 05:48:00 Test Item Value Reference Range Interpretation [...] 0-0 (BEAKER) (test code = 413) POCT-GLUCOSE [id number] 12:53:00 Test Item Value Reference Range Interpretation Comments POC-GLUCOSE METER 120 mg/dL 70-110 H : TESTED A [facility] 6720 (BEAKER) (test code = [place], 1538) [address]: Jawbone Breaker/Techni pippa ID = [id number] for VINAY FLOWER HEMOGLOBIN [id number] 08:40:00 Test Item Value Reference Range Interpretation Comments HEMOGLOBIN A1C (BEAKER) (test code = 6.7 % 4.3-6.1 H 368) LIPID [id number] 05:08:00 Test Item Value Reference Range Interpretation [...] 130-159 High 160-189 Very High >=190BASIC METABOLIC [id number] 05:08:00 Test Item Value Reference Range Interpretation [...] 0-0 (BEAKER) (test code = 413) POCT-GLUCOSE [id number] 21:05:00 Test Item Value Reference Range Interpretation Comments POC-GLUCOSE METER 103 mg/dL 70-110 : TESTED Geovani Kraft [facility] 6720 (BEAKER) (test code = [place], 1538) [address]: Jawbone Breaker/Techni pippa ID = [id number] for FRANK AVILEZ POCT-GLUCOSE [id number] 18:31:00 Test Item Value Reference Range Interpretation Comments POC-GLUCOSE METER 133 mg/dL 70-110 H : TESTED A T [facility] 6720 (BEAKER) (test code = [place], 1538) [address]: Jawbone Breaker/Techni pippa ID = [id number] for VANIA FLORES BASIC METABOLIC [id number] 16:44:00 Test Item Value Reference Range Interpretation [...] = 413) CBC W/PLT COUNT & AUTO [id number] 07:56:00 Test Item Value Reference Range Interpretation [...] L 0.00-0.20 (test code = 417) 0.00POCT-GLUCOSE [id number] 07:47:00 Test Item Value Reference Range Interpretation Comments POC-GLUCOSE METER 96 mg/dL 70-[address] [facility] 6720 (BEAKER) (test code = [place] [address] 1538) BASIC METABOLIC [id number] 06:30:00 Test Item Value Reference Range Interpretation [...] S NOT APPLICABLE FOR DIALYSIS PATIEN TS. [id number] 06:19:00 Test Item Value Reference Range Interpretation Comments PROTIME (BEAKER) (test code = 14.8 seconds 11.7-14.7 H 759) INR (BEAKER) (test code = 370) 1.2 <=5.9 PARTIAL THROMBOPLASTIN TIME 43.7 seconds 22.5-36.0 H ([facility]) (test code = 760) RECOMMENDED COUMADIN/WARFARIN INR THERAPY RANGESSTANDARD DOSE: 2.0 - 3.0 Includes: PROPHYLAXIS forvenous thrombosis, systemic embolization; TREATMENT for venous thrombosis and/or pulmonary embolus.HIGH RISK: Target INR is 2.5-3.5 for patients with mechanical heart valves.PROTHROMBIN [id number] 06:18:00 Test Item Value Reference Range Interpretation Comments PROTIME (TRINI) (test code = 14.8 seconds 11.7-14.7 H 759) INR ([facility]) (test code = 370) 1.2 <=5.9 RECOMMENDED COUMADIN/WARFARIN INR THERAPY RANGESSTANDARD DOSE: 2.0 - 3.0 Includes: PROPHYLAXIS forvenous thrombosis, systemic embolization; TREATMENT for venous thrombosis and/or pulmonary embolus.HIGH RISK: Target INR is 2.5-3.5 for patients with mechanical heart valves.POCT-GLUCOSE [id number] 21:11:00 Test Item Value Reference Range Interpretation Comments POC-GLUCOSE METER 123 mg/dL 70-110 H TESTED AT [place] [address] ([facility]) (test code = [place] Roth[place] [facility] 1538) [address] POCT-GLUCOSE [id number] 17:40:00 Test Item Value Reference Range Interpretation Comments POC-GLUCOSE METER 123 mg/dL 70-110 H TESTED AT [place] [address] ([facility]) (test code = [place] [facility] 1538) [address] OCCULT BLOOD, [id number] 14:01:00 Test Item Value Reference Range Interpretation Comments FECAL OCCULT BLOOD ([facility]) (test Negative Negative code = 618) POCT-GLUCOSE [id number] 12:37:00 Test Item Value Reference Range Interpretation Comments POC-GLUCOSE METER 120 mg/dL 70-110 H TESTED AT [place] [address] ([facility]) (test code = [place]man [facility] 1538) [address] POCT-GLUCOSE [id number] 07:47:00 Test Item Value Reference Range Interpretation Comments POC-GLUCOSE METER 100 mg/dL 70-110 TESTED AT [place] [address] ([facility]) (test code = [place] 1538) [address] [id number] 04:10:00 Test Item Value Reference Range Interpretation Comments PHOSPHORUS (BEAKER) (test code = 4.2 mg/dL 2.3-4.7 604) [id number] 04:10:00 Test Item Value Reference Range Interpretation Comments MAGNESIUM (BEAKER) (test code = 1.7 mg/dL 1.6-2.6 627) BASIC METABOLIC [id number] 04:10:00 Test Item Value Reference Range Interpretation [...] APPLICABLE FOR DIALYSIS PATIEN TS. HEPATIC FUNCTION [id number] 04:10:00 Test Item Value Reference Range Interpretation [...] (test code = 15 U/L 6-55 347) [id number] 04:03:00 Test Item Value Reference Range Interpretation [...] is 2.5-3.5 for patients with mechanical heart valves.[id number] 04:03:00 Test Item Value Reference Range Interpretation Comments PARTIAL THROMBOPLASTIN TIME 70.7 seconds 22.5-36.0 H (BEAKER) (test code = 760) PROTHROMBIN [id number] 04:02:00 Test Item Value Reference Range Interpretation [...] L 0.00-0.20 (test code = 417) 0.00POCT-GLUCOSE [id number] 22:16:00 Test Item Value Reference Range Interpretation Comments POC-GLUCOSE METER 115 mg/dL 70-110 H TESTED AT [place] [address] ([facility]) (test code = [place] 1538) [address] [id number] 21:09:00 Test Item Value Reference Range Interpretation Comments PARTIAL THROMBOPLASTIN TIME 65.3 seconds 22.5-36.0 H (BEAKER) (test code = 760) POCT-GLUCOSE [id number] 17:35:00 Test Item Value Reference Range Interpretation Comments POC-GLUCOSE METER 103 mg/dL 70-110 TESTED AT [place] [address] (BEAKER) (test code = [place] 1538) [address] PERIPHERAL BLOOD SMEAR - PATHOLOGIST [id number] 15:13:00 Test Item Value Reference Range Interpretation [...] for (test code = complete evalua tion 3525) of this patient 's anemia. [facility]-PATHOLOGIST- Sabrina Stiles (BEAKER) Eleonora (test code = Amanda woodruff 0300) (electronic signature) OCCULT BLOOD, [id number] 12:57:00 Test Item Value Reference Range Interpretation Comments FECAL OCCULT BLOOD (BEAKER) (test Negative Negative code = 618) POCT-GLUCOSE [id number] 11:54:00 Test Item Value Reference Range Interpretation Comments POC-GLUCOSE METER 82 mg/dL 70-110 TESTED AT [place] [address] ([facility]) (test code = [place] [facility] [address]) [id number] 11:50:00 Test Item Value Reference Range Interpretation [...] MEAN CORPUSCULAR HEMOGLOBIN 24.8 pg 27.0-33.0 L (AKER) (test code = 751) MEAN CORPUSCULAR HEMOGLOBIN CONC 30.7 GM/DL 32.0-36.0 L (AKER) (test code = 752) RED CELL DISTRIBUTION WIDTH 21.8 % 10.3-14.2 H (AKER) (test code = 412) PLATELET COUNT ([facility]) (test 275 K/CU MM 150-430 code = 756) MEAN PLATELET VOLUME (AKER) 8.9 fL 6.5-10.5 (test code = 754) NUCLEATED RED BLOOD CELLS 0 /100 WBC 0-0 (AKER) (test code = 413) 0.00POCT-GLUCOSE [id number] 08:03:00 Test Item Value Reference Range Interpretation Comments POC-GLUCOSE METER 96 mg/dL 70-[address] [facility] 6720 ([facility]) (test code = [place] [address] 1538) HEMOGLOBIN [id number] 08:02:00 Test Item Value Reference Range Interpretation Comments HEMOGLOBIN A1C (BEAKER) (test code = 6.5 % 4.3-6.1 H 368) [id number] 04:21:00 Test Item Value Reference Range Interpretation Comments PROTIME (BEAKER) (test code = 15.2 seconds 11.7-14.7 H 759) INR (AKER) (test code = 370) 1.2 <=5.9 PARTIAL THROMBOPLASTIN TIME 41.8 seconds 22.5-36.0 H (AKER) (test code = 760) RECOMMENDED COUMADIN/WARFARIN INR THERAPY RANGESSTANDARD DOSE: 2.0 - 3.0 Includes: PROPHYLAXIS forvenous thrombosis, systemic embolization; TREATMENT for venous thrombosis and/or pulmonary embolus.HIGH RISK: Target INR is 2.5-3.5 for patients with mechanical heart valves.[id number] 04:21:00 Test Item Value Reference Range Interpretation Comments PHOSPHORUS (BEAKER) (test code = 3.8 mg/dL 2.3-4.7 604) [id number] 04:21:00 Test Item Value Reference Range Interpretation Comments MAGNESIUM (BEAKER) (test code = 1.6 mg/dL 1.6-2.6 627) BASIC METABOLIC [id number] 04:21:00 Test Item Value Reference Range Interpretation [...] APPLICABLE FOR DIALYSIS PATIEN TS. HEPATIC FUNCTION [id number] 04:21:00 Test Item Value Reference Range Interpretation [...] code = 13 U/L 6-55 347) PROTHROMBIN [id number] 04:20:00 Test Item Value Reference Range Interpretation [...] K/ L 0.00-0.20 (test code = 417) [id number] 02:36:00 Test Item Value Reference Range Interpretation Comments FERRITIN (BEAKER) (test code = 2576 ng/mL 5-275 H 361) Effective 02/18/2014: Reference Range ChangeNew: Male 5-275 Previous: Male 22-322 Female 5-275 Female [id number] 02:30:00 Test Item Value Reference Range Interpretation Comments HAPTOGLOBIN (BEAKER) (test code = 242 mg/dL 14-258 366) Effective 02/18/2014: Reference Range ChangeNew: 14-258 Previous: 36-195 VITAMIN [id number] 01:42:00 Test Item Value Reference Range Interpretation Comments VITAMIN B12 (BEAKER) (test code = 1077 pg/mL 213-816 H 774) FOLATE, [id number] 01:42:00 Test Item Value Reference Range Interpretation [...] (BEAKER) (test code 1+ few = 480) [id number] 23:12:00 Test Item Value Reference Range Interpretation Comments MAGNESIUM (BEAKER) (test code = 1.5 mg/dL 1.6-2.6 L 627) COMPREHENSIVE METABOLIC [id number] 23:12:00 Test Item Value Reference Range Interpretation [...] (test 205 U/L 125-220 code = 635) [id number] 23:12:00 Test Item Value Reference Range Interpretation Comments PHOSPHORUS (BEAKER) (test code = 3.5 mg/dL 2.3-4.7 604) RETICULOCYTE [id number] 23:09:00 Test Item Value Reference Range Interpretation Comments RETICULOCYTE COUNT PCT (BEAKER) (test 2.5 % 0.4-2.9 code = 575) CBC W/PLT COUNT & AUTO [id number] 23:09:00 Test Item Value Reference Range Interpretation [...] L 0.00-0.20 (test code = 417) POCT-GLUCOSE [id number] 22:56:00 Test Item Value Reference Range Interpretation Comments POC-GLUCOSE METER 155 mg/dL 70-110 H TESTED AT [facility] 6720 (BEAKER) (test code = [place] [facility] 1538) [address] POCT-GLUCOSE [id number] 17:39:00 Test Item Value Reference Range Interpretation Comments POC-GLUCOSE METER 106 mg/dL 70-110 TESTED AT [place] [address] ([facility]) (test code = [facility] 1538) [address]
[2021-07-17] MEDS ORDERED: KETOROLAC 30 MG/ML INJ ONE (17:08)
[2021-07-17] MEDS ORDERED: HYDROCODONE/APAP 10/325 TAB ONE (17:08)
[2021-07-17] MEDS ORDERED: DIAZEPAM 5 MG TABLET ONE (17:08)
[2021-07-17] MEDS ORDERED: ONDANSETRON 4 MG (ODT) TAB ONE (17:09)
--- NOTE | 2021-07-17 17:55 | ER ---
Nurse's Notes [facility] Name: Salbador Krause Age: 71 yrs Sex: Male : 1950 Arrival Date: 07/17/2021 Time: 15:32 Bed 12 Private MD: Diagnosis: Lumbago with sciatica, left side Presentation: 07/17 15:49 Chief complaint: Patient states: I am having pain from my left lower back down through jb4 my left hip and leg. I have been here for this before and was given a shot to help the pain. Coronavirus screen: At this time, the client does not indicate any symptoms associated with coronavirus-19. Ebola Screen: No symptoms or risks identified at this time. Initial Sepsis Screen: Does the patient meet any 2 criteria? No. Patient's initial sepsis screen is negative. Does the patient have a suspected source of infection? No. Patient's initial sepsis screen is negative. Risk Assessment: Do you want to hurt yourself or someone else? Patient reports no desire to harm self or others. Onset of symptoms was July 17, 2021. Transition of care: patient was not received from another setting of care. 15:49 Method Of Arrival: Ambulatory jb4 15:49 Acuity: RAFAEL 4 jb4 Historical: - Allergies: 15:51 No Known Allergies; jb4 - Home Meds: 15:51 atorvastatin 80 mg Oral tab 1 tab once daily [Active]; Eliquis 5 mg Oral tab 1 tab 2 jb4 times per day [Active]; Metformin Oral [Active]; metoprolol tartrate 12.5 mg Oral tab once daily [Active]; Entresto oral [Active]; - PMHx: 15:51 Atrial Fib; Diabetes - NIDDM; Hypertension; LYMPHOMA; jb4 - PSHx: 15:51 heart stent; jb4 - Immunization history:: Adult Immunizations up to date. - Social history:: Smoking status: Patient denies any tobacco usage or history of. Patient uses alcohol, but reports only rare drinking. Patient/guardian denies using street drugs. Screenin:07 Abuse screen: Denies threats or abuse. Nutritional screening: No deficits noted. jb4 Tuberculosis screening: No symptoms or risk factors identified. Fall Risk None identified. Assessment: 15:51 General: Appears in no apparent distress. comfortable, Behavior is calm, cooperative, jb4 appropriate for age. Pain: Complains of pain in left low back Pain radiates to left leg Pain currently is 8 out of 10 on a pain scale. Neuro: Level of Consciousness is awake, alert, obeys commands, Oriented to person, place, time, situation. Cardiovascular: Patient's skin is warm and dry. Respiratory: Airway is patent Respiratory effort is even, unlabored, Respiratory pattern is regular, symmetrical. GI: No signs and/or symptoms were reported involving the gastrointestinal system. : No signs and/or symptoms were reported regarding the genitourinary system. EENT: No signs and/or symptoms were reported regarding the EENT system. Derm: Skin is intact, Skin is dry, Skin is normal, Skin temperature is warm. Musculoskeletal: Circulation, motion, and sensation intact. Range of motion: intact in all extremities. 18:07 Reassessment: Patient appears in no apparent distress at this time. Patient and/or jb4 family updated on plan of care and expected duration. Pain level reassessed. Patient is alert, oriented x 3, equal unlabored respirations, skin warm/dry/pink. Vital Signs: 15:49 BP 167 / 88; Pulse 57; Resp 18; Temp 97.4(TE); Pulse Ox 98% on R/A; Weight 117.93 kg jb4 (R); Height 5 ft. 9 in. (175.26 cm) (R); Pain 9/10; 15:49 Body Mass Index 38.39 (117.93 kg, 175.26 cm) jb4 ED Course: 15:32 Patient arrived in ED. as 15:50 Triage completed. jb4 15:51 Arm band placed on right wrist. jb4 15:51 Patient has correct armband on for positive identification. Bed in low position. Call jb4 light in reach. Side rails up X 1. 15:55 [facility] Led[facility] 15:55 Truman Golden MD is Attending Physician. [facility] 16:03 Dread Lundy, JIM is Primary Nurse. jb 18:07 No provider procedures requiring assistance completed. Patient did not have IV access jb4 during this emergency room visit. Administered Medications: 16:07 CANCELLED (different medication usedd): Decadron (dexamethasone) 10 mg IM once [facility] 17:16 Drug: Poston (HYDROcodone-acetaminophen) 10 mg-325 mg 1 tabs Route: PO; jl7 17:16 Drug: Valium (diazepam) 5 mg Route: PO; jl7 17:16 Drug: Ketorolac 30 mg Route: IM; Site: left deltoid; jl7 17:16 Drug: Ondansetron 4 mg Route: PO; jl7 Outcome: 17:55 Discharge ordered by MD. vasquez 18:07 Discharged to home ambulatory. jb4 18:07 Condition: stable 18:07 Discharge instructions given to patient, Instructed on discharge instructions, follow up and referral plans. no drinking with medication, no driving heavy equipment, medication usage, Demonstrated understanding of instructions, follow-up care, medications, Prescriptions given X 1. 18:08 Patient left the ED. jb4 Signatures: Rudy Ledbetter PA PA jmm Martinez, Amelia as Bryson, James, RN RN jb4 Sherlyn Sanders RN RN jl7 Corrections: (The following items were deleted from the chart) 18:08 18:07 Patient has correct armband on for positive identification. Bed in low position. jb4 Call light in reach. Side rails up X 1. jb4
--- NOTE | 2021-07-17 17:55 | EDPHYS ---
Physician Documentation [facility] Name: Salbador Krause Age: 71 yrs Sex: Male : 1950 Arrival Date: 07/17/2021 Time: 15:32 Bed 12 Private MD: ED Physician Truman Golden HPI: 07/17 16:03 This 71 yrs old Black Male presents to ER via Ambulatory with complaints of Low Back jmm Pain, Hip Pain. 16:03 The patient presents with pain that is acute. The symptoms are located in the low back. jmm The pain radiates to the left leg. Onset: The symptoms/episode began/occurred gradually, 1 day(s) ago. Modifying factors: The patient symptoms are alleviated by remaining still, rest, the patient symptoms are aggravated by any movement, bending, lifting, movement. This is a 71 year old male with a history of atrial fib, DM, HTN, that presents to the ED with complaints of left sided back pain which radiates down his left leg. Denies bowel or bladder issues. Denies numbness. Symptoms have occurred in the past . Historical: - Allergies: 15:51 No Known Allergies; jb4 - Home Meds: 15:51 atorvastatin 80 mg Oral tab 1 tab once daily [Active]; Eliquis 5 mg Oral tab 1 tab 2 jb4 times per day [Active]; Metformin Oral [Active]; metoprolol tartrate 12.5 mg Oral tab once daily [Active]; Entresto oral [Active]; - PMHx: 15:51 Atrial Fib; Diabetes - NIDDM; Hypertension; LYMPHOMA; jb4 - PSHx: 15:51 heart stent; jb4 - Immunization history:: Adult Immunizations up to date. - Social history:: Smoking status: Patient denies any tobacco usage or history of. Patient uses alcohol, but reports only rare drinking. Patient/guardian denies using street drugs. ROS: 16:03 Constitutional: Negative for fever, chills, and weight loss, Cardiovascular: Negative jmm for chest pain, palpitations, and edema, Respiratory: Negative for shortness of breath, cough, wheezing, and pleuritic chest pain. 16:03 Back: Positive for pain with movement. 16:03 All other systems are negative. Exam: 16:03 Constitutional: This is a well developed, well nourished patient who is awake, alert, jmm and in no acute distress. Head/Face: atraumatic. Eyes: EOMI, no conjunctival erythema appreciated ENT: Moist Mucus Membranes Neck: Trachea midline, Supple Chest/axilla: Normal chest wall appearance and motion. Cardiovascular: Regular rate and rhythm. No edema appreciated Respiratory: Normal respirations, no respiratory distress appreciated Abdomen/GI: Non distended, soft 16:03 Skin: General appearance color normal MS/ Extremity: Moves all extremities, no obvious deformities appreciated, no edema noted to the lower extremities Neuro: Awake and alert Psych: Behavior is normal, Mood is normal, Patient is cooperative and pleasant 16:03 Back: pain, that is moderate, of the left low back. Vital Signs: 15:49 BP 167 / 88; Pulse 57; Resp 18; Temp 97.4(TE); Pulse Ox 98% on R/A; Weight 117.93 kg jb4 (R); Height 5 ft. 9 in. (175.26 cm) (R); Pain 9/10; 15:49 Body Mass Index 38.39 (117.93 kg, 175.26 cm) jb4 MDM: 16:03 Patient medically screened. [facility] 17:53 Data reviewed: vital signs, nurses notes. Counseling: I had a detailed discussion with [facility] the patient and/or guardian regarding: the historical points, exam findings, and any diagnostic results supporting the discharge/admit diagnosis, the need for outpatient follow up, to return to the emergency department if symptoms worsen or persist or if there are any questions or concerns that arise at home. ED course: Pain relieved in the ED. Denies trauma. I do not currently suspect cauda equina, cord compression, spinal abscess, ureterolithiasis, dissection. Patient has had similar episodes in the past. Patient advised to follow up with pcp and otherwise given strict return precautions. Patient understood and agrees with the plan of care. . Administered Medications: 16:07 CANCELLED (different medication usedd): Decadron (dexamethasone) 10 mg IM once [facility] 17:16 Drug: [place] (HYDROcodone-acetaminophen) 10 mg-325 mg 1 tabs Route: PO; jl7 17:16 Drug: Valium (diazepam) 5 mg Route: PO; jl7 17:16 Drug: Ketorolac 30 mg Route: IM; Site: left deltoid; jl7 17:16 Drug: Ondansetron 4 mg Route: PO; jl7 Disposition Summary: 07/17/21 17:55 Discharge Ordered Location: Home [facility] Condition: Stable [facility] Diagnosis - Lumbago with sciatica, left side [facility] Followup: christina - With: Private Physician - When: 2 - 3 days - Reason: Recheck today's complaints, Continuance of care, Re-evaluation by your physician Discharge Instructions: - Discharge Summary Sheet grecia - Sciatica [facility] Forms: - Medication Reconciliation Form [facility] - Thank You Letter [facility] - Antibiotic Education [facility] - Prescription Opioid Use [facility] Prescriptions: - orphenadrine citrate 100 mg Oral Tablet Sustained Release - take 1 tablet by ORAL route 2 times per day As needed; 20 tablet; Refills: 0, [facility] Product Selection Permitted Signatures: Rudy Ledbetter PA PA jmm Bryson, James, RN RN jb4 Sherlyn Sanders RN RN jl7 Corrections: (The following items were deleted from the chart) 16:07 16:06 Decadron (dexamethasone) 10 mg IM once ordered. gunner paige
[2021-07-17 18:12] VITALS: BP 167/88; TEMP 97.4; O2SAT 98
== END 2021-07-17 18:08 | disposition home or self-care (01) ==
LOC: ER 15:28
DX: M54.42 Lumbago with sciatica, left side (principal); E11.9 Type 2 diabetes mellitus without complications; I48.91 Unspecified atrial fibrillation; I10 Essential (primary) hypertension; Z79.01 Long term (current) use of anticoagulants; Z95.818 Presence of other cardiac implants and grafts
CPT/HCPCS: 96372; 99283

== ENCOUNTER 2021-07-30 11:52 | Emergency (ER) | payer OTHER ==
--- OUTSIDE RECORDS SUMMARY | 2021-07-30 11:56 | XMS REPORT | Continuity of Care Document ---
:1950 Author Organization [facility] t Address [address] [place] [address] Care Team Providers Name Role Phone SYSTEM, [...] Clinicians Facility Department ID 2020-08-16 Outpatient SYSTEM, [facility] [id number] 08:57:41 PROVIDER Tello o n Results Test [...] NOT 1092) ACCURATE CRE ATININE CLEARANCE IN NE EDICTING GLOMERULAR FILT RATION RATE. ESTIMATED GFR [...] WBC 0-0 (BEAKER) (test code = 413) [id number] 01:30:00 Test Item Value Reference Range Interpretation Comments ACTIVATED CLOTTING TIME 136 sec Refe rence Range: (BEAKER) (test code = 74-137 seconds, 441) Baseline/TESTED AT [address] [address] [id number] 00:22:00 Test Item Value Reference Range Interpretation Comments ACTIVATED CLOTTING TIME 158 sec Refe rence Range: (BEAKER) (test code = 74-137 seconds, 441) Baseline/TESTED AT [address] [address] [id number] 22:31:00 Test Item Value Reference Range Interpretation Comments ACTIVATED CLOTTING TIME 191 sec Refe rence Range: (BEAKER) (test code = 74-137 seconds, 441) Baseline/TESTED AT [place] [address] 0 [id number] 21:06:00 Test Item Value Reference Range Interpretation Comments ACTIVATED CLOTTING TIME 323 sec Refe rence Range: (BEAKER) (test code = 74-137 seconds, 441) Baseline/TESTED AT [place] [address] 0 [id number] 19:12:00 Test Item Value Reference Range Interpretation Comments ACTIVATED CLOTTING TIME 461 sec Refe rence Range: (BEAKER) (test code = 74-137 seconds, 441) Baseline/TESTED AT [place] [address] 0 [id number] 18:26:00 Test Item Value Reference Range Interpretation Comments ACTIVATED CLOTTING TIME 312 sec Refe rence Range: (BEAKER) (test code = 74-137 seconds, 441) Baseline/TESTED AT [place] [address] 0 [id number] 18:07:00 Test Item Value Reference Range Interpretation Comments ACTIVATED CLOTTING TIME 312 sec Refe rence Range: (BEAKER) (test code = 74-137 seconds, 441) Baseline/TESTED AT [place] [address] 0 [id number] 17:30:00 Test Item Value Reference Range Interpretation Comments ACTIVATED CLOTTING TIME 285 sec Refe rence Range: (BEAKER) (test code = 74-137 seconds, 441) Baseline/TESTED AT [place] [address] 0 [id number] 17:29:00 Test Item Value Reference Range Interpretation Comments ACTIVATED CLOTTING TIME 235 sec Refe rence Range: (BEAKER) (test code = 74-137 seconds, 441) Baseline/TESTED AT [place] [address] 0 BASIC METABOLIC [id number] 06:14:00 Test Item Value Reference Range Interpretation [...] (BEAKER) (test code = 413) BASIC METABOLIC [id number] 05:48:00 Test Item Value Reference Range Interpretation [...] 0-0 (BEAKER) (test code = 413) POCT-GLUCOSE [id number] 12:53:00 Test Item Value Reference Range Interpretation Comments POC-GLUCOSE METER 120 mg/dL 70-110 H : TESTED A T [facility] 6720 (BEAKER) (test code = [place], 1538) [address]: Lactation Coordinator/Techni pippa ID = [id number] for VINAY FLOWER HEMOGLOBIN [id number] 08:40:00 Test Item Value Reference Range Interpretation Comments HEMOGLOBIN A1C (BEAKER) (test code = 6.7 % 4.3-6.1 H 368) LIPID [id number] 05:08:00 Test Item Value Reference Range Interpretation [...] 130-159 High 160-189 Very High >=190BASIC METABOLIC [id number] 05:08:00 Test Item Value Reference Range Interpretation [...] 0-0 (BEAKER) (test code = 413) POCT-GLUCOSE [id number] 21:05:00 Test Item Value Reference Range Interpretation Comments POC-GLUCOSE METER 103 mg/dL 70-110 : TESTED Geovani Kraft [facility] 6720 (BEAKER) (test code = [place], 15[address]) [address]: Lactation Coordinator/Techni pippa ID = [id number] for FRANK AVILEZ POCT-GLUCOSE [id number] 18:31:00 Test Item Value Reference Range Interpretation Comments POC-GLUCOSE METER 133 mg/dL 70-110 H : TESTED A T [facility] 6720 (BEAKER) (test code = [place], 1538) [address]: Lactation Coordinator/Techni pippa ID = [id number] for VANIA FLORES BASIC METABOLIC [id number] 16:44:00 Test Item Value Reference Range Interpretation [...] = 413) CBC W/PLT COUNT & AUTO [id number] 07:56:00 Test Item Value Reference Range Interpretation [...] L 0.00-0.20 (test code = 417) 0.00POCT-GLUCOSE [id number] 07:47:00 Test Item Value Reference Range Interpretation Comments POC-GLUCOSE METER 96 mg/dL 70-110 TESTED AT [facility] 6720 (BEAKER) (test code = [place] [address] 1538) BASIC METABOLIC [id number] 06:30:00 Test Item Value Reference Range Interpretation [...] S NOT APPLICABLE FOR DIALYSIS PATIEN TS. [id number] 06:19:00 Test Item Value Reference Range Interpretation Comments PROTIME (BEAKER) (test code = 14.8 seconds 11.7-14.7 H 759) INR (BEAKER) (test code = 370) 1.2 <=5.9 PARTIAL THROMBOPLASTIN TIME 43.7 seconds 22.5-36.0 H ([facility]) (test code = 760) RECOMMENDED COUMADIN/WARFARIN INR THERAPY RANGESSTANDARD DOSE: 2.0 - 3.0 Includes: PROPHYLAXIS forvenous thrombosis, systemic embolization; TREATMENT for venous thrombosis and/or pulmonary embolus.HIGH RISK: Target INR is 2.5-3.5 for patients with mechanical heart valves.PROTHROMBIN [id number] 06:18:00 Test Item Value Reference Range Interpretation Comments PROTIME (TRINI) (test code = 14.8 seconds 11.7-14.7 H 759) INR ([facility]) (test code = 370) 1.2 <=5.9 RECOMMENDED COUMADIN/WARFARIN INR THERAPY RANGESSTANDARD DOSE: 2.0 - 3.0 Includes: PROPHYLAXIS forvenous thrombosis, systemic embolization; TREATMENT for venous thrombosis and/or pulmonary embolus.HIGH RISK: Target INR is 2.5-3.5 for patients with mechanical heart valves.POCT-GLUCOSE [id number] 21:11:00 Test Item Value Reference Range Interpretation Comments POC-GLUCOSE METER 123 mg/dL 70-110 H TESTED AT [place] [address] ([facility]) (test code = [place] [facility] 1538) [address] POCT-GLUCOSE [id number] 17:40:00 Test Item Value Reference Range Interpretation Comments POC-GLUCOSE METER 123 mg/dL 70-110 H TESTED AT [place] [address] ([facility]) (test code = CALVIN Rothman [facility] 1538) [address] OCCULT BLOOD, [id number] 14:01:00 Test Item Value Reference Range Interpretation Comments FECAL OCCULT BLOOD ([facility]) (test Negative Negative code = 618) POCT-GLUCOSE [id number] 12:37:00 Test Item Value Reference Range Interpretation Comments POC-GLUCOSE METER 120 mg/dL 70-110 H TESTED AT [place] [address] ([facility]) (test code = CALVIN Rothman [facility] 1538) [address] POCT-GLUCOSE [id number] 07:47:00 Test Item Value Reference Range Interpretation Comments POC-GLUCOSE METER 100 mg/dL 70-110 TESTED AT [place] [address] ([facility]) (test code = AMANDAVION Stephan [place] 1538) [address] [id number] 04:10:00 Test Item Value Reference Range Interpretation Comments PHOSPHORUS (BEAKER) (test code = 4.2 mg/dL 2.3-4.7 604) [id number] 04:10:00 Test Item Value Reference Range Interpretation Comments MAGNESIUM (BEAKER) (test code = 1.7 mg/dL 1.6-2.6 627) BASIC METABOLIC [id number] 04:10:00 Test Item Value Reference Range Interpretation [...] APPLICABLE FOR DIALYSIS PATIEN TS. HEPATIC FUNCTION [id number] 04:10:00 Test Item Value Reference Range Interpretation [...] (test code = 15 U/L 6-55 347) [id number] 04:03:00 Test Item Value Reference Range Interpretation [...] is 2.5-3.5 for patients with mechanical heart valves.[id number] 04:03:00 Test Item Value Reference Range Interpretation Comments PARTIAL THROMBOPLASTIN TIME 70.7 seconds 22.5-36.0 H (BEAKER) (test code = 760) PROTHROMBIN [id number] 04:02:00 Test Item Value Reference Range Interpretation [...] L 0.00-0.20 (test code = 417) 0.00POCT-GLUCOSE [id number] 22:16:00 Test Item Value Reference Range Interpretation Comments POC-GLUCOSE METER 115 mg/dL 70-110 H TESTED AT [place] [address] ([facility]) (test code = [place] 1538) [address] [id number] 21:09:00 Test Item Value Reference Range Interpretation Comments PARTIAL THROMBOPLASTIN TIME 65.3 seconds 22.5-36.0 H (BEAKER) (test code = 760) POCT-GLUCOSE [id number] 17:35:00 Test Item Value Reference Range Interpretation Comments POC-GLUCOSE METER 103 mg/dL 70-110 TESTED AT [place] [address] (BEAKER) (test code = [place] 1538) [address] PERIPHERAL BLOOD SMEAR - PATHOLOGIST [id number] 15:13:00 Test Item Value Reference Range Interpretation [...] for (test code = complete evalua tion 0499) of this patient 's anemia. [facility]-PATHOLOGIST- Sabrina Stiles (BEAKER) Eleonora (test code = Amanda woodruff 2285) (electronic signature) OCCULT BLOOD, [id number] 12:57:00 Test Item Value Reference Range Interpretation Comments FECAL OCCULT BLOOD (BEAKER) (test Negative Negative code = 618) POCT-GLUCOSE [id number] 11:54:00 Test Item Value Reference Range Interpretation Comments POC-GLUCOSE METER 82 mg/dL 70-110 TESTED AT [place] [address] ([facility]) (test code = [place]VIN [place] [facility] [address]) [id number] 11:50:00 Test Item Value Reference Range Interpretation [...] (AKER) (test code = 412) PLATELET COUNT ([facility]) (test 275 K/CU MM 150-430 code = 756) MEAN PLATELET VOLUME (AKER) 8.9 fL 6.5-10.5 (test code = 754) NUCLEATED RED BLOOD CELLS 0 /100 WBC 0-0 (AKER) (test code = 413) 0.00POCT-GLUCOSE [id number] 08:03:00 Test Item Value Reference Range Interpretation Comments POC-GLUCOSE METER 96 mg/dL 70-110 TESTED AT [facility] 6720 ([facility]) (test code = [place] [address]38) HEMOGLOBIN [id number] 08:02:00 Test Item Value Reference Range Interpretation Comments HEMOGLOBIN A1C (BEAKER) (test code = 6.5 % 4.3-6.1 H 368) [id number] 04:21:00 Test Item Value Reference Range Interpretation [...] is 2.5-3.5 for patients with mechanical heart valves.[id number] 04:21:00 Test Item Value Reference Range Interpretation Comments PHOSPHORUS (BEAKER) (test code = 3.8 mg/dL 2.3-4.7 604) [id number] 04:21:00 Test Item Value Reference Range Interpretation Comments MAGNESIUM (BEAKER) (test code = 1.6 mg/dL 1.6-2.6 627) BASIC METABOLIC [id number] 04:21:00 Test Item Value Reference Range Interpretation [...] APPLICABLE FOR DIALYSIS PATIEN TS. HEPATIC FUNCTION [id number] 04:21:00 Test Item Value Reference Range Interpretation [...] code = 13 U/L 6-55 347) PROTHROMBIN [id number] 04:20:00 Test Item Value Reference Range Interpretation [...] K/ L 0.00-0.20 (test code = 417) [id number] 02:36:00 Test Item Value Reference Range Interpretation Comments FERRITIN (BEAKER) (test code = 2576 ng/mL 5-275 H 361) Effective 02/18/2014: Reference Range ChangeNew: Male 5-275 Previous: Male 22-322 Female 5-275 Female [id number] 02:30:00 Test Item Value Reference Range Interpretation Comments HAPTOGLOBIN (BEAKER) (test code = 242 mg/dL 14-258 366) Effective 02/18/2014: Reference Range ChangeNew: 14-258 Previous: 36-195 VITAMIN [id number] 01:42:00 Test Item Value Reference Range Interpretation Comments VITAMIN B12 (BEAKER) (test code = 1077 pg/mL 213-816 H 774) FOLATE, [id number] 01:42:00 Test Item Value Reference Range Interpretation [...] (BEAKER) (test code 1+ few = 480) [id number] 23:12:00 Test Item Value Reference Range Interpretation Comments MAGNESIUM (BEAKER) (test code = 1.5 mg/dL 1.6-2.6 L 627) COMPREHENSIVE METABOLIC [id number] 23:12:00 Test Item Value Reference Range Interpretation [...] (test 205 U/L 125-220 code = 635) [id number] 23:12:00 Test Item Value Reference Range Interpretation Comments PHOSPHORUS (BEAKER) (test code = 3.5 mg/dL 2.3-4.7 604) RETICULOCYTE [id number] 23:09:00 Test Item Value Reference Range Interpretation Comments RETICULOCYTE COUNT PCT (BEAKER) (test 2.5 % 0.4-2.9 code = 575) CBC W/PLT COUNT & AUTO [id number] 23:09:00 Test Item Value Reference Range Interpretation [...] L 0.00-0.20 (test code = 417) POCT-GLUCOSE [id number] 22:56:00 Test Item Value Reference Range Interpretation Comments POC-GLUCOSE METER 155 mg/dL 70-110 H TESTED AT [facility] 6720 (BEAKER) (test code = AMANCA Stephan [facility] 1538) [address] POCT-GLUCOSE [id number] 17:39:00 Test Item Value Reference Range Interpretation Comments POC-GLUCOSE METER 106 mg/dL 70-110 TESTED AT [place] [address] ([facility]) (test code = [facility] 1538) [address]
[2021-07-30] MEDS ORDERED: HYDROCODONE/APAP 10/325 TAB ONE (12:58)
[2021-07-30 13:30] LABS: Absolute Lymphocytes (CBC) 1.5 K/uL (0.7-4.9); Hematocrit 42.2 % (39.6-49.0); Lymphocytes % 24.4 % (15.3-44.8); MPV 9.5 fL (7.6-11.3)
[2021-07-30] MEDS ORDERED: METHYLPREDNISOLONE 125 MG INJ ONE (14:50)
--- NOTE | 2021-07-30 15:03 | RAD REPORT ---
EXAM DESCRIPTION: RAD - Wrist Right 3 View - 07/30/2021 2:03 pm CLINICAL HISTORY: Right wrist pain FINDINGS: No fracture or dislocation is seen. Moderate narrowing of the radius scaphoid joint with subchondral sclerosis and osteophytes.
--- NOTE | 2021-07-30 15:04 | RAD REPORT ---
EXAM DESCRIPTION: RAD - Hand Right 3 View - 07/30/2021 2:00 pm CLINICAL HISTORY: Right hand pain FINDINGS: No fracture or dislocation is seen. Mild narrowing of the DIP and PIP joints. Bones appear somewhat demineralized.
[2021-07-30 15:14] LABS: Albumin 3.5 g/dL (3.4-5.0)
[2021-07-30 15:28] LABS: Bilirubin Total 0.4 mg/dL (0.2-1.0); C-Reactive Protein 7.72 mg/L (<3.00); Protein, Total 7.5 g/dL (6.4-8.2)
--- NOTE | 2021-07-30 15:29 | EDPHYS ---
Physician Documentation [facility] Name: Salbador Krause Age: 71 yrs Sex: Male : 1950 Arrival Date: 07/30/2021 Time: 11:54 Bed 13 Private MD: ED Physician Kemal Medellin Historical: - Allergies: 07/30 12:05 No Known Allergies; ab2 - PMHx: 12:05 Atrial Fib; Diabetes - NIDDM; Hypertension; LYMPHOMA; ab2 - PSHx: 12:05 heart stent; ab2 - Immunization history:: Adult Immunizations up to date. - Social history:: Smoking status: Patient denies any tobacco usage or history of. Vital Signs: 12:05 BP 196 / 97; Pulse 70; Resp 17; Temp 98.5; Pulse Ox 98% on R/A; Weight 113.4 kg; Height ab2 5 ft. 9 in. (175.26 cm); Pain 6/10; 15:40 BP 191 / 95; Pulse 54; Resp 16; Pulse Ox 98% ; ww 12:05 Body Mass Index 36.92 (113.40 kg, 175.26 cm) ab2 MDM: 15:28 Patient medically screened. kdr 07/30 12:42 Order name: CBC with Diff; Complete Time: 13:54 kdr 07/30 12:42 Order name: Comprehensive Metabolic Panel [facility] 07/30 12:42 Order name: ESR; Complete Time: 13:54 kdr 07/30 12:42 Order name: CRP [facility] 07/30 12:42 Order name: Hand Right 3 View XRAY; Complete Time: 15:15 kdr 07/30 12:42 Order name: Wrist Right 3 View XRAY; Complete Time: 15:15 kdr 07/30 13:21 Order name: Labs - recollect needed: green top; Complete Time: 13:40 iw 07/30 14:19 Order name: Labs - recollect needed: recollect the recollect light green; Complete eb Time: 14:50 Administered Medications: 13:09 Drug: [place] (HYDROcodone-acetaminophen) 10 mg-325 mg 1 tabs Route: PO; ww 14:50 Drug: SOLU-Medrol (methylPrednisoLONE) 125 mg Route: IVP; Site: right antecubital; ww Disposition Summary: 07/30/21 15:28 Discharge Ordered Location: Home kdr Problem: new kdr Symptoms: have improved kdr Condition: Stable kdr Diagnosis - Right upper extremity swelling (wrist and hand) kdr Followup: kdr - With: Private Physician - When: 2 - 3 days - Reason: If symptoms return, Further diagnostic work-up, Recheck today's complaints, Continuance of care, Re-evaluation by your physician Discharge Instructions: - Discharge Summary Sheet kdr - Hand Pain kdr Forms: - Medication Reconciliation Form kdr - Thank You Letter kdr - Prescription Opioid Use kdr Prescriptions: - Ibuprofen 600 mg Oral Tablet - take 1 tablet by ORAL route every 6 hours As needed take with food; 15 tablet; kdr Refills: 0, Product Selection Permitted - Tramadol 50 mg Oral Tablet - take 1 tablet by ORAL route every 8 hours as needed; 12 tablet; Refills: 0, kdr Product Selection Permitted - Prednisone 20 mg Oral Tablet - take 2 tablets by ORAL route once daily for 5 days; 10 tablet; Refills: 0, kdr Product Selection Permitted - Cephalexin 500 mg Oral Capsule - take 1 capsule by ORAL route every 8 hours for 10 days; 12 capsule; Refills: 0, kdr Product Selection Permitted Signatures: Dispatcher [employer] EDW[place] Kemal Medellin MD MD kdr Williams, Irene RN RN Sanjuana Pineda Whitney RN RN Edvin Mix
--- NOTE | 2021-07-30 15:29 | ER ---
Nurse's Notes [facility] Name: Salbador Krause Age: 71 yrs Sex: Male : 1950 Arrival Date: 07/30/2021 Time: 11:54 Bed 13 Private MD: Diagnosis: Right upper extremity swelling (wrist and hand) Presentation: 07/30 12:02 Chief complaint: Patient states 3 days ago he mowed his lawn and then noticed hand ab2 swelling in the right hand. Pt denies any trauma or injury. Pt c/o hand pain. Pt also states his left ear is bothering him. Coronavirus screen: Vaccine status: Patient reports receiving the 2nd dose of the covid vaccine. Client denies travel out of the [place] in the last 14 days. At this time, the client does not indicate any symptoms associated with coronavirus-19. Ebola Screen: Patient negative for fever greater than or equal to 101.5 degrees Fahrenheit, and additional compatible Ebola Virus Disease symptoms Patient denies exposure to infectious person. Patient denies travel to an Ebola-affected area in the 21 days before illness onset. No symptoms or risks identified at this time. Initial Sepsis Screen: Does the patient meet any 2 criteria? No. Patient's initial sepsis screen is negative. Does the patient have a suspected source of infection? No. Patient's initial sepsis screen is negative. Risk Assessment: Do you want to hurt yourself or someone else? Patient reports no desire to harm self or others. Onset of symptoms is unknown. 12:02 Method Of Arrival: Ambulatory ab2 12:05 Acuity: RAFAEL 3 ab2 Triage Assessment: 12:03 General: Appears in no apparent distress. uncomfortable, Behavior is calm, cooperative, ab2 appropriate for age. Pain: Complains of pain in right hand Pain does not radiate. Pain currently is 6 out of 10 on a pain scale. EENT: Reports pain in left ear. Neuro: Level of Consciousness is awake, alert, obeys commands, Oriented to person, place, time, situation, Appropriate for age Moves all extremities. Gait is steady, Speech is normal. Cardiovascular: No deficits noted. Denies chest pain, shortness of breath, Patient's skin is warm and dry. Respiratory: Airway is patent Respiratory effort is even, unlabored, Respiratory pattern is regular, symmetrical. GI: No deficits noted. No signs and/or symptoms were reported involving the gastrointestinal system. Derm:. Musculoskeletal: Swelling present in right hand. Historical: - Allergies: 12:05 No Known Allergies; ab2 - PMHx: 12:05 Atrial Fib; Diabetes - NIDDM; Hypertension; LYMPHOMA; ab2 - PSHx: 12:05 heart stent; ab2 - Immunization history:: Adult Immunizations up to date. - Social history:: Smoking status: Patient denies any tobacco usage or history of. Screenin:09 Abuse screen: Denies threats or abuse. Denies injuries from another. Nutritional ww screening: No deficits noted. Tuberculosis screening: No symptoms or risk factors identified. Fall Risk None identified. Assessment: 13:00 General: Appears in no apparent distress. Behavior is calm, cooperative. Pain: ww Complains of pain in right hand. Neuro: Level of Consciousness is awake, alert, obeys commands, Oriented to person, place, time, situation, Speech is normal. Cardiovascular: Patient's skin is warm and dry. Respiratory: Airway is patent Respiratory effort is even, unlabored, Respiratory pattern is regular, symmetrical. GI: No signs and/or symptoms were reported involving the gastrointestinal system. Abdomen is round obese. Derm: Skin is healthy with good turgor. Musculoskeletal: Swelling present in right hand. 14:35 Reassessment: Patient appears in no apparent distress at this time. No changes from ww previously documented assessment. Patient and/or family updated on plan of care and expected duration. Pain level reassessed. Patient is alert, oriented x 3, equal unlabored respirations, skin warm/dry/pink. 15:40 Reassessment: Patient appears in no apparent distress at this time. No changes from ww previously documented assessment. Patient and/or family updated on plan of care and expected duration. Pain level reassessed. Patient is alert, oriented x 3, equal unlabored respirations, skin warm/dry/pink. Vital Signs: 12:05 BP 196 / 97; Pulse 70; Resp 17; Temp 98.5; Pulse Ox 98% on R/A; Weight 113.4 kg; Height ab2 5 ft. 9 in. (175.26 cm); Pain 6/10; 15:40 BP 191 / 95; Pulse 54; Resp 16; Pulse Ox 98% ; ww 12:05 Body Mass Index 36.92 (113.40 kg, 175.26 cm) ab2 ED Course: 11:54 Patient arrived in ED. as 12:05 Triage completed. ab2 12:05 Arm band placed on left wrist. ab2 12:10 Arminda Dumont, RN is Primary Nurse. ww 12:16 Kemal Medellin MD is Attending Physician. kdr 13:09 Patient has correct armband on for positive identification. Bed in low position. Call ww light in reach. Side rails up X 1. 13:09 Inserted saline lock: 20 gauge in right antecubital area, using aseptic technique. ww Blood collected. 14:01 Hand Right 3 View XRAY In Process Unspecified. EDMS 14:05 Wrist Right 3 View XRAY In Process Unspecified. EDMS 15:40 No provider procedures requiring assistance completed. IV discontinued, bleeding ww controlled, No redness/swelling at site. Pressure dressing applied. Administered Medications: 13:09 Drug: Telford (HYDROcodone-acetaminophen) 10 mg-325 mg 1 tabs Route: PO; ww 14:50 Drug: SOLU-Medrol (methylPrednisoLONE) 125 mg Route: IVP; Site: right antecubital; ww Outcome: 15:28 Discharge ordered by . kdr 15:40 Discharged to home ambulatory. ww 15:40 Condition: stable 15:40 Discharge instructions given to patient, Instructed on discharge instructions, follow up and referral plans. medication usage, safety practices, wound care, Demonstrated understanding of instructions, follow-up care, medications, wound care, Prescriptions given X 3. 15:41 Patient left the ED. ww Signatures: Dispatcher [employer] EDMS Kemal Medellin MD MD kdr Denise Hargrove Whitney, RN RN ww Edvin Jarquin ab2
[2021-07-30 16:46] VITALS: TEMP 98.5; O2SAT 98
[2021-07-30 16:47] VITALS: BP 191/95
== END 2021-07-30 15:41 | disposition home or self-care (01) ==
LOC: ER 11:52
DX: R22.31 Localized swelling, mass and lump, right upper limb (principal); E11.9 Type 2 diabetes mellitus without complications; I10 Essential (primary) hypertension; I48.91 Unspecified atrial fibrillation
CPT/HCPCS: 85025; 36415; 85652; 80053; 86140; 73130; 73110; 96374; 99284; J2930

== ENCOUNTER 2021-10-08 00:06 | Emergency (ER) | payer OTHER ==
[2021-10-08] MEDS ORDERED: COLCHICINE 0.6 MG TAB ONE (02:37)
[2021-10-08] MEDS ORDERED: KETOROLAC 30 MG/ML INJ ONE (02:38)
[2021-10-08] MEDS ORDERED: ONDANSETRON 4 MG/2 ML VIAL ONE (02:38)
[2021-10-08] MEDS ORDERED: AMPICILLIN/SULBACTAM 3GM/VIAL ONE (02:38)
[2021-10-08] MEDS ORDERED: MORPHINE 2 MG/ML SYR ONE (02:38)
[2021-10-08] MEDS ORDERED: NA CHLORIDE 0.9% 1,000 ML ONE (02:39)
[2021-10-08] MEDS ORDERED: NA CHLORIDE 0.9% 100 ML ONE ×2 (02:39→04:00)
[2021-10-08 03:12] LABS: Absolute Lymphocytes (CBC) 2.3 K/uL (0.7-4.9); Hematocrit 42.9 % (39.6-49.0); Lymphocytes % 33.6 % (15.3-44.8); RBC Red Blood Cell Count 5.36 M/uL (4.33-5.43)
[2021-10-08 03:15] LABS: Protime INR 1.2
[2021-10-08 03:35] LABS: Albumin 3.6 g/dL (3.4-5.0); Bilirubin Direct 0.1 mg/dL (0-0.2); Bilirubin Total 0.4 mg/dL (0.2-1.0); Magnesium 1.9 mg/dL (1.8-2.4); Potassium 3.8 mmol/L (3.5-5.1); Protein, Total 7.9 g/dL (6.4-8.2); Uric Acid 8.5 mg/dL (3.5-7.2)
[2021-10-08 03:48] LABS: Troponin High Sensitivity 28.1 pg/mL (<58.9)
[2021-10-08] MEDS ORDERED: CEFAZOLIN SODIUM 1 GM/VIAL ONE (04:00)
--- NOTE | 2021-10-08 04:14 | ER ---
Nurse's Notes [facility] Name: Salbador Krause Age: 71 yrs Sex: Male : 1950 Arrival Date: 10/08/2021 Time: 00:08 Bed 3 Private MD: Mahin Patino Diagnosis: Other specified arthritis-RIGHT WRIST OSTEOARTHRITIS, SEVERE, INFLAMATORY;Type 2 diabetes mellitus with hyperglycemia;Unspecified kidney failure;Abnormal results of kidney function studies;Abnormal finding of blood chemistry, unspecified-elevated Uric ACID Presentation: 10/08 00:20 Chief complaint: Patient states: "I was out spraying the yard for pesticide because my tw5 neighbor has flees. I noticed a bump on my belly but that is healing up and a bump on my arm. About two days ago my arm started swelling up. It feels like pins an needles and I cannot sleep. My arm aches so bad.". Coronavirus screen: Vaccine status: Patient reports receiving the 2nd dose of the covid vaccine. Moderna. Ebola Screen: Patient negative for fever greater than or equal to 101.5 degrees Fahrenheit, and additional compatible Ebola Virus Disease symptoms Patient denies exposure to infectious person. Patient denies travel to an Ebola-affected area in the 21 days before illness onset. Initial Sepsis Screen: Does the patient meet any 2 criteria? No. Patient's initial sepsis screen is negative. Does the patient have a suspected source of infection? No. Patient's initial sepsis screen is negative. Risk Assessment: Do you want to hurt yourself or someone else? Patient reports no desire to harm self or others. Onset of symptoms was October 06, 2021 at 08:00. 00:20 Method Of Arrival: Ambulatory tw5 00:20 Acuity: RAFAEL 3 tw5 Triage Assessment: 00:22 General: Appears in no apparent distress. Behavior is calm, cooperative, appropriate tw5 for age. Pain: Complains of pain in right arm Pain currently is 10 out of 10 on a pain scale. Musculoskeletal: Swelling present in right arm. Historical: - Allergies: 00:22 No Known Allergies; tw5 - Home Meds: 00:22 atorvastatin 80 mg Oral tab 1 tab once daily [Active]; Eliquis 5 mg Oral tab 1 tab 2 tw5 times per day [Active]; metformin 500 mg oral TG24 [Active]; metoprolol tartrate 25 mg oral tab [Active]; Entresto 24-26 mg oral tab [Active]; - PMHx: 00:22 Atrial Fib; Diabetes - NIDDM; Hypertension; LYMPHOMA; tw5 - PSHx: 00:22 heart stent; tw5 - Immunization history:: Flu vaccine is not up to date. - Social history:: Smoking status: Patient denies any tobacco usage or history of. - Family history:: not pertinent. Screenin:59 Abuse screen: Denies threats or abuse. Denies injuries from another. Nutritional lp1 screening: No deficits noted. Tuberculosis screening: No symptoms or risk factors identified. Fall Risk None identified. Assessment: 02:00 General: Appears in no apparent distress. Behavior is cooperative. lp1 02:00 Pain: Complains of pain in right hand, dorsal aspect of right forearm and right wrist lp1 Pain currently is 8 out of 10 on a pain scale. Quality of pain is described as aching. Neuro: Level of Consciousness is awake, alert, obeys commands. Cardiovascular: Patient's skin is warm and dry. Respiratory: Respiratory effort is even, unlabored. GI: No signs and/or symptoms were reported involving the gastrointestinal system. : No signs and/or symptoms were reported regarding the genitourinary system. EENT: No signs and/or symptoms were reported regarding the EENT system. Derm: Skin is intact, Skin is dry, Skin is normal, Wound noted Other: Swelling noted to right hand and wrist wrist/forearm. Musculoskeletal: Circulation, motion, and sensation intact. Swelling present in right hand, dorsal aspect of right forearm and right wrist. 03:18 Reassessment: Ultrasound at bedside. lp1 04:08 Reassessment: Patient reports pain decreased to right hand/arm. lp1 04:35 Reassessment: Patient appears in no apparent distress at this time. Patient is alert, lp1 oriented x 3, equal unlabored respirations, skin warm/dry/pink. Patient states feeling better. Vital Signs: 00:20 BP 192 / 106; Pulse 75; Resp 18; Temp 99.7(O); Pulse Ox 100% on R/A; Weight 108.86 kg; tw5 Height 5 ft. 9 in. (175.26 cm); Pain 10/10; 03:45 BP 162 / 98; Pulse 55; Resp 18; Pulse Ox 100% on R/A; lp1 04:35 BP 165 / 96; Pulse 56; Resp 18; Pulse Ox 100% on R/A; lp1 00:20 Body Mass Index 35.44 (108.86 kg, 175.26 cm) tw5 ED Course: 00:08 Patient arrived in ED. mr 00:08 Mahin Patino DO is Private Physician. mr 00:22 Triage completed. tw5 00:22 Arm band placed on left wrist. tw5 00:24 Patient notified of wait time. tw5 01:16 Truman Golden MD is Attending Physician. dante 02:28 Allison Stout, JIM is Primary Nurse. lp1 02:32 Hand Right 3 View XRAY In Process Unspecified. EDMS 02:32 XRAY Chest (1 view) In Process Unspecified. EDMS 02:45 Inserted saline lock: 20 gauge in right antecubital area, using aseptic technique. lp1 Blood collected. 02:45 Initial lab(s) drawn, by me, sent to lab. First set of blood cultures drawn. lp1 02:59 Patient has correct armband on for positive identification. lp1 03:49 UPPER EXTREMITY VENOUS UNILATE In Process Unspecified. EDMS 04:13 Mahin Patino DO is Referral Physician. dante 04:13 Axel Stovall MD is Referral Physician. dante 04:35 No provider procedures requiring assistance completed. IV discontinued, No lp1 redness/swelling at site. Pressure dressing applied. 04:39 Orthoglass splint: "Cock Up" splint applied to PT's right arm. ds4 Administered Medications: 02:35 Drug: Colcrys (colchicine) 1.2 mg Route: PO; lp1 04:06 Follow up: Response: No adverse reaction lp1 02:45 Drug: NS 0.9% 1000 ml Route: IV; Rate: 125 ml/hr; Site: right antecubital; lp1 04:34 Follow up: IV Status: IV converted to saline lock; IV Intake: 300ml lp1 02:45 Drug: Ketorolac 15 mg Route: IVP; Site: right antecubital; lp1 04:07 Follow up: Response: Marked relief of symptoms lp1 02:45 Drug: morphine 2 mg Route: IVP; Infused Over: 4 mins; Site: right antecubital; lp1 04:08 Follow up: Response: Pain is decreased lp1 02:45 Drug: Zofran (Ondansetron) 4 mg Route: IVP; Site: right antecubital; lp1 04:08 Follow up: Response: No adverse reaction lp1 03:09 Drug: Unasyn (ampicillin-sulbactam) 3 grams Route: IVPB; Infused Over: 30 mins; Site: lp1 right antecubital; 03:50 Follow up: IV Status: Completed infusion; IV Intake: 100ml lp1 03:45 Drug: Colcrys (colchicine) 0.6 mg Route: PO; lp1 04:32 Follow up: Response: No adverse reaction lp1 04:00 Drug: Ancef (cefazolin) 2 grams Route: IVPB; Infused Over: 30 mins; Site: right lp1 antecubital; 04:31 Follow up: IV Status: Completed infusion; IV Intake: 100ml lp1 Medication: 02:59 VIS not applicable for this client. lp1 Intake: 03:50 IV: 100ml; Total: 100ml. lp1 04:31 IV: 100ml; Total: 200ml. lp1 04:34 IV: 300ml; Total: 500ml. lp1 Outcome: 04:13 Discharge ordered by . dante 04:49 Discharged to home ambulatory. lp1 04:49 Condition: good 04:49 Discharge instructions given to patient, Instructed on discharge instructions, follow up and referral plans. medication usage, Demonstrated understanding of instructions, follow-up care, medications, Prescriptions given X 4. 04:49 Patient left the ED. lp1 Signatures: Dispatcher [employer] EDID Truman Golden MD MD cha Rivera, Allison Rangel RN RN lp1 Abisai Ramirez4 Ana Cristina Dumont tw5 Corrections: (The following items were deleted from the chart) 03:00 02:00 General: Appears in no apparent distress. Behavior is cooperative, lp1 lp1
--- NOTE | 2021-10-08 04:14 | EDPHYS ---
Physician Documentation [facility] Name: Salbador Krause Age: 71 yrs Sex: Male : 1950 Arrival Date: 10/08/2021 Time: 00:08 Bed 3 Private MD: Mahin Patino ED Physician Truman Golden HPI: 10/08 02:15 This 71 yrs old Black Male presents to ER via Ambulatory with complaints of Hand dante Swelling. 02:15 The patient or guardian reports decreased range of motion, pain, swelling, tenderness. dnate The complaints affect the right hand diffusely, dorsum of right hand, dorsal aspect of right wrist and palmar aspect of right wrist. Context: The problem was sustained at an unknown location, resulted from an unknown cause, FLEA BITE, 7 DAYS AGO. Onset: The symptoms/episode began/occurred 3 day(s) ago. Modifying factors: The symptoms are alleviated by nothing, elevation, holding still, ice/coldpack to affected area. Associated signs and symptoms: Pertinent positives: fever. Severity of symptoms: At their worst the symptoms were mild, moderate, in the emergency department the symptoms are unchanged. The patient has not experienced similar symptoms in the past. Historical: - Allergies: 00:22 No Known Allergies; tw5 - Home Meds: 00:22 atorvastatin 80 mg Oral tab 1 tab once daily [Active]; Eliquis 5 mg Oral tab 1 tab 2 tw5 times per day [Active]; metformin 500 mg oral TG24 [Active]; metoprolol tartrate 25 mg oral tab [Active]; Entresto 24-26 mg oral tab [Active]; - PMHx: 00:22 Atrial Fib; Diabetes - NIDDM; Hypertension; LYMPHOMA; tw5 - PSHx: 00:22 heart stent; tw5 - Immunization history:: Flu vaccine is not up to date. - Social history:: Smoking status: Patient denies any tobacco usage or history of. - Family history:: not pertinent. ROS: 02:15 Eyes: Negative for injury, pain, redness, and discharge, ENT: Negative for injury, dante pain, and discharge, Neck: Negative for injury, pain, and swelling, Cardiovascular: Negative for chest pain, palpitations, and edema, Respiratory: Negative for shortness of breath, cough, wheezing, and pleuritic chest pain, Abdomen/GI: Negative for abdominal pain, nausea, vomiting, diarrhea, and constipation, Back: Negative for injury and pain, : Negative for injury, bleeding, discharge, and swelling, Neuro: Negative for headache, weakness, numbness, tingling, and seizure, Psych: Negative for depression, anxiety, suicide ideation, homicidal ideation, and hallucinations, Allergy/Immunology: Negative for hives, rash, and allergies, Endocrine: Negative for neck swelling, polydipsia, polyuria, polyphagia, and marked weight changes, Hematologic/Lymphatic: Negative for swollen nodes, abnormal bleeding, and unusual bruising. 02:15 Constitutional: Positive for malaise. 02:15 MS/extremity: Positive for decreased range of motion, pain, swelling, tenderness, of the dorsum of right hand and dorsal aspect of right wrist. Exam: 02:15 Constitutional: This is a well developed, well nourished patient who is awake, alert, dante and in no acute distress. Head/Face: Normocephalic, atraumatic. Eyes: Pupils equal round and reactive to light, extra-ocular motions intact. Lids and lashes normal. Conjunctiva and sclera are non-icteric and not injected. Cornea within normal limits. Periorbital areas with no swelling, redness, or edema. ENT: Nares patent. No nasal discharge, no septal abnormalities noted. Tympanic membranes are normal and external auditory canals are clear. Oropharynx with no redness, swelling, or masses, exudates, or evidence of obstruction, uvula midline. Mucous membranes moist. Neck: Trachea midline, no thyromegaly or masses palpated, and no cervical lymphadenopathy. Supple, full range of motion without nuchal rigidity, or vertebral point tenderness. No Meningismus. Chest/axilla: Normal chest wall appearance and motion. Nontender with no deformity. No lesions are appreciated. Cardiovascular: Regular rate and rhythm with a normal S1 and S2. No gallops, murmurs, or rubs. Normal PMI, no JVD. No pulse deficits. Respiratory: Lungs have equal breath sounds bilaterally, clear to auscultation and percussion. No rales, rhonchi or wheezes noted. No increased work of breathing, no retractions or nasal flaring. Abdomen/GI: Soft, non-tender, with normal bowel sounds. No distension or tympany. No guarding or rebound. No evidence of tenderness throughout. Back: No spinal tenderness. No costovertebral tenderness. Full range of motion. Male : Normal genitalia with no discharge or lesions. Skin: Warm, dry with normal turgor. Normal color with no rashes, no lesions, and no evidence of cellulitis. Neuro: Awake and alert, GCS 15, oriented to person, place, time, and situation. Cranial nerves II-XII grossly intact. Motor strength 5/5 in all extremities. Sensory grossly intact. Cerebellar exam normal. Normal gait. Psych: Awake, alert, with orientation to person, place and time. Behavior, mood, and affect are within normal limits. 02:15 Musculoskeletal/extremity: Extremities: grossly normal except: noted in the dorsum of right hand and dorsal aspect of right wrist: decreased ROM, pain, swelling, tenderness, erythema, pain. 04:11 ECG was reviewed by the Attending Physician. [facility] Vital Signs: 00:20 BP 192 / 106; Pulse 75; Resp 18; Temp 99.7(O); Pulse Ox 100% on R/A; Weight 108.86 kg; tw5 Height 5 ft. 9 in. (175.26 cm); Pain 10/10; 03:45 BP 162 / 98; Pulse 55; Resp 18; Pulse Ox 100% on R/A; lp1 04:35 BP 165 / 96; Pulse 56; Resp 18; Pulse Ox 100% on R/A; lp1 00:20 Body Mass Index 35.44 (108.86 kg, 175.26 cm) tw5 MDM: 01:17 Patient medically screened. [facility] 02:19 Differential diagnosis: contusion, abrasion, tendonitis. Data reviewed: vital signs, [facility] nurses notes, lab test result(s), EKG, radiologic studies, plain films. Data interpreted: clinical research monitor: rate is 75 beats/min, rhythm is regular, Pulse oximetry: on room air is 100 %. Test interpretation: by ED physician or midlevel provider: ECG, plain radiologic studies. Counseling: I had a detailed discussion with the patient and/or guardian regarding: the historical points, exam findings, and any diagnostic results supporting the discharge/admit diagnosis, the presence of at least one elevated blood pressure reading (>120/80) during this emergency department visit, lab results, radiology results. 07/08 02:09 Order name: Basic Metabolic Panel; Complete Time: 03:49 [facility] 10/08 02:09 Order name: CBC with Diff; Complete Time: 03:16 [facility] 10/08 02:09 Order name: LFT's; Complete Time: 03:49 [facility] 10/08 02:09 Order name: Magnesium; Complete Time: 03:49 [facility] 10/08 02:09 Order name: NT PRO-BNP; Complete Time: 03:49 [facility] 10/08 02:09 Order name: PT-INR; Complete Time: 03:33 [facility] 10/08 02:00 Order name: Hand Right 3 View XRAY lp1 10/08 02:09 Order name: Troponin HS; Complete Time: 03:49 [facility] 10/08 02:09 Order name: XRAY Chest (1 view) [facility] 10/08 02:09 Order name: Uric Acid; Complete Time: 03:49 [facility] 10/08 02:09 Order name: Lactate; Complete Time: 03:33 [facility] 10/08 02:09 Order name: Blood Culture Adult (2) [facility] 10/08 03:09 Order name: US Extremity Venous Unilateral Ltd [facility] 10/08 02:09 Order name: EKG; Complete Time: 02:10 [facility] 10/08 02:09 Order name: Cardiac monitoring; Complete Time: 04:09 [facility] 10/08 02:09 Order name: EKG - Nurse/Tech; Complete Time: 04:09 [facility] 10/08 02:09 Order name: IV Saline Lock; Complete Time: 04:09 [facility] 10/08 02:09 Order name: Labs collected and sent; Complete Time: 04:09 [facility] 10/08 02:09 Order name: O2 Per Protocol; Complete Time: 04:09 [facility] 10/08 02:09 Order name: O2 Sat Monitoring; Complete Time: 04:09 [facility] 10/08 03:12 Order name: UPPER EXTREMITY VENOUS UNILATE EDMS 10/08 03:34 Order name: Splint - Wrist: COCK UP; Complete Time: 04:39 dante EC:11 Rate is 44 beats/min. Rhythm is regular. QRS [place] is Normal. HI interval is normal. QRS dante interval is normal. QT interval is normal. No Q waves. T waves are Normal. No ST changes noted. Clinical impression: Sinus bradycardia and No evidence of ischemia. Interpreted by me. Reviewed by me. Administered Medications: 02:35 Drug: Colcrys (colchicine) 1.2 mg Route: PO; lp1 04:06 Follow up: Response: No adverse reaction lp1 02:45 Drug: NS 0.9% 1000 ml Route: IV; Rate: 125 ml/hr; Site: right antecubital; lp1 04:34 Follow up: IV Status: IV converted to saline lock; IV Intake: 300ml lp1 02:45 Drug: Ketorolac 15 mg Route: IVP; Site: right antecubital; lp1 04:07 Follow up: Response: Marked relief of symptoms lp1 02:45 Drug: morphine 2 mg Route: IVP; Infused Over: 4 mins; Site: right antecubital; lp1 04:08 Follow up: Response: Pain is decreased lp1 02:45 Drug: Zofran (Ondansetron) 4 mg Route: IVP; Site: right antecubital; lp1 04:08 Follow up: Response: No adverse reaction lp1 03:09 Drug: Unasyn (ampicillin-sulbactam) 3 grams Route: IVPB; Infused Over: 30 mins; Site: lp1 right antecubital; 03:50 Follow up: IV Status: Completed infusion; IV Intake: 100ml lp1 03:45 Drug: Colcrys (colchicine) 0.6 mg Route: PO; lp1 04:32 Follow up: Response: No adverse reaction lp1 04:00 Drug: Ancef (cefazolin) 2 grams Route: IVPB; Infused Over: 30 mins; Site: right lp1 antecubital; 04:31 Follow up: IV Status: Completed infusion; IV Intake: 100ml lp1 Disposition Summary: 10/08/21 04:13 Discharge Ordered Location: Home dante Problem: new dante Symptoms: have improved dante Condition: Stable dante Diagnosis - Other specified arthritis - RIGHT WRIST OSTEOARTHRITIS, SEVERE, INFLAMATORY dante - Type 2 diabetes mellitus with hyperglycemia dante - Unspecified kidney failure dante - Abnormal results of kidney function studies dante - Abnormal finding of blood chemistry, unspecified - elevated Uric ACID dante Followup: dante - With: - When: 2 - 3 days - Reason: Recheck today's complaints, Continuance of care, Re-evaluation by your physician Followup: dante - With: - When: 2 - 3 days - Reason: Recheck today's complaints, Continuance of care, Re-evaluation by your physician Discharge Instructions: - Discharge Summary Sheet dante - Arthritis dante - Hyperglycemia [facility] - Diabetes Mellitus and Nutrition, Adult [facility] - Arthritis, [id number] [facility] Forms: - Medication Reconciliation Form [facility] - Thank You Letter [facility] - Antibiotic Education [facility] - Prescription Opioid Use [facility] Prescriptions: - colchicine 0.6 mg Oral tablet - take 2 tablet by ORAL route once daily; 6 tablet; Refills: 0, Product Selection [facility] Permitted - Cephalexin 500 mg Oral Capsule - take 1 capsule by ORAL route every 6 hours for 10 days; 40 capsule; Refills: 0, [facility] Product Selection Permitted - Tylenol-Codeine #3 300 mg-30 mg Oral - take 2 tablet by ORAL route every 6 hours; 20 tablet; Refills: 0, Product [facility] Selection Permitted - Medrol (Siva) 4 mg Oral Tablets, Dose Pack - take 1 tablet by ORAL route as directed - follow package instructions; 1 [facility] packet; Refills: 0, Product Selection Permitted - Motrin IB 200 mg Oral Tablet - take 1 tablet by ORAL route every 6 hours As needed as needed with food; 28 dante tablet; Refills: 0, Product Selection Permitted Signatures: Dispatcher [employer] Truman Rodriguez MD MD cha Pena, Laura, RN RN lp1 Mahad Lyman, [id number]-C [id number] Ana Cristina Dumont tw5 Corrections: (The following items were deleted from the chart) 02:28 02:15 Wrist Right 3 View+RAD.RAD.[email or web address] ordered. CAM LEVY
[2021-10-08 04:54] VITALS: TEMP 99.7; O2SAT 100
[2021-10-08 04:57] VITALS: BP 165/96
--- NOTE | 2021-10-08 12:42 | RAD REPORT ---
EXAM DESCRIPTION: X-ray single view chest. CLINICAL HISTORY: 71 years Male, COUGH COMPARISON: Chest x-ray report from 11/15/2019. The image was not available for review. TECHNIQUE: Single portable x-ray view of the chest performed on 10/08/2021 at 2:21 AM FINDINGS: The lungs are relatively well-expanded and are grossly clear. There is no evidence of a pn eumothorax. The cardiac silhouette is prominent and may be accentuated by the portable technique. The mediastinal contours are normal. No acute osseous abnormality is identified. There are degenerative changes of the acromioclavicular j oints, worse on the right. No acute soft tissue abnormalities are seen. Lines and tubes: None. Free air: None IMPRESSION: No definite acute intrathoracic disease. There is prominence of the cardiac silhouette. Electronically signed by: Rebecca Armijo DO 10/08/2021 3:07 AM CDT Due to temporary technical issues with the PACS/Fluency reporting system, reports are being signed by the in house radiologists without review as a courtesy to insure prompt reporting. The interpreting radiologist is fully responsible for the content of the report.
--- NOTE | 2021-10-08 12:44 | RAD REPORT ---
EXAM DESCRIPTION: Radiographic Examination COMPARISON: None. CLINICAL HISTORY: [facility] MAIN SWELLING FINDINGS: 3 views of the right hand demonstrate no acute fracture or dislocation. Severe osteoarthri tic changes are present in the DIP and PIP joints. Soft tissues are unremarkable. IMPRESSION: Severe osteoarthritis without acute osseous findings. Electronically signed by: Abdullahi Alejandro MD 10/08/2021 3:15 AM CDT Due to temporary technical issues with the PACS/Fluency reporting system, reports are being signed by the in house radiologists without review as a courtesy to insure prompt reporting. The interpreting radiologist is fully responsible for the content of the report.
--- NOTE | 2021-10-08 12:46 | RAD REPORT ---
EXAM DESCRIPTION: Ultrasound Upper Extremity Venous Doppler COMPARISON: None. CLINICAL HISTORY: [facility] MAIN Pain UPPER EXTREMITY VENOUS UNILATE TECHNIQUE: Multiple grayscale, color, and spectral Doppler images of the right upper extremity veins were obtained. FINDINGS: Right: The jugular, subclavian, axillary, brachial, radial, ulnar, cephalic, and basilic veins demonstrate normal flow, augmentation, and compressibility. IMPRESSION: No evidence of deep vein thrombosis. Electronically signed by: Abdullahi Alejandro MD 10/08/2021 4:11 AM CDT Due to temporary technical issues with the PACS/Fluency reporting system, reports are being signed by the in house radiologists without review as a courtesy to insure prompt reporting. The interpreting radiologist is fully responsible for the content of the report.
--- NOTE | 2021-10-11 13:58 | EKG ---
Test Date: 2021-10-08 Test Time: 04:01:22 Epitaxial Reactor Operator: MEASUREMENT RESULTS: Intervals: Rate: 44 FL: 170 QRSD: 98 QT: 462 QTc: 395 [place]: P: 29 FL: 170 QRS: -12 T: 44 INTERPRETIVE STATEMENTS: Marked sinus bradycardia Minimal voltage criteria for LVH, may be normal variant T wave abnormality, consider lateral ischemia Abnormal ECG Compared to ECG 11/15/2019 12:04:03 Left ventricular hypertrophy now present T-wave abnormality now present Possible ischemia now present Electronically Signed On 10-11-21 13:50:41 CDT by Elías Mcfarlane
== END 2021-10-08 04:49 | disposition home or self-care (01) ==
LOC: ER 00:06
DX: M19.031 Primary osteoarthritis, right wrist (principal); E11.65 Type 2 diabetes mellitus with hyperglycemia; N19 Unspecified kidney failure; R94.4 Abnormal results of kidney function studies; R79.89 Other specified abnormal findings of blood chemistry; I10 Essential (primary) hypertension; I48.91 Unspecified atrial fibrillation; Z95.818 Presence of other cardiac implants and grafts
CPT/HCPCS: 93005; 87040 ×2; 85025; 80048; 36415; 83735; 85610; 80076; 84550; 83605; 84484; 83880; 71045; 73130; 93971; J2270; J7030; J0295; J2405; J0690

== ENCOUNTER 2023-08-29 04:16 | Emergency (ER) | payer OTHER ==
[2023-08-29] MEDS ORDERED: MORPHINE 2 MG/ML SYR ONE (05:21)
[2023-08-29 05:39] LABS: Absolute Eosinophils 0.2 K/uL (0-0.5); Absolute Lymphocytes (CBC) 2.3 K/uL (0.7-4.9); Absolute Monocytes 0.5 K/uL (0.1-1.3); Basophils % 0.8 % (0-1.3); Eosinophils % 3.4 % (0-4.4); Hematocrit 36.9 % (39.6-49.0); Hemoglobin 11.7 g/dL (13.6-17.9); Lymphocytes % 37.9 % (15.3-44.8); MCH 25.5 pg (27.0-35.0); MCHC 31.7 g/dL (32.0-36.0); MCV 80.4 fL (80-100); MPV 8.8 fL (7.6-11.3); Monocytes % 8.6 % (3.3-12.3); Neutrophils % 49.3 % (41.7-73.7); Nucleated Red Blood Cells % 0.2 % (0-0); Platelets 206 thou/uL (152-406); RBC Red Blood Cell Count 4.59 M/uL (4.33-5.43); Red Cell Distribution Width 16.9 % (12.1-15.2)
[2023-08-29 05:45] LABS: PTT, Activated Partial Thromb 36.9 SECONDS (24.3-36.9); Protime INR 1.57
[2023-08-29 05:50] LABS: Anion Gap 8.9 mEq/L (5.0-15.0); Potassium 3.9 mEq/L (3.5-5.1)
--- NOTE | 2023-08-29 05:56 | EDPHYS ---
Physician Documentation [facility] Name: Salbador Krause Age: 73 yrs Sex: Male : 1950 Arrival Date: 08/29/2023 Time: 04:16 Bed 5 Private MD: ED Physician Gregory Murray HPI: 08/28 04:41 This 73 yrs old Black Male presents to ER via Wheelchair with complaints of Leg ec2 Swelling, Leg Pain. 04:41 Patient arrives today for evaluation of left lower extremity swelling. Reports ec2 progressive swelling over the past week. Patient reports some pain and discomfort as well. Denies any redness, denies fevers or chills. Reports that he has a history of previous cardiac stents and is currently on Eliquis. Historical: - Allergies: 04:35 No Known Allergies; jb4 - PMHx: 04:35 Atrial Fib; Diabetes - NIDDM; Hypertension; LYMPHOMA; jb4 - PSHx: 04:35 heart stent; jb4 - Immunization history:: Adult Immunizations up to date. - Infectious Disease History:: Denies. - Social history:: Smoking status: Patient denies any tobacco usage or history of. ROS: 04:41 Constitutional: as per hpi ec2 Exam: 04:41 Constitutional: GEN: NAD Head: atraumatic Eyes: EOMI Ears: External ears are ec2 normal. CV: regular rate, left-sided lower extremity swelling noted. Intact distal neurovascular status. LUNGS: no respiratory distress ABD: non-distended SKIN: no evidence of rashes MSK: no evidence of trauma NEURO: moves all extremities equally Vital Signs: 04:34 BP 147 / 73; Pulse 63; Resp 16; Pulse Ox 96% on R/A; jb4 05:10 BP 129 / 75; Pulse 57; Resp 19; Pulse Ox 96% on R/A; kd3 05:19 Temp 98.9(O); kd3 MDM: 04:22 Patient medically screened. ec2 04:41 Data reviewed: vital signs. ED course: Patient arrives today for evaluation of left ec2 lower extremity swelling. Examination notable for left lower extremity swelling. Will obtain lab work, ultrasound. Differential diagnosis includes processes such as DVT, doubt cellulitis or arterial insufficiency given the appearance and examination.. 04:58 ED course: EKG independently reviewed and interpreted by me, shows sinus rhythm, rate ec2 of 59, no acute ST segment elevations, intervals are nonconcerning. . 05:34 ED course: Ultrasound shows no evidence of DVT.. ec2 05:55 ED course: Metabolic profile shows renal dysfunction with a creatinine of 2.53 and GFR ec2 of 26, CBC shows slight anemia noted coagulation profile is remarkable for an INR of 1.57. When compared to external records, patient has history of CKD however most recent visit was approximately 2 years ago and renal function does seem down compared to that. I will discharge patient home and have patient follow-up with his primary care doctor, return precautions given. . 08/28 04:41 Order name: Basic Metabolic Panel; Complete Time: 05:51 ec2 08/28 04:41 Order name: CBC with Diff; Complete Time: 05:51 ec2 08/28 04:41 Order name: PT-INR; Complete Time: 05:51 ec2 08/28 04:41 Order name: Ptt, Activated; Complete Time: 05:51 ec2 08/28 04:41 Order name: Extremity Venous Uni Ltd US ec2 08/28 04:41 Order name: EKG; Complete Time: 04:42 ec2 08/28 04:41 Order name: Cardiac monitoring; Complete Time: 05:06 ec2 08/28 04:41 Order name: EKG - Nurse/Tech; Complete Time: 04:58 ec2 08/28 04:41 Order name: IV Saline Lock; Complete Time: 05:06 ec2 08/28 04:41 Order name: Labs collected and sent; Complete Time: 05:06 ec2 08/28 04:41 Order name: O2 Per Protocol; Complete Time: 05:07 ec2 08/28 04:41 Order name: O2 Sat Monitoring; Complete Time: 05:07 ec2 Administered Medications: 05:31 Drug: morphine IVP or IV 2 mg IVP once over 4 mins Route: IVP; Infused Over: 4 mins; kd3 Site: right antecubital; 06:17 Follow up: Response: No adverse reaction; Pain is decreased kd3 Disposition Summary: 08/29/23 05:55 Discharge Ordered Notes: Location: Home ec2 Condition: Stable ec2 Diagnosis - Localized edema ec2 Followup: ec2 - With: Private Physician - When: - Reason: Re-evaluation by your physician Discharge Instructions: - Discharge Summary Sheet ec2 - Edema, [id number] ec2 Forms: - Medication Reconciliation Form ec2 - Antibiotic Education ec2 - Prescription Opioid Use ec2 - Patient Portal Instructions ec2 - Leadership Thank You Letter ec2 Prescriptions: - methocarbamol 500 mg Oral tablet - take 1 tablet ORAL route 4 times per day; 20 tablet; Refills: 0, Product ec2 Selection Permitted Signatures: Dispatcher [employer] Dread Flores RN RN jb4 Graciela Quiros RN RN kd3 Gregory Murray MD MD ec2
--- NOTE | 2023-08-29 05:56 | ER ---
Nurse's Notes [facility] Name: Salbador Krause Age: 73 yrs Sex: Male : 1950 Arrival Date: 08/29/2023 Time: 04:16 Bed 5 Private MD: Diagnosis: Localized edema Presentation: 08/28 04:34 Chief complaint: Patient states: My left leg has been swelling for the past week. jb4 Coronavirus screen: At this time, the client does not indicate any symptoms associated with coronavirus-19. Ebola Screen: No symptoms or risks identified at this time. Initial Sepsis Screen: Does the patient meet any 2 criteria? No. Patient's initial sepsis screen is negative. Does the patient have a suspected source of infection? No. Patient's initial sepsis screen is negative. Risk Assessment: Do you want to hurt yourself or someone else? Patient reports no desire to harm self or others. Onset of symptoms was August 29, 2023. Transition of care: patient was not received from another setting of care. 04:34 Method Of Arrival: Wheelchair jb4 04:34 Acuity: RAFAEL 3 jb4 Triage Assessment: 05:06 General: Appears in no apparent distress. Behavior is calm, cooperative. Pain: kd3 Complains of pain in left leg. Historical: - Allergies: 04:35 No Known Allergies; jb4 - PMHx: 04:35 Atrial Fib; Diabetes - NIDDM; Hypertension; LYMPHOMA; jb4 - PSHx: 04:35 heart stent; jb4 - Immunization history:: Adult Immunizations up to date. - Infectious Disease History:: Denies. - Social history:: Smoking status: Patient denies any tobacco usage or history of. Screenin:06 [facility] ED Fall Risk Assessment (Adult) History of falling in the last 3 months, kd3 including since admission No falls in past 3 months (0 pts) Confusion or Disorientation No (0 pts) Intoxicated or Sedated No (0 pts) Impaired Gait No (0 pts) Mobility Assist Device Used No (0 pt) Altered Elimination No (0 pt) Score/Fall Risk Level 0 - 2 = Low Risk Oriented to surroundings. Abuse screen: Denies threats or abuse. Denies injuries from another. Nutritional screening: No deficits noted. Tuberculosis screening: No symptoms or risk factors identified. Vital Signs: 04:34 BP 147 / 73; Pulse 63; Resp 16; Pulse Ox 96% on R/A; jb4 05:10 BP 129 / 75; Pulse 57; Resp 19; Pulse Ox 96% on R/A; kd3 05:19 Temp 98.9(O); kd3 ED Course: 04:20 Patient arrived in ED. jj6 04:22 Gregory Murray MD is Attending Physician. ec2 04:35 Triage completed. jb4 04:35 Graciela Quiros, RN is Primary Nurse. kd3 04:36 Arm band placed on right wrist. jb4 05:06 Inserted saline lock: 20 gauge in right antecubital area, using aseptic technique. kd3 Blood collected. 05:07 Basic Metabolic Panel Sent. kd3 05:07 CBC with Diff Sent. kd3 05:07 PT-INR Sent. kd3 05:07 Ptt, Activated Sent. kd3 05:11 Patient has correct armband on for positive identification. Provided Education on: kd3 Ultrasound . 05:11 No provider procedures requiring assistance completed. kd3 05:19 Extremity Venous Uni Ltd US In Process Unspecified. EDMS 06:17 IV discontinued, intact, bleeding controlled, No redness/swelling at site. Pressure kd3 dressing applied. Administered Medications: 05:31 Drug: morphine IVP or IV 2 mg IVP once over 4 mins Route: IVP; Infused Over: 4 mins; kd3 Site: right antecubital; 06:17 Follow up: Response: No adverse reaction; Pain is decreased kd3 Medication: 05:11 VIS not applicable for this client. kd3 Outcome: 05:55 Discharge ordered by . ec2 06:17 Discharged to home via wheelchair, kd3 06:17 Condition: stable 06:17 Discharge instructions given to patient, Instructed on discharge instructions, follow up and referral plans. medication usage, Demonstrated understanding of instructions, follow-up care, medications, Prescriptions given X 1, 06:17 Patient left the ED. kd3 Signatures: Dispatcher [employer] EDMS Dread Lundy, RN RN jb4 Lauren Garcia jj6 Graciela Quiros RN RN kd3 Gregory Murray MD MD ec2
[2023-08-29 06:45] VITALS: O2SAT 96
[2023-08-29 07:04] VITALS: BP 147/73; TEMP 98.9
--- NOTE | 2023-08-29 13:01 | RAD REPORT ---
EXAM DESCRIPTION: US - Extremity Venous Uni Ltd - 08/29/2023 5:20 am CLINICAL HISTORY: Left Lower Extremity DVT Eval COMPARISON: None TECHNIQUE: Grayscale, color Doppler, duplex Doppler, spectral Doppler images and analysis with compr ession and augmentation of left lower extremity veins. FINDINGS: Left common femoral, greater saphenous, femoral, deep (profunda) femoral, popliteal, poste rior tibial veins unremarkable without evidence of clot. IMPRESSION: No sonographic evidence of left lower extremity DVT. Electronically signed by: Barrie Guzman MD 08/29/2023 05:29 AM CDT Due to temporary technical issues with the PACS/Fluency reporting system, reports are being signed by the in house radiologists without review as a courtesy to insure prompt reporting. The interpreting radiologist is fully responsible for the content of the report
--- NOTE | 2023-08-29 14:10 | EKG ---
Test Date: 2023-08-29 Test Time: 04:54:25 Customer Sales Specialist: ADDIE MEASUREMENT RESULTS: Intervals: Rate: 59 [place]: 200 QRSD: 120 QT: 434 QTc: 429 [place]: P: 40 [place]: 200 QRS: -8 T: 49 INTERPRETIVE STATEMENTS: Sinus bradycardia Otherwise normal ECG Compared to ECG 10/08/2021 04:01:22 Left ventricular hypertrophy no longer present T-wave abnormality no longer present Possible ischemia no longer present Electronically Signed On 08-29-23 14:09:27 CDT by Elías Mcfarlane
== END 2023-08-29 06:17 | disposition home or self-care (01) ==
LOC: ER 04:16
DX: R60.0 Localized edema (principal); Z95.818 Presence of other cardiac implants and grafts
CPT/HCPCS: 93005; 85025; 80048; 36415; 85610; 85730; 93971; 96374; 99284; J2270

== ENCOUNTER 2023-11-17 01:42 | Emergency (ER) | payer OTHER ==
[2023-11-17] MEDS ORDERED: SMZ./TMP. 800/160 MG TABLET ONE (03:22)
[2023-11-17] MEDS ORDERED: KETOROLAC 30 MG/ML INJ ONE (03:22)
[2023-11-17] MEDS ORDERED: CEFTRIAXONE 1000 MG/VIAL ONE (03:22)
[2023-11-17] MEDS ORDERED: ONDANSETRON 4 MG/2 ML VIAL ONE (03:22)
[2023-11-17] MEDS ORDERED: IBUPROFEN 400 MG TAB ONE (03:22)
[2023-11-17] MEDS ORDERED: NA CHLORIDE 0.9% 50 ML ONE (03:23)
[2023-11-17] MEDS ORDERED: HYDROCODONE/APAP 5/325 MG TAB ONE (03:23)
[2023-11-17 03:42] LABS: Absolute Basophils 0.1 K/uL (0-0.5); Absolute Eosinophils 0.1 K/uL (0-0.5); Absolute Lymphocytes (CBC) 2.2 K/uL (0.7-4.9); Absolute Monocytes 0.6 K/uL (0.1-1.3); Basophils % 0.9 % (0-1.3); Eosinophils % 1.9 % (0-4.4); Hematocrit 34.4 % (39.6-49.0); Hemoglobin 10.9 g/dL (13.6-17.9); Lymphocytes % 31.1 % (15.3-44.8); MCH 25.5 pg (27.0-35.0); MCHC 31.8 g/dL (32.0-36.0); MCV 80.3 fL (80-100); MPV 9.4 fL (7.6-11.3); Monocytes % 9.1 % (3.3-12.3); Nucleated Red Blood Cells % 0.2 % (0-0); Platelets 199 thou/uL (152-406); RBC Red Blood Cell Count 4.29 M/uL (4.33-5.43); Red Cell Distribution Width 15.5 % (12.1-15.2)
[2023-11-17 03:50] LABS: Albumin/Globulin Ratio 0.7 (1.1-1.8); Anion Gap 6.3 mEq/L (5.0-15.0); Bilirubin Total 0.3 mg/dL (0.2-1.0); Globulin 4.3 g/dL (2.3-3.5); Potassium 3.3 mEq/L (3.5-5.1); Protein, Total 7.3 g/dL (6.4-8.2)
--- NOTE | 2023-11-17 04:32 | ER ---
Nurse's Notes [facility] Name: Salbador Krause Age: 73 yrs Sex: Male : 1950 Arrival Date: 11/17/2023 Time: 01:42 Bed 8 Private MD: Diagnosis: Right hand and forearm cellulitis acute Presentation: 11/16 01:53 Chief complaint: Patient states: I am having swelling in my right hand since last week. jb4 Coronavirus screen: At this time, the client does not indicate any symptoms associated with coronavirus-19. Ebola Screen: No symptoms or risks identified at this time. Initial Sepsis Screen: Does the patient meet any 2 criteria? No. Patient's initial sepsis screen is negative. Does the patient have a suspected source of infection? No. Patient's initial sepsis screen is negative. Risk Assessment: Do you want to hurt yourself or someone else? Patient reports no desire to harm self or others. Onset of symptoms was November 17, 2023. Transition of care: patient was not received from another setting of care. 01:53 Method Of Arrival: Wheelchair jb4 01:53 Acuity: RAFAEL 3 jb4 Historical: - Allergies: 01:55 No Known Allergies; jb4 - Home Meds: 01:55 Eliquis 5 mg Oral tab 1 tab 2 times per day [Active]; Entresto 24-26 mg Oral tab jb4 [Active]; metformin 500 mg Oral TG24 [Active]; - PMHx: 01:55 Atrial Fib; Hypertension; Diabetes - NIDDM; LYMPHOMA; CHF; jb4 - PSHx: 01:55 heart stent; jb4 - Immunization history:: Adult Immunizations not up to date. - Infectious Disease History:: Denies. - Social history:: Smoking status: Patient denies any tobacco usage or history of. - Family history:: not pertinent. Screenin:05 [facility] ED Fall Risk Assessment (Adult) History of falling in the last 3 months, al5 including since admission No falls in past 3 months (0 pts) Confusion or Disorientation No (0 pts) Intoxicated or Sedated No (0 pts) Impaired Gait No (0 pts) Mobility Assist Device Used No (0 pt) Altered Elimination No (0 pt) Score/Fall Risk Level 0 - 2 = Low Risk Oriented to surroundings, Maintained a safe environment, Hourly rounding (assess needs \T\ fall precautionary measures) done. Abuse screen: Denies threats or abuse. Denies injuries from another. Nutritional screening: No deficits noted. Tuberculosis screening: No symptoms or risk factors identified. Assessment: 02:05 General: Appears in no apparent distress. Behavior is calm, cooperative. Pain: al5 Complains of pain in right hand. Neuro: Level of Consciousness is awake, alert, obeys commands, Oriented to person, place, time, situation. Cardiovascular: Patient's skin is warm and dry. Respiratory: Airway is patent Respiratory effort is even, unlabored, Respiratory pattern is regular, symmetrical. GI: No signs and/or symptoms were reported involving the gastrointestinal system. : No signs and/or symptoms were reported regarding the genitourinary system. EENT: No signs and/or symptoms were reported regarding the EENT system. Derm: R hand swelling, redness, and hot to touch. Musculoskeletal: No signs and/or symptoms reported regarding the musculoskeletal system. 03:40 Reassessment: Patient appears in no apparent distress at this time. No changes from al5 previously documented assessment. Patient and/or family updated on plan of care and expected duration. Pain level reassessed. Patient is alert, oriented x 3, equal unlabored respirations, skin warm/dry/pink. Vital Signs: 01:53 BP 157 / 84; Pulse 75; Resp 16; Temp 100.1; Pulse Ox 95% ; Weight 127.01 kg; Height 5 jb4 ft. 9 in. ; Pain 9/10; 02:00 BP 148 / 94; Pulse 75; Resp 18; Pulse Ox 97% on R/A; al5 03:30 BP 141 / 83; Pulse 68; Resp 18; Pulse Ox 98% on R/A; al5 04:41 BP 132 / 79; Pulse 70; Resp 18; Pulse Ox 100% on R/A; al5 01:53 Body Mass Index 41.35 (127.01 kg, 175.26 cm) jb4 01:53 Pain Scale: Adult jb4 ED Course: 01:46 Patient arrived in ED. jj6 01:55 Triage completed. jb4 01:55 Arm band placed on right wrist. jb4 02:04 Sylvie David RN is Primary Nurse. al5 02:05 Rj Griffin MD is Attending Physician. al5 02:06 Patient has correct armband on for positive identification. Bed in low position. Call al5 light in reach. Side rails up X 1. Provided Education on: processes and procedures. 02:06 No provider procedures requiring assistance completed. al5 03:04 Initial lab(s) drawn, by me, sent to lab. Inserted saline lock: 22 gauge in left wrist, al5 using aseptic technique. Blood collected. Flushed with 10 mL NS. 03:18 UPPER EXTREMITY VENOUS UNILATE In Process Unspecified. EDMS 03:34 CBC with Diff Sent. al5 03:34 CMP Sent. al5 04:41 IV discontinued, intact, bleeding controlled, No redness/swelling at site. Pressure al5 dressing applied. Administered Medications: 03:34 Drug: TORadol - Ketorolac IVP 15 mg IVP once Route: IVP; Site: left wrist; al5 04:00 Follow up: Response: No adverse reaction tm6 03:34 Drug: Trimethoprim-Sulfamethoxazole PO (160 mg-800 mg (DS) 1 tablet PO once Route: PO; al5 04:00 Follow up: Response: No adverse reaction tm6 03:34 Drug: HYDROcodone-acetaminophen PO 5 mg-325 mg 2 tabs PO once Route: PO; al5 04:00 Follow up: Response: No adverse reaction tm6 03:34 Drug: Ibuprofen PO 800 mg PO once Route: PO; al5 04:01 Follow up: Response: No adverse reaction tm6 03:35 Drug: Ondansetron IVP 4 mg IVP once; over 2 minutes Route: IVP; Site: left wrist; al5 04:00 Follow up: Response: No adverse reaction tm6 03:35 Drug: Rocephin - Rocephin (cefTRIAXone) IVPB 1 grams IVPB once over 30 mins; (mix in 50 tm6 mL NS) Route: IVPB; Infused Over: 30 mins; Site: left wrist; 04:00 Follow up: Response: No adverse reaction; IV Status: Completed infusion; IV Intake: [id number] Medication: 02:06 VIS not applicable for this client. al5 Intake: 04:00 IV: 50ml; Total: 50ml. tm6 Outcome: 04:31 Discharge ordered by . sp4 04:41 Discharged to home ambulatory, al5 04:41 Condition: good 04:41 Discharge instructions given to patient, Instructed on discharge instructions, follow up and referral plans. medication usage, Demonstrated understanding of instructions, follow-up care, medications, Prescriptions given X 3, 04:42 Patient left the ED. al5 Signatures: Dispatcher [employer] EDDread Ford, RN RN jb4 Lauren Garcia jj6 Rj Griffin MD MD sp4 Jocy Saleh RN RN tm6 Sylvie David RN RN al5 Corrections: (The following items were deleted from the chart) 02:04 01:53 Resp 16bpm; 127.01 kg; Height 5 ft. 9 in.; BMI: 41.3; Pain 12/11, Adult; esteban jb4
--- NOTE | 2023-11-17 04:32 | EDPHYS ---
Physician Documentation [facility] Name: Salbador Krause Age: 73 yrs Sex: Male : 1950 Arrival Date: 11/17/2023 Time: 01:42 Bed 8 Private MD: ED Physician Rj Griffin HPI: 11/16 02:22 This 73 yrs old Black Male presents to ER via Wheelchair with complaints of Hand sp4 Swelling, Swelling of Lower Extremity. 05:30 Patient presents with acute onset of right hand pain swelling redness starting 4 days sp4 ago.. Historical: - Allergies: 01:55 No Known Allergies; jb4 - Home Meds: 01:55 Eliquis 5 mg Oral tab 1 tab 2 times per day [Active]; Entresto 24-26 mg Oral tab jb4 [Active]; metformin 500 mg Oral TG24 [Active]; - PMHx: 01:55 Atrial Fib; Hypertension; Diabetes - NIDDM; LYMPHOMA; CHF; jb4 - PSHx: 01:55 heart stent; jb4 - Immunization history:: Adult Immunizations not up to date. - Infectious Disease History:: Denies. - Social history:: Smoking status: Patient denies any tobacco usage or history of. - Family history:: not pertinent. ROS: 05:30 Constitutional: Negative for fever, chills, and weight loss, positive right hand and sp4 forearm pain swelling redness tenderness 05:30 All other systems are negative, Exam: 05:30 Constitutional: This is a well developed, well nourished patient who is awake, alert, sp4 and in no acute distress. Head/Face: Normocephalic, atraumatic. Eyes: Pupils equal round and reactive to light, extra-ocular motions intact. Lids and lashes normal. Conjunctiva and sclera are not injected. Cornea within normal limits. Periorbital areas with no swelling, redness, or edema. ENT: Nares patent. No nasal discharge, no septal abnormalities noted. Tympanic membranes are normal and external auditory canals are clear. Oropharynx with no redness, swelling, or masses, exudates, or evidence of obstruction, uvula midline. Mucous membranes moist. Neck: Trachea midline, no thyromegaly or masses palpated, and no cervical lymphadenopathy. Supple, full range of motion without nuchal rigidity, or vertebral point tenderness. Chest/axilla: Normal chest wall appearance and motion. Nontender with no deformity. No lesions are appreciated. Cardiovascular: Regular rate and rhythm with a normal S1 and S2. No gallops, murmurs, or rubs. Normal PMI, no JVD. No pulse deficits. Respiratory: Lungs have equal breath sounds bilaterally, clear to auscultation and percussion. No rales, rhonchi or wheezes noted. No increased work of breathing, no retractions or nasal flaring. Abdomen/GI: Soft, with normal bowel sounds. No distension or tympany. No guarding or rebound. No evidence of tenderness throughout. Back: No spinal tenderness. No costovertebral tenderness. Skin: Warm, dry with normal turgor. Normal color with no rashes, no lesions, positive right hand wrist forearm cellulitis MS/ Extremity: Pulses equal, no cyanosis. Neurovascular intact. Full, normal range of motion. Positive right hand and wrist and mid forearm pain swelling tenderness redness consistent with acute cellulitis Neuro: Awake and alert, GCS 15, oriented to person, place, time, and situation. Cranial nerves II-XII grossly intact. Motor strength 5/5 in all extremities. Sensory grossly intact. Psych: Awake, alert, with orientation to person, place and time. Behavior, mood, and affect are within normal limits Vital Signs: 01:53 BP 157 / 84; Pulse 75; Resp 16; Temp 100.1; Pulse Ox 95% ; Weight 127.01 kg; Height 5 jb4 ft. 9 in. ; Pain 9/10; 02:00 BP 148 / 94; Pulse 75; Resp 18; Pulse Ox 97% on R/A; al5 03:30 BP 141 / 83; Pulse 68; Resp 18; Pulse Ox 98% on R/A; al5 04:41 BP 132 / 79; Pulse 70; Resp 18; Pulse Ox 100% on R/A; al5 01:53 Body Mass Index 41.35 (127.01 kg, 175.26 cm) jb4 01:53 Pain Scale: Adult jb4 MDM: 02:12 Patient medically screened. sp4 05:30 Differential diagnosis: dislocation, contusion, abrasion, tendonitis. Data reviewed: sp4 vital signs, nurses notes, lab test result(s). ED course: Patient will be placed on extended course of Keflex and Bactrim.. 11/16 02:28 Order name: CBC with Diff; Complete Time: 04:23 sp4 11/16 02:28 Order name: CMP; Complete Time: 04:23 sp4 11/16 02:29 Order name: CRP; Complete Time: 04:23 sp4 11/16 02:36 Order name: UPPER EXTREMITY VENOUS UNILATE EDMS 11/16 02:28 Order name: IV Saline Lock; Complete Time: 03:34 sp4 11/16 02:28 Order name: Labs collected and sent; Complete Time: 03:34 sp4 Administered Medications: 03:34 Drug: TORadol - Ketorolac IVP 15 mg IVP once Route: IVP; Site: left wrist; al5 04:00 Follow up: Response: No adverse reaction tm6 03:34 Drug: Trimethoprim-Sulfamethoxazole PO (160 mg-800 mg (DS) 1 tablet PO once Route: PO; al5 04:00 Follow up: Response: No adverse reaction tm6 03:34 Drug: HYDROcodone-acetaminophen PO 5 mg-325 mg 2 tabs PO once Route: PO; al5 04:00 Follow up: Response: No adverse reaction tm6 03:34 Drug: Ibuprofen PO 800 mg PO once Route: PO; al5 04:01 Follow up: Response: No adverse reaction tm6 03:35 Drug: Ondansetron IVP 4 mg IVP once; over 2 minutes Route: IVP; Site: left wrist; al5 04:00 Follow up: Response: No adverse reaction tm6 03:35 Drug: Rocephin - Rocephin (cefTRIAXone) IVPB 1 grams IVPB once over 30 mins; (mix in 50 tm6 mL NS) Route: IVPB; Infused Over: 30 mins; Site: left wrist; 04:00 Follow up: Response: No adverse reaction; IV Status: Completed infusion; IV Intake: [id number] Disposition Summary: 11/17/23 04:31 Discharge Ordered Notes: Location: Home sp4 Problem: new sp4 Symptoms: have improved sp4 Condition: Stable sp4 Diagnosis - Right hand and forearm cellulitis acute sp4 Followup: sp4 - With: Private Physician - When: 7 - 10 days - Reason: Recheck today's complaints Discharge Instructions: - Discharge Summary Sheet sp4 - Cellulitis, Adult, [id number] sp4 Forms: - Patient Portal Instructions sp4 Prescriptions: - Cephalexin 500 mg Oral Capsule - take 1 capsule ORAL route every 6 hours for 10 days; 40 capsule; Refills: 0, sp4 Product Selection Permitted - Tramadol 50 mg Oral tablet - take 1 tablet ORAL route every 8 hours PRN pain; 20 tablet; Refills: 0, Product sp4 Selection Permitted - Bactrim DS 800-160 mg Oral Tablet - take 1 tablet ORAL route every 12 hours for 10 days; 20 tablet; Refills: 0, sp4 Product Selection Permitted Signatures: Dispatcher [employer] EDMS Dread Lundy, RN RN jb4 Rj Griffin MD MD sp4 Jocy Saleh RN RN tm6 Sylvie David RN RN al5 Corrections: (The following items were deleted from the chart) 02: 02:28 Extremity Venous Uni Ltd+US.RAD.BRZ ordered. EDMS EDMS 02: 02:28 CBC+H.LAB.BRZ ordered. EDMS EDMS 02: 02:28 COMPREHENSIVE METABOLIC PANEL+C.LAB.BRZ ordered. EDMS EDMS
[2023-11-17 04:51] VITALS: TEMP 100.1
[2023-11-17 05:08] VITALS: BP 132/79; O2SAT 100
--- NOTE | 2023-11-17 07:54 | RAD REPORT ---
EXAM DESCRIPTION: US - UPPER EXTREMITY VENOUS UNILATE - 11/17/2023 3:17 am CLINICAL HISTORY: right arm swelling Arm swelling and edema. COMPARISON: Extremity Venous Uni Ltd dated 08/29/2023 FINDINGS: Right upper extremity venous system was interrogated with Doppler technique. Normal flow, compressibility and augmentation was noted. There is no DVT present. IMPRESSION: No evidence of right upper extremity deep venous thrombosis.
== END 2023-11-17 04:42 | disposition home or self-care (01) ==
LOC: ER 01:42
DX: L03.113 Cellulitis of right upper limb (principal); E11.9 Type 2 diabetes mellitus without complications; I10 Essential (primary) hypertension; I48.91 Unspecified atrial fibrillation; Z79.01 Long term (current) use of anticoagulants; Z95.818 Presence of other cardiac implants and grafts
CPT/HCPCS: 96365; 85025; 36415; 80053; 86140; 93971; 96375; 99284; J2405; J0696

== ENCOUNTER 2024-04-09 12:55 | Emergency (ER) | payer OTHER ==
--- NOTE | 2024-04-09 14:03 | RAD REPORT ---
EXAMINATION: ULTRASOUND DUPLEX OF SCROTUM AND TESTICLES CLINICAL INDICATION: Male, 73 years, swelling and pain left side TECHNIQUE: Duplex scan of the scrotal contents was performed including real-time color and spectral D oppler ultrasonography with arterial inflow and venous outflow. COMPARISON: 02/08/2015 FINDINGS: RIGHT TESTICLE AND EPIDIDYMIS: The right testicle is normal in size, measuring 3.7 x 2.4 x 2.0 cm. Normal, homogeneous echotexture with no focal lesion seen. The right epididymis is normal. Color Doppler flow in the right testicle is normal. LEFT TESTICLE AND EPIDIDYMIS: The left testicle is normal in size, measuring 3.3 x 3.0 x 2.9 cm. Normal, homogeneous echotexture with no focal lesion seen. The left epididymis demonstrates elevated blood flow. Elevated blood flow seen to the left testicle. ADDITIONAL FINDINGS: Moderate to large chronic left hydrocele. Small to moderate right hydrocele. IMPRESSION: No testicular torsion findings. Left epididymitis/orchitis suspected. Moderate to large chronic left hydrocele.
--- NOTE | 2024-04-09 14:14 | EDPHYS ---
Physician Documentation [facility] Name: Salbador Krause Age: 73 yrs Sex: Male : 1950 Arrival Date: 04/09/2024 Time: 12:55 Bed 17 Private MD: ED Physician Sunil Corral HPI: 04/09 13:35 This 73 yrs old Black Male presents to ER via Ambulatory with complaints of swollen rn testicle. 13:35 The patient presents with scrotal pain, of the left side, with swelling, swelling. rn 13:36 Onset: The symptoms/episode began/occurred 3 day(s) ago. Modifying factors: The rn symptoms are alleviated by nothing, the symptoms are aggravated by pressure. Severity of symptoms: At their worst the symptoms were mild, in the emergency department the symptoms are unchanged. The patient has not experienced similar symptoms in the past. The patient has not recently seen a physician. Historical: - Allergies: 13:24 No Known Allergies; iw - PMHx: 13:24 Atrial Fib; CHF; Diabetes - NIDDM; Hypertension; LYMPHOMA; iw - PSHx: 13:24 heart stent; iw - Immunization history:: Adult Immunizations up to date. - Infectious Disease History:: Denies. - Family history:: not pertinent. - Hospitalizations: : No recent hospitalization is reported. - Social history:: Smoking status: Patient denies any tobacco usage or history of. ROS: 13:36 Constitutional: Negative for fever, chills, and weight loss, Cardiovascular: Negative rn for chest pain, palpitations, and edema, Respiratory: Negative for shortness of breath, cough, wheezing, and pleuritic chest pain, Abdomen/GI: Negative for abdominal pain, nausea, vomiting, diarrhea, and constipation, : Positive for left testicular swelling and pain Exam: 13:36 Constitutional: This is a well developed, well nourished patient who is awake, alert, rn and in no acute distress. Abdomen/GI: Soft, nontender, no masses Male : Mild to moderate swelling of the left hemiscrotum without focal tenderness. Vital Signs: 13:23 BP 154 / 96; Pulse 93; Resp 16; Temp 97.9; Pulse Ox 100% on R/A; Weight 104.33 kg; iw Height 5 ft. 9 in. ; Pain 9/10; 14:35 BP 145 / 88; Pulse 80; Resp 17; Pulse Ox 99% on R/A; rs5 13:23 Body Mass Index 33.96 (104.33 kg, 175.26 cm) iw 13:23 Pain Scale: Adult iw MDM: 13:22 Medical Screening Exam initiated rn 14:11 Differential diagnosis: Hydrocele, varicocele, epididymitis. Data reviewed: vital rn signs, nurses notes, radiologic studies, ultrasound, and as a result, I will discharge patient. Counseling: I had a detailed discussion with the patient and/or guardian regarding the historical points, exam findings, and any diagnostic results supporting the discharge/admit diagnosis, radiology results, the need for outpatient follow up, to return to the emergency department if symptoms worsen or persist or if there are any questions or concerns that arise at home. Special discussion: I discussed with the patient/guardian in detail that at this point there is no indication for admission to the hospital. It is understood, however, that if the symptoms persist or worsen the patient needs to return immediately for re-evaluation. Based on the history and exam findings, there is no indication for further emergent testing or inpatient evaluation. I discussed with the patient/guardian the need to see the urologist for further evaluation of the symptoms. ED course: Ultrasound shows left epididymitis and chronic hydroceles on both sides, left larger than right. Will discharge home with levofloxacin and urology follow-up.. 04/09 13:27 Order name: US Scrotum Testicles; Complete Time: 14:04 rn Administered Medications: 14:11 Drug: LevOfloxacin PO 500 mg PO once Route: PO; rs5 14:40 Follow up: Response: No adverse reaction rs5 Disposition Summary: 04/09/24 14:13 Discharge Ordered Notes: Location: Home rn Problem: new rn Symptoms: have improved rn Condition: Stable rn Diagnosis - Epididymitis rn - Hydrocele, unspecified rn Followup: rn - With: Latrell Swain MD - When: As needed - Reason: Recheck today's complaints, Re-evaluation by your physician Discharge Instructions: - Discharge Summary Sheet rn - Epididymitis rn - Hydrocele, Adult rn Forms: - Medication Reconciliation Form rn - Antibiotic clothing patternmaker - Prescription Opioid Use rn - Patient Portal Instructions rn - Leadership Thank You Letter rn Prescriptions: - levofloxacin 500 mg Oral tablet - take 1 tablet ORAL route once daily for 14 days; 14 tablet; Refills: 0, Product rn Selection Permitted Signatures: Dispatcher [employer] Bee Wilkerson, RN Sunil Townsend MD MD rn Sotelo, Ricky, RN RN rs5
--- NOTE | 2024-04-09 14:14 | ER ---
Nurse's Notes [facility] Name: Salbador Krause Age: 73 yrs Sex: Male : 1950 Arrival Date: 04/09/2024 Time: 12:55 Bed 17 Private MD: Diagnosis: Epididymitis;Hydrocele, unspecified Presentation: 04/09 13:23 Chief complaint: Patient states: left sided testicular swelling , some pain , X 3-4 iw days. Coronavirus screen: At this time, the client does not indicate any symptoms associated with coronavirus-19. 13:23 Acuity: RAFAEL 3 iw 13:23 Method Of Arrival: Ambulatory iw 13:23 Onset of symptoms was April 06, 2024. iw 13:25 Ebola Screen: No symptoms or risks identified at this time. Initial Sepsis Screen: Does rs5 the patient meet any 2 criteria? No. Patient's initial sepsis screen is negative. Does the patient have a suspected source of infection? No. Patient's initial sepsis screen is negative. Risk Assessment: Do you want to hurt yourself or someone else? Patient reports no desire to harm self or others. Triage Assessment: 13:25 General: Appears in no apparent distress. uncomfortable, Behavior is calm, cooperative. rs5 Historical: - Allergies: 13:24 No Known Allergies; iw - PMHx: 13:24 Atrial Fib; CHF; Diabetes - NIDDM; Hypertension; LYMPHOMA; iw - PSHx: 13:24 heart stent; iw - Immunization history:: Adult Immunizations up to date. - Infectious Disease History:: Denies. - Family history:: not pertinent. - Hospitalizations: : No recent hospitalization is reported. - Social history:: Smoking status: Patient denies any tobacco usage or history of. Screenin:25 [facility] ED Fall Risk Assessment (Adult) History of falling in the last 3 months, rs5 including since admission No falls in past 3 months (0 pts) Confusion or Disorientation No (0 pts) Intoxicated or Sedated No (0 pts) Impaired Gait No (0 pts) Mobility Assist Device Used No (0 pt) Altered Elimination No (0 pt) Score/Fall Risk Level 0 - 2 = Low Risk Oriented to surroundings, Maintained a safe environment. Abuse screen: Denies threats or abuse. Nutritional screening: No deficits noted. Tuberculosis screening: No symptoms or risk factors identified. Assessment: 13:25 General: Appears in no apparent distress. uncomfortable, Behavior is calm, cooperative. rs5 Pain: Complains of pain in left testicle Pain currently is 2 out of 10 on a pain scale. Quality of pain is described as aching, Is continuous. Neuro: Level of Consciousness is awake, alert, obeys commands, Oriented to person, place, time, situation. Cardiovascular: Patient's skin is warm and dry. Respiratory: Airway is patent Respiratory effort is even, unlabored, Respiratory pattern is regular, symmetrical. GI: Abdomen is round non-distended, Abd is soft and non tender X 4 quads. : Reports left testicular swelling. EENT: No signs and/or symptoms were reported regarding the EENT system. Derm: Skin is intact, Skin is pink, warm \T\ dry. 13:25 Musculoskeletal: Range of motion: intact in all extremities. rs5 Vital Signs: 13:23 BP 154 / 96; Pulse 93; Resp 16; Temp 97.9; Pulse Ox 100% on R/A; Weight 104.33 kg; iw Height 5 ft. 9 in. ; Pain 9/10; 14:35 BP 145 / 88; Pulse 80; Resp 17; Pulse Ox 99% on R/A; rs5 13:23 Body Mass Index 33.96 (104.33 kg, 175.26 cm) iw 13:23 Pain Scale: Adult iw ED Course: 12:57 Patient arrived in ED. im 13:22 Sunil Corral MD is Attending Physician. rn 13:24 Triage completed. iw 13:25 Patient has correct armband on for positive identification. Placed in gown. Bed in low rs5 position. Call light in reach. Side rails up X2. 13:25 Arm band placed on right wrist. rs5 13:25 No provider procedures requiring assistance completed. rs5 13:51 US Scrotum Testicles In Process Unspecified. EDMS 14:13 Latrell Swain MD is Referral Physician. rn 14:38 Provided Education on: discharge instructions . rs5 14:40 Juan Mota, JIM is Primary Nurse. rs5 14:40 Patient did not have IV access during this emergency room visit. rs5 Administered Medications: 14:11 Drug: LevOfloxacin PO 500 mg PO once Route: PO; rs5 14:40 Follow up: Response: No adverse reaction rs5 Medication: 14:40 VIS not applicable for this client. rs5 Outcome: 14:13 Discharge ordered by . rn 14:40 Discharged to home ambulatory, rs5 14:40 Condition: stable rs5 14:40 Discharge instructions given to patient, family, Instructed on discharge instructions, follow up and referral plans. medication usage, Demonstrated understanding of instructions, follow-up care, medications, Prescriptions given X 1, 14:46 Patient left the ED. rs5 Signatures: Dispatcher [employer] EDMS Bee Mendez RN RN iw Nieto, Roman, MD MD rn Sotelo, Ricky, RN RN rs5 Isidra Pearson Corrections: (The following items were deleted from the chart) 13:24 13:23 BP 154 / 96; Pulse 93bpm; Resp 16bpm; Pulse Ox 100% RA; Temp 97.9F; iw iw 16:29 16:28 BP 145 / 88; Pulse 80bpm; Resp 17bpm; Pulse Ox 99% RA; rs5 rs5
[2024-04-09] MEDS ORDERED: levoFLOXacin 250 MG TAB ONE (14:41)
[2024-04-09 15:01] VITALS: BP 154/96; TEMP 97.9; O2SAT 100
== END 2024-04-09 14:46 | disposition home or self-care (01) ==
LOC: ER 12:55
DX: N45.1 Epididymitis (principal); N43.3 Hydrocele, unspecified
CPT/HCPCS: 76870; 99283